=== PATIENT | male | born 1950 | race Caucasian/White ===

== ENCOUNTER 2025-01-05 03:49 | Emergency (ER) | payer MEDICARE, OTHER, SELFPAY ==
[2025-01-05] VITALS (11 sets, daily range): BP systolic 141–180; BP diastolic 53–104; PULSE 60–88; RESP 14–24; TEMP 36.5; O2SAT 94–100
--- NOTE | ~2025-01-05 | CT_ITS ---
CT head without contrast Indication: Altered mental status Technique: Serial scans were obtained through the brain without the administration of contrast. Dose reduction technique was used on this scan by utilizing automated exposure control and iterative recon struction technique. The dose-length product (DLP) was 681.00 mGy-cm. Findings: There is no evidence of intracranial hemorrhage, mass lesion, or acute infarct. The ventri cles and subarachnoid spaces are dilated, consistent with mild atrophy. Low attenuation regions are seen within the periventricular white matter bilaterally, likely representing changes from chronic mi crovascular ischemic disease. There is no evidence of edema, mass effect or midline shift. The visu alized paranasal sinuses and mastoid air cells are clear. Impression: No intracranial hemorrhage, mass, or acute infarct. Atrophy and chronic white matter changes, as above. Reviewed, dictated and finalized at location . Impression: No intracranial hemorrhage, mass, or acute infarct. Atrophy and chronic white matter changes, as above.
--- NOTE | ~2025-01-05 | XR_ITS ---
Portable chest x-ray Comparison: None Clinical History: Cough, tracheostomy Findings: Tracheostomy cannula place. There is patchy left basilar airspace consolidation with small left pleural effusion. Minimal haziness right lung base noted. Cardiomediastinal silhouette is stab le. Bones and soft tissues are unremarkable. Impression: Patchy left basilar consolidation suspicious for pneumonia versus possibly atelectasis. Small left pleural effusion. Minimal nonspecific haziness right lung base. Tracheostomy cannula. Reviewed, dictated and finalized at [facility]. Impression: Patchy left basilar consolidation suspicious for pneumonia versus possibly atel ectasis. Small left pleural effusion. Minimal nonspecific haziness right lung base. Tracheostomy cannula.
--- NOTE | 2025-01-05 03:53 | ECG_ITS ---
Test Date: 2025-01-05 03:53:57 Measurements Intervals Guys Rate: 90 P: 18 NH: 201 QRS: -66 QRSD: 108 T: 128 QT: 375 QTc: 460 Interpretive Statements SINUS RHYTHM WITH OCCASIONAL SUPRAVENTRICULAR PREMATURE COMPLEXES BORDERLINE AV CONDUCTION DELAY LEFT ANTERIOR FASCICULAR BLOCK ST-T WAVE ABNORMALITY IN HIGH LATERAL LEADS- CONSIDER ISCHEMIA ABNORMAL ECG No previous ECG available for comparison Electronically Signed On 01-05-2025 10:57:54 CDT by Adam Austin D.O.
--- OUTSIDE RECORDS SUMMARY | 2025-01-05 03:59 | XMS_ITS | Encounter Summary ---
Author Organization [facility] Address [address] [place] [address] Care Team Providers Care Band Nailer Name Role Phone Unavailable Primary Care Provider Unavailabl e Encounter Details Date Type Department Care Team (Late st Contact Info) Description 11/19/2022 Lab Requisition [facility] Laboratory Services [address] [place] [address] [place] [address] [place] [address] Social History Tobacco Use Types Packs/Day Years Used Date Smoking Tobacco: Never Assessed Sex and Gender Information Value Date Recorded Sex Assigned at Not on file Legal Sex Male 2:27 PM DRAMATIC TEACHER Gender Identity Not on file Sexual Orientation Not on file COVID-19 Exposure Response Date Recorded In the last 10 days, have yo u been in contact with someone who was confirmed or suspected to have Coronavirus/COVID-19? Unable to assess 11/19/2022 6:21 AM DRAMATIC TEACHER documented as of this encounter Plan of Treatment Not on file documented as of this encounter Procedures Procedure Name Priority Date/Time Associated Diagnosis Comments CBC WITH DIFFERENTIAL Routine 11/19/2022 4:00 AM DRAMATIC TEACHER BASIC METABOLIC PANEL Routine 11/19/2022 4:00 AM DRAMATIC TEACHER documented in this encounter Results * (ABNORMAL) CBC WITH DIFFERENTIAL (11/19/2022 4:00 AM DRAMATIC TEACHER) Pathologist [facility] WBC 9.4 4.5 - 10.5 K/uL 11/19/2022 7:12 AM DRAMATIC TEACHER [facility] LABORATORY SERVICES [facility] RBC 3.13(L) 4.50 - 5.40 M/uL 11/19/2022 7:[address] [facility] LABORATORY [facility] HEMOGLOBIN 9.4(L) 13.6 - 16.5 g/dL 11/19/2022 7:[address] [facility] LABORATORY [facility] HEMATOCRIT 28.0(L) 40.0 - 48.0 % 11/19/2022 7:[address] [facility] LABORATORY SERVICES [facility] MCV 89.4 82.0 - 99.0 fL 11/19/2022 7:12 AM DRAMATIC TEACHER [facility] LABORATORY SERVICES [facility] MCH 30.0 27.8 - 34.5 pg 11/19/2022 7:[address] [facility] LABORATORY SERVICES [facility] MCHC 33.5 32.5 - 35.5 g/dL 11/19/2022 7:[address] [facility] LABORATORY [facility] RDW 15.0(H) 11.5 - 14.5 % 11/19/2022 7:12 AM DRAMATIC TEACHER [facility] LABORATORY SERVICES [facility] PLATELETS 217 160 - 420 K/uL 11/19/2022 7:12 AM DRAMATIC TEACHER [facility] LABORATORY SERVICES [facility] MPV 9.4 8.7 - 12.7 fL 11/19/2022 7:12 AM DRAMATIC TEACHER [facility] LABORATORY SERVICES [facility] NEUTROPHILS 64 % 11/19/2022 7:12 AM DRAMATIC TEACHER [facility] LABORATORY SERVICES [facility] LYMPHOCYTES 19 % 11/19/2022 7:12 AM DRAMATIC TEACHER [facility] LABORATORY SERVICES [facility] MONOCYTES 9 % 11/19/2022 7:12 AM DRAMATIC TEACHER [facility] LABORATORY SERVICES [facility] EOSINOPHILS 6 % 11/19/2022 7:12 AM DRAMATIC TEACHER [facility] LABORATORY SERVICES [facility] BASOPHILS 1 % 11/19/2022 7:12 AM DRAMATIC TEACHER [facility] LABORATORY SERVICES [facility] NEUTROPHIL ABSOLUTE 6.10 1.90 - 7.00 K/uL 11/19/2022 7:12 AM DRAMATIC TEACHER [facility] LABORATORY [facility] LYMPHOCYTE ABSOLUTE 1.80 0.70 - 4.50 K/uL 11/19/2022 7:12 AM DRAMATIC TEACHER [facility] LABORATORY SERVICES [facility] MONOCYTE ABSOLUTE 0.90 0.10 - 1.30 K/uL 11/19/2022 7:12 AM DRAMATIC TEACHER [facility] LABORATORY [facility] EOSINOPHIL ABSOLUTE 0.60 0.00 - 0.70 K/uL 11/19/2022 7:[address] [facility] LABORATORY [facility] BASOPHILS ABSOLUTE 0.10 0.00 - 0.20 K/uL 11/19/2022 7:12 AM [facility] Blood Collection / Unknown 11/19/2022 4:00 AM DRAMATIC TEACHER 11/19/2022 7:01 AM DRAMATIC TEACHER us Franco Apple MD HEMATOLOGY ORDERABLES Final Resu lt [facility] CLIA# [id number] [place] [address] * (ABNORMAL) BASIC METABOLIC PANEL (11/19/2022 4:00 AM DRAMATIC TEACHER) SODIUM 136 136 - 145 mmol/L 11/19/2022 7:52 AM [facility] POTASSIUM 3.6 3.4 - 5.1 mmol/L 11/19/2022 7:52 AM [facility] CHLORIDE 88(L) 98 - 107 mmol/L 11/19/2022 7:52 AM [facility] CO2 35(H) 22 - 29 mmol/L 11/19/2022 7:52 AM [facility] CALCIUM 10.6(H) 8.6 - 10.4 mg/dL 11/19/2022 7:52 AM [facility] BUN 59(H) 6 - 20 mg/dL 11/19/2022 7:52 AM [facility] CREATININE 0.91 0.67 - 1.17 mg/dL 11/19/2022 7:52 AM [facility] Comment:The GFR result is no t clinically significant on patients <18 or >70 years of age. GLUCOSE 177(H) 74 - 99 mg/dL 11/19/2022 7:52 AM [facility] GFR >60 mL/min/1.7 3 sq meter 11/19/2022 7:52 AM DRAMATIC TEACHER [facility] LABORATORY [facility] Comment:eGFR calculated with 2020 CKD-EPI equation. Vegetarian diet, extremely high or low muscle mass, and may affect results. Cystatin C with Glomerular Filtration Rate is a suitable alternative for these patients. ANION GAP 13 8 - 16 mmol/L 11/19/2022 7:52 AM DRAMATIC TEACHER [facility] LABORATORY [facility] Blood Collection / Unknown 11/19/2022 4:00 AM DRAMATIC TEACHER 11/19/2022 7:01 AM DRAMATIC TEACHER us Franco Apple MD CHEMISTRY ORDERABLES Final Resul t [facility] [employer] [facility] CLIA# [id number] [address] [place] [address] documented in this encounter Visit Diagnoses Not on filedocumented in this encounter Additional Health Concerns Infection Onset Date Last Indicated Resolved Time MRSA Comment:09/2022 sputum Resolved per Type and Duration of Precautions Recommended for Selected Infections and Conditions document 2023 update 09/16/2022 09/28/202206/04 4:18 PM CDT documented as of this encounter
--- OUTSIDE RECORDS SUMMARY | 2025-01-05 03:59 | XMS_ITS | Encounter Summary ---
Author Organization [facility] Address [address] [place] [address] Care Team Providers Care Industrial Pipefitter Journeyman Name Role Phone Unavailable Primary Care Provider Unavailabl e Encounter Details Date Type Department Care Team (Late st Contact Info) Description 12/01/2022 Lab Requisition [facility] Laboratory Services [address] [place] [address] [place] [address] [place] [address] Social History Tobacco Use Types Packs/Day Years Used Date Smoking Tobacco: Never Assessed Sex and Gender Information Value Date Recorded Sex Assigned at Not on file Legal Sex Male 2:27 PM EVAPORATOR Gender Identity Not on file Sexual Orientation Not on file COVID-19 Exposure Response Date Recorded In the last 10 days, have yo u been in contact with someone who was confirmed or suspected to have Coronavirus/COVID-19? Unable to assess 12/02/2022 11:49 AM EVAPORATOR documented as of this encounter Plan of Treatment Not on file documented as of this encounter Procedures Procedure Name Priority Date/Time Associated Diagnosis Comments CBC WITH DIFFERENTIAL Routine 12/01/2022 4:00 AM EVAPORATOR BASIC METABOLIC PANEL Routine 12/01/2022 4:00 AM EVAPORATOR documented in this encounter Results * (ABNORMAL) CBC WITH DIFFERENTIAL (12/01/2022 4:00 AM EVAPORATOR) WBC 10.7(H) 4.5 - 10.5 K/uL 12/01/2022 7:45 AM EVAPORATOR [facility] LABORATORY SERVICES [facility] RBC 3.18(L) 4.50 - 5.40 M/uL 12/01/2022 7:45 AM EVAPORATOR [facility] LABORATORY [facility] HEMOGLOBIN 9.7(L) 13.6 - 16.5 g/dL 12/01/2022 7:45 AM [facility] LABORATORY [facility] HEMATOCRIT 28.3(L) 40.0 - 48.0 % 12/01/2022 7:45 AM EVAPORATOR [facility] LABORATORY [facility] MCV 88.9 82.0 - 99.0 fL 12/01/2022 7:45 AM EVAPORATOR [facility] LABORATORY SERVICES [facility] MCH 30.4 27.8 - 34.5 pg 12/01/2022 7:45 AM EVAPORATOR [facility] LABORATORY SERVICES [facility] MCHC 34.2 32.5 - 35.5 g/dL 12/01/2022 7:45 AM [facility] LABORATORY [facility] RDW 15.1(H) 11.5 - 14.5 % 12/01/2022 7:45 AM EVAPORATOR [facility] LABORATORY [facility] PLATELETS 260 160 - 420 K/uL 12/01/2022 7:45 AM EVAPORATOR [facility] LABORATORY [facility] MPV 9.3 8.7 - 12.7 fL 12/01/2022 7:45 AM EVAPORATOR [facility] LABORATORY SERVICES [facility] NEUTROPHILS 69 % 12/01/2022 7:45 AM EVAPORATOR [facility] LABORATORY [facility] LYMPHOCYTES 19 % 12/01/2022 7:45 AM EVAPORATOR [facility] LABORATORY SERVICES [facility] MONOCYTES 8 % 12/01/2022 7:45 AM EVAPORATOR [facility] LABORATORY SERVICES [facility] EOSINOPHILS 4 % 12/01/2022 7:45 AM EVAPORATOR [facility] LABORATORY SERVICES [facility] BASOPHILS 0 % 12/01/2022 7:45 AM EVAPORATOR [facility] LABORATORY SERVICES [facility] NEUTROPHIL ABSOLUTE 7.30(H) 1.90 - 7.00 K/uL 12/01/2022 7:45 AM EVAPORATOR [facility] LABORATORY [facility] LYMPHOCYTE ABSOLUTE 2.00 0.70 - 4.50 K/uL 12/01/2022 7:45 AM EVAPORATOR [facility] LABORATORY SERVICES [facility] MONOCYTE ABSOLUTE 0.90 0.10 - 1.30 K/uL 12/01/2022 7:45 AM [facility] [place] EOSINOPHIL ABSOLUTE 0.40 0.00 - 0.70 K/uL 12/01/2022 7:45 AM [facility] [place] BASOPHILS ABSOLUTE 0.00 0.00 - 0.20 K/uL 12/01/2022 7:45 AM [facility] [place] Blood 12/01/2022 4:00 AM EVAPORATOR 12/01/2022 7:39 AM EVAPORATOR Franco Apple MD HEMATOLOGY ORDERABLES Final Resu lt [facility] CLIA# [id number] [address] [place] [address] * (ABNORMAL) BASIC METABOLIC PANEL (12/01/2022 4:00 AM EVAPORATOR) SODIUM 137 136 - 145 mmol/L 12/01/2022 8:18 AM [facility] [place] POTASSIUM 3.4 3.4 - 5.1 mmol/L 12/01/2022 8:18 AM [facility] [place] CHLORIDE 92(L) 98 - 107 mmol/L 12/01/2022 8:18 AM [facility] [place] CO2 31(H) 22 - 29 mmol/L 12/01/2022 8:18 AM [facility] [place] CALCIUM 10.5(H) 8.6 - 10.4 mg/dL 12/01/2022 8:18 AM [facility] [place] BUN 53(H) 6 - 20 mg/dL 12/01/2022 8:18 AM [facility] [place] CREATININE 1.06 0.67 - 1.17 mg/dL 12/01/2022 8:18 AM [facility] [place] Comment:The GFR result is no t clinically significant on patients <18 or >70 years of age. GLUCOSE 144(H) 74 - 99 mg/dL 12/01/2022 8:18 AM [facility] [place] GFR >60 mL/min/1.7 3 sq meter 12/01/2022 8:18 AM EVAPORATOR [facility] LABORATORY [facility] Comment:eGFR calculated with 2020 CKD-EPI equation. Vegetarian diet, extremely high or low muscle mass, and may affect results. Cystatin C with Glomerular Filtration Rate is a suitable alternative for these patients. ANION GAP 14 8 - 16 mmol/L 12/01/2022 8:18 AM EVAPORATOR [facility] LABORATORY [facility] Blood 12/01/2022 4:00 AM EVAPORATOR 12/01/2022 7:39 AM EVAPORATOR us Franco Apple MD CHEMISTRY ORDERABLES Final Resul t [facility] CLIA# [id number] [address] [place] [address] documented in this encounter Visit Diagnoses Not on filedocumented in this encounter Additional Health Concerns Infection Onset Date Last Indicated Resolved Time MRSA Comment:09/2022 sputum Resolved per Type and Duration of Precautions Recommended for Selected Infections and Conditions document 2023 update 09/16/2022 09/28/202206/04 4:18 PM CDT documented as of this encounter
--- OUTSIDE RECORDS SUMMARY | 2025-01-05 03:59 | XMS_ITS | Encounter Summary ---
Author Organization [facility] Address [address] [place] [address] Care Team Providers Care Parachute Taper Name Role Phone Unavailable Primary Care Provider Unavailabl e Encounter Details Date Type Department Care Team (Late st Contact Info) Description 11/16/[address] [facility] [address] [facility] [place] [address] [place] [address] [place] [address] Social History Tobacco Use Types Packs/Day Years Used Date Smoking Tobacco: Never Assessed Sex and Gender Information Value Date Recorded Sex Assigned at Not on file Legal Sex Male 2:27 PM SIGN FABRICATOR Gender Identity Not on file Sexual Orientation Not on file COVID-19 Exposure Response Date Recorded In the last 10 days, have yo u been in contact with someone who was confirmed or suspected to have Coronavirus/COVID-19? Unable to assess 11/19/2022 6:21 AM SIGN FABRICATOR documented as of this encounter Plan of Treatment Not on file documented as of this encounter Procedures Procedure Name Priority Date/Time Associated Diagnosis Comments CBC WITH DIFFERENTIAL Routine 11/16/2022 4:00 AM SIGN FABRICATOR BASIC METABOLIC PANEL Routine 11/16/2022 4:00 AM SIGN FABRICATOR documented in this encounter Results * (ABNORMAL) CBC WITH DIFFERENTIAL (11/16/2022 4:00 AM SIGN FABRICATOR) Pathologist [facility] WBC 8.8 4.5 - 10.5 K/uL 11/16/2022 7:47 AM SIGN FABRICATOR [facility] LABORATORY SERVICES [facility] RBC 3.07(L) 4.50 - 5.40 M/uL 11/16/2022 7:47 AM [facility] LABORATORY [facility] HEMOGLOBIN 9.3(L) 13.6 - 16.5 g/dL 11/16/2022 7:47 AM [facility] LABORATORY [facility] HEMATOCRIT 27.5(L) 40.0 - 48.0 % 11/16/2022 7:47 AM SIGN FABRICATOR [facility] LABORATORY SERVICES [facility] MCV 89.5 82.0 - 99.0 fL 11/16/2022 7:47 AM SIGN FABRICATOR [facility] LABORATORY SERVICES [facility] MCH 30.2 27.8 - 34.5 pg 11/16/2022 7:47 AM SIGN FABRICATOR [facility] LABORATORY SERVICES [facility] MCHC 33.8 32.5 - 35.5 g/dL 11/16/2022 7:47 AM [facility] LABORATORY SERVICES [facility] RDW 15.1(H) 11.5 - 14.5 % 11/16/2022 7:47 AM SIGN FABRICATOR [facility] LABORATORY SERVICES [facility] PLATELETS 234 160 - 420 K/uL 11/16/2022 7:47 AM SIGN FABRICATOR [facility] LABORATORY SERVICES [facility] MPV 9.2 8.7 - 12.7 fL 11/16/2022 7:47 AM SIGN FABRICATOR [facility] LABORATORY SERVICES [facility] NEUTROPHILS 65 % 11/16/2022 7:47 AM SIGN FABRICATOR [facility] LABORATORY SERVICES [facility] LYMPHOCYTES 20 % 11/16/2022 7:47 AM SIGN FABRICATOR [facility] LABORATORY SERVICES [facility] MONOCYTES 10 % 11/16/2022 7:47 AM SIGN FABRICATOR [facility] LABORATORY SERVICES [facility] EOSINOPHILS 5 % 11/16/2022 7:47 AM SIGN FABRICATOR [facility] LABORATORY SERVICES [facility] BASOPHILS 0 % 11/16/2022 7:47 AM SIGN FABRICATOR [facility] LABORATORY SERVICES [facility] NEUTROPHIL ABSOLUTE 5.70 1.90 - 7.00 K/uL 11/16/2022 7:47 AM SIGN FABRICATOR [facility] LABORATORY [facility] LYMPHOCYTE ABSOLUTE 1.80 0.70 - 4.50 K/uL 11/16/2022 7:47 AM SIGN FABRICATOR [facility] LABORATORY SERVICES [facility] MONOCYTE ABSOLUTE 0.90 0.10 - 1.30 K/uL 11/16/2022 7:47 AM SIGN FABRICATOR [facility] LABORAT[facility] EOSINOPHIL ABSOLUTE 0.40 0.00 - 0.70 K/uL 11/16/2022 7:47 AM [facility] LABORATORY [facility] BASOPHILS ABSOLUTE 0.00 0.00 - 0.20 K/uL 11/16/2022 7:47 AM [facility] Blood 11/16/2022 4:00 AM SIGN FABRICATOR 11/16/2022 7:37 AM SIGN FABRICATOR us Franco Apple MD HEMATOLOGY ORDERABLES Final Resu lt [facility] CLIA# [id number] [address] [place] [address] * (ABNORMAL) BASIC METABOLIC PANEL (11/16/2022 4:00 AM SIGN FABRICATOR) SODIUM 135(L) 136 - 145 mmol/L 11/16/2022 8:02 AM [facility] POTASSIUM 3.2(L) 3.4 - 5.1 mmol/L 11/16/2022 8:02 AM [facility] CHLORIDE 89(L) 98 - 107 mmol/L 11/16/2022 8:02 AM [facility] CO2 32(H) 22 - 29 mmol/L 11/16/2022 8:02 AM [facility] CALCIUM 10.7(H) 8.6 - 10.4 mg/dL 11/16/2022 8:02 AM [facility] BUN 49(H) 6 - 20 mg/dL 11/16/2022 8:02 AM [facility] CREATININE 0.87 0.67 - 1.17 mg/dL 11/16/2022 8:02 AM [facility] Comment:The GFR result is no t clinically significant on patients <18 or >70 years of age. GLUCOSE 211(H) 74 - 99 mg/dL 11/16/2022 8:02 AM [facility] GFR >60 mL/min/1.7 3 sq meter 11/16/2022 8:02 AM SIGN FABRICATOR [facility] LABORATORY [facility] Comment:eGFR calculated with 2020 CKD-EPI equation. Vegetarian diet, extremely high or low muscle mass, and may affect results. Cystatin C with Glomerular Filtration Rate is a suitable alternative for these patients. ANION GAP 14 8 - 16 mmol/L 11/16/2022 8:02 AM SIGN FABRICATOR [facility] LABORAT[facility] Blood 11/16/2022 4:00 AM SIGN FABRICATOR 11/16/2022 7:37 AM SIGN FABRICATOR us Franco Apple MD CHEMISTRY ORDERABLES Final Resul t [facility] CLIA# [id number] [address] [place] [address] documented in this encounter Visit Diagnoses Not on filedocumented in this encounter Additional Health Concerns Infection Onset Date Last Indicated Resolved Time MRSA Comment:09/2022 sputum Resolved per Type and Duration of Precautions Recommended for Selected Infections and Conditions document 2023 update 09/16/2022 09/28/202206/04 4:18 PM CDT documented as of this encounter
--- OUTSIDE RECORDS SUMMARY | 2025-01-05 03:59 | XMS_ITS | Encounter Summary ---
Author Organization [facility] Address [address] [place] [address] Care Team Providers Care Regrinder Name Role Phone Unavailable Primary Care Provider Unavailabl e Encounter Details Date Type Department Care Team (Late st Contact Info) Description 11/22/2022 Lab Requisition [facility] Laboratory Services [address] [place] [address] [place] [address] [place] [address] Social History Tobacco Use Types Packs/Day Years Used Date Smoking Tobacco: Never Assessed Sex and Gender Information Value Date Recorded Sex Assigned at Not on file Legal Sex Male 2:27 PM HOME ASSESSMENT NURSE Gender Identity Not on file Sexual Orientation Not on file COVID-19 Exposure Response Date Recorded In the last 10 days, have yo u been in contact with someone who was confirmed or suspected to have Coronavirus/COVID-19? Unable to assess 11/23/2022 7:22 AM HOME ASSESSMENT NURSE documented as of this encounter Plan of Treatment Not on file documented as of this encounter Procedures Procedure Name Priority Date/Time Associated Diagnosis Comments CBC WITH DIFFERENTIAL Routine 11/22/2022 4:35 AM HOME ASSESSMENT NURSE BASIC METABOLIC PANEL Routine 11/22/2022 4:35 AM HOME ASSESSMENT NURSE documented in this encounter Results * (ABNORMAL) CBC WITH DIFFERENTIAL (11/22/2022 4:35 AM HOME ASSESSMENT NURSE) Pathologist [facility] WBC 9.8 4.5 - 10.5 K/uL 11/22/2022 6:11 AM HOME ASSESSMENT NURSE [facility] LABORATORY SERVICES [facility] RBC 3.12(L) 4.50 - 5.40 M/uL 11/22/2022 6:11 AM [facility] HEMOGLOBIN 9.1(L) 13.6 - 16.5 g/dL 11/22/2022 6:11 AM [facility] HEMATOCRIT 28.0(L) 40.0 - 48.0 % 11/22/2022 6:11 AM [facility] MCV 90.0 82.0 - 99.0 fL 11/22/2022 6:11 AM HOME ASSESSMENT NURSE [facility] LABORATORY SERVICES [facility] MCH 29.3 27.8 - 34.5 pg 11/22/2022 6:11 AM HOME ASSESSMENT NURSE [facility] LABORATORY SERVICES [facility] MCHC 32.6 32.5 - 35.5 g/dL 11/22/2022 6:11 AM [facility] SERVICES [facility] RDW 15.0(H) 11.5 - 14.5 % 11/22/2022 6:11 AM HOME ASSESSMENT NURSE [facility] LABORATORY SERVICES [facility] PLATELETS 222 160 - 420 K/uL 11/22/2022 6:11 AM HOME ASSESSMENT NURSE [facility] LABORATORY SERVICES [facility] MPV 9.3 8.7 - 12.7 fL 11/22/2022 6:11 AM HOME ASSESSMENT NURSE [facility] LABORATORY SERVICES [facility] NEUTROPHILS 63 % 11/22/2022 6:11 AM HOME ASSESSMENT NURSE [facility] LABORATORY SERVICES [facility] LYMPHOCYTES 23 % 11/22/2022 6:11 AM HOME ASSESSMENT NURSE [facility] LABORATORY SERVICES [facility] MONOCYTES 10 % 11/22/2022 6:11 AM HOME ASSESSMENT NURSE [facility] LABORATORY SERVICES [facility] EOSINOPHILS 4 % 11/22/2022 6:11 AM HOME ASSESSMENT NURSE [facility] LABORATORY SERVICES [facility] BASOPHILS 1 % 11/22/2022 6:11 AM HOME ASSESSMENT NURSE [facility] LABORATORY SERVICES [facility] NEUTROPHIL ABSOLUTE 6.20 1.90 - 7.00 K/uL 11/22/2022 6:11 AM HOME ASSESSMENT NURSE [facility] LABORATORY SERVICES [facility] LYMPHOCYTE ABSOLUTE 2.20 0.70 - 4.50 K/uL 11/22/2022 6:11 AM HOME ASSESSMENT NURSE [facility] LABORATORY SERVICES [facility] MONOCYTE ABSOLUTE 0.90 0.10 - 1.30 K/uL 11/22/2022 6:11 AM HOME ASSESSMENT NURSE [facility] LABORATORY [facility] EOSINOPHIL ABSOLUTE 0.40 0.00 - 0.70 K/uL 11/22/2022 6:11 AM [facility] BASOPHILS ABSOLUTE 0.10 0.00 - 0.20 K/uL 11/22/2022 6:[address] [facility] Blood 11/22/2022 4:35 AM HOME ASSESSMENT NURSE 11/22/2022 6:03 AM HOME ASSESSMENT NURSE us Franco Apple MD HEMATOLOGY ORDERABLES Final Resu lt [facility] CLIA# [id number] [place] [address] * (ABNORMAL) BASIC METABOLIC PANEL (11/22/2022 4:35 AM HOME ASSESSMENT NURSE) SODIUM 137 136 - 145 mmol/L 11/22/2022 6:[address] [facility] POTASSIUM 3.8 3.4 - 5.1 mmol/L 11/22/2022 6:[address] [facility] CHLORIDE 92(L) 98 - 107 mmol/L 11/22/2022 6:[address] [facility] CO2 32(H) 22 - 29 mmol/L 11/22/2022 6:[address] [facility] CALCIUM 10.3 8.6 - 10.4 mg/dL 11/22/2022 6:[address] [facility] BUN 46(H) 6 - 20 mg/dL 11/22/2022 6:[address] [facility] CREATININE 0.96 0.67 - 1.17 mg/dL 11/22/2022 6:[address] [facility] Comment:The GFR result is no t clinically significant on patients <18 or >70 years of age. GLUCOSE 215(H) 74 - 99 mg/dL 11/22/2022 6:[address] [facility] GFR >60 mL/min/1.7 3 sq meter 11/22/2022 6:45 AM HOME ASSESSMENT NURSE [facility] LABORATORY SERVICES [facility] Comment:eGFR calculated with 2020 CKD-EPI equation. Vegetarian diet, extremely high or low muscle mass, and may affect results. Cystatin C with Glomerular Filtration Rate is a suitable alternative for these patients. ANION GAP 13 8 - 16 mmol/L 11/22/2022 6:45 AM HOME ASSESSMENT NURSE [facility] LABORATORY [facility] Blood 11/22/2022 4:35 AM HOME ASSESSMENT NURSE 11/22/2022 6:03 AM HOME ASSESSMENT NURSE us Franco Apple MD CHEMISTRY ORDERABLES Final Resul t [facility] LABORATORY [facility] CLIA# [id number] [place] [address] documented in this encounter Visit Diagnoses Not on filedocumented in this encounter Additional Health Concerns Infection Onset Date Last Indicated Resolved Time MRSA Comment:09/2022 sputum Resolved per Type and Duration of Precautions Recommended for Selected Infections and Conditions document 2023 update 09/16/2022 09/28/202206/04 4:18 PM CDT documented as of this encounter
--- OUTSIDE RECORDS SUMMARY | 2025-01-05 03:59 | XMS_ITS | Encounter Summary ---
Author Organization [facility] Address [address] [place] [address] Care Team Providers Care Shipping Packer Name Role Phone Unavailable Primary Care Provider Unavailabl e Encounter Details Date Type Department Care Team (Late st Contact Info) Description 11/13/2022 Lab Requisition [facility] Laboratory Services [address] [place] [address] [place] [address] [place] [address] Social History Tobacco Use Types Packs/Day Years Used Date Smoking Tobacco: Never Assessed Sex and Gender Information Value Date Recorded Sex Assigned at Not on file Legal Sex Male 2:27 PM STATISTICAL ASSISTANT Gender Identity Not on file Sexual Orientation Not on file COVID-19 Exposure Response Date Recorded In the last 10 days, have yo u been in contact with someone who was confirmed or suspected to have Coronavirus/COVID-19? Unable to assess 11/04/2022 12:51 PM STATISTICAL ASSISTANT documented as of this encounter Plan of Treatment Not on file documented as of this encounter Procedures Procedure Name Priority Date/Time Associated Diagnosis Comments CBC WITH DIFFERENTIAL Routine 11/13/2022 4:00 AM STATISTICAL ASSISTANT BASIC METABOLIC PANEL Routine 11/13/2022 4:00 AM STATISTICAL ASSISTANT documented in this encounter Results * (ABNORMAL) CBC WITH DIFFERENTIAL (11/13/2022 4:00 AM STATISTICAL ASSISTANT) [facility] WBC 8.5 4.5 - 10.5 K/uL 11/13/2022 7:21 AM STATISTICAL ASSISTANT [facility] LABORATORY SERVICES [facility] RBC 3.09(L) 4.50 - 5.40 M/uL 11/13/2022 7:21 AM [facility] HEMOGLOBIN 9.3(L) 13.6 - 16.5 g/dL 11/13/2022 7:21 AM [facility] HEMATOCRIT 27.7(L) 40.0 - 48.0 % 11/13/2022 7:21 AM [facility] SERVICES [facility] MCV 89.6 82.0 - 99.0 fL 11/13/2022 7:21 AM STATISTICAL ASSISTANT [facility] LABORATORY SERVICES [facility] MCH 30.2 27.8 - 34.5 pg 11/13/2022 7:21 AM STATISTICAL ASSISTANT [facility] LABORATORY SERVICES [facility] MCHC 33.7 32.5 - 35.5 g/dL 11/13/2022 7:21 AM [facility] SERVICES [facility] RDW 15.4(H) 11.5 - 14.5 % 11/13/2022 7:21 AM STATISTICAL ASSISTANT [facility] LABORATORY SERVICES [facility] PLATELETS 246 160 - 420 K/uL 11/13/2022 7:21 AM STATISTICAL ASSISTANT [facility] LABORATORY SERVICES [facility] MPV 9.5 8.7 - 12.7 fL 11/13/2022 7:21 AM STATISTICAL ASSISTANT [facility] LABORATORY SERVICES [facility] NEUTROPHILS 64 % 11/13/2022 7:21 AM STATISTICAL ASSISTANT [facility]ORATORY SERVICES [facility] LYMPHOCYTES 21 % 11/13/2022 7:21 AM STATISTICAL ASSISTANT [facility]ATORY SERVICES [facility] MONOCYTES 9 % 11/13/2022 7:21 AM STATISTICAL ASSISTANT [facility] EOSINOPHILS 6 % 11/13/2022 7:21 AM STATISTICAL ASSISTANT [facility]ORY SERVICES [facility] BASOPHILS 1 % 11/13/2022 7:21 AM STATISTICAL ASSISTANT [facility]ATORY SERVICES [facility] NEUTROPHIL ABSOLUTE 5.50 1.90 - 7.00 K/uL 11/13/2022 7:21 AM STATISTICAL ASSISTANT [facility]ORATORY SERVICES [facility] LYMPHOCYTE ABSOLUTE 1.80 0.70 - 4.50 K/uL 11/13/2022 7:21 AM STATISTICAL ASSISTANT [facility]ATORY SERVICES [facility] MONOCYTE ABSOLUTE 0.70 0.10 - 1.30 K/uL 11/13/2022 7:21 AM STATISTICAL ASSISTANT [facility] LAB[facility] EOSINOPHIL ABSOLUTE 0.50 0.00 - 0.70 K/uL 11/13/2022 7:21 AM [facility] BASOPHILS ABSOLUTE 0.00 0.00 - 0.20 K/uL 11/13/2022 7:21 AM [facility] [place] Blood Collection / Unknown 11/13/2022 4:00 AM STATISTICAL ASSISTANT 11/13/2022 7:04 AM STATISTICAL ASSISTANT Franco Apple MD HEMATOLOGY ORDERABLES Final Resu lt [facility] CLIA# [id number] [place] [address] * (ABNORMAL) BASIC METABOLIC PANEL (11/13/2022 4:00 AM STATISTICAL ASSISTANT) SODIUM 136 136 - 145 mmol/L 11/13/2022 7:39 AM [facility] [place] POTASSIUM 3.3(L) 3.4 - 5.1 mmol/L 11/13/2022 7:39 AM [facility] [place] CHLORIDE 90(L) 98 - 107 mmol/L 11/13/2022 7:39 AM [facility] [place] CO2 34(H) 22 - 29 mmol/L 11/13/2022 7:39 AM [facility] [place] CALCIUM 10.7(H) 8.6 - 10.4 mg/dL 11/13/2022 7:39 AM [facility] [place] BUN 51(H) 6 - 20 mg/dL 11/13/2022 7:39 AM [facility] [place] [place] CREATININE 0.81 0.67 - 1.17 mg/dL 11/13/2022 7:39 AM [facility] [place] Comment:The GFR result is no t clinically significant on patients <18 or >70 years of age. GLUCOSE 144(H) 74 - 99 mg/dL 11/13/2022 7:39 AM [facility] [place] GFR >60 mL/min/1.7 3 sq meter 11/13/2022 7:39 AM STATISTICAL ASSISTANT [facility] LAB[facility] Comment:eGFR calculated with 2020 CKD-EPI equation. Vegetarian diet, extremely high or low muscle mass, and may affect results. Cystatin C with Glomerular Filtration Rate is a suitable alternative for these patients. ANION GAP 12 8 - 16 mmol/L 11/13/2022 7:39 AM STATISTICAL ASSISTANT [facility] LAB[facility] Blood Collection / Unknown 11/13/2022 4:00 AM STATISTICAL ASSISTANT 11/13/2022 7:04 AM STATISTICAL ASSISTANT us Franco Apple MD CHEMISTRY ORDERABLES Final Resul t [facility] CLIA# [id number] [address] [place] [address] documented in this encounter Visit Diagnoses Not on filedocumented in this encounter Additional Health Concerns Infection Onset Date Last Indicated Resolved Time MRSA Comment:09/2022 sputum Resolved per Type and Duration of Precautions Recommended for Selected Infections and Conditions document 2023 update 09/16/2022 09/28/202206/04 4:18 PM CDT documented as of this encounter
--- OUTSIDE RECORDS SUMMARY | 2025-01-05 03:59 | XMS_ITS | Encounter Summary ---
Author Organization [facility] Address [address] [place] [address] Care Team Providers Care Plant Superintendent Name Role Phone Unavailable Primary Care Provider Unavailabl e Encounter Details Date Type Department Care Team (Late st Contact Info) Description 11/18/2022 Lab Requisition [facility] Laboratory Services [address] [place] [address] [place] [address] [facility] [address] Social History Tobacco Use Types Packs/Day Years Used Date Smoking Tobacco: Never Assessed Sex and Gender Information Value Date Recorded Sex Assigned at Not on file Legal Sex Male 2:27 PM FUSION OPERATOR Gender Identity Not on file Sexual Orientation Not on file COVID-19 Exposure Response Date Recorded In the last 10 days, have yo u been in contact with someone who was confirmed or suspected to have Coronavirus/COVID-19? Unable to assess 11/19/2022 6:21 AM FUSION OPERATOR documented as of this encounter Plan of Treatment Not on file documented as of this encounter Procedures Procedure Name Priority Date/Time Associated Diagnosis Comments BLOOD CULTURE Routine 11/18/2022 4:45 PM FUSION OPERATOR CBC WITH DIFFERENTIAL Routine 11/18/2022 4:30 PM FUSION OPERATOR BLOOD CULTURE Routine 11/18/2022 4:30 PM FUSION OPERATOR BASIC METABOLIC PANEL Routine 11/18/2022 4:30 PM FUSION OPERATOR documented in this encounter Results * BLOOD CULTURE (11/18/2022 4:45 PM FUSION OPERATOR) BLOOD CULTURE No growth 11/23/2022 11:48 PM FUSION OPERATOR [facility] LABORATORY [facility] Blood 11/18/2022 4:45 PM FUSION OPERATOR 11/18/2022 7:48 PM FUSION OPERATOR Franco Apple MD MICROBIOLOGY - GENERAL ORDERABLE S Final Result [facility] CLNY# [id number] [address] [place] [id number] * BLOOD CULTURE (11/18/2022 4:30 PM FUSION OPERATOR) Pathologist [facility] BLOOD CULTURE No growth 11/23/2022 11:48 PM FUSION OPERATOR [facility] Blood 11/18/2022 4:30 PM FUSION OPERATOR 11/18/2022 7:48 PM FUSION OPERATOR Franco Apple MD MICROBIOLOGY - GENERAL ORDERABLE S Final Result [facility] CLNY# [id number] [address] [place] [address] * (ABNORMAL) CBC WITH DIFFERENTIAL (11/18/2022 4:30 PM FUSION OPERATOR) Pathologist [facility] WBC 12.1(H) 4.5 - 10.5 K/uL 11/18/2022 7:25 PM FUSION OPERATOR [facility] LABORAT[facility] RBC 3.18(L) 4.50 - 5.40 M/uL 11/18/2022 7:25 PM FUSION OPERATOR [facility] LABORAT[facility] HEMOGLOBIN 9.4(L) 13.6 - 16.5 g/dL 11/18/2022 7:25 PM FUSION OPERATOR [facility] HEMATOCRIT 28.5(L) 40.0 - 48.0 % 11/18/2022 7:25 PM FUSION OPERATOR [facility] LABORATORY [facility] MCV 89.6 82.0 - 99.0 fL 11/18/2022 7:25 PM FUSION OPERATOR [facility] LABORAT[facility] MCH 29.5 27.8 - 34.5 pg 11/18/2022 7:25 PM FUSION OPERATOR [facility] LABORATORY SERVICES [facility] MCHC 32.9 32.5 - 35.5 g/dL 11/18/2022 7:25 PM FUSION OPERATOR [facility] LABOR[facility] RDW 15.0(H) 11.5 - 14.5 % 11/18/2022 7:25 PM FUSION OPERATOR [facility] LABOR[facility] PLATELETS 245 160 - 420 K/uL 11/18/2022 7:25 PM FUSION OPERATOR [facility] LABOR[facility] MPV 9.2 8.7 - 12.7 fL 11/18/2022 7:25 PM FUSION OPERATOR [facility] LABOR[facility] NEUTROPHILS 71 % 11/18/2022 7:25 PM FUSION OPERATOR [facility] LABOR[facility] LYMPHOCYTES 16 % 11/18/2022 7:25 PM FUSION OPERATOR [facility] LABORATORY SERVICES [facility] MONOCYTES 8 % 11/18/2022 7:25 PM FUSION OPERATOR [facility] EOSINOPHILS 5 % 11/18/2022 7:25 PM FUSION OPERATOR [facility] LABORATORY SERVICES [facility] BASOPHILS 0 % 11/18/2022 7:25 PM FUSION OPERATOR [facility] LABORAT[facility] NEUTROPHIL ABSOLUTE 8.60(H) 1.90 - 7.00 K/uL 11/18/2022 7:25 PM FUSION OPERATOR [facility] LABORATORY [facility] LYMPHOCYTE ABSOLUTE 1.90 0.70 - 4.50 K/uL 11/18/2022 7:25 PM FUSION OPERATOR [facility] LABORAT[facility] MONOCYTE ABSOLUTE 1.00 0.10 - 1.30 K/uL 11/18/2022 7:25 PM FUSION OPERATOR [facility] LABORAT[facility] EOSINOPHIL ABSOLUTE 0.60 0.00 - 0.70 K/uL 11/18/2022 7:25 PM FUSION OPERATOR [facility] LABORATORY SERVICES [facility] BASOPHILS ABSOLUTE 0.00 0.00 - 0.20 K/uL 11/18/2022 7:25 PM FUSION OPERATOR [facility] LABORAT[facility] Blood 11/18/2022 4:30 PM FUSION OPERATOR 11/18/2022 7:22 PM FUSION OPERATOR Franco Apple MD HEMATOLOGY ORDERABLES Final Resu lt [facility] CLIA# [id number] [address] [place] [address] * (ABNORMAL) BASIC METABOLIC PANEL (11/18/2022 4:30 PM FUSION OPERATOR) SODIUM 136 136 - 145 mmol/L 11/18/2022 7:47 PM [facility] POTASSIUM 3.4 3.4 - 5.1 mmol/L 11/18/2022 7:47 PM [facility] CHLORIDE 88(L) 98 - 107 mmol/L 11/18/2022 7:47 PM [facility] CO2 33(H) 22 - 29 mmol/L 11/18/2022 7:47 PM [facility] CALCIUM 10.5(H) 8.6 - 10.4 mg/dL 11/18/2022 7:47 PM [facility] BUN 59(H) 6 - 20 mg/dL 11/18/2022 7:47 PM [facility] CREATININE 0.92 0.67 - 1.17 mg/dL 11/18/2022 7:47 PM [facility] Comment:The GFR result is no t clinically significant on patients <18 or >70 years of age. GLUCOSE 154(H) 74 - 99 mg/dL 11/18/2022 7:47 PM [facility] GFR >60 mL/min/1.7 3 sq meter 11/18/2022 7:47 PM [facility] Comment:eGFR calculated with 2020 CKD-EPI equation. Vegetarian diet, extremely high or low muscle mass, and may affect results. Cystatin C with Glomerular Filtration Rate is a suitable alternative for these patients. ANION GAP 15 8 - 16 mmol/L 11/18/2022 7:47 PM [facility] Blood BLOOD SPECIMEN / Unknown Collection / Unknown 11/18/2022 4:30 PM FUSION OPERATOR 11/18/2022 7:32 PM FUSION OPERATOR us Franco Apple MD CHEMISTRY ORDERABLES [facility]# [id number] [place] [address] documented in this encounter Visit Diagnoses Not on filedocumented in this encounter Additional Health Concerns Infection Onset Date Last Indicated Resolved Time MRSA Comment:09/2022 sputum Resolved per Type and Duration of Precautions Recommended for Selected Infections and Conditions document 2023 update 09/16/2022 09/28/202206/04 4:18 PM CDT documented as of this encounter
--- OUTSIDE RECORDS SUMMARY | 2025-01-05 03:59 | XMS_ITS | Encounter Summary ---
Author Organization [facility] Address [address] [place] [address] Care Team Providers Care Client Services Assistant Name Role Phone Unavailable Primary Care Provider Unavailabl e Encounter Details Date Type Department Care Team (Late st Contact Info) Description 12/22/2022 Lab Requisition [facility] Laboratory Services [address] [place] [address] [place] [address] [place] [address] Social History Tobacco Use Types Packs/Day Years Used Date Smoking Tobacco: Never Assessed Sex and Gender Information Value Date Recorded Sex Assigned at Not on file Legal Sex Male 2:27 PM ROUTE DELIVERY CLERK Gender Identity Not on file Sexual Orientation Not on file COVID-19 Exposure Response Date Recorded In the last 10 days, have yo u been in contact with someone who was confirmed or suspected to have Coronavirus/COVID-19? Unable to assess 12/21/2022 6:31 AM CDT documented as of this encounter Plan of Treatment Not on file documented as of this encounter Procedures Procedure Name Priority Date/Time Associated Diagnosis Comments CBC WITH DIFFERENTIAL Routine 12/22/2022 2:30 AM CDT HEPATIC FUNCTION PANEL Routine 12/22/2022 2:30 AM CDT BASIC METABOLIC PANEL Routine 12/22/2022 2:30 AM CDT documented in this encounter Results * (ABNORMAL) HEPATIC FUNCTION PANEL (12/22/2022 2:30 AM CDT) TOTAL PROTEIN 7.8 6.3 - 8.7 g/dL 12/22/2022 7:23 AM CDT [facility] ALBUMIN 3.4(L) 3.5 - 5.2 g/dL 12/22/2022 7:23 AM CDT [facility] BILIRUBIN TOTAL 0.7 0.2 - 1.1 mg/dL 12/22/2022 7:23 AM CDT [facility] BILIRUBIN DIRECT <0.2 0.0 - 0.3 mg/dL 12/22/2022 7:23 AM CDT [facility] ALKALINE PHOSPHATASE 115 40 - 150 U/L 12/22/2022 7:23 AM CDT [facility] AST 22 0 - 41 U/L 12/22/2022 7:23 AM CDT [facility] ALT 13 0 - 41 U/L 12/22/2022 7:23 AM T [facility] Blood Collection / Unknown 12/22/2022 2:30 AM CDT 12/22/2022 6:33 AM CDT us Franco Apple MD CHEMISTRY ORDERABLES Final Resul t [facility] CLIA# [id number] [place] [address] * (ABNORMAL) CBC WITH DIFFERENTIAL (12/22/2022 2:30 AM CDT) WBC 7.6 4.5 - 10.5 K/uL 12/22/2022 7:08 AM CDT [facility] RBC 3.42(L) 4.50 - 5.40 M/uL 12/22/2022 7:08 AM CDT [facility] HEMOGLOBIN 10.7(L) 13.6 - 16.5 g/dL 12/22/2022 7:08 AM T [facility] HEMATOCRIT 31.3(L) 40.0 - 48.0 % 12/22/2022 7:08 AM CDT [facility] MCV 91.4 82.0 - 99.0 fL 12/22/2022 7:08 AM CDT [facility] LABORATORY SERVICES [facility] MCH 31.2 27.8 - 34.5 pg 12/22/2022 7:08 AM CDT [facility] MCHC 34.1 32.5 - 35.5 g/dL 12/22/2022 7:08 AM CDT [facility] RDW 17.1(H) 11.5 - 14.5 % 12/22/2022 7:08 AM CDT [facility] PLATELETS 181 160 - 420 K/uL 12/22/2022 7:08 AM CDT [facility] MPV 9.6 8.7 - 12.7 fL 12/22/2022 7:08 AM CDT [facility] NEUTROPHILS 57 % 12/22/2022 7:08 AM CDT [facility] - [facility] LYMPHOCYTES 21 % 12/22/2022 7:08 AM CDT [facility] MONOCYTES 11 % 12/22/2022 7:08 AM CDT [facility] EOSINOPHILS 11 % 12/22/2022 7:08 AM CDT [facility] BASOPHILS 1 % 12/22/2022 7:08 AM CDT [facility] NEUTROPHIL ABSOLUTE 4.30 1.90 - 7.00 K/uL 12/22/2022 7:08 AM CDT [facility] LYMPHOCYTE ABSOLUTE 1.50 0.70 - 4.50 K/uL 12/22/2022 7:08 AM CDT [facility] MONOCYTE ABSOLUTE 0.90 0.10 - 1.30 K/uL 12/22/2022 7:08 AM CDT [facility] SERVICES [facility] EOSINOPHIL ABSOLUTE 0.80(H) 0.00 - 0.70 K/uL 12/22/2022 7:08 AM CDT [facility] BASOPHILS ABSOLUTE 0.00 0.00 - 0.20 K/uL 12/22/2022 7:08 AM CDT [facility] Blood Collection / Unknown 12/22/2022 2:30 AM CDT 12/22/2022 6:33 AM CDT Franco Apple MD HEMATOLOGY ORDERABLES Final Resu lt [facility] CLIA# [id number] [place] [address] * (ABNORMAL) BASIC METABOLIC PANEL (12/22/2022 2:30 AM CDT) SODIUM 139 136 - 145 mmol/L 12/22/2022 7:23 AM CDT [facility] POTASSIUM 4.4 3.4 - 5.1 mmol/L 12/22/2022 7:23 AM CDT [facility] CHLORIDE 98 98 - 107 mmol/L 12/22/2022 7:23 AM T [facility] CO2 30(H) 22 - 29 mmol/L 12/22/2022 7:23 AM T [facility] CALCIUM 10.7(H) 8.6 - 10.4 mg/dL 12/22/2022 7:23 AM T [facility] BUN 57(H) 6 - 20 mg/dL 12/22/2022 7:23 AM T [facility] CREATININE 1.08 0.67 - 1.17 mg/dL 12/22/2022 7:23 AM T [facility] Comment:The GFR result is no t clinically significant on patients <18 or >70 years of age. GLUCOSE 148(H) 74 - 99 mg/dL 12/22/2022 7:23 AM T [facility] GFR >60 mL/min/1.7 3 sq meter 12/22/2022 7:23 AM T [facility] Comment:eGFR calculated with 2020 CKD-EPI equation. Vegetarian diet, extremely high or low muscle mass, and may affect results. Cystatin C with Glomerular Filtration Rate is a suitable alternative for these patients. ANION GAP 11 8 - 16 mmol/L 12/22/2022 7:23 AM CDT [facility] Blood Collection / Unknown 12/22/2022 2:30 AM CDT 12/22/2022 6:33 AM CDT us Franco Apple MD CHEMISTRY ORDERABLES Final Resul t [facility] CLIA# [id number] [address] [place] [address] documented in this encounter Visit Diagnoses Not on filedocumented in this encounter Additional Health Concerns Infection Onset Date Last Indicated Resolved Time MRSA Comment:09/2022 sputum Resolved per Type and Duration of Precautions Recommended for Selected Infections and Conditions document 2023 update 09/16/2022 09/28/202206/04 4:18 PM CDT documented as of this encounter
--- OUTSIDE RECORDS SUMMARY | 2025-01-05 03:59 | XMS_ITS | Encounter Summary ---
Author Organization [facility] Address [address] [place] [address] Care Team Providers Care Flask Maker Name Role Phone Unavailable Primary Care Provider Unavailabl e Encounter Details Date Type Department Care Team (Late st Contact Info) Description 11/25/2022 Lab Requisition [facility] Laboratory Services [address] [place] [address] [place] [address] [place] [address] Social History Tobacco Use Types Packs/Day Years Used Date Smoking Tobacco: Never Assessed Sex and Gender Information Value Date Recorded Sex Assigned at Not on file Legal Sex Male 2:27 PM SPEECH AND HEARING CLINIC 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 Unable to assess 11/23/2022 7:22 AM SPEECH AND HEARING CLINIC DIRECTOR documented as of this encounter Plan of Treatment Not on file documented as of this encounter Procedures Procedure Name Priority Date/Time Associated Diagnosis Comments CBC WITH DIFFERENTIAL Routine 11/25/2022 12:30 AM SPEECH AND HEARING CLINIC DIRECTOR BASIC METABOLIC PANEL Routine 11/25/2022 12:30 AM SPEECH AND HEARING CLINIC DIRECTOR documented in this encounter Results * (ABNORMAL) CBC WITH DIFFERENTIAL (11/25/2022 12:30 AM SPEECH AND HEARING CLINIC DIRECTOR) [facility] WBC 7.0 4.5 - 10.5 K/uL 11/25/2022 11:01 AM SPEECH AND HEARING CLINIC DIRECTOR [facility] LABORATORY SERVICES [facility] RBC 3.08(L) 4.50 - 5.40 M/uL 11/25/2022 11:01 AM [facility] LABORATORY [facility] HEMOGLOBIN 9.1(L) 13.6 - 16.5 g/dL 11/25/2022 11:01 AM [facility] LABORATORY [facility] HEMATOCRIT 27.7(L) 40.0 - 48.0 % 11/25/2022 11:01 AM [facility] LABORATORY [facility] MCV 90.1 82.0 - 99.0 fL 11/25/2022 11:01 AM [facility] LABORATORY SERVICES [facility] MCH 29.4 27.8 - 34.5 pg 11/25/2022 11:01 AM [facility] LABORATORY SERVICES [facility] MCHC 32.7 32.5 - 35.5 g/dL 11/25/2022 11:01 AM [facility] LABORATORY [facility] RDW 14.8(H) 11.5 - 14.5 % 11/25/2022 11:01 AM [facility] LABORATORY [facility] PLATELETS 250 160 - 420 K/uL 11/25/2022 11:01 AM [facility] LABORATORY SERVICES [facility] MPV 9.4 8.7 - 12.7 fL 11/25/2022 11:01 AM [facility] LABORATORY SERVICES [facility] NEUTROPHILS 57 % 11/25/2022 11:01 AM [facility] LABORATORY [facility] LYMPHOCYTES 27 % 11/25/2022 11:01 AM SPEECH AND HEARING CLINIC DIRECTOR [facility] LABORATORY SERVICES [facility] MONOCYTES 10 % 11/25/2022 11:01 AM SPEECH AND HEARING CLINIC DIRECTOR [facility] LABORATORY SERVICES [facility] EOSINOPHILS 6 % 11/25/2022 11:01 AM SPEECH AND HEARING CLINIC DIRECTOR [facility] LABORATORY SERVICES [facility] BASOPHILS 1 % 11/25/2022 11:01 AM [facility] LABORATORY SERVICES [facility] NEUTROPHIL ABSOLUTE 4.00 1.90 - 7.00 K/uL 11/25/2022 11:01 AM [facility] LABORATORY [facility] LYMPHOCYTE ABSOLUTE 1.90 0.70 - 4.50 K/uL 11/25/2022 11:01 AM [facility] LABORATORY SERVICES [facility] MONOCYTE ABSOLUTE 0.70 0.10 - 1.30 K/uL 11/25/2022 11:01 AM SPEECH AND HEARING CLINIC DIRECTOR [facility] LABORATORY [facility] EOSINOPHIL ABSOLUTE 0.40 0.00 - 0.70 K/uL 11/25/2022 11:01 AM [facility] BASOPHILS ABSOLUTE 0.00 0.00 - 0.20 K/uL 11/25/2022 11:01 AM [facility] Blood Collection / Unknown 11/25/2022 12:30 AM SPEECH AND HEARING CLINIC DIRECTOR 11/25/2022 10:40 AM SPEECH AND HEARING CLINIC DIRECTOR Franco Apple MD HEMATOLOGY ORDERABLES Final Resu lt [facility] CLIA# [id number] [address] [place] [address] * (ABNORMAL) BASIC METABOLIC PANEL (11/25/2022 12:30 AM SPEECH AND HEARING CLINIC DIRECTOR) SODIUM 139 136 - 145 mmol/L 11/25/2022 11:26 AM [facility] POTASSIUM 3.8 3.4 - 5.1 mmol/L 11/25/2022 11:26 AM [facility] CHLORIDE 92(L) 98 - 107 mmol/L 11/25/2022 11:26 AM [facility] CO2 29 22 - 29 mmol/L 11/25/2022 11:26 AM [facility] CALCIUM 10.2 8.6 - 10.4 mg/dL 11/25/2022 11:26 AM [facility] BUN 54(H) 6 - 20 mg/dL 11/25/2022 11:26 AM [facility] CREATININE 1.02 0.67 - 1.17 mg/dL 11/25/2022 11:26 AM [facility] Brass Monkey [facility] Comment:The GFR result is no t clinically significant on patients <18 or >70 years of age. GLUCOSE 156(H) 74 - 99 mg/dL 11/25/2022 11:26 AM [facility] Brass Monkey [facility] GFR >60 mL/min/1.7 3 sq meter 11/25/2022 11:26 AM SPEECH AND HEARING CLINIC DIRECTOR [facility] LABORATORY SERVICES [facility] Comment:eGFR calculated with 2020 CKD-EPI equation. Vegetarian diet, extremely high or low muscle mass, and may affect results. Cystatin C with Glomerular Filtration Rate is a suitable alternative for these patients. ANION GAP 18(H) 8 - 16 mmol/L 11/25/2022 11:26 AM SPEECH AND HEARING CLINIC DIRECTOR [facility] LABORATORY [facility] Blood Collection / Unknown 11/25/2022 12:30 AM SPEECH AND HEARING CLINIC DIRECTOR 11/25/2022 10:40 AM SPEECH AND HEARING CLINIC DIRECTOR us Franco Apple MD CHEMISTRY ORDERABLES Final Resul t [facility] Brass Monkey [facility] CLIA# [id number] [place] [address] documented in this encounter Visit Diagnoses Not on filedocumented in this encounter Additional Health Concerns Infection Onset Date Last Indicated Resolved Time MRSA Comment:09/2022 sputum Resolved per Type and Duration of Precautions Recommended for Selected Infections and Conditions document 2023 update 09/16/2022 09/28/202206/04 4:18 PM CDT documented as of this encounter
--- OUTSIDE RECORDS SUMMARY | 2025-01-05 03:59 | XMS_ITS | Encounter Summary ---
Author Organization [facility] Address [address] [place] [address] Care Team Providers Care Marshmallow Runner Name Role Phone Unavailable Primary Care Provider Unavailabl e Encounter Details Date Type Department Care Team (Late st Contact Info) Description 12/04/2022 Lab Requisition [facility] Laboratory Services [address] [place] [address] [place] [address] [facility] [address] [place] [address] Social History Tobacco Use Types Packs/Day Years Used Date Smoking Tobacco: Never Assessed Sex and Gender Information Value Date Recorded Sex Assigned at Not on file Legal Sex Male 2:27 PM DIRECTOR INDUSTRIAL RELATIONS Gender Identity Not on file Sexual Orientation Not on file COVID-19 Exposure Response Date Recorded In the last 10 days, have yo u been in contact with someone who was confirmed or suspected to have Coronavirus/COVID-19? Unable to assess 12/07/2022 7:54 AM DIRECTOR INDUSTRIAL RELATIONS documented as of this encounter Plan of Treatment Not on file documented as of this encounter Procedures Procedure Name Priority Date/Time Associated Diagnosis Comments BLOOD CULTURE Routine 12/04/2022 11:45 AM DIRECTOR INDUSTRIAL RELATIONS BLOOD CULTURE Routine 12/04/2022 11:30 AM DIRECTOR INDUSTRIAL RELATIONS documented in this encounter Results * BLOOD CULTURE (12/04/2022 11:45 AM DIRECTOR INDUSTRIAL RELATIONS) BLOOD CULTURE No growth 12/09/2022 6:[address] [facility] Blood Collection / Unknown 12/04/2022 11:45 AM DIRECTOR INDUSTRIAL RELATIONS 12/04/2022 1:09 PM DIRECTOR INDUSTRIAL RELATIONS Result [facility] Hi Ortiz MD MICROBIOLOGY - GENER AL ORDERABLES Final Result Performing Organization Address [facility] Co de Phone Number [facility] CLIA# [id number] [address] [place] [address] * BLOOD CULTURE (12/04/2022 11:30 AM DIRECTOR INDUSTRIAL RELATIONS) BLOOD CULTURE No growth 12/09/2022 6:46 [address]USTRI[address] RELATIONS [facility] Blood Collection / Unknown 12/04/2022 11:30 AM DIRECTOR INDUSTRIAL RELATIONS 12/04/2022 1:09 PM DIRECTOR INDUSTRIAL RELATIONS Result [facility] Hi Ortiz MD MICROBIOLOGY - GENER AL ORDERABLES Final Result Performing Organization Address [facility] de Phone Number [facility]# [id number] [address] [place] [address] documented in this encounter Visit Diagnoses Not on filedocumented in this encounter Additional Health Concerns Infection Onset Date Last Indicated Resolved Time MRSA Comment:09/2022 sputum Resolved per Type and Duration of Precautions Recommended for Selected Infections and Conditions document 2023 update 09/16/2022 09/28/202206/04 4:18 PM CDT documented as of this encounter
--- OUTSIDE RECORDS SUMMARY | 2025-01-05 03:59 | XMS_ITS | Encounter Summary ---
Author Organization [facility] Address [address] [place] [address] Care Team Providers Care Satellite Communications Operator Name Role Phone Unavailable Primary Care Provider Unavailabl e Encounter Details Date Type Department Care Team (Late st Contact Info) Description 12/04/2022 Lab Requisition [facility] Laboratory Services [address] [place] [address] [place] [address] [place] [address] Social History Tobacco Use Types Packs/Day Years Used Date Smoking Tobacco: Never Assessed Sex and Gender Information Value Date Recorded Sex Assigned at Not on file Legal Sex Male 2:27 PM DIAL EQUIPMENT ENGINEER Gender Identity Not on file Sexual Orientation Not on file COVID-19 Exposure Response Date Recorded In the last 10 days, have yo u been in contact with someone who was confirmed or suspected to have Coronavirus/COVID-19? Unable to assess 12/07/2022 7:54 AM DIAL EQUIPMENT ENGINEER documented as of this encounter Plan of Treatment Not on file documented as of this encounter Procedures Procedure Name Priority Date/Time Associated Diagnosis Comments CBC WITH DIFFERENTIAL Routine 12/04/2022 3:00 AM DIAL EQUIPMENT ENGINEER BASIC METABOLIC PANEL Routine 12/04/2022 3:00 AM DIAL EQUIPMENT ENGINEER documented in this encounter Results * (ABNORMAL) CBC WITH DIFFERENTIAL (12/04/2022 3:00 AM DIAL EQUIPMENT ENGINEER) Pathologist [facility] WBC 9.5 4.5 - 10.5 K/uL 12/04/2022 6:26 AM DIAL EQUIPMENT ENGINEER [facility] LABORATORY SERVICES [facility] RBC 3.25(L) 4.50 - 5.40 M/uL 12/04/2022 6:26 AM [facility] LABORATORY SERVICES [facility] HEMOGLOBIN 9.8(L) 13.6 - 16.5 g/dL 12/04/2022 6:26 AM [facility] LABORATORY [facility] HEMATOCRIT 28.8(L) 40.0 - 48.0 % 12/04/2022 6:26 AM [facility] LABORATORY SERVICES [facility] MCV 88.5 82.0 - 99.0 fL 12/04/2022 6:26 AM DIAL EQUIPMENT ENGINEER [facility] SERVICES [facility] MCH 30.3 27.8 - 34.5 pg 12/04/2022 6:26 AM DIAL EQUIPMENT ENGINEER [facility] SERVICES [facility] MCHC 34.2 32.5 - 35.5 g/dL 12/04/2022 6:26 AM [facility] LABORATORY SERVICES [facility] RDW 14.6(H) 11.5 - 14.5 % 12/04/2022 6:26 AM DIAL EQUIPMENT ENGINEER [facility] PLATELETS 274 160 - 420 K/uL 12/04/2022 6:26 AM DIAL EQUIPMENT ENGINEER [facility] SERVICES [facility] MPV 9.4 8.7 - 12.7 fL 12/04/2022 6:26 AM DIAL EQUIPMENT ENGINEER [facility] NEUTROPHILS 68 % 12/04/2022 6:26 AM DIAL EQUIPMENT ENGINEER [facility] LYMPHOCYTES 18 % 12/04/2022 6:26 AM DIAL EQUIPMENT ENGINEER [facility] MONOCYTES 9 % 12/04/2022 6:26 AM DIAL EQUIPMENT ENGINEER [facility] EOSINOPHILS 5 % 12/04/2022 6:26 AM DIAL EQUIPMENT ENGINEER [facility] BASOPHILS 1 % 12/04/2022 6:26 AM DIAL EQUIPMENT ENGINEER [facility] NEUTROPHIL ABSOLUTE 6.50 1.90 - 7.00 K/uL 12/04/2022 6:26 AM DIAL EQUIPMENT ENGINEER [facility] LYMPHOCYTE ABSOLUTE 1.70 0.70 - 4.50 K/uL 12/04/2022 6:26 AM DIAL EQUIPMENT ENGINEER [facility] MONOCYTE ABSOLUTE 0.80 0.10 - 1.30 K/uL 12/04/2022 6:26 AM DIAL EQUIPMENT ENGINEER [facility] EOSINOPHIL ABSOLUTE 0.50 0.00 - 0.70 K/uL 12/04/2022 6:26 AM [facility] LABORATORY [facility] BASOPHILS ABSOLUTE 0.00 0.00 - 0.20 K/uL 12/04/2022 6:26 AM [facility] Blood 12/04/2022 3:00 AM DIAL EQUIPMENT ENGINEER 12/04/2022 5:44 AM DIAL EQUIPMENT ENGINEER us Franco Apple MD HEMATOLOGY ORDERABLES Final Resu lt [facility] CLIA# [id number] [address] [place] [address] * (ABNORMAL) BASIC METABOLIC PANEL (12/04/2022 3:00 AM DIAL EQUIPMENT ENGINEER) SODIUM 136 136 - 145 mmol/L 12/04/2022 6:10 AM [facility] POTASSIUM 3.9 3.4 - 5.1 mmol/L 12/04/2022 6:10 AM [facility] CHLORIDE 94(L) 98 - 107 mmol/L 12/04/2022 6:10 AM [facility] CO2 30(H) 22 - 29 mmol/L 12/04/2022 6:10 AM [facility] CALCIUM 10.8(H) 8.6 - 10.4 mg/dL 12/04/2022 6:10 AM [facility] BUN 46(H) 6 - 20 mg/dL 12/04/2022 6:10 AM [facility] CREATININE 0.91 0.67 - 1.17 mg/dL 12/04/2022 6:10 AM [facility] Comment:The GFR result is no t clinically significant on patients <18 or >70 years of age. GLUCOSE 221(H) 74 - 99 mg/dL 12/04/2022 6:10 AM [facility] GFR >60 mL/min/1.7 3 sq meter 12/04/2022 6:10 AM DIAL EQUIPMENT ENGINEER [facility] Comment:eGFR calculated with 2020 CKD-EPI equation. Vegetarian diet, extremely high or low muscle mass, and may affect results. Cystatin C with Glomerular Filtration Rate is a suitable alternative for these patients. ANION GAP 12 8 - 16 mmol/L 12/04/2022 6:10 AM DIAL EQUIPMENT ENGINEER [facility] Blood 12/04/2022 3:00 AM DIAL EQUIPMENT ENGINEER 12/04/2022 5:44 AM DIAL EQUIPMENT ENGINEER us Franco Apple MD CHEMISTRY ORDERABLES Final Resul t [facility] CLIA# [id number] [address] [place] [address] documented in this encounter Visit Diagnoses Not on filedocumented in this encounter Additional Health Concerns Infection Onset Date Last Indicated Resolved Time MRSA Comment:09/2022 sputum Resolved per Type and Duration of Precautions Recommended for Selected Infections and Conditions document 2023 update 09/16/2022 09/28/202206/04 4:18 PM CDT documented as of this encounter
--- OUTSIDE RECORDS SUMMARY | 2025-01-05 03:59 | XMS_ITS | Encounter Summary ---
Author Organization [facility] Address [address] [place] [address] Care Team Providers Care Cloth Shearing Supervisor Name Role Phone Unavailable Primary Care Provider Unavailabl e Encounter Details Date Type Department Care Team (Late st Contact Info) Description 11/28/2022 Lab Requisition [facility] Laboratory Services [address] [place] [address] [place] [address] [place] [address] Social History Tobacco Use Types Packs/Day Years Used Date Smoking Tobacco: Never Assessed Sex and Gender Information Value Date Recorded Sex Assigned at Not on file Legal Sex Male 2:27 PM HEAD BELLHOP CAPTAIN Gender Identity Not on file Sexual Orientation Not on file COVID-19 Exposure Response Date Recorded In the last 10 days, have yo u been in contact with someone who was confirmed or suspected to have Coronavirus/COVID-19? Unable to assess 11/30/2022 6:52 AM HEAD BELLHOP CAPTAIN documented as of this encounter Plan of Treatment Not on file documented as of this encounter Procedures Procedure Name Priority Date/Time Associated Diagnosis Comments CBC WITH DIFFERENTIAL Routine 11/28/2022 3:45 AM HEAD BELLHOP CAPTAIN BASIC METABOLIC PANEL Routine 11/28/2022 3:45 AM HEAD BELLHOP CAPTAIN documented in this encounter Results * (ABNORMAL) CBC WITH DIFFERENTIAL (11/28/2022 3:45 AM HEAD BELLHOP CAPTAIN) Pathologist [facility] WBC 8.8 4.5 - 10.5 K/uL 11/28/2022 7:07 AM HEAD BELLHOP CAPTAIN [facility] LABORATORY SERVICES [facility] RBC 3.19(L) 4.50 - 5.40 M/uL 11/28/2022 7:07 AM [facility] LABORATORY SERVICES [facility] HEMOGLOBIN 9.7(L) 13.6 - 16.5 g/dL 11/28/2022 7:07 AM [facility] LABORAT[facility] HEMATOCRIT 28.1(L) 40.0 - 48.0 % 11/28/2022 7:07 AM [facility] LABORATORY SERVICES [facility] MCV 88.2 82.0 - 99.0 fL 11/28/2022 7:07 AM HEAD BELLHOP CAPTAIN [facility] LABORATORY SERVICES [facility] MCH 30.5 27.8 - 34.5 pg 11/28/2022 7:07 AM HEAD BELLHOP CAPTAIN [facility] LABORATORY SERVICES [facility] MCHC 34.6 32.5 - 35.5 g/dL 11/28/2022 7:07 AM [facility] LABORATORY SERVICES [facility] RDW 14.8(H) 11.5 - 14.5 % 11/28/2022 7:07 AM HEAD BELLHOP CAPTAIN [facility] LABORATORY SERVICES [facility] PLATELETS 251 160 - 420 K/uL 11/28/2022 7:07 AM HEAD BELLHOP CAPTAIN [facility] LABORATORY SERVICES [facility] MPV 9.3 8.7 - 12.7 fL 11/28/2022 7:07 AM HEAD BELLHOP CAPTAIN [facility] LABORATORY SERVICES [facility] NEUTROPHILS 62 % 11/28/2022 7:07 AM HEAD BELLHOP CAPTAIN [facility] LABORATORY SERVICES [facility] LYMPHOCYTES 24 % 11/28/2022 7:07 AM HEAD BELLHOP CAPTAIN [facility]ORATORY SERVICES [facility] MONOCYTES 9 % 11/28/2022 7:07 AM HEAD BELLHOP CAPTAIN [facility]ORATORY SERVICES [facility] EOSINOPHILS 6 % 11/28/2022 7:07 AM HEAD BELLHOP CAPTAIN [facility] LABORATORY SERVICES [facility] BASOPHILS 1 % 11/28/2022 7:07 AM HEAD BELLHOP CAPTAIN [facility] LABORATORY SERVICES [facility] NEUTROPHIL ABSOLUTE 5.40 1.90 - 7.00 K/uL 11/28/2022 7:07 AM HEAD BELLHOP CAPTAIN [facility] LABORATORY SERVICES [facility] LYMPHOCYTE ABSOLUTE 2.10 0.70 - 4.50 K/uL 11/28/2022 7:07 AM HEAD BELLHOP CAPTAIN [facility] LABORATORY SERVICES [facility] MONOCYTE ABSOLUTE 0.80 0.10 - 1.30 K/uL 11/28/2022 7:07 AM HEAD BELLHOP CAPTAIN [facility] LABORAT[facility] EOSINOPHIL ABSOLUTE 0.50 0.00 - 0.70 K/uL 11/28/2022 7:07 AM [facility] LABORAT[facility] BASOPHILS ABSOLUTE 0.00 0.00 - 0.20 K/uL 11/28/2022 7:07 AM [facility] Blood Collection / Unknown 11/28/2022 3:45 AM HEAD BELLHOP CAPTAIN 11/28/2022 6:52 AM HEAD BELLHOP CAPTAIN us Franco Apple MD HEMATOLOGY ORDERABLES Final Resu lt [facility] CLIA# [id number] [place] [address] * (ABNORMAL) BASIC METABOLIC PANEL (11/28/2022 3:45 AM HEAD BELLHOP CAPTAIN) SODIUM 138 136 - 145 mmol/L 11/28/2022 7:21 AM [facility] POTASSIUM 3.7 3.4 - 5.1 mmol/L 11/28/2022 7:21 AM [facility] CHLORIDE 91(L) 98 - 107 mmol/L 11/28/2022 7:21 AM [facility] CO2 31(H) 22 - 29 mmol/L 11/28/2022 7:21 AM [facility] CALCIUM 10.8(H) 8.6 - 10.4 mg/dL 11/28/2022 7:21 AM [facility] BUN 55(H) 6 - 20 mg/dL 11/28/2022 7:21 AM [facility] CREATININE 0.97 0.67 - 1.17 mg/dL 11/28/2022 7:21 AM [facility] Comment:The GFR result is no t clinically significant on patients <18 or >70 years of age. GLUCOSE 196(H) 74 - 99 mg/dL 11/28/2022 7:21 AM [facility] GFR >60 mL/min/1.7 3 sq meter 11/28/2022 7:21 AM HEAD BELLHOP CAPTAIN [facility] Comment:eGFR calculated with 2020 CKD-EPI equation. Vegetarian diet, extremely high or low muscle mass, and may affect results. Cystatin C with Glomerular Filtration Rate is a suitable alternative for these patients. ANION GAP 16 8 - 16 mmol/L 11/28/2022 7:21 AM HEAD BELLHOP CAPTAIN [facility] Blood Collection / Unknown 11/28/2022 3:45 AM HEAD BELLHOP CAPTAIN 11/28/2022 6:52 AM HEAD BELLHOP CAPTAIN us Franco Apple MD CHEMISTRY ORDERABLES Final Resul t [facility] [employer] [facility] CLIA# [id number] [place] [address] documented in this encounter Visit Diagnoses Not on filedocumented in this encounter Additional Health Concerns Infection Onset Date Last Indicated Resolved Time MRSA Comment:09/2022 sputum Resolved per Type and Duration of Precautions Recommended for Selected Infections and Conditions document 2023 update 09/16/2022 09/28/202206/04 4:18 PM CDT documented as of this encounter
--- OUTSIDE RECORDS SUMMARY | 2025-01-05 04:00 | XMS_ITS | Encounter Summary ---
Author Organization [facility] Address 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 Unable to assess 12/14/2022 6:37 AM CDT documented as of this encounter Plan of Treatment Not on file documented as of this encounter Procedures Procedure Name Priority Date/Time Associated Diagnosis Comments LIPID PANEL Routine 12/15/2022 1:20 AM CDT documented in this encounter Results * (ABNORMAL) LIPID PANEL (12/15/2022 1:20 AM CDT) CHOLESTEROL 115 <200 mg/dL 12/15/2022 6:18 AM CDT [facility] LABORATORY [facility] TRIGLYCERIDE 213(H) <150 mg/dL 12/15/2022 6:18 AM CDT [facility] LABORATORY [facility] HDL 34(L) 40 - 59 mg/dL 12/15/2022 6:18 AM CDT [facility] LDL CALCULATED 38 <100 mg/dL 12/15/2022 6:18 AM CDT [facility] NON-HDL CHOLESTEROL 81 <130 mg/dL 12/15/2022 6:18 AM CDT [facility] Blood Collection / Unknown 12/15/2022 1:20 AM CDT 12/15/2022 4:43 AM CDT Narrative [facility] - 12/15/2022 6:18 AM CDT TOTAL CHOLESTEROL mg/dL Desirable <200 Borderline high 200-239 High >=240 TRIGLYCERIDES mg/dL Normal <150 Borderline high 150-199 High 200-499 Very high >=500 HDL CHOLESTEROL mg/dL Low <40 Normal 40-59 Desirable >=60 NON HDL CHOLESTEROL mg/dL Optimal <130 Near Optimal 130-159 Borderline High 160-189 Very High >=190 CALCULATED LDL mg/dL LDL <70, OPTIMAL if have Atherosclerotic cardiovascular disease (ASCVD) or intermediate or higher (>7.5%) 10 year risk of ASCVD including most adults with diabetes. LDL <100, Optimal in adult patients with low (<7.5%) 10 year ASCVD risk LDL 100-160, Suboptimal LDL >160, High LDL >190, Very high ATPIII Guidelines Reference Ranges for Lipid Panels (NCEP/AMA) . us Franco Apple MD CHEMISTRY ORDERABLES Final Resul t [facility] CLIA# [id number] [address] [place] [address] documented in this encounter Visit Diagnoses Not on filedocumented in this encounter Additional Health Concerns Infection Onset Date Last Indicated Resolved Time MRSA Comment:09/2022 sputum Resolved per Type and Duration of Precautions Recommended for Selected Infections and Conditions document 2023 update 09/16/2022 09/28/202206/04 4:18 PM CDT documented as of this encounter
--- OUTSIDE RECORDS SUMMARY | 2025-01-05 04:00 | XMS_ITS | Encounter Summary ---
Author Organization [facility] Address [address] [place] [address] Care Team Providers Care Submarine Cable Equipment Technician Name Role Phone Unavailable Primary Care Provider Unavailabl e Encounter Details Date Type Department Care Team (Late st Contact Info) Description 09/14/2022 Lab Requisition [facility] Laboratory Services [address] [place] [address] [place] [address] [place] [address] Social History Tobacco Use Types Packs/Day Years Used Date Smoking Tobacco: Never Assessed Sex and Gender Information Value Date Recorded Sex Assigned at Not on file Legal Sex Male 2:27 PM INVENTORY ASSOCIATE Gender Identity Not on file Sexual Orientation Not on file COVID-19 Exposure Response Date Recorded In the last 10 days, have yo u been in contact with someone who was confirmed or suspected to have Coronavirus/COVID-19? Unable to assess 09/04/2022 2:29 PM INVENTORY ASSOCIATE documented as of this encounter Plan of Treatment Not on file documented as of this encounter Procedures Procedure Name Priority Date/Time Associated Diagnosis Comments CBC WITH DIFFERENTIAL Routine 09/14/2022 2:46 AM INVENTORY ASSOCIATE BASIC METABOLIC PANEL Routine 09/14/2022 2:46 AM INVENTORY ASSOCIATE documented in this encounter Results * (ABNORMAL) CBC WITH DIFFERENTIAL (09/14/2022 2:46 AM INVENTORY ASSOCIATE) WBC 8.7 4.5 - 10.5 K/uL 09/14/2022 7:46 AM INVENTORY ASSOCIATE [facility] LABORATORY SERVICES [facility] RBC 2.71(L) 4.50 - 5.40 M/uL 09/14/2022 7:46 AM [facility] LABORATORY [facility] HEMOGLOBIN 8.0(L) 13.6 - 16.5 g/dL 09/14/2022 7:46 AM [facility] LABORATORY [facility] HEMATOCRIT 24.3(L) 40.0 - 48.0 % 09/14/2022 7:46 AM [facility] LABORATORY [facility] MCV 89.7 82.0 - 99.0 fL 09/14/2022 7:46 AM INVENTORY ASSOCIATE [facility] LABORATORY [facility] MCH 29.5 27.8 - 34.5 pg 09/14/2022 7:46 AM INVENTORY ASSOCIATE [facility] LABORATORY [facility] MCHC 32.9 32.5 - 35.5 g/dL 09/14/2022 7:46 AM [facility] LABORATORY [facility] RDW 18.0(H) 11.5 - 14.5 % 09/14/2022 7:46 AM INVENTORY ASSOCIATE [facility] LABORATORY [facility] PLATELETS 222 160 - 420 K/uL 09/14/2022 7:46 AM INVENTORY ASSOCIATE [facility] LABORATORY [facility] MPV 9.7 8.7 - 12.7 fL 09/14/2022 7:46 AM INVENTORY ASSOCIATE [facility] LABORATORY SERVICES [facility] NEUTROPHILS 62 % 09/14/2022 7:46 AM INVENTORY ASSOCIATE [facility] LABORATORY [facility] LYMPHOCYTES 22 % 09/14/2022 7:46 AM INVENTORY ASSOCIATE [facility] LABORATORY SERVICES [facility] MONOCYTES 7 % 09/14/2022 7:46 AM INVENTORY ASSOCIATE [facility] LABORATORY SERVICES [facility] EOSINOPHILS 9 % 09/14/2022 7:46 AM INVENTORY ASSOCIATE [facility] LABORATORY SERVICES [facility] BASOPHILS 0 % 09/14/2022 7:46 AM INVENTORY ASSOCIATE [facility] LABORATORY [facility] NEUTROPHIL ABSOLUTE 5.40 1.90 - 7.00 K/uL 09/14/2022 7:46 AM INVENTORY ASSOCIATE [facility] LABORATORY [facility] LYMPHOCYTE ABSOLUTE 1.90 0.70 - 4.50 K/uL 09/14/2022 7:46 AM INVENTORY ASSOCIATE [facility] LABORATORY [facility] MONOCYTE ABSOLUTE 0.60 0.10 - 1.30 K/uL 09/14/2022 7:46 AM INVENTORY ASSOCIATE [facility] EOSINOPHIL ABSOLUTE 0.80(H) 0.00 - 0.70 K/uL 09/14/2022 7:46 AM INVENTORY ASSOCIATE [facility] BASOPHILS ABSOLUTE 0.00 0.00 - 0.20 K/uL 09/14/2022 7:46 AM [facility] Blood 09/14/2022 2:46 AM INVENTORY ASSOCIATE 09/14/2022 7:38 AM INVENTORY ASSOCIATE us Franco Apple MD HEMATOLOGY ORDERABLES Final Resu lt [facility] CLIA# [id number] [place] [address] * (ABNORMAL) BASIC METABOLIC PANEL (09/14/2022 2:46 AM INVENTORY ASSOCIATE) SODIUM 140 136 - 145 mmol/L 09/14/2022 8:43 AM [facility] POTASSIUM 4.0 3.4 - 5.1 mmol/L 09/14/2022 8:43 AM [facility] CHLORIDE 90(L) 98 - 107 mmol/L 09/14/2022 8:43 AM [facility] CO2 44(H) 22 - 29 mmol/L 09/14/2022 8:43 AM [facility] CALCIUM 9.6 8.6 - 10.4 mg/dL 09/14/2022 8:43 AM [facility] BUN 40(H) 6 - 20 mg/dL 09/14/2022 8:43 AM [facility] CREATININE 0.67 0.67 - 1.17 mg/dL 09/14/2022 8:43 AM [facility] Comment:The GFR result is no t clinically significant on patients <18 or >70 years of age. GLUCOSE 342(H) 74 - 99 mg/dL 09/14/2022 8:43 AM [facility] GFR >60 mL/min/1.7 3 sq meter 09/14/2022 8:43 AM INVENTORY ASSOCIATE [facility] LABORATORY [facility] Comment:eGFR calculated with 2020 CKD-EPI equation. Vegetarian diet, extremely high or low muscle mass, and may affect results. Cystatin C with Glomerular Filtration Rate is a suitable alternative for these patients. ANION GAP 6(L) 8 - 16 mmol/L 09/14/2022 8:43 AM INVENTORY ASSOCIATE [facility] LABORATORY [facility] Blood 09/14/2022 2:46 AM INVENTORY ASSOCIATE 09/14/2022 7:37 AM INVENTORY ASSOCIATE us Franco Apple MD CHEMISTRY ORDERABLES Final Resul t [facility] [employer] [facility] CLIA# [id number] [place] [address] documented in this encounter Visit Diagnoses Not on filedocumented in this encounter Additional Health Concerns Infection Onset Date Last Indicated Resolved Time MRSA Comment:09/2022 sputum Resolved per Type and Duration of Precautions Recommended for Selected Infections and Conditions document 2023 update 09/16/2022 09/28/202206/04 4:18 PM CDT documented as of this encounter
--- OUTSIDE RECORDS SUMMARY | 2025-01-05 04:00 | XMS_ITS | Encounter Summary ---
Author Organization [facility] Address [address] [place] [address] Care Team Providers Care Caddie Supervisor Name Role Phone Unavailable Primary Care Provider Unavailabl e Encounter Details Date Type Department Care Team (Late st Contact Info) Description 09/12/[address] [facility] Laboratory Services [address] [place] [address] [place] [address] [place] [address] Social History Tobacco Use Types Packs/Day Years Used Date Smoking Tobacco: Never Assessed Sex and Gender Information Value Date Recorded Sex Assigned at Not on file Legal Sex Male 2:27 PM DIGITAL SALES 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 Unable to assess 09/04/2022 2:29 PM DIGITAL SALES DIRECTOR documented as of this encounter Plan of Treatment Not on file documented as of this encounter Procedures Procedure Name Priority Date/Time Associated Diagnosis Comments CBC WITH DIFFERENTIAL Routine 09/12/2022 3:00 AM DIGITAL SALES DIRECTOR BASIC METABOLIC PANEL Routine 09/12/2022 3:00 AM DIGITAL SALES DIRECTOR documented in this encounter Results * (ABNORMAL) BASIC METABOLIC PANEL (09/12/2022 3:00 AM DIGITAL SALES DIRECTOR) SODIUM 139 136 - 145 mmol/L 09/12/2022 12:24 PM DIGITAL SALES DIRECTOR [facility] LABORATORY SERVICES [facility] POTASSIUM 3.6 3.4 - 5.1 mmol/L 09/12/2022 12:24 PM [facility] CHLORIDE 89(L) 98 - 107 mmol/L 09/12/2022 12:24 PM [facility] CO2 43(H) 22 - 29 mmol/L 09/12/2022 12:24 PM [facility] CALCIUM 9.4 8.6 - 10.4 mg/dL 09/12/2022 12:24 PM [facility] BUN 35(H) 6 - 20 mg/dL 09/12/2022 12:24 PM [facility] CREATININE 0.73 0.67 - 1.17 mg/dL 09/12/2022 12:24 PM [facility] Comment:The GFR result is no t clinically significant on patients <18 or >70 years of age. GLUCOSE 291(H) 74 - 99 mg/dL 09/12/2022 12:24 PM [facility] GFR >60 mL/min/1.7 3 sq meter 09/12/2022 12:24 PM [facility] Comment:eGFR calculated with 2020 CKD-EPI equation. Vegetarian diet, extremely high or low muscle mass, and may affect results. Cystatin C with Glomerular Filtration Rate is a suitable alternative for these patients. ANION GAP 7(L) 8 - 16 mmol/L 09/12/2022 12:24 PM [facility] Blood Collection / Unknown 09/12/2022 3:00 AM DIGITAL SALES DIRECTOR 09/12/2022 11:32 AM DIGITAL SALES DIRECTOR us Franco Apple MD CHEMISTRY ORDERABLES Final Resul t [facility] CLIA# [id number] [place] [address] * (ABNORMAL) CBC WITH DIFFERENTIAL (09/12/2022 3:00 AM DIGITAL SALES DIRECTOR) WBC 9.5 4.5 - 10.5 K/uL 09/12/2022 11:52 AM [facility] RBC 2.69(L) 4.50 - 5.40 M/uL 09/12/2022 11:52 AM [facility] LABORATORY [facility] HEMOGLOBIN 7.9(L) 13.6 - 16.5 g/dL 09/12/2022 11:52 AM [facility] LABORATORY [facility] HEMATOCRIT 24.1(L) 40.0 - 48.0 % 09/12/2022 11:52 AM [facility] LABORATORY [facility] MCV 89.8 82.0 - 99.0 fL 09/12/2022 11:52 AM [facility] LABORATORY [facility] MCH 29.4 27.8 - 34.5 pg 09/12/2022 11:52 AM [facility] LABORATORY [facility] MCHC 32.7 32.5 - 35.5 g/dL 09/12/2022 11:52 AM [facility] LABORATORY [facility] RDW 18.0(H) 11.5 - 14.5 % 09/12/2022 11:52 AM [facility] LABORATORY [facility] PLATELETS 246 160 - 420 K/uL 09/12/2022 11:52 AM [facility] LABORATORY [facility] MPV 9.4 8.7 - 12.7 fL 09/12/2022 11:52 AM DIGITAL SALES DIRECTOR [facility] LABORATORY [facility] NEUTROPHILS 60 % 09/12/2022 11:52 AM DIGITAL SALES DIRECTOR [facility] LABORATORY [facility] LYMPHOCYTES 23 % 09/12/2022 11:52 AM DIGITAL SALES DIRECTOR [facility] LABORATORY SERVICES [facility] MONOCYTES 7 % 09/12/2022 11:52 AM DIGITAL SALES DIRECTOR [facility] LABORATORY SERVICES [facility] EOSINOPHILS 10 % 09/12/2022 11:52 AM DIGITAL SALES DIRECTOR [facility] LABORATORY SERVICES [facility] BASOPHILS 1 % 09/12/2022 11:52 AM DIGITAL SALES DIRECTOR [facility] LABORATORY SERVICES [facility] NEUTROPHIL ABSOLUTE 5.70 1.90 - 7.00 K/uL 09/12/2022 11:52 AM DIGITAL SALES DIRECTOR [facility] LABORATORY [facility] LYMPHOCYTE ABSOLUTE 2.20 0.70 - 4.50 K/uL 09/12/2022 11:52 AM DIGITAL SALES DIRECTOR [facility] LABORATORY [facility] MONOCYTE ABSOLUTE 0.60 0.10 - 1.30 K/uL 09/12/2022 11:52 AM DIGITAL SALES DIRECTOR [facility] LABORATORY [facility] EOSINOPHIL ABSOLUTE 0.90(H) 0.00 - 0.70 K/uL 09/12/2022 11:52 AM DIGITAL SALES DIRECTOR [facility] BASOPHILS ABSOLUTE 0.10 0.00 - 0.20 K/uL 09/12/2022 11:52 AM DIGITAL SALES DIRECTOR [facility] Blood Collection / Unknown 09/12/2022 3:00 AM DIGITAL SALES DIRECTOR 09/12/2022 11:32 AM DIGITAL SALES DIRECTOR us Franco Apple MD HEMATOLOGY ORDERABLES Final Resu lt [facility] CLIA# [id number] [place] [address] documented in this encounter Visit Diagnoses Not on filedocumented in this encounter Additional Health Concerns Infection Onset Date Last Indicated Resolved Time MRSA Comment:09/2022 sputum Resolved per Type and Duration of Precautions Recommended for Selected Infections and Conditions document 2023 update 09/16/2022 09/28/202206/04 4:18 PM CDT documented as of this encounter
--- OUTSIDE RECORDS SUMMARY | 2025-01-05 04:00 | XMS_ITS | Encounter Summary ---
Author Organization [facility] Address [address] [place] [address] Care Team Providers Care Conductor Pullman Name Role Phone Unavailable Primary Care Provider Unavailabl e Encounter Details Date Type Department Care Team (Late st Contact Info) Description 09/16/2022 Lab Requisition [facility] Laboratory Services [address] [place] [address] [place] [address] [place] [address] Social History Tobacco Use Types Packs/Day Years Used Date Smoking Tobacco: Never Assessed Sex and Gender Information Value Date Recorded Sex Assigned at Not on file Legal Sex Male 2:27 PM MANAGER INTEL Gender Identity Not on file Sexual Orientation Not on file COVID-19 Exposure Response Date Recorded In the last 10 days, have yo u been in contact with someone who was confirmed or suspected to have Coronavirus/COVID-19? Unable to assess 09/18/2022 6:07 AM MANAGER INTEL documented as of this encounter Plan of Treatment Not on file documented as of this encounter Procedures Procedure Name Priority Date/Time Associated Diagnosis Comments SPUTUM CULTURE WITH GRAM STAIN Routine 09/16/2022 3:30 AM MANAGER INTEL documented in this encounter Results * (ABNORMAL) SPUTUM CULTURE WITH GRAM STAIN (09/16/2022 3:30 AM MANAGER INTEL) CULTURE METHICILLIN RESISTANT STAPHYLOCOCCUS AUREUS(A) KELLY MCG/ML 09/18/2022 9:53 AM MANAGER INTEL [facility] CULTURE 1+ or few Normal upper respiratory ga KELLY MCG/ML 09/18/2022 9:53 AM MANAGER INTEL [facility] GRAM STAIN 3+ (Moderate) WBC 022 9:53 AM MANAGER INTEL [facility] GRAM STAIN Non diagnostic pattern 09/18/2022 9:53 AM MANAGER INTEL [facility]. ROBBI Sputum Collection / Unknown 09/16/2022 3:30 AM MANAGER INTEL 09/16/2022 8:43 AM MANAGER INTEL Narrative [facility] - 09/18/2022 9:53 AM MANAGER INTEL Results called to Monica Sanchez ([facility]) on 09/18/2022 at 9:52 AM and read back verified. Organism Antibiotic Method Susceptibility Staphylococcus aureus, Methicillin resistant CLINDAMYCIN KELLY MCG/ML 0.25 mcg/mL: Resistant Staphylococcus aureus, Methicillin resistant OXACILLIN (Nafcillin) KELLY MCG/ML >=4 mcg/mL: Resistant Staphylococcus aureus, Methicillin resistant TRIMETHOPRIM/ SULFAMETHOXAZOLE KELLY MCG/ML <=10 mcg/mL: Susceptible Staphylococcus aureus, Methicillin resistant VANCOMYCIN KELLY MCG/ML 1 mcg/mL: Susceptible Staphylococcus aureus, Methicillin resistant RIFAMPIN KELLY MCG/ML <=0.5 mcg/mL: Susceptible Comment:Rifampin agustin uld NOT be used alone for antimicrobial therapy. Staphylococcus aureus, Methicillin resistant CLINDAMYCIN (INDUCIBLE) KELLY MCG/ML POSITIVE Comment:This isolate is presumed to be clindamycin resistant based on detection of inducible clindamycin resistance, but may still lead to clinical cure in less severe patients. Staphylococcus aureus, Methicillin resistant DOXYCYCLINE KELLY MCG/ML <=0.5 mcg/mL: Susceptible Franco Apple MD MICROBIOLOGY - GENERAL ORDERABLE S Final Result [facility] CLIA# [id number] [address] [place] [place] [address] documented in this encounter Visit Diagnoses Not on filedocumented in this encounter Additional Health Concerns Infection Onset Date Last Indicated Resolved Time MRSA Comment:09/2022 sputum Resolved per Type and Duration of Precautions Recommended for Selected Infections and Conditions document 2023 update 09/16/2022 09/28/202206/04 4:18 PM CDT documented as of this encounter
--- OUTSIDE RECORDS SUMMARY | 2025-01-05 04:00 | XMS_ITS | Encounter Summary ---
Author Organization [facility] Address [address] [place] [address] Care Team Providers Care Graphic Art Technician Name Role Phone Unavailable Primary Care Provider Unavailabl e Encounter Details Date Type Department Care Team (Late st Contact Info) Description 09/04/2022 Lab Requisition [facility] Laboratory Services [address] [place] [address] [place] [address] [place] [address] Social History Tobacco Use Types Packs/Day Years Used Date Smoking Tobacco: Never Assessed Sex and Gender Information Value Date Recorded Sex Assigned at Not on file Legal Sex Male 2:27 PM SECURITY POLICE Gender Identity Not on file Sexual Orientation Not on file COVID-19 Exposure Response Date Recorded In the last 10 days, have yo u been in contact with someone who was confirmed or suspected to have Coronavirus/COVID-19? Unable to assess 09/04/2022 2:29 PM [employer]ITY [employer] documented as of this encounter Plan of Treatment Not on file documented as of this encounter Procedures Procedure Name Priority Date/Time Associated Diagnosis Comments SPUTUM CULTURE WITH GRAM STAIN Routine 09/04/2022 3:05 PM SECURITY POLICE documented in this encounter Results * SPUTUM CULTURE WITH GRAM STAIN (09/04/2022 3:05 PM SECURITY POLICE) CULTURE No pathogens isolated. Normal respiratory ga reduced. 2022 2:24 PM SECURITY POLICE [facility] GRAM STAIN 2+ (Few) WBC 2022 2:24 PM SECURITY POLICE [facility] GRAM STAIN Non diagnostic pattern 2022 2:24 PM SECURITY POLICE [facility] Sputum COUGHED SPUTUM SPECIMEN / Unknown Collection / Unknown 09/04/2022 3:05 PM SECURITY POLICE 09/04/2022 9:34 PM SECURITY POLICE Franco Apple MD MICROBIOLOGY - GENERAL ORDERABLE S Final Result [facility]# [id number] [address] [place] [address] documented in this encounter Visit Diagnoses Not on filedocumented in this encounter Additional Health Concerns Infection Onset Date Last Indicated Resolved Time MRSA Comment:09/2022 sputum Resolved per Type and Duration of Precautions Recommended for Selected Infections and Conditions document 2023 update 09/16/2022 09/28/202206/04 4:18 PM CDT documented as of this encounter
--- OUTSIDE RECORDS SUMMARY | 2025-01-05 04:00 | XMS_ITS | Encounter Summary ---
Author Organization [facility] Address [address] [place] [address] Care Team Providers Care Returner Name Role Phone Unavailable Primary Care Provider Unavailabl e Encounter Details Date Type Department Care Team (Late st Contact Info) Description 12/16/2022 Lab Requisition 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 Gender Identity Not on file Sexual [...] Associated Diagnosis Comments CBC WITH DIFFERENTIAL Routine 12/16/2022 3:30 AM CDT BASIC METABOLIC PANEL Routine 12/16/2022 3:30 AM CDT documented in this encounter Results * (ABNORMAL) CBC WITH DIFFERENTIAL (12/16/2022 3:30 AM CDT) WBC 7.7 4.5 - 10.5 K/uL 12/16/2022 5:52 AM CDT [facility] RBC 3.13(L) 4.50 - 5.40 M/uL 12/16/2022 5:52 AM CDT [facility] HEMOGLOBIN 9.4(L) 13.6 - 16.5 g/dL 12/16/2022 5:52 AM CDT [facility] - [facility] HEMATOCRIT 28.8(L) 40.0 - 48.0 % 12/16/2022 5:52 AM CDT [facility] MCV 91.8 82.0 - 99.0 fL 12/16/2022 5:52 AM CDT [facility] MCH 29.9 27.8 - 34.5 pg 12/16/2022 5:52 AM CDT [facility] MCHC 32.6 32.5 - 35.5 g/dL 12/16/2022 5:52 AM CDT [facility] RDW 16.0(H) 11.5 - 14.5 % 12/16/2022 5:52 AM CDT [facility] PLATELETS 182 160 - 420 K/uL 12/16/2022 5:52 AM CDT [facility] MPV 9.5 8.7 - 12.7 fL 12/16/2022 5:52 AM CDT [facility] NEUTROPHILS 59 % 12/16/2022 5:52 AM CDT [facility] LYMPHOCYTES 21 % 12/16/2022 5:52 AM CDT [facility] MONOCYTES 11 % 12/16/2022 5:52 AM CDT [facility] EOSINOPHILS 8 % 12/16/2022 5:52 AM CDT [facility] BASOPHILS 1 % 12/16/2022 5:52 AM CDT [facility] NEUTROPHIL ABSOLUTE 4.50 1.90 - 7.00 K/uL 12/16/2022 5:52 AM CDT [facility] LYMPHOCYTE ABSOLUTE 1.60 0.70 - 4.50 K/uL 12/16/2022 5:52 AM CDT [facility] MONOCYTE ABSOLUTE 0.90 0.10 - 1.30 K/uL 12/16/2022 5:52 AM CDT [facility] EOSINOPHIL ABSOLUTE 0.60 0.00 - 0.70 K/uL 12/16/2022 5:52 AM CDT [facility] BASOPHILS ABSOLUTE 0.00 0.00 - 0.20 K/uL 12/16/2022 5:52 AM CDT [facility] Blood 12/16/2022 3:30 AM CDT 12/16/2022 5:38 AM CDT us Franco Apple MD HEMATOLOGY ORDERABLES Final Resu lt [facility] CLIA# [id number] [address] [place] [address] * (ABNORMAL) BASIC METABOLIC PANEL (12/16/2022 3:30 AM CDT) SODIUM 133(L) 136 - 145 mmol/L 12/16/2022 6:20 AM CDT [facility] POTASSIUM 3.8 3.4 - 5.1 mmol/L 12/16/2022 6:20 AM CDT [facility] CHLORIDE 93(L) 98 - 107 mmol/L 12/16/2022 6:20 AM CDT [facility] CO2 29 22 - 29 mmol/L 12/16/2022 6:20 AM CDT [facility] CALCIUM 10.5(H) 8.6 - 10.4 mg/dL 12/16/2022 6:20 AM CDT [facility] BUN 56(H) 6 - 20 mg/dL 12/16/2022 6:20 AM CDT [facility] CREATININE 1.01 0.67 - 1.17 mg/dL 12/16/2022 6:20 AM CDT [facility] Comment:The GFR result is no t clinically significant on patients <18 or >70 years of age. GLUCOSE 223(H) 74 - 99 mg/dL 12/16/2022 6:20 AM CDT [facility] GFR >60 mL/min/1.7 3 sq meter 12/16/2022 6:20 AM CDT [facility] Comment:eGFR calculated with 2020 CKD-EPI equation. Vegetarian diet, extremely high or low muscle mass, and may affect results. Cystatin C with Glomerular Filtration Rate is a suitable alternative for these patients. ANION GAP 11 8 - 16 mmol/L 12/16/2022 6:20 AM CDT [facility] Blood 12/16/2022 3:30 AM CDT 12/16/2022 5:39 AM CDT Franco Apple MD CHEMISTRY ORDERABLES Final Resul t [facility] CLIA# [id number] [address] [place] [address] documented in this encounter Visit Diagnoses Not on filedocumented in this encounter Additional Health Concerns Infection Onset Date Last Indicated Resolved Time MRSA Comment:09/2022 sputum Resolved per Type and Duration of Precautions Recommended for Selected Infections and Conditions document 2023 update 09/16/2022 09/28/202206/04 4:18 PM CDT documented as of this encounter
--- OUTSIDE RECORDS SUMMARY | 2025-01-05 04:00 | XMS_ITS | Encounter Summary ---
Author Organization [facility] Address [address] [place] [address] Care Team Providers Care Stringer Up Soldering Machine Name Role Phone Unavailable Primary Care Provider Unavailabl e Encounter Details Date Type Department Care Team (Late st Contact Info) Description 09/15/2022 Lab Requisition [facility] Laboratory Services [address] [place] [address] [place] [address] [address] Social History Tobacco Use Types Packs/Day Years Used Date Smoking Tobacco: Never Assessed Sex and Gender Information Value Date Recorded Sex Assigned at Not on file Legal Sex Male 2:27 PM ADULT EDUCATION MANAGER Gender Identity Not on file Sexual Orientation Not on file COVID-19 Exposure Response Date Recorded In the last 10 days, have yo u been in contact with someone who was confirmed or suspected to have Coronavirus/COVID-19? Unable to assess 09/18/2022 6:07 AM ADULT EDUCATION MANAGER documented as of this encounter Plan of Treatment Not on file documented as of this encounter Procedures Procedure Name Priority Date/Time Associated Diagnosis Comments EXTRA TUBE (URINE ACUNA) Routine 09/15/2022 3:04 AM ADULT EDUCATION MANAGER LACTIC ACID Stat 09/15/2022 3:04 AM ADULT EDUCATION MANAGER CBC WITH DIFFERENTIAL Routine 09/15/2022 3:04 AM ADULT EDUCATION MANAGER BLOOD CULTURE Routine 09/15/2022 3:04 AM ADULT EDUCATION MANAGER BLOOD CULTURE Routine 09/15/2022 3:04 AM ADULT EDUCATION MANAGER URINALYSIS W/REFLEX MICROSCOPIC Routine 09/15/2022 3:04 AM ADULT EDUCATION MANAGER BASIC METABOLIC PANEL Routine 09/15/2022 3:04 AM ADULT EDUCATION MANAGER documented in this encounter Results * EXTRA TUBE (URINE ACUNA) (09/15/2022 3:04 AM ADULT EDUCATION MANAGER) Urine URINE SPECIMEN OBTAINED BY CLEAN CATCH PROCEDURE / Unknown Collection / Unknown 09/15/2022 3:04 AM ADULT EDUCATION MANAGER 09/15/2022 6:54 AM ADULT EDUCATION MANAGER us Franco Apple MD URINE ORDERABLES Final Result [facility] CLIA# [id number] [place] [address] * (ABNORMAL) URINALYSIS WITH REFLEX MICROSCOPIC (09/15/2022 3:04 AM ADULT EDUCATION MANAGER) COLOR UA Alma(A) Pale to Dark Yellow 09/15/2022 7:48 AM ADULT EDUCATION MANAGER [facility] CLARITY UA Clear Clear 09/15/2022 7:48 AM ADULT EDUCATION MANAGER [facility] SPECIFIC GRAVITY UA 1.015 1.003 - 1.035 09/15/2022 7:48 AM ADULT EDUCATION MANAGER [facility] PH UA 8.0 5.0 - 8.0 09/15/2022 7:48 AM ADULT EDUCATION MANAGER [facility] LEUKOCYTE ESTERASE UA Negative Negative 09/15/2022 7:48 AM ADULT EDUCATION MANAGER [facility] NITRITE UA Negative Negative 09/15/2022 7:48 AM ADULT EDUCATION MANAGER [facility] PROTEIN UA 2+(A) Negative 09/15/2022 7:48 AM ADULT EDUCATION MANAGER [facility] GLUCOSE UA Negative Negative 09/15/2022 7:48 AM ADULT EDUCATION MANAGER [facility] KETONES UA Negative Negative 09/15/2022 7:48 AM ADULT EDUCATION MANAGER [facility] UROBILINOGEN UA 8.0(A) <2.0 mg/dL 7:48 AM ADULT EDUCATION MANAGER [facility] BILIRUBIN UA Negative Negative 09/15/2022 7:48 AM ADULT EDUCATION MANAGER [facility] BLOOD UA 3+(A) Negative 09/15/2022 7:48 AM ADULT EDUCATION MANAGER [facility] WBC UA 11-25(A) 0 - 2 /hpf 09/15/2022 7:48 AM ADULT EDUCATION MANAGER [facility] RBC UA 51-100(A) 0 - 2 /hpf 09/15/2022 7:48 AM ADULT EDUCATION MANAGER [facility] BACTERIA UA Negative Negative /hpf 09/15/2022 7:48 AM ADULT EDUCATION MANAGER [facility] EPITHELIAL CELLS, URINE 0-5 0 - 5 /hpf 09/15/2022 7:48 AM ADULT EDUCATION MANAGER [facility] HYALINE CAST None Seen None Seen, 0-2 /lpf 09/15/2022 7:48 AM ADULT EDUCATION MANAGER [facility] YEAST, BUDDING Present(A) Absent 09/15/2022 7:48 AM ADULT EDUCATION MANAGER [facility] Urine URINE SPECIMEN OBTAINED BY CLEAN CATCH PROCEDURE / Unknown Collection / Unknown 09/15/2022 3:04 AM ADULT EDUCATION MANAGER 09/15/2022 6:54 AM ADULT EDUCATION MANAGER us Franco Apple MD URINE ORDERABLES [id number] [address] [place] [address] * (ABNORMAL) LACTIC ACID (09/15/2022 3:04 AM ADULT EDUCATION MANAGER) LACTIC ACID 2.3(H) <=2.0 mmol/L 09/15/2022 6:31 AM ADULT EDUCATION MANAGER [facility] Blood 09/15/2022 3:04 AM ADULT EDUCATION MANAGER 09/15/2022 5:38 AM ADULT EDUCATION MANAGER us Franco Apple MD CHEMISTRY ORDERABLES Final Resul t [facility] CLIA# [id number] [place] [address] * (ABNORMAL) CBC WITH DIFFERENTIAL (09/15/2022 3:04 AM ADULT EDUCATION MANAGER) [facility] WBC 8.3 4.5 - 10.5 K/uL 09/15/2022 6:25 AM ADULT EDUCATION MANAGER [facility] RBC 2.64(L) 4.50 - 5.40 M/uL 09/15/2022 6:25 AM ADULT EDUCATION MANAGER [facility] HEMOGLOBIN 7.6(L) 13.6 - 16.5 g/dL 09/15/2022 6:25 AM ADULT EDUCATION MANAGER [facility] HEMATOCRIT 24.1(L) 40.0 - 48.0 % 09/15/2022 6:25 AM [facility] MCV 91.5 82.0 - 99.0 fL 09/15/2022 6:25 AM ADULT EDUCATION MANAGER [facility] MCH 28.9 27.8 - 34.5 pg 09/15/2022 6:25 AM ADULT EDUCATION MANAGER [facility] MCHC 31.5(L) 32.5 - 35.5 g/dL 09/15/2022 6:25 AM ADULT EDUCATION MANAGER [facility] RDW 18.6(H) 11.5 - 14.5 % 09/15/2022 6:25 AM ADULT EDUCATION MANAGER [facility] PLATELETS 221 160 - 420 K/uL 09/15/2022 6:25 AM ADULT EDUCATION MANAGER [facility] MPV 9.9 8.7 - 12.7 fL 09/15/2022 6:25 AM ADULT EDUCATION MANAGER [facility] NEUTROPHILS 56 % 09/15/2022 6:25 AM ADULT EDUCATION MANAGER [facility] LYMPHOCYTES 25 % 09/15/2022 6:25 AM ADULT EDUCATION MANAGER [facility] MONOCYTES 10 % 09/15/2022 6:25 AM ADULT EDUCATION MANAGER [facility] EOSINOPHILS 9 % 09/15/2022 6:25 AM ADULT EDUCATION MANAGER [facility] BASOPHILS 1 % 09/15/2022 6:25 AM ADULT EDUCATION MANAGER [facility] NEUTROPHIL ABSOLUTE 4.70 1.90 - 7.00 K/uL 09/15/2022 6:25 AM [facility] LYMPHOCYTE ABSOLUTE 2.00 0.70 - 4.50 K/uL 09/15/2022 6:25 AM [facility] MONOCYTE ABSOLUTE 0.80 0.10 - 1.30 K/uL 09/15/2022 6:25 AM [facility] EOSINOPHIL ABSOLUTE 0.80(H) 0.00 - 0.70 K/uL 09/15/2022 6:25 AM [facility] BASOPHILS ABSOLUTE 0.10 0.00 - 0.20 K/uL 09/15/2022 6:25 AM [facility] Blood 09/15/2022 3:04 AM ADULT EDUCATION MANAGER 09/15/2022 5:38 AM ADULT EDUCATION MANAGER us Franco Apple MD HEMATOLOGY ORDERABLES Final Resu lt [facility] CLIA# [id number] [address] [place] [address] * (ABNORMAL) BASIC METABOLIC PANEL (09/15/2022 3:04 AM ADULT EDUCATION MANAGER) SODIUM 141 136 - 145 mmol/L 09/15/2022 6:40 AM [facility] POTASSIUM 4.1 3.4 - 5.1 mmol/L 09/15/2022 6:40 AM [facility] [employer] [facility] CHLORIDE 89(L) 98 - 107 mmol/L 09/15/2022 6:40 AM [facility] [employer] [facility] CO2 44(H) 22 - 29 mmol/L 09/15/2022 6:40 AM [facility] [employer] [facility] CALCIUM 9.6 8.6 - 10.4 mg/dL 09/15/2022 6:40 AM [facility] [employer] [facility] BUN 44(H) 6 - 20 mg/dL 09/15/2022 6:40 AM [facility] [employer] [facility] CREATININE 0.75 0.67 - 1.17 mg/dL 09/15/2022 6:40 AM [facility] Comment:The GFR result is no t clinically significant on patients <18 or >70 years of age. GLUCOSE 256(H) 74 - 99 mg/dL 09/15/2022 6:40 AM [facility] GFR >60 mL/min/1.7 3 sq meter 09/15/2022 6:40 AM [facility] Comment:eGFR calculated with 2020 CKD-EPI equation. Vegetarian diet, extremely high or low muscle mass, and may affect results. Cystatin C with Glomerular Filtration Rate is a suitable alternative for these patients. ANION GAP 8 8 - 16 mmol/L 09/15/2022 6:40 AM ADULT EDUCATION MANAGER [facility] Blood 09/15/2022 3:04 AM ADULT EDUCATION MANAGER 09/15/2022 5:38 AM ADULT EDUCATION MANAGER Franco Apple MD CHEMISTRY ORDERABLES Final Resul t [facility] CLIA# [id number] [place] [address] * BLOOD CULTURE (09/15/2022 3:04 AM ADULT EDUCATION MANAGER) BLOOD CULTURE No growth 09/20/2022 12:10 PM ADULT EDUCATION MANAGER [facility] Blood Collection / Unknown 09/15/2022 3:04 AM ADULT EDUCATION MANAGER 09/15/2022 5:38 AM ADULT EDUCATION MANAGER Franco Apple MD MICROBIOLOGY - GENERAL ORDERABLE S Final Result [facility] CLIA# [id number] [address] [place] [address] * BLOOD CULTURE (09/15/2022 3:04 AM ADULT EDUCATION MANAGER) BLOOD CULTURE No growth 09/20/2022 12:10 PM ADULT EDUCATION MANAGER [facility] Blood Collection / Unknown 09/15/2022 3:04 AM ADULT EDUCATION MANAGER 09/15/2022 5:38 AM ADULT EDUCATION MANAGER Franco Apple MD MICROBIOLOGY - GENERAL ORDERABLE S Final Result [facility] SERVICES [facility]# [id number] [address] [place] [address] documented in this encounter Visit Diagnoses Not on filedocumented in this encounter Additional Health Concerns Infection Onset Date Last Indicated Resolved Time MRSA Comment:09/2022 sputum Resolved per Type and Duration of Precautions Recommended for Selected Infections and Conditions document 2023 update 09/16/2022 09/28/202206/04 4:18 PM CDT documented as of this encounter
--- OUTSIDE RECORDS SUMMARY | 2025-01-05 04:00 | XMS_ITS | Encounter Summary ---
Author Organization [facility] Address [address] [place] [address] Care Team Providers Care Unit Control Worker Name Role Phone Unavailable Primary Care Provider Unavailabl e Encounter Details Date Type Department Care Team (Late st Contact Info) Description 11/10/2022 Lab Requisition [facility] Laboratory Services [address] [place] [address] [place] [address] [place] [address] Social History Tobacco Use Types Packs/Day Years Used Date Smoking Tobacco: Never Assessed Sex and Gender Information Value Date Recorded Sex Assigned at Not on file Legal Sex Male 2:27 PM DATABASE SPECIALIST Gender Identity Not on file Sexual Orientation Not on file COVID-19 Exposure Response Date Recorded In the last 10 days, have yo u been in contact with someone who was confirmed or suspected to have Coronavirus/COVID-19? Unable to assess 11/04/2022 12:51 PM DATABASE SPECIALIST documented as of this encounter Plan of Treatment Not on file documented as of this encounter Procedures Procedure Name Priority Date/Time Associated Diagnosis Comments CBC WITH DIFFERENTIAL Routine 11/10/2022 4:30 AM DATABASE SPECIALIST BASIC METABOLIC PANEL Routine 11/10/2022 4:30 AM DATABASE SPECIALIST documented in this encounter Results * (ABNORMAL) CBC WITH DIFFERENTIAL (11/10/2022 4:30 AM DATABASE SPECIALIST) Pathologist [facility] [place] WBC 7.4 4.5 - 10.5 K/uL 11/10/2022 8:[address] [facility] LABORATORY SERVICES [facility] RBC 3.00(L) 4.50 - 5.40 M/uL 11/10/2022 8:27 AM [facility] LABORATORY SERVICES [facility] HEMOGLOBIN 9.1(L) 13.6 - 16.5 g/dL 11/10/2022 8:27 AM [facility] HEMATOCRIT 27.4(L) 40.0 - 48.0 % 11/10/2022 8:27 AM [facility] MCV 91.2 82.0 - 99.0 fL 11/10/2022 8:[address] [facility] LABORATORY SERVICES [facility] MCH 30.2 27.8 - 34.5 pg 11/10/2022 8:[address] [facility] LABORATORY SERVICES [facility] MCHC 33.1 32.5 - 35.5 g/dL 11/10/2022 8:27 AM [facility] SERVICES [facility] RDW 15.5(H) 11.5 - 14.5 % 11/10/2022 8:[address] [facility] LABORATORY SERVICES [facility] PLATELETS 215 160 - 420 K/uL 11/10/2022 8:[address] [facility] LABORATORY SERVICES [facility] MPV 9.7 8.7 - 12.7 fL 11/10/2022 8:[address] [facility]ORY SERVICES [facility] NEUTROPHILS 59 % 11/10/2022 8:[address] [facility]ORATORY SERVICES [facility] LYMPHOCYTES 24 % 11/10/2022 8:[address] [facility]ORY SERVICES [facility] MONOCYTES 10 % 11/10/2022 8:[address] [facility]ORY SERVICES [facility] EOSINOPHILS 7 % 11/10/2022 8:[address] [facility]ORY SERVICES [facility] BASOPHILS 1 % 11/10/2022 8:[address] [facility]ORY SERVICES [facility] NEUTROPHIL ABSOLUTE 4.30 1.90 - 7.00 K/uL 11/10/2022 8:[address] [facility] LABORATORY SERVICES [facility] LYMPHOCYTE ABSOLUTE 1.80 0.70 - 4.50 K/uL 11/10/2022 8:[address] [facility] LABORATORY SERVICES [facility] MONOCYTE ABSOLUTE 0.80 0.10 - 1.30 K/uL 11/10/2022 8:[address] [facility] LAB[facility] EOSINOPHIL ABSOLUTE 0.50 0.00 - 0.70 K/uL 11/10/2022 8:27 AM [facility] BASOPHILS ABSOLUTE 0.10 0.00 - 0.20 K/uL 11/10/2022 8:[address] [facility] Blood Collection / Unknown 11/10/2022 4:30 AM DATABASE SPECIALIST 11/10/2022 7:27 AM DATABASE SPECIALIST Franco Apple MD HEMATOLOGY ORDERABLES Final Resu lt [facility] CLIA# [id number] [address] [place] [address] * (ABNORMAL) BASIC METABOLIC PANEL (11/10/2022 4:30 AM DATABASE SPECIALIST) SODIUM 139 136 - 145 mmol/L 11/10/2022 8:[address] [facility] POTASSIUM 3.3(L) 3.4 - 5.1 mmol/L 11/10/2022 8:[address] [facility] CHLORIDE 90(L) 98 - 107 mmol/L 11/10/2022 8:[address] [facility] CO2 38(H) 22 - 29 mmol/L 11/10/2022 8:[address] [facility] CALCIUM 10.4 8.6 - 10.4 mg/dL 11/10/2022 8:[address] [facility] BUN 59(H) 6 - 20 mg/dL 11/10/2022 8:[address] [facility] CREATININE 0.76 0.67 - 1.17 mg/dL 11/10/2022 8:[address] [facility] Comment:The GFR result is no t clinically significant on patients <18 or >70 years of age. GLUCOSE 151(H) 74 - 99 mg/dL 11/10/2022 8:[address] [facility] GFR >60 mL/min/1.7 3 sq meter 11/10/2022 8:[address] [facility] LABORAT[facility] Comment:eGFR calculated with 2020 CKD-EPI equation. Vegetarian diet, extremely high or low muscle mass, and may affect results. Cystatin C with Glomerular Filtration Rate is a suitable alternative for these patients. ANION GAP 11 8 - 16 mmol/L 11/10/2022 8:[address] [facility] Blood Collection / Unknown 11/10/2022 4:30 AM DATABASE SPECIALIST 11/10/2022 7:27 AM DATABASE SPECIALIST us Franco Apple MD CHEMISTRY ORDERABLES Final Resul t [facility] [place] [facility] CLIA# [id number] [address] [place] [address] documented in this encounter Visit Diagnoses Not on filedocumented in this encounter Additional Health Concerns Infection Onset Date Last Indicated Resolved Time MRSA Comment:09/2022 sputum Resolved per Type and Duration of Precautions Recommended for Selected Infections and Conditions document 2023 update 09/16/2022 09/28/202206/04 4:18 PM CDT documented as of this encounter
--- OUTSIDE RECORDS SUMMARY | 2025-01-05 04:00 | XMS_ITS | Encounter Summary ---
Author Organization [facility] Address [address] [place] [address] Care Team Providers Care Veterinary Surgery Technician Name Role Phone Unavailable Primary Care Provider Unavailabl e Encounter Details Date Type Department Care Team (Late st Contact Info) Description 12/08/2022 Lab Requisition [facility] Laboratory Services [address] [place] [address] [place] [address] [place] [address] Social History Tobacco Use Types Packs/Day Years Used Date Smoking Tobacco: Never Assessed Sex and Gender Information Value Date Recorded Sex Assigned at Not on file Legal Sex Male 2:27 PM WOOD PRODUCTS MANUFACTURER Gender Identity Not on file Sexual Orientation Not on file COVID-19 Exposure Response Date Recorded In the last 10 days, have yo u been in contact with someone who was confirmed or suspected to have Coronavirus/COVID-19? Unable to assess 12/07/2022 7:54 AM WOOD PRODUCTS MANUFACTURER documented as of this encounter Plan of Treatment Not on file documented as of this encounter Procedures Procedure Name Priority Date/Time Associated Diagnosis Comments VANCOMYCIN LEVEL TROUGH Routine 12/08/2022 1:50 AM WOOD PRODUCTS MANUFACTURER documented in this encounter Results * VANCOMYCIN LEVEL TROUGH (12/08/2022 1:50 AM WOOD PRODUCTS MANUFACTURER) VANCOMYCIN, TROUGH 16.7 10.0 - 17.0 ug/mL 12/08/2022 6:53 AM WOOD PRODUCTS MANUFACTURER [facility] LABORATORY SERVICES [facility] Blood Collection / Unknown 12/08/2022 1:50 AM WOOD PRODUCTS MANUFACTURER 12/08/2022 6:04 AM WOOD PRODUCTS MANUFACTURER us Franco Apple MD CHEMISTRY ORDERABLES Final Resul t [facility] LABORATORY SERVICES [facility]# [id number] [address] [place] [address] documented in this encounter Visit Diagnoses Not on filedocumented in this encounter Additional Health Concerns Infection Onset Date Last Indicated Resolved Time MRSA Comment:09/2022 sputum Resolved per Type and Duration of Precautions Recommended for Selected Infections and Conditions document 2023 update 09/16/2022 09/28/202206/04 4:18 PM CDT documented as of this encounter
--- OUTSIDE RECORDS SUMMARY | 2025-01-05 04:00 | XMS_ITS | Encounter Summary ---
Author Organization [facility] Address [address] [place] [address] Care Team Providers Care Circular Shear Operator Name Role Phone Unavailable Primary Care Provider Unavailabl e Encounter Details Date Type Department Care Team (Late st Contact Info) Description 09/05/2022 Lab Requisition [facility] Laboratory Services [address] [place] [address] [place] [address] [facility] [place] [address] Social History Tobacco Use Types Packs/Day Years Used Date Smoking Tobacco: Never Assessed Sex and Gender Information Value Date Recorded Sex Assigned at Not on file Legal Sex Male 2:27 PM VACUUM FRAME OPERATOR Gender Identity Not on file Sexual Orientation Not on file COVID-19 Exposure Response Date Recorded In the last 10 days, have yo u been in contact with someone who was confirmed or suspected to have Coronavirus/COVID-19? Unable to assess 09/04/2022 2:29 PM VACUUM FRAME OPERATOR documented as of this encounter Plan of Treatment Not on file documented as of this encounter Procedures Procedure Name Priority Date/Time Associated Diagnosis Comments CBC WITH DIFFERENTIAL Routine 09/05/2022 3:00 AM VACUUM FRAME OPERATOR PTT Routine 09/05/2022 3:00 AM VACUUM FRAME OPERATOR PROTIME-INR Routine 09/05/2022 3:00 AM VACUUM FRAME OPERATOR PREALBUMIN Routine 09/05/2022 3:00 AM VACUUM FRAME OPERATOR COMPREHENSIVE METABOLIC PANEL Routine 09/05/2022 3:00 AM VACUUM FRAME OPERATOR documented in this encounter Results * (ABNORMAL) PTT (09/05/2022 3:00 AM VACUUM FRAME OPERATOR) PTT 38.5(H) 23.1 - 37.1 seconds 09/05/2022 8:05 AM VACUUM FRAME OPERATOR [facility] LABORATORY [facility] Blood 09/05/2022 3:00 AM VACUUM FRAME OPERATOR 09/05/2022 6:44 AM VACUUM FRAME OPERATOR Franco Apple MD HEMATOLOGY ORDERABLES Final Resu lt Performing Organization Address City/[facility]/ZIP Co de Phone Number [facility] CLIA# [id number] [place] [address] * (ABNORMAL) PROTIME-INR (09/05/2022 3:00 AM VACUUM FRAME OPERATOR) PROTIME 14.9(H) 11.5 - 14.7 Seconds 09/05/2022 8:05 AM VACUUM FRAME OPERATOR [facility] INR 1.2(H) 0.9 - 1.1 09/05/2022 8:05 AM VACUUM FRAME OPERATOR [facility] [employer]ort [facility] Blood 09/05/2022 3:00 AM VACUUM FRAME OPERATOR 09/05/2022 6:44 AM VACUUM FRAME OPERATOR us Franco Apple MD HEMATOLOGY ORDERABLES Final Resu lt Performing Organization Address City/[facility]/ZIP Co de Phone Number [facility] CLIA# [id number] [address] [place] [address] * (ABNORMAL) PREALBUMIN (09/05/2022 3:00 AM VACUUM FRAME OPERATOR) PREALBUMIN 8(L) 20 - 40 mg/dL 09/05/2022 3:40 PM VACUUM FRAME OPERATOR [facility] LABORATORY [facility] Blood 09/05/2022 3:00 AM VACUUM FRAME OPERATOR 09/05/2022 6:44 AM VACUUM FRAME OPERATOR us Franco Apple MD CHEMISTRY ORDERABLES Final Resul t [facility]# [id number] [address] [place] [address] * (ABNORMAL) CBC WITH DIFFERENTIAL (09/05/2022 3:00 AM VACUUM FRAME OPERATOR) WBC 9.8 4.5 - 10.5 K/uL 09/05/2022 7:23 AM [facility] LABORATORY [facility] RBC 2.73(L) 4.50 - 5.40 M/uL 09/05/2022 7:23 AM [facility] LABORAT[facility] HEMOGLOBIN 7.7(L) 13.6 - 16.5 g/dL 09/05/2022 7:23 AM [facility] LABORAT[facility] HEMATOCRIT 24.9(L) 40.0 - 48.0 % 09/05/2022 7:23 AM [facility]OR[facility] MCV 91.0 82.0 - 99.0 fL 09/05/2022 7:23 AM VACUUM FRAME OPERATOR [facility] MCH 28.1 27.8 - 34.5 pg 09/05/2022 7:23 AM VACUUM FRAME OPERATOR [facility] MCHC 30.9(L) 32.5 - 35.5 g/dL 09/05/2022 7:23 AM [facility] LABORAT[facility] RDW 17.6(H) 11.5 - 14.5 % 09/05/2022 7:23 AM VACUUM FRAME OPERATOR [facility] PLATELETS 312 160 - 420 K/uL 09/05/2022 7:23 AM VACUUM FRAME OPERATOR [facility] MPV 9.0 8.7 - 12.7 fL 09/05/2022 7:23 AM VACUUM FRAME OPERATOR [facility] NEUTROPHILS 66 % 09/05/2022 7:23 AM VACUUM FRAME OPERATOR [facility] LYMPHOCYTES 16 % 09/05/2022 7:23 AM VACUUM FRAME OPERATOR [facility] LABORATORY SERVICES [facility] MONOCYTES 6 % 09/05/2022 7:23 AM VACUUM FRAME OPERATOR [facility] SERVICES [facility] EOSINOPHILS 12 % 09/05/2022 7:23 AM VACUUM FRAME OPERATOR [facility] BASOPHILS 1 % 09/05/2022 7:23 AM [facility] LABORAT[facility] NEUTROPHIL ABSOLUTE 6.40 1.90 - 7.00 K/uL 09/05/2022 7:23 AM [facility] LYMPHOCYTE ABSOLUTE 1.60 0.70 - 4.50 K/uL 09/05/2022 7:23 AM VACUUM FRAME OPERATOR [facility] MONOCYTE ABSOLUTE 0.60 0.10 - 1.30 K/uL 09/05/2022 7:23 AM [facility] LABORATORY [facility] EOSINOPHIL ABSOLUTE 1.10(H) 0.00 - 0.70 K/uL 09/05/2022 7:23 AM [facility] LABORAT[facility] BASOPHILS ABSOLUTE 0.10 0.00 - 0.20 K/uL 09/05/2022 7:23 AM [facility] Blood 09/05/2022 3:00 AM VACUUM FRAME OPERATOR 09/05/2022 6:44 AM VACUUM FRAME OPERATOR us Franco Apple MD HEMATOLOGY ORDERABLES Final Resu lt [facility] CLIA# [id number] [address] [place] [address] * (ABNORMAL) COMPREHENSIVE METABOLIC PANEL (09/05/2022 3:00 AM VACUUM FRAME OPERATOR) SODIUM 149(H) 136 - 145 mmol/L 09/05/2022 7:47 AM [facility] POTASSIUM 4.0 3.4 - 5.1 mmol/L 09/05/2022 7:47 AM [facility] CHLORIDE 105 98 - 107 mmol/L 09/05/2022 7:47 AM [facility] CO2 34(H) 22 - 29 mmol/L 09/05/2022 7:47 AM [facility] CALCIUM 9.1 8.6 - 10.4 mg/dL 09/05/2022 7:47 AM [facility] BUN 29(H) 6 - 20 mg/dL 09/05/2022 7:47 AM [facility] CREATININE 0.80 0.67 - 1.17 mg/dL 09/05/2022 7:47 AM [facility] Comment:The GFR result is no t clinically significant on patients <18 or >70 years of age. GLUCOSE 182(H) 74 - 99 mg/dL 09/05/2022 7:47 AM [facility] TOTAL PROTEIN 6.5 6.3 - 8.7 g/dL 09/05/2022 7:47 AM [facility] ALBUMIN 2.1(L) 3.5 - 5.2 g/dL 09/05/2022 7:47 AM [facility] BILIRUBIN TOTAL 0.5 0.2 - 1.1 mg/dL 09/05/2022 7:47 AM [facility] ALKALINE PHOSPHATASE 157(H) 40 - 150 U/L 09/05/2022 7:47 AM [facility] AST 34 0 - 41 U/L 09/05/2022 7:47 AM [facility] ALT 16 0 - 41 U/L 09/05/2022 7:47 AM [facility] GFR >60 mL/min/1.7 3 sq meter 09/05/2022 7:47 AM [facility] Comment:eGFR calculated with 2020 CKD-EPI equation. Vegetarian diet, extremely high or low muscle mass, and may affect results. Cystatin C with Glomerular Filtration Rate is a suitable alternative for these patients. ANION GAP 10 8 - 16 mmol/L 09/05/2022 7:47 AM [facility] Blood 09/05/2022 3:00 AM VACUUM FRAME OPERATOR 09/05/2022 6:44 AM VACUUM FRAME OPERATOR us Franco Apple MD CHEMISTRY ORDERABLES Final Resul t [facility] CLIA# [id number] [address] [place] [address] documented in this encounter Visit Diagnoses Not on filedocumented in this encounter Additional Health Concerns Infection Onset Date Last Indicated Resolved Time MRSA Comment:09/2022 sputum Resolved per Type and Duration of Precautions Recommended for Selected Infections and Conditions document 2023 update 09/16/2022 09/28/202206/04 4:18 PM CDT documented as of this encounter
--- OUTSIDE RECORDS SUMMARY | 2025-01-05 04:00 | XMS_ITS | Encounter Summary ---
Author Organization [facility] Address [address] [place] [address] Care Team Providers Care Rag Boiler Name Role Phone Unavailable Primary Care Provider Unavailabl e Encounter Details Date Type Department Care Team (Late st Contact Info) Description 09/18/2022 Lab Requisition [facility] Laboratory Services [address] [place] [address] [place] [address] [facility] [place] [address] Social History Tobacco Use Types Packs/Day Years Used Date Smoking Tobacco: Never Assessed Sex and Gender Information Value Date Recorded Sex Assigned at Not on file Legal Sex Male 2:27 PM OUTREACH ASSISTANT Gender Identity Not on file Sexual Orientation Not on file COVID-19 Exposure Response Date Recorded In the last 10 days, have yo u been in contact with someone who was confirmed or suspected to have Coronavirus/COVID-19? Unable to assess 09/18/2022 6:07 AM OUTREACH ASSISTANT documented as of this encounter Plan of Treatment Not on file documented as of this encounter Procedures Procedure Name Priority Date/Time Associated Diagnosis Comments CBC WITH DIFFERENTIAL Routine 09/18/2022 2:15 AM OUTREACH ASSISTANT PHOSPHORUS Routine 09/18/2022 2:15 AM OUTREACH ASSISTANT BASIC METABOLIC PANEL Routine 09/18/2022 2:15 AM OUTREACH ASSISTANT documented in this encounter Results * PHOSPHORUS (09/18/2022 2:15 AM OUTREACH ASSISTANT) PHOSPHORUS 2.8 2.5 - 4.5 mg/dL 09/18/2022 10:02 AM OUTREACH ASSISTANT [facility] [address] [facility] Blood Collection / Unknown 09/18/2022 2:15 AM OUTREACH ASSISTANT 09/18/2022 9:49 AM OUTREACH ASSISTANT Franco Apple MD CHEMISTRY ORDERABLES Final Resul t [facility] CLIA# [id number] [address] [place] [address] * (ABNORMAL) CBC WITH DIFFERENTIAL (09/18/2022 2:15 AM OUTREACH ASSISTANT) WBC 7.9 4.5 - 10.5 K/uL 09/18/2022 7:38 AM [facility] RBC 2.67(L) 4.50 - 5.40 M/uL 09/18/2022 7:38 AM [facility] HEMOGLOBIN 7.8(L) 13.6 - 16.5 g/dL 09/18/2022 7:38 AM [facility] HEMATOCRIT 24.5(L) 40.0 - 48.0 % 09/18/2022 7:38 AM [facility] MCV 92.0 82.0 - 99.0 fL 09/18/2022 7:38 AM [facility] MCH 29.2 27.8 - 34.5 pg 09/18/2022 7:38 AM [facility] MCHC 31.8(L) 32.5 - 35.5 g/dL 09/18/2022 7:38 AM [facility] [address] [facility] RDW 18.6(H) 11.5 - 14.5 % 09/18/2022 7:38 AM [facility] PLATELETS 192 160 - 420 K/uL 09/18/2022 7:38 AM [facility] [address] [facility] MPV 10.4 8.7 - 12.7 fL 09/18/2022 7:38 AM [facility] [address] [facility] NEUTROPHILS 66 % 09/18/2022 7:38 AM [facility] [address] [facility] LYMPHOCYTES 14 % 09/18/2022 7:38 AM OUTREACH ASSISTANT [facility] LABORATORY [facility] MONOCYTES 7 % 09/18/2022 7:38 AM OUTREACH ASSISTANT [facility] LABORATORY [facility] EOSINOPHILS 12 % 09/18/2022 7:38 AM [facility] LABORATORY [facility] BASOPHILS 1 % 09/18/2022 7:38 AM [facility] LABORATORY [facility] NEUTROPHIL ABSOLUTE 5.20 1.90 - 7.00 K/uL 09/18/2022 7:38 AM [facility] LABORATORY [facility] LYMPHOCYTE ABSOLUTE 1.10 0.70 - 4.50 K/uL 09/18/2022 7:38 AM [facility] LABORATORY [facility] MONOCYTE ABSOLUTE 0.60 0.10 - 1.30 K/uL 09/18/2022 7:38 AM [facility] LABORATORY [facility] EOSINOPHIL ABSOLUTE 0.90(H) 0.00 - 0.70 K/uL 09/18/2022 7:38 AM [facility] LABORATORY [facility] BASOPHILS ABSOLUTE 0.00 0.00 - 0.20 K/uL 09/18/2022 7:38 AM [facility] [address] [facility] Blood Collection / Unknown 09/18/2022 2:15 AM OUTREACH ASSISTANT 09/18/2022 7:14 AM OUTREACH ASSISTANT us Franco Apple MD HEMATOLOGY ORDERABLES Final Resu lt [facility] CLIA# [id number] [place] [address] * (ABNORMAL) BASIC METABOLIC PANEL (09/18/2022 2:15 AM OUTREACH ASSISTANT) SODIUM 143 136 - 145 mmol/L 09/18/2022 8:04 AM [facility] POTASSIUM 3.6 3.4 - 5.1 mmol/L 09/18/2022 8:04 AM [facility] [address] [facility] CHLORIDE 93(L) 98 - 107 mmol/L 09/18/2022 8:04 AM [facility] LABORATORY [facility] CO2 42(H) 22 - 29 mmol/L 09/18/2022 8:04 AM [facility] CALCIUM 9.6 8.6 - 10.4 mg/dL 09/18/2022 8:04 AM [facility] BUN 57(H) 6 - 20 mg/dL 09/18/2022 8:04 AM [facility] CREATININE 0.68 0.67 - 1.17 mg/dL 09/18/2022 8:04 AM [facility] Comment:The GFR result is no t clinically significant on patients <18 or >70 years of age. GLUCOSE 306(H) 74 - 99 mg/dL 09/18/2022 8:04 AM [facility] GFR >60 mL/min/1.7 3 sq meter 09/18/2022 8:04 AM [facility] Comment:eGFR calculated with 2020 CKD-EPI equation. Vegetarian diet, extremely high or low muscle mass, and may affect results. Cystatin C with Glomerular Filtration Rate is a suitable alternative for these patients. ANION GAP 8 8 - 16 mmol/L 09/18/2022 8:04 AM [facility] Blood Collection / Unknown 09/18/2022 2:15 AM OUTREACH ASSISTANT 09/18/2022 7:14 AM OUTREACH ASSISTANT us Franco Apple MD CHEMISTRY ORDERABLES Final Resul t [facility] CLIA# [id number] [place] [address] documented in this encounter Visit Diagnoses Not on filedocumented in this encounter Additional Health Concerns Infection Onset Date Last Indicated Resolved Time MRSA Comment:09/2022 sputum Resolved per Type and Duration of Precautions Recommended for Selected Infections and Conditions document 2023 update 09/16/2022 09/28/202206/04 4:18 PM CDT documented as of this encounter
--- OUTSIDE RECORDS SUMMARY | 2025-01-05 04:00 | XMS_ITS | Encounter Summary ---
Author Organization [facility] Address [address] [place] [address] Care Team Providers Care Garnisher Name Role Phone Unavailable Primary Care Provider Unavailabl e Encounter Details Date Type Department Care Team (Late st Contact Info) Description 11/05/2022 Lab Requisition [facility] Laboratory Services [address] [place] [address] [place] [address] [place] [address] Social History Tobacco Use Types Packs/Day Years Used Date Smoking Tobacco: Never Assessed Sex and Gender Information Value Date Recorded Sex Assigned at Not on file Legal Sex Male 2:27 PM TIRE TESTER Gender Identity Not on file Sexual Orientation Not on file COVID-19 Exposure Response Date Recorded In the last 10 days, have yo u been in contact with someone who was confirmed or suspected to have Coronavirus/COVID-19? Unable to assess 11/04/2022 12:51 PM TIRE TESTER documented as of this encounter Plan of Treatment Not on file documented as of this encounter Procedures Procedure Name Priority Date/Time Associated Diagnosis Comments HEPATIC FUNCTION PANEL Routine 11/05/2022 4:30 AM TIRE TESTER documented in this encounter Results * (ABNORMAL) HEPATIC FUNCTION PANEL (11/05/2022 4:30 AM TIRE TESTER) TOTAL PROTEIN 8.0 6.3 - 8.7 g/dL 11/05/2022 9:37 AM TIRE TESTER [facility] ALBUMIN 3.3(L) 3.5 - 5.2 g/dL 11/05/2022 9:37 AM TIRE TESTER [facility] BILIRUBIN TOTAL 0.9 0.2 - 1.1 mg/dL 11/05/2022 9:37 AM TIRE TESTER [facility] BILIRUBIN DIRECT <0.2 0.0 - 0.3 mg/dL 11/05/2022 9:37 AM TIRE TESTER [facility] ALKALINE PHOSPHATASE 163(H) 40 - 150 U/L 11/05/2022 9:37 AM [facility] AST 36 0 - 41 U/L 11/05/2022 9:37 AM TIRE TESTER [facility] ALT 16 0 - 41 U/L 11/05/2022 9:37 AM [facility] Blood Collection / Unknown 11/05/2022 4:30 AM TIRE TESTER 11/05/2022 8:32 AM TIRE TESTER Franco Apple MD CHEMISTRY ORDERABLES Final Resul t [facility] CLIA# [id number] [address] [place] [address] documented in this encounter Visit Diagnoses Not on filedocumented in this encounter Additional Health Concerns Infection Onset Date Last Indicated Resolved Time MRSA Comment:09/2022 sputum Resolved per Type and Duration of Precautions Recommended for Selected Infections and Conditions document 2023 update 09/16/2022 09/28/202206/04 4:18 PM CDT documented as of this encounter
--- OUTSIDE RECORDS SUMMARY | 2025-01-05 04:00 | XMS_ITS | Encounter Summary ---
Author Organization [facility] Address [address] [place] [address] Care Team Providers Care Men'S Swim Coach Name Role Phone Unavailable Primary Care Provider Unavailabl e Encounter Details Date Type Department Care Team (Late st Contact Info) Description 12/13/2022 Lab Requisition [facility] Laboratory Services [address] [place] [address] [place] [address] [place] [address] Social History Tobacco Use Types Packs/Day Years Used Date Smoking Tobacco: Never Assessed Sex and Gender Information Value Date Recorded Sex Assigned at Not on file Legal Sex Male 2:27 PM 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 Gender Identity Not on file Sexual Orientation [...] Associated Diagnosis Comments CBC WITH DIFFERENTIAL Routine 12/13/2022 3:10 AM CDT BASIC METABOLIC PANEL Routine 12/13/2022 3:10 AM CDT documented in this encounter Results * (ABNORMAL) CBC WITH DIFFERENTIAL (12/13/2022 3:10 AM CDT) Pathologist [facility] WBC 7.0 4.5 - 10.5 K/uL 12/13/2022 5:09 AM CDT [facility] RBC 3.23(L) 4.50 - 5.40 M/uL 12/13/2022 5:09 AM CDT [facility] HEMOGLOBIN 9.9(L) 13.6 - 16.5 g/dL 12/13/2022 5:09 AM CDT [facility] HEMATOCRIT 28.7(L) 40.0 - 48.0 % 12/13/2022 5:09 AM CDT [facility] MCV 89.0 82.0 - 99.0 fL 12/13/2022 5:09 AM CDT [facility] MCH 30.7 27.8 - 34.5 pg 12/13/2022 5:09 AM CDT [facility] MCHC 34.6 32.5 - 35.5 g/dL 12/13/2022 5:09 AM CDT [facility] RDW 15.5(H) 11.5 - 14.5 % 12/13/2022 5:09 AM CDT [facility] PLATELETS 217 160 - 420 K/uL 12/13/2022 5:09 AM CDT [facility] MPV 9.0 8.7 - 12.7 fL 12/13/2022 5:09 AM CDT [facility] NEUTROPHILS 62 % 12/13/2022 5:09 AM CDT [facility] LYMPHOCYTES 18 % 12/13/2022 5:09 AM CDT [facility] MONOCYTES 11 % 12/13/2022 5:09 AM CDT [facility] EOSINOPHILS 9 % 12/13/2022 5:09 AM CDT [facility] BASOPHILS 0 % 12/13/2022 5:09 AM CDT [facility] NEUTROPHIL ABSOLUTE 4.40 1.90 - 7.00 K/uL 12/13/2022 5:09 AM CDT [facility] LYMPHOCYTE ABSOLUTE 1.30 0.70 - 4.50 K/uL 12/13/2022 5:09 AM CDT [facility] MONOCYTE ABSOLUTE 0.80 0.10 - 1.30 K/uL 12/13/2022 5:09 AM CDT [facility] EOSINOPHIL ABSOLUTE 0.60 0.00 - 0.70 K/uL 12/13/2022 5:09 AM CDT [facility] BASOPHILS ABSOLUTE 0.00 0.00 - 0.20 K/uL 12/13/2022 5:09 AM CDT [facility] Blood 12/13/2022 3:10 AM CDT 12/13/2022 5:02 AM CDT us Franco Apple MD HEMATOLOGY ORDERABLES Final Resu lt [facility] CLIA# [id number] [address] [place] [address] * (ABNORMAL) BASIC METABOLIC PANEL (12/13/2022 3:10 AM CDT) SODIUM 136 136 - 145 mmol/L 12/13/2022 5:47 AM CDT [facility] POTASSIUM 3.9 3.4 - 5.1 mmol/L 12/13/2022 5:47 AM CDT [facility] CHLORIDE 95(L) 98 - 107 mmol/L 12/13/2022 5:47 AM T [facility] CO2 30(H) 22 - 29 mmol/L 12/13/2022 5:47 AM CDT [facility] CALCIUM 10.3 8.6 - 10.4 mg/dL 12/13/2022 5:47 AM CDT [facility] BUN 48(H) 6 - 20 mg/dL 12/13/2022 5:47 AM CDT [facility] CREATININE 0.93 0.67 - 1.17 mg/dL 12/13/2022 5:47 AM CDT [facility] Comment:The GFR result is no t clinically significant on patients <18 or >70 years of age. GLUCOSE 220(H) 74 - 99 mg/dL 12/13/2022 5:47 AM CDT [facility] GFR >60 mL/min/1.7 3 sq meter 12/13/2022 5:47 AM CDT [facility] Comment:eGFR calculated with 2020 CKD-EPI equation. Vegetarian diet, extremely high or low muscle mass, and may affect results. Cystatin C with Glomerular Filtration Rate is a suitable alternative for these patients. ANION GAP 11 8 - 16 mmol/L 12/13/2022 5:47 AM CDT [facility] Blood 12/13/2022 3:10 AM CDT 12/13/2022 5:02 AM CDT Franco Apple MD CHEMISTRY ORDERABLES Final Resul t [facility] CLIA# [id number] [address] [place] [address] documented in this encounter Visit Diagnoses Not on filedocumented in this encounter Additional Health Concerns Infection Onset Date Last Indicated Resolved Time MRSA Comment:09/2022 sputum Resolved per Type and Duration of Precautions Recommended for Selected Infections and Conditions document 2023 update 09/16/2022 09/28/202206/04 4:18 PM CDT documented as of this encounter
--- OUTSIDE RECORDS SUMMARY | 2025-01-05 04:00 | XMS_ITS | Encounter Summary ---
Author Organization [facility] Address [address] [place] [address] Care Team Providers Care Post Tensioning Ironworker Name Role Phone Unavailable Primary Care Provider Unavailabl e Encounter Details Date Type Department Care Team (Late st Contact Info) Description 12/10/2022 Lab Requisition [facility] Laboratory Services [address] [address] [place] [address] [place] [address] Social History Tobacco Use Types Packs/Day Years Used Date Smoking Tobacco: Never Assessed Sex and Gender Information Value Date Recorded Sex Assigned at Not on file Legal Sex Male 2:27 PM PHYSICIAN CREDENTIALING SPECIALIST Gender Identity Not on file Sexual Orientation Not on file COVID-19 Exposure Response Date Recorded In the last 10 days, have yo u been in contact with someone who was confirmed or suspected to have Coronavirus/COVID-19? Unable to assess 12/07/2022 7:54 AM PHYSICIAN CREDENTIALING SPECIALIST documented as of this encounter Plan of Treatment Not on file documented as of this encounter Procedures Procedure Name Priority Date/Time Associated Diagnosis Comments CBC WITH DIFFERENTIAL Routine 12/10/2022 3:30 AM PHYSICIAN CREDENTIALING SPECIALIST BASIC METABOLIC PANEL Routine 12/10/2022 3:30 AM PHYSICIAN CREDENTIALING SPECIALIST documented in this encounter Results * (ABNORMAL) CBC WITH DIFFERENTIAL (12/10/2022 3:30 AM PHYSICIAN CREDENTIALING SPECIALIST) WBC 8.8 4.5 - 10.5 K/uL 12/10/2022 7:19 AM PHYSICIAN CREDENTIALING SPECIALIST [facility] RBC 3.06(L) 4.50 - 5.40 M/uL 12/10/2022 7:19 AM [facility] HEMOGLOBIN 9.1(L) 13.6 - 16.5 g/dL 12/10/2022 7:19 AM [facility] HEMATOCRIT 27.6(L) 40.0 - 48.0 % 12/10/2022 7:19 AM [facility] MCV 90.4 82.0 - 99.0 fL 12/10/2022 7:19 AM PHYSICIAN CREDENTIALING SPECIALIST [facility] MCH 29.8 27.8 - 34.5 pg 12/10/2022 7:19 AM PHYSICIAN CREDENTIALING SPECIALIST [facility] MCHC 33.0 32.5 - 35.5 g/dL 12/10/2022 7:19 AM [facility] RDW 15.3(H) 11.5 - 14.5 % 12/10/2022 7:19 AM PHYSICIAN CREDENTIALING SPECIALIST [facility] PLATELETS 249 160 - 420 K/uL 12/10/2022 7:19 AM PHYSICIAN CREDENTIALING SPECIALIST [facility] MPV 9.2 8.7 - 12.7 fL 12/10/2022 7:19 AM PHYSICIAN CREDENTIALING SPECIALIST [facility] NEUTROPHILS 60 % 12/10/2022 7:19 AM PHYSICIAN CREDENTIALING SPECIALIST [facility] LYMPHOCYTES 22 % 12/10/2022 7:19 AM PHYSICIAN CREDENTIALING SPECIALIST [facility] MONOCYTES 10 % 12/10/2022 7:19 AM PHYSICIAN CREDENTIALING SPECIALIST [facility] EOSINOPHILS 7 % 12/10/2022 7:19 AM PHYSICIAN CREDENTIALING SPECIALIST [facility] BASOPHILS 1 % 12/10/2022 7:19 AM PHYSICIAN CREDENTIALING SPECIALIST [facility] NEUTROPHIL ABSOLUTE 5.30 1.90 - 7.00 K/uL 12/10/2022 7:19 AM PHYSICIAN CREDENTIALING SPECIALIST [facility] LYMPHOCYTE ABSOLUTE 1.90 0.70 - 4.50 K/uL 12/10/2022 7:19 AM PHYSICIAN CREDENTIALING SPECIALIST [facility] MONOCYTE ABSOLUTE 0.90 0.10 - 1.30 K/uL 12/10/2022 7:19 AM PHYSICIAN CREDENTIALING SPECIALIST [facility] EOSINOPHIL ABSOLUTE 0.60 0.00 - 0.70 K/uL 12/10/2022 7:19 AM [facility] BASOPHILS ABSOLUTE 0.10 0.00 - 0.20 K/uL 12/10/2022 7:19 AM [facility] Blood Collection / Unknown 12/10/2022 3:30 AM PHYSICIAN CREDENTIALING SPECIALIST 12/10/2022 7:02 AM PHYSICIAN CREDENTIALING SPECIALIST Franco Apple MD HEMATOLOGY ORDERABLES Final Resu lt [facility] CLIA# [id number] [address] [place] [address] * (ABNORMAL) BASIC METABOLIC PANEL (12/10/2022 3:30 AM PHYSICIAN CREDENTIALING SPECIALIST) SODIUM 137 136 - 145 mmol/L 12/10/2022 7:34 AM [facility] POTASSIUM 3.9 3.4 - 5.1 mmol/L 12/10/2022 7:34 AM [facility] CHLORIDE 97(L) 98 - 107 mmol/L 12/10/2022 7:34 AM [facility] CO2 28 22 - 29 mmol/L 12/10/2022 7:34 AM [facility] CALCIUM 10.4 8.6 - 10.4 mg/dL 12/10/2022 7:34 AM [facility] BUN 43(H) 6 - 20 mg/dL 12/10/2022 7:34 AM [facility] CREATININE 0.99 0.67 - 1.17 mg/dL 12/10/2022 7:34 AM [facility] Comment:The GFR result is no t clinically significant on patients <18 or >70 years of age. GLUCOSE 228(H) 74 - 99 mg/dL 12/10/2022 7:34 AM [facility] GFR >60 mL/min/1.7 3 sq meter 12/10/2022 7:34 AM PHYSICIAN CREDENTIALING SPECIALIST [facility] Comment:eGFR calculated with 2020 CKD-EPI equation. Vegetarian diet, extremely high or low muscle mass, and may affect results. Cystatin C with Glomerular Filtration Rate is a suitable alternative for these patients. ANION GAP 12 8 - 16 mmol/L 12/10/2022 7:34 AM PHYSICIAN CREDENTIALING SPECIALIST [facility] Blood Collection / Unknown 12/10/2022 3:30 AM PHYSICIAN CREDENTIALING SPECIALIST 12/10/2022 7:02 AM PHYSICIAN CREDENTIALING SPECIALIST us Franco Apple MD CHEMISTRY ORDERABLES Final Resul t [facility] CLIA# [id number] [address] [place] [address] documented in this encounter Visit Diagnoses Not on filedocumented in this encounter Additional Health Concerns Infection Onset Date Last Indicated Resolved Time MRSA Comment:09/2022 sputum Resolved per Type and Duration of Precautions Recommended for Selected Infections and Conditions document 2023 update 09/16/2022 09/28/202206/04 4:18 PM CDT documented as of this encounter
--- OUTSIDE RECORDS SUMMARY | 2025-01-05 04:00 | XMS_ITS | Encounter Summary ---
Author Organization [facility] Address [address] [place] [address] Care Team Providers Care Crm Consultant Name Role Phone Unavailable Primary Care Provider Unavailabl e Encounter Details Date Type Department Care Team (Late st Contact Info) Description 12/20/2022 Lab Requisition [facility] Laboratory Services [address] [place] [address] [facility], External Provider [address] [place] [address] Social History Tobacco Use Types Packs/Day Years Used Date Smoking Tobacco: Never Assessed Sex and Gender Information Value Date Recorded Sex Assigned at Not on file Legal Sex Male 2:27 PM SUGAR REFINER Gender Identity Not on file Sexual Orientation [...] Associated Diagnosis Comments VANCOMYCIN LEVEL TROUGH Routine 12/20/2022 1:30 AM CDT documented in this encounter Results * VANCOMYCIN LEVEL TROUGH (12/20/2022 1:30 AM CDT) VANCOMYCIN, TROUGH 16.3 10.0 - 17.0 ug/mL 12/20/2022 5:[address] [facility] Blood Collection / Unknown 12/20/2022 1:30 AM CDT 12/20/2022 4:47 AM CDT External Provider [facility] CHEMISTRY ORDERABLES Tanya saenz Result [facility] CLIA# [id number] [address] [place] [address] documented in this encounter Visit Diagnoses Not on filedocumented in this encounter Additional Health Concerns Infection Onset Date Last Indicated Resolved Time MRSA Comment:09/2022 sputum Resolved per Type and Duration of Precautions Recommended for Selected Infections and Conditions document 2023 update 09/16/2022 09/28/202206/04 4:18 PM CDT documented as of this encounter
--- OUTSIDE RECORDS SUMMARY | 2025-01-05 04:00 | XMS_ITS | Encounter Summary ---
Author Organization [facility] Address [address] [place] [address] Care Team Providers Care Pig Lead Melter Helper Name Role Phone Unavailable Primary Care Provider Unavailabl e Encounter Details Date Type Department Care Team (Late st Contact Info) Description 12/14/2022 Lab Requisition [facility] Laboratory Services [address] [place] [address] [place] [address] [facility] [place] [address] Social History Tobacco Use Types Packs/Day Years Used Date Smoking Tobacco: Never Assessed Sex and Gender Information Value Date Recorded Sex Assigned at Not on file Legal 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 time or dose. 12/14/2022 7:04 AM CDT [facility] LAST DOSE AMT, VANCOMYCIN Other 12/14/2022 7:04 AM CDT [facility] Blood 12/14/2022 1:32 AM CDT 12/14/2022 5:45 AM CDT Franco Apple MD CHEMISTRY ORDERABLES Final Resul t [facility] CLIA# [id number] [address] [place] [address] documented in this encounter Visit Diagnoses Not on filedocumented in this encounter Additional Health Concerns Infection Onset Date Last Indicated Resolved Time MRSA Comment:09/2022 sputum Resolved per Type and Duration of Precautions Recommended for Selected Infections and Conditions document 2023 update 09/16/2022 09/28/202206/04 4:18 PM CDT documented as of this encounter
--- OUTSIDE RECORDS SUMMARY | 2025-01-05 04:00 | XMS_ITS | CONTINUITY OF CARE DOCUMENT ---
Author Name nieves pickett Address Unknown Organization [facility] Address [address] [place] [address] Phone [phone] Care Team Providers Care Wastewater Analyst Name Role Phone Chelsea Duarte MD Unavailable [phone] Chelsea Duarte MD Unavailable [phone] INSURANCE PROVIDERS Payer name Policy type / Coverage type Plato red green party ID [place] [employer] [employer] Commercial insurance company 101 [id number] [employer] [place] MEDICARE Commercial insurance company 1 [id number]
--- OUTSIDE RECORDS SUMMARY | 2025-01-05 04:00 | XMS_ITS | Encounter Summary ---
Author Organization [facility] Address [address] [place] [address] Care Team Providers Care Watershed Tender Name Role Phone Unavailable Primary Care Provider Unavailabl e Encounter Details Date Type Department Care Team (Late st Contact Info) Description 11/04/2022 Lab Requisition [facility] [address] [place] [address] [place] [address] [place] [address] Social History Tobacco Use Types Packs/Day Years Used Date Smoking Tobacco: Never Assessed Sex and Gender Information Value Date Recorded Sex Assigned at Not on file Legal Sex Male 2:27 PM CONSTRUCTION EQUIPMENT TECHNICIAN Gender Identity Not on file Sexual Orientation Not on file COVID-19 Exposure Response Date Recorded In the last 10 days, have yo u been in contact with someone who was confirmed or suspected to have Coronavirus/COVID-19? Unable to assess 11/04/2022 12:51 PM CONSTRUCTION EQUIPMENT TECHNICIAN documented as of this encounter Plan of Treatment Not on file documented as of this encounter Procedures Procedure Name Priority Date/Time Associated Diagnosis Comments CBC WITH DIFFERENTIAL Routine 11/04/2022 4:20 AM CONSTRUCTION EQUIPMENT TECHNICIAN BASIC METABOLIC PANEL Routine 11/04/2022 4:20 AM CONSTRUCTION EQUIPMENT TECHNICIAN documented in this encounter Results * (ABNORMAL) CBC WITH DIFFERENTIAL (11/04/2022 4:20 AM CONSTRUCTION EQUIPMENT TECHNICIAN) Pathologist [facility] WBC 10.4 4.5 - 10.5 K/uL 11/04/2022 7:54 AM CONSTRUCTION EQUIPMENT TECHNICIAN [facility] LABORATORY SERVICES [facility] RBC 3.21(L) 4.50 - 5.40 M/uL 11/04/2022 7:54 AM CONSTRUCTION EQUIPMENT TECHNICIAN [facility] LABORATORY [facility] HEMOGLOBIN 9.8(L) 13.6 - 16.5 g/dL 11/04/2022 7:54 AM [facility] LABORATORY [facility] HEMATOCRIT 29.1(L) 40.0 - 48.0 % 11/04/2022 7:54 AM CONSTRUCTION EQUIPMENT TECHNICIAN [facility] MCV 90.6 82.0 - 99.0 fL 11/04/2022 7:54 AM CONSTRUCTION EQUIPMENT TECHNICIAN [facility] MCH 30.4 27.8 - 34.5 pg 11/04/2022 7:54 AM CONSTRUCTION EQUIPMENT TECHNICIAN [facility] MCHC 33.6 32.5 - 35.5 g/dL 11/04/2022 7:54 AM [facility] LABORAT[facility] RDW 15.8(H) 11.5 - 14.5 % 11/04/2022 7:54 AM CONSTRUCTION EQUIPMENT TECHNICIAN [facility] PLATELETS 251 160 - 420 K/uL 11/04/2022 7:54 AM CONSTRUCTION EQUIPMENT TECHNICIAN [facility] MPV 9.3 8.7 - 12.7 fL 11/04/2022 7:54 AM CONSTRUCTION EQUIPMENT TECHNICIAN [facility] NEUTROPHILS 68 % 11/04/2022 7:54 AM CONSTRUCTION EQUIPMENT TECHNICIAN [facility] LYMPHOCYTES 18 % 11/04/2022 7:54 AM CONSTRUCTION EQUIPMENT TECHNICIAN [facility] MONOCYTES 8 % 11/04/2022 7:54 AM CONSTRUCTION EQUIPMENT TECHNICIAN [facility] EOSINOPHILS 6 % 11/04/2022 7:54 AM CONSTRUCTION EQUIPMENT TECHNICIAN [facility] BASOPHILS 1 % 11/04/2022 7:54 AM CONSTRUCTION EQUIPMENT TECHNICIAN [facility] NEUTROPHIL ABSOLUTE 7.00 1.90 - 7.00 K/uL 11/04/2022 7:54 AM CONSTRUCTION EQUIPMENT TECHNICIAN [facility] LYMPHOCYTE ABSOLUTE 1.90 0.70 - 4.50 K/uL 11/04/2022 7:54 AM CONSTRUCTION EQUIPMENT TECHNICIAN [facility] MONOCYTE ABSOLUTE 0.80 0.10 - 1.30 K/uL 11/04/2022 7:54 AM CONSTRUCTION EQUIPMENT TECHNICIAN [facility] EOSINOPHIL ABSOLUTE 0.60 0.00 - 0.70 K/uL 11/04/2022 7:54 AM [facility]OR[facility] BASOPHILS ABSOLUTE 0.10 0.00 - 0.20 K/uL 11/04/2022 7:54 AM [facility] Blood Collection / Unknown 11/04/2022 4:20 AM CONSTRUCTION EQUIPMENT TECHNICIAN 11/04/2022 7:35 AM CONSTRUCTION EQUIPMENT TECHNICIAN Franco Apple MD HEMATOLOGY ORDERABLES Final Resu lt [facility] CLIA# [id number] [place] [address] * (ABNORMAL) BASIC METABOLIC PANEL (11/04/2022 4:20 AM CONSTRUCTION EQUIPMENT TECHNICIAN) SODIUM 137 136 - 145 mmol/L 11/04/2022 8:37 AM [facility] POTASSIUM 3.5 3.4 - 5.1 mmol/L 11/04/2022 8:37 AM [facility] CHLORIDE 89(L) 98 - 107 mmol/L 11/04/2022 8:37 AM [facility] CO2 37(H) 22 - 29 mmol/L 11/04/2022 8:37 AM [facility] CALCIUM 10.6(H) 8.6 - 10.4 mg/dL 11/04/2022 8:37 AM [facility] BUN 60(H) 6 - 20 mg/dL 11/04/2022 8:37 AM [facility] CREATININE 0.75 0.67 - 1.17 mg/dL 11/04/2022 8:37 AM [facility] Comment:The GFR result is no t clinically significant on patients <18 or >70 years of age. GLUCOSE 139(H) 74 - 99 mg/dL 11/04/2022 8:37 AM [facility] GFR >60 mL/min/1.7 3 sq meter 11/04/2022 8:37 AM CONSTRUCTION EQUIPMENT TECHNICIAN [facility] Comment:eGFR calculated with 2020 CKD-EPI equation. Vegetarian diet, extremely high or low muscle mass, and may affect results. Cystatin C with Glomerular Filtration Rate is a suitable alternative for these patients. ANION GAP 11 8 - 16 mmol/L 11/04/2022 8:37 AM CONSTRUCTION EQUIPMENT TECHNICIAN [facility] Blood Collection / Unknown 11/04/2022 4:20 AM CONSTRUCTION EQUIPMENT TECHNICIAN 11/04/2022 7:35 AM CONSTRUCTION EQUIPMENT TECHNICIAN us Franco Apple MD CHEMISTRY ORDERABLES Final Resul t [facility] [employer] [facility] CLIA# [id number] [address] [place] [address] documented in this encounter Visit Diagnoses Not on filedocumented in this encounter Additional Health Concerns Infection Onset Date Last Indicated Resolved Time MRSA Comment:09/2022 sputum Resolved per Type and Duration of Precautions Recommended for Selected Infections and Conditions document 2023 update 09/16/2022 09/28/202206/04 4:18 PM CDT documented as of this encounter
--- OUTSIDE RECORDS SUMMARY | 2025-01-05 04:00 | XMS_ITS | Encounter Summary ---
Author Organization [facility] Address [address] [place] [address] Care Team Providers Care Carpenter Assistant Installer Name Role Phone Unavailable Primary Care Provider Unavailabl e Encounter Details Date Type Department Care Team (Late st Contact Info) Description 11/07/2022 Lab Requisition [facility] Laboratory Services [address] [place] [address] [facility], External Provider [address] [place] [address] Social History Tobacco Use Types Packs/Day Years Used Date Smoking Tobacco: Never Assessed Sex and Gender Information Value Date Recorded Sex Assigned at Not on file Legal Sex Male 2:27 PM MEDICAL DRIVER Gender Identity Not on file Sexual Orientation Not on file COVID-19 Exposure Response Date Recorded In the last 10 days, have yo u been in contact with someone who was confirmed or suspected to have Coronavirus/COVID-19? Unable to assess 11/04/2022 12:51 PM MEDICAL DRIVER documented as of this encounter Plan of Treatment Not on file documented as of this encounter Procedures Procedure Name Priority Date/Time Associated Diagnosis Comments CBC WITH DIFFERENTIAL Routine 11/07/2022 4:00 AM MEDICAL DRIVER BASIC METABOLIC PANEL Routine 11/07/2022 4:00 AM MEDICAL DRIVER documented in this encounter Results * (ABNORMAL) CBC WITH DIFFERENTIAL (11/07/2022 4:00 AM MEDICAL DRIVER) [facility] Signature WBC 8.7 4.5 - 10.5 K/uL 11/07/2022 7:36 AM MEDICAL DRIVER [facility] LABORATORY [facility] RBC 3.12(L) 4.50 - 5.40 M/uL 11/07/2022 7:36 AM MEDICAL DRIVER [facility] LABORATORY [facility] HEMOGLOBIN 9.5(L) 13.6 - 16.5 g/dL 11/07/2022 7:36 AM MEDICAL DRIVER [facility] LABORATORY SERVICES [facility] HEMATOCRIT 28.6(L) 40.0 - 48.0 % 11/07/2022 7:36 AM [facility] LABORATORY [facility] MCV 91.8 82.0 - 99.0 fL 11/07/2022 7:36 AM MEDICAL DRIVER [facility] LABORATORY [facility] MCH 30.5 27.8 - 34.5 pg 11/07/2022 7:36 AM [facility] LABORATORY SERVICES [facility] MCHC 33.2 32.5 - 35.5 g/dL 11/07/2022 7:36 AM [facility] LABORATORY [facility] RDW 15.5(H) 11.5 - 14.5 % 11/07/2022 7:36 AM [facility] LABORATORY [facility] PLATELETS 238 160 - 420 K/uL 11/07/2022 7:36 AM [facility] LABORATORY [facility] MPV 9.5 8.7 - 12.7 fL 11/07/2022 7:36 AM MEDICAL DRIVER [facility] LABORATORY SERVICES [facility] NEUTROPHILS 60 % 11/07/2022 7:36 AM MEDICAL DRIVER [facility] LABORATORY SERVICES [facility] LYMPHOCYTES 24 % 11/07/2022 7:36 AM MEDICAL DRIVER [facility] LABORATORY SERVICES [facility] MONOCYTES 10 % 11/07/2022 7:36 AM MEDICAL DRIVER [facility] LABORATORY SERVICES [facility] EOSINOPHILS 5 % 11/07/2022 7:36 AM MEDICAL DRIVER [facility] LABORATORY SERVICES [facility] BASOPHILS 1 % 11/07/2022 7:36 AM MEDICAL DRIVER [facility] LABORATORY SERVICES [facility] NEUTROPHIL ABSOLUTE 5.30 1.90 - 7.00 K/uL 11/07/2022 7:36 AM MEDICAL DRIVER [facility] LABORATORY SERVICES [facility] LYMPHOCYTE ABSOLUTE 2.10 0.70 - 4.50 K/uL 11/07/2022 7:36 AM MEDICAL DRIVER [facility] LABORATORY SERVICES [facility] MONOCYTE ABSOLUTE 0.80 0.10 - 1.30 K/uL 11/07/2022 7:36 AM MEDICAL DRIVER [facility] LABORATORY SERVICES [facility] EOSINOPHIL ABSOLUTE 0.40 0.00 - 0.70 K/uL 11/07/2022 7:36 AM [facility] BASOPHILS ABSOLUTE 0.10 0.00 - 0.20 K/uL 11/07/2022 7:36 AM [facility] Blood Collection / Unknown 11/07/2022 4:00 AM MEDICAL DRIVER 11/07/2022 6:58 AM MEDICAL DRIVER us External Provider [facility] HEMATOLOGY ORDERABLES Fin al Result [facility] CLIA# [id number] [address] [place] [address] * (ABNORMAL) BASIC METABOLIC PANEL (11/07/2022 4:00 AM MEDICAL DRIVER) SODIUM 140 136 - 145 mmol/L 11/07/2022 7:37 AM [facility] POTASSIUM 3.3(L) 3.4 - 5.1 mmol/L 11/07/2022 7:37 AM [facility] CHLORIDE 91(L) 98 - 107 mmol/L 11/07/2022 7:37 AM [facility] CO2 36(H) 22 - 29 mmol/L 11/07/2022 7:37 AM [facility] CALCIUM 10.6(H) 8.6 - 10.4 mg/dL 11/07/2022 7:37 AM [facility] BUN 57(H) 6 - 20 mg/dL 11/07/2022 7:37 AM [facility] CREATININE 0.87 0.67 - 1.17 mg/dL 11/07/2022 7:37 AM [facility] Comment:The GFR result is no t clinically significant on patients <18 or >70 years of age. GLUCOSE 95 74 - 99 mg/dL 11/07/2022 7:37 AM [facility] GFR >60 mL/min/1.7 3 sq meter 11/07/2022 7:37 AM [facility] Comment:eGFR calculated with 2020 CKD-EPI equation. Vegetarian diet, extremely high or low muscle mass, and may affect results. Cystatin C with Glomerular Filtration Rate is a suitable alternative for these patients. ANION GAP 13 8 - 16 mmol/L 11/07/2022 7:37 AM MEDICAL DRIVER [facility] LABORATORY SERVICES [facility] Blood Collection / Unknown 11/07/2022 4:00 AM MEDICAL DRIVER 11/07/2022 6:58 AM MEDICAL DRIVER us External Provider [facility] CHEMISTRY ORDERABLES Tanya l Result [facility] LABORATORY [facility] CLIA# [id number] [address] [place] [address] documented in this encounter Visit Diagnoses Not on filedocumented in this encounter Additional Health Concerns Infection Onset Date Last Indicated Resolved Time MRSA Comment:09/2022 sputum Resolved per Type and Duration of Precautions Recommended for Selected Infections and Conditions document 2023 update 09/16/2022 09/28/202206/04 4:18 PM CDT documented as of this encounter
--- OUTSIDE RECORDS SUMMARY | 2025-01-05 04:00 | XMS_ITS | Encounter Summary ---
Author Organization [facility] Address [address] [place] [address] Care Team Providers Care Whale Fisherman Name Role Phone Unavailable Primary Care Provider Unavailabl e Encounter Details Date Type Department Care Team (Late st Contact Info) Description 09/08/2022 Lab Requisition [facility] Laboratory Services [address] [place] [address] [place] [address] [place] [address] Social History Tobacco Use Types Packs/Day Years Used Date Smoking Tobacco: Never Assessed Sex and Gender Information Value Date Recorded Sex Assigned at Not on file Legal Sex Male 2:27 PM SCAFFOLD WORKER Gender Identity Not on file Sexual Orientation Not on file COVID-19 Exposure Response Date Recorded In the last 10 days, have yo u been in contact with someone who was confirmed or suspected to have Coronavirus/COVID-19? Unable to assess 09/04/2022 2:29 PM SCAFFOLD WORKER documented as of this encounter Plan of Treatment Not on file documented as of this encounter Procedures Procedure Name Priority Date/Time Associated Diagnosis Comments BLOOD CULTURE Routine 09/08/2022 3:00 PM SCAFFOLD WORKER BLOOD CULTURE Routine 09/08/2022 2:45 PM SCAFFOLD WORKER documented in this encounter Results * BLOOD CULTURE (09/08/2022 3:00 PM SCAFFOLD WORKER) BLOOD CULTURE No growth 09/13/2022 11:43 PM SCAFFOLD WORKER [facility] Blood 09/08/2022 3:00 PM SCAFFOLD WORKER 09/08/2022 7:25 PM SCAFFOLD WORKER Franco Apple MD MICROBIOLOGY - GENERAL ORDERABLE S Final Result [facility] CLIA# [id number] [address] [place] [address] * BLOOD CULTURE (09/08/2022 2:45 PM SCAFFOLD WORKER) BLOOD CULTURE No growth 09/13/2022 11:43 PM SCAFFOLD WORKER [facility] Blood 09/08/2022 2:45 PM SCAFFOLD WORKER 09/08/2022 7:25 PM SCAFFOLD WORKER Franco Apple MD MICROBIOLOGY - GENERAL ORDERABLE S Final Result Performing Organization Address [facility]/ZIP Co de Phone Number [facility] CLIA# [id number] [address] [place] [address] documented in this encounter Visit Diagnoses Not on filedocumented in this encounter Additional Health Concerns Infection Onset Date Last Indicated Resolved Time MRSA Comment:09/2022 sputum Resolved per Type and Duration of Precautions Recommended for Selected Infections and Conditions document 2023 update 09/16/2022 09/28/202206/04 4:18 PM CDT documented as of this encounter
--- OUTSIDE RECORDS SUMMARY | 2025-01-05 04:00 | XMS_ITS | Encounter Summary ---
Author Organization [facility] Address [address] [place] [address] Care Team Providers Care Traffic Operations Engineer Name Role Phone Unavailable Primary Care Provider Unavailabl e Encounter Details Date Type Department Care Team (Late st Contact Info) Description 09/15/2022 Lab Requisition [facility] Laboratory Services [address] [place] [address] [place] [address] [facility] [place] [address] Social History Tobacco Use Types Packs/Day Years Used Date Smoking Tobacco: Never Assessed Sex and Gender Information Value Date Recorded Sex Assigned at Not on file Legal Sex Male 2:27 PM COMBER TENDER Gender Identity Not on file Sexual Orientation Not on file COVID-19 Exposure Response Date Recorded In the last 10 days, have yo u been in contact with someone who was confirmed or suspected to have Coronavirus/COVID-19? Unable to assess 09/18/2022 6:07 AM COMBER TENDER documented as of this encounter Plan of Treatment Not on file documented as of this encounter Procedures Procedure Name Priority Date/Time Associated Diagnosis Comments EXTRA TUBE (URINE ACUNA) Routine 09/15/2022 12:55 PM COMBER TENDER URINALYSIS W/REFLEX MICROSCOPIC Routine 09/15/2022 12:55 PM COMBER TENDER documented in this encounter Results * EXTRA TUBE (URINE ACUNA) (09/15/2022 12:55 PM COMBER TENDER) Urine URINE SPECIMEN OBTAINED BY CLEAN CATCH PROCEDURE / Unknown Collection / Unknown 09/15/2022 12:55 PM COMBER TENDER 09/15/2022 2:23 PM COMBER TENDER Franco Apple MD URINE ORDERABLES Final Result [facility] CLIA# [id number] [place] [address] * (ABNORMAL) URINALYSIS WITH REFLEX MICROSCOPIC (09/15/2022 12:55 PM COMBER TENDER) COLOR UA Yellow Pale to Dark Yellow 09/15/2022 2:45 PM COMBER TENDER [facility] CLARITY UA Clear Clear 09/15/2022 2:45 PM COMBER TENDER [facility] SPECIFIC GRAVITY UA 1.015 1.003 - 1.035 09/15/2022 2:45 PM COMBER TENDER [facility] PH UA 8.0 5.0 - 8.0 09/15/2022 2:45 PM COMBER TENDER [facility] LEUKOCYTE ESTERASE UA Negative Negative 09/15/2022 2:45 PM COMBER TENDER [facility] NITRITE UA Negative Negative 09/15/2022 2:45 PM COMBER TENDER [facility] PROTEIN UA 1+(A) Negative 09/15/2022 2:45 PM COMBER TENDER [facility] GLUCOSE UA Negative Negative 09/15/2022 2:45 PM COMBER TENDER [facility] KETONES UA Negative Negative 09/15/2022 2:45 PM COMBER TENDER [facility] UROBILINOGEN UA 1.0 <2.0 mg/dL 2:45 PM COMBER TENDER [facility] BILIRUBIN UA Negative Negative 09/15/2022 2:45 PM COMBER TENDER [facility] BLOOD UA Trace(A) Negative 09/15/2022 2:45 PM COMBER TENDER [facility] WBC UA 0-2 0 - 2 /hpf 09/15/2022 2:45 PM COMBER TENDER [facility] RBC UA 6-10(A) 0 - 2 /hpf 09/15/2022 2:45 PM COMBER TENDER [facility] BACTERIA UA Negative Negative /hpf 09/15/2022 2:45 PM COMBER TENDER [facility] EPITHELIAL CELLS, URINE 0-5 0 - 5 /hpf 09/15/2022 2:45 PM COMBER TENDER [facility] LAB[facility]AT[facility] HYALINE CAST None Seen None Seen, 0-2 /lpf 09/15/2022 2:45 PM COMBER TENDER [facility] Urine URINE SPECIMEN OBTAINED BY CLEAN CATCH PROCEDURE / Unknown Collection / Unknown 09/15/2022 12:55 PM COMBER TENDER 09/15/2022 2:23 PM COMBER TENDER Franco Apple MD URINE ORDERABLES Final Result [facility] CLIA# [id number] [address] [place] [address] documented in this encounter Visit Diagnoses Not on filedocumented in this encounter Additional Health Concerns Infection Onset Date Last Indicated Resolved Time MRSA Comment:09/2022 sputum Resolved per Type and Duration of Precautions Recommended for Selected Infections and Conditions document 2023 update 09/16/2022 09/28/202206/04 4:18 PM CDT documented as of this encounter
--- OUTSIDE RECORDS SUMMARY | 2025-01-05 04:00 | XMS_ITS | Referral Summary ---
Author Organization [facility] Address [address] [place] [address] Care Team Providers Care Securities And Real Estate Director Name Role Phone Eyal Vargas MD Primary Care Provider Leonardo Newell MD Unavailable [phone] Encounters Date Type Department Care Team Description 11/16/2024 Care Coordination [facility] Care Coordination [address] [place] [id number] Rupa Almonte 09/28/2024 9:49 AM RESERVATION CLERK - 10/07/2024 5:33 PM RESERVATION CLERK Hospital Encounter [address] [phone] Derek Daniels MD Dicker, MD Brie Crouch Marin H., MD Haspel, Riley Nguyễn MD PhD Jacobson, MD Guera Norwood Praveen Raju, MD Shortness of breath (Primary Dx); Tracheostomy in place (HCC); Ventilator associated pneumonia (HCC) Discharge Disposition: Discharge to home or self care from Last 3 Months Allergies Active Allergy Reactions Criticality Noted Date Comments Amoxicillin Hives Medium 03/28/2018 Clindamycin Other (See comments) Low 02/19/2022 Iodinated Contrast Media Hives Medium 03/28/2018 Penicillins Hives Medium 03/28/2018 Medications albuterol HFA (PROVENTIL HFA,VENTOLIN HFA,PROAIR HFA) 90 mcg/actuation inhaler Inhale 2 puffs every 6 (six) hours as needed for shortness of breath Active aspirin 81 mg chewable tablet Administer per tube 1 tablet (81 mg total) daily Active levothyroxine (SYNTHROID) 50 mcg tablet Administer per tube 1 tablet (50 mcg total) 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 Do not swallow. Active melatonin tablet Administer per tube 2 tablets (6 mg total) nightly Active cholecalciferol 25 mcg (1,000 unit) tablet Administer per tube 2 tablets (2,000 Units total) daily Active ipratropium (ATROVENT HFA) 17 mcg/actuation inhaler Inhale 2 puffs 3 (three) times a day Active acetaminophen (TYLENOL) 325 mg tablet Administer per tube 2 tablets (650 mg total) every 6 (six) hours as needed for pain Active bisacodyL (DULCOLAX) 10 mg suppository Insert 1 suppository (10 mg total) into the rectum daily as needed for constipation Active cetirizine (ZyrTEC) 10 mg chewable tablet Administer per tube 0.5 tablets (5 mg total) as needed for allergies Active clotrimazole 1 % cream Apply 1 Application topically 2 (two) times a day Active docusate (COLACE) liquid 50 mg/5 mL Take 10 mL (100 mg total) by mouth daily as needed (constipation) Active miconazole 2 % powder Apply 1 g (1 Application total) topically every 4 (four) hours as needed (rash) Active zinc/petrolatum,wh ite (WHITE PETROLATUM-ZINC TOP) Apply 1 Application topically every 6 (six) hours as needed Active rosuvastatin (CRESTOR) 20 mg tablet Administer per tube 0.5 tablets (10 mg total) nightly Active vitamin A and D ointment Apply 1 Application topically every 4 (four) hours as needed (skin irritation) Active zinc oxide 40 % ointment Apply 1 Application topically daily Active sodium chloride 0.9% injection 10 mL by other route daily For wound cleaning or irrigation Active traMADoL (ULTRAM) 50 mg tablet Take 1 tablet (50 mg total) by mouth every 6 (six) hours as needed 06/02/20 23 Active budesonide (Pulmicort) 0.25 mg/2 mL nebulizer solution Take 2 mL (0.25 mg total) by nebulization 2 (two) times a day 03/10/20 21 Active darbepoetin regi (ARANESP) 200 mcg/0.4 mL syringe Inject 0.4 mL (200 mcg total) under the skin every 2 (two) weeks 04/03/20 24 Active ipratropium-albute roL (DUO-NEB) 0.5-2.5 mg/3 mL nebulizer solution Take 1 mL by nebulization 4 (four) times a day as needed for shortness of breath 02/26/20 23 Active lansoprazole (PREVACID SOLUTAB) 30 mg disintegrating tablet Take 1 tablet (30 mg total) by mouth 2 (two) times a day Active omeprazole (PriLOSEC) 20 mg capsule Administer per tube 1 capsule (20 mg total) 2 (two) times a day 12/05/19 24 Active amLODIPine (NORVASC) 5 mg tablet Take 1 tablet (5 mg total) by mouth daily Active insulin glargine (LANTUS) 100 unit/mL (3 mL) pen for injection Inject 55 Units under the skin nightly 10/07/19 25 Active pen needle, diabetic (Pen Needle) 32 gauge x 5/32 needle Use as directed once a day. 10/07/19 25 Active insulin lispro (HumaLOG) 100 unit/mL pen for injection Inject 6 Units under the skin every 4 (four) hours (plus blood glucose mg/dL 150-199: 2 units, 200-249: 4 units, 250-299: 6 units, 300-349: 8 units, 350 or greater: 10 units. Notify provider for blood glucose greater than 299 mg/dL. Max daily dose 110 units of all insulin) Refer to After Visit Summary for Sliding Scale Insulin Instructions. 10/07/19 25 Active pen needle, diabetic 32 gauge x 5/32 needle Use as directed 3 times a day. 10/07/19 25 Active furosemide (LASIX) 40 mg tablet Take 1 tablet (40 mg total) by mouth daily 10/08/19 25 Active Active Problems Problem Noted Date Diagnosed Date Hematuria 08/10/2023 Tension pneumothorax 03/27/2023 Assessment & Plan (03/27/2023 11:14 PM CDT): -Tension pneumothorax noted on CT performed at OSH on 03/26. -S/p 23 Fr chest tube placed 03/26 -Secondary spontaneous pneumothorax in the setting of pulmonary emphysema. SSP would ideally need definitive intervention to prevent recurrence however will defer to Pulmonary -Keep chest tube connected to suction at -[id number] -Pulmonary consult for management of chest tube -To aid with healing; will educe steroids and optimze respiratory status for vent liberation -Daily CXR -Pain control Insulin dependent type 2 diabetes mellitus 03/27 Assessment & Plan (03/27/2023 11:28 PM CDT): -Patient on 300U bid of insulin U-100 at home. Was receiving Glargine 20 dly and U100 75mg bid at OSH. Random blood sugar on arrival in the 300s. -Will start basal bolus regimen with Glargine 50 qhs and Lispro 20 qid. -Consider Endocrinology consult. Last Endo note on file mentions patient was on U500. -Accuchecks q6h, Correctional insulin, Hypoglycemic protocol. -Monitor and adjust accordingly Decubital ulcer 03/27/2023 Assessment & Plan (03/27/2023 11:28 PM CDT): Wound care consult Pulmonary emphysema 03/27/2023 Acute on chronic respiratory failure with hypoxi a 03/27/2023 Assessment & Plan (03/27/2023 11:23 PM CDT): -AonCh respiratory failure 2/2 tension pneumothorax Vs pneumonia -CTA at OSH with right sided GGOs. -Received IV Vanc/Cefepime at OSH. Continue to complete 5 days of therapy (03/25-03/29). Add Azithromycin for atypical coverage. -Received IV solumedrol 125mg and then 60mg bid at OSH. Little concern for exacerbation at this time hence will reduce to Prednisone 40mg dly x 2 more days to complete 5 days of systemic steroids. Reducing steroid dose would also be beneficial for healing in setting of PTX. -Continue breathing treatment and restart home inhaler regimen when appropriate. -Vent liberation per protocol. Rate control overnight and consider PSV trials tomorrow in anticipation for HHTC trials. 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 Check labs Assessment & Plan (03/27/2023 11:31 PM CDT): Continue home synthroid. Moderate persistent asthma without complication 05/14/2020 Sleep disorder 05/14/2020 Assessment & Plan (03/27/2023 11:31 PM CDT): -Was on Melatonin at home. -Was receiving clonazepam at OSH. However, not seen in home meds. -Will continue clonazepam for now to prevent withdrawal, pending appropriate medication reconciliation. Nonsmoker 05/14/2020 Leg swelling 05/14/2020 Hyperlipidemia 03/29/2018 Assessment & Plan (03/29/2018 12:16 AM CDT): Cont fenofibrate He doesn't know which statin he takes which needs to be verified Essential hypertension 03/28/2018 Assessment & Plan (03/27/2023 11:29 PM CDT): -Continue home losartan -Home Hydralazine discontinued at OSH Assessment & Plan (03/29/2018 12:15 AM CDT): Cont hctz and diovan Hold amlo given edema Diabetic complication ([facility]/HCC) 03/28/2018 Assessment & Plan (03/29/2018 5:20 PM CDT): 67-year-old male with history of type 2 diabetes with no known microvascular or macrovascular complications, well controlled on U 500 at home. Home regimen is U 500-150 units/120 units/80 units. Patient uses an insulin pen. Follows up with . Plans for discharge today. Agree with dosing with 75 units of U 500. This is about 40% reduction from his home dose. Patient should resume his home regimen on discharge, okay to take 80 units of U 500 with dinner at home. I have patient follow-up with primary piping engineer. Assessment & Plan (03/29/2018 12:19 AM CDT): Home insulin needs to be verified Insulin use and frequent hypoglycemia is concerning Follow FSBS, high dose SSI ordered, carb consistent diet Diabetes education Obesity, Class III, BMI 40-49.9 (morbid obesity) 03/28/2018 Assessment & Plan (03/29/2018 5:21 PM CDT): Contributes to increased insulin resitance. Assessment & Plan (03/29/2018 12:17 AM CDT): F/u with pcp Consider bariatric surgery if other measures fail Shortness of breath 03/28/2018 Assessment & Plan (03/29/2018 12:18 AM CDT): Chronic Doubt chf Doubt obstructive disease OP PSG would be useful but says he's previously refused this Cont ics brandon prn Lymphedema 03/28/2018 Assessment & Plan (03/29/2018 12:20 AM CDT): Chronic Lymphedema consult Cont lasix po bnp wnl Thyroid previously checked and wnl LE duplex to r/o dvt, but low concern Could try additional lasix IV but not critical and won't give it this late Venous stasis dermatitis 03/28/2018 Assessment & Plan (03/29/2018 12:19 AM CDT): Some skin breakdown Wound care Immunizations Immunization Administration Dates Next Due ZOSTER LIVE 02/24/2016 Social History Tobacco Use Types Packs/Day Years Used Date Smoking Tobacco: Never Smokeless Tobacco: Never Alcohol Use Standard Drinks/Week Comments No 0 (1 standard drink = 0.6 oz pur e alcohol) [facility] Utilities Answer Date Recorded In the past 12 months has th e electric, gas, oil, or water company threatened to shut off services in your home? No 09/29/2024 Social Connection and Isolation Panel [NHANES] A nswer Date Recorded In a typical week, how many times do you talk on the phone with family, friends, or neighbors? Once a week 09/29/2024 How often do you get together with friends or re latives? Once a week 09/29/2024 How often do you attend moravian or congregation serv ices? Never 09/29/2024 Do you belong to any clubs o r organizations such as moravian groups, unions, fraternal or athletic groups, or school groups? No 09/29/2024 How often do you attend meet ings of the clubs or organizations you belong to? Never 09/29/2024 Are you , , di vorced, , never , or living with a partner? 09/29/2024 Overall Financial Resource Strain (CARDIA) Answe r Date Recorded How hard is it for you to pa y for the very basics like food, housing, medical care, and heating? Not hard at all 09/29/2024 PHQ-2 Answer Date Recorded PHQ-2 Total Score (If total score is 3 or more points, staff should administer the PHQ-9) 0 02/27/2021 Hunger Vital Sign Answer Date Recorded Within the past 12 months, y ou worried that your food would run out before you got the money to buy more. Never true 09/29/20 24 Within the past 12 months, t he food you bought just didn't last and you didn't have money to get more. Never true 09/29/2024 PRAPARE - Transportation Answer Date Re corded In the past 12 months, has l ack of transportation kept you from medical appointments or from getting medications? No 09/04 In the past 12 months, has l ack of transportation kept you from meetings, work, or from getting things needed for daily living? No 09/29/2024 Housing Stability Vital Sign Answer Pedrito e Recorded In the last 12 months, was t here a time when you were not able to pay the mortgage or rent on time? No 03/29/2023 In the last 12 months, how many places have you lived? 1 03/29/2023 In the last 12 months, was t here a time when you did not have a steady place to sleep or slept in a custodial (including now)? No 03/29/2023 Housing Stability Vital Sign Answer Pedrito e Recorded In the last 12 months, was t here a time when you were not able to pay the mortgage or rent on time? No 09/29/2024 In the past 12 months, how m any times have you moved where you were living? 1 09/29/2024 At any time in the past 12 m [facility], were you homeless or living in a custodial (including now)? No 09/29/2024 Personal Safety Answer Date Recorded Have you ever been in or are you currently in a harmful physical or emotional relationship or is someone making you feel afraid or unsafe? Denies 09/28/2024 Sex and Gender Information Value Date Recorded Sex Assigned at Not on file Legal Sex Male 7:25 PM RESERVATION CLERK Gender Identity Not on file Sexual Orientation Not on file Last Filed Vital Signs Vital Sign Reading Time Taken Comments Blood Pressure 155/93 10/07/2024 5:00 PM RESERVATION CLERK Pulse 84 10/07/2024 5:00 PM RESERVATION CLERK Temperature 37.2 C (99 F) 10/07/2024 12:00 PM RESERVATION CLERK Respiratory Rate 30 10/07/2024 5:00 PM RESERVATION CLERK Oxygen Saturation 100% 10/07/2024 5:00 PM RESERVATION CLERK Inhaled Oxygen Concentration - - Weight 128 kg (282 lb 3 oz) 09/28/2024 10:58 PM RESERVATION CLERK Height 177.8 cm (5' 10 ) 09/28/2024 10:58 PM RESERVATION CLERK Body Mass Index 40.49 09/28/2024 10:58 PM RESERVATION CLERK Plan of Treatment Not on file Procedures Procedure Name Priority Date/Time Associated Diagnosis Comments POCT GLUCOSE DEVICE Routine 10/07/2024 4 :26 PM RESERVATION CLERK POCT GLUCOSE DEVICE Routine 10/07/2024 1 1:41 AM RESERVATION CLERK POCT GLUCOSE DEVICE Routine 10/07/2024 8 :05 AM RESERVATION CLERK EGFR Routine 10/07/2024 4:19 AM RESERVATION CLERK DIFFERENTIAL AUTO Timed 10/07/2024 4:1 9 AM RESERVATION CLERK CBC WITH AUTO DIFFERENTIAL Timed 10/07/2024 4:19 AM RESERVATION CLERK MAGNESIUM Routine 10/07/2024 4:19 AM RESERVATION CLERK COMPREHENSIVE METABOLIC PANEL Routine 10/07/2024 4:19 AM RESERVATION CLERK POCT GLUCOSE DEVICE Routine 10/07/2024 3 :39 AM RESERVATION CLERK HEMOGLOBIN A1C Routine 09/29/2024 12:17 AM RESERVATION CLERK LIPID PANEL STAT 09/28/2024 7:32 PM RESERVATION CLERK THYROID FUNCTION CASCADE STAT 09/28/2024 11:53 AM RESERVATION CLERK from Last 3 Months or Most Recently Relevant to Health Maintenance Results * POCT glucose (10/07/2024 4:26 PM RESERVATION CLERK) Glucose, POC 197 70 - 199 mg/dL Blood 10/07/2024 4:26 PM RESERVATION CLERK 10/07/2024 4:26 PM RESERVATION CLERK us Bao Lynne MD LAB POCT ORDERABLES - DEV ICE Final Result Performing Organization Address [facility] Co de Phone Number [facility] Department [place] [address] * POCT glucose (10/07/2024 11:41 AM RESERVATION CLERK) Glucose, POC 185 70 - 199 mg/dL Blood 10/07/2024 11:4 1 AM RESERVATION CLERK 10/07/2024 11:41 AM RESERVATION CLERK us Bao Lynne MD LAB POCT ORDERABLES - DEV ICE Final Result Performing Organization Address [facility]/ZIP Co de Phone Number [facility] [place] [address] * POCT glucose (10/07/2024 8:05 AM RESERVATION CLERK) Glucose, POC 178 70 - 199 mg/dL Blood 10/07/2024 8:05 AM RESERVATION CLERK 10/07/2024 8:05 AM RESERVATION CLERK us Bao Lynne MD LAB POCT ORDERABLES - DEV ICE Final Result Performing Organization Address [facility] [place] [address] * eGFR (10/07/2024 4:19 AM RESERVATION CLERK) [facility] eGFR >90 >=60 mL/min/1. 73 m2 Comment: Interpretive Data Reference Interval Normal >/= 90 mL/min/1.73m2 Mildly decreased* 60 - 89 mL/min/1.73m2 Mildly to moderately decreased 45 - 59 mL/min/1.73m2 Moderately to severely decreased 30 - 44 mL/min/1.73m2 Severely decreased 15 - 29 mL/min/1.73m2 Kidney Failure < 15 mL/min/1.73m2 *Relative to young adult level Estimated glomerular filtration rate is determined by the 2020 CKD-EPI equation recommended by the National Kidney Foundation (A Unifying Approach to GFR Estimation: Recommendations of the NKF-ASK Task Force on Reassessing the Inclusion of Race in Diagnosing Kidney Disease, JASN 2020). The CKD-EPI equation should not be used for patients with unstable renal function and has not been validated in children and those over 70. Current interpretive data was last reviewed 2021. Blood 10/07/2024 4:19 AM RESERVATION CLERK 10/07/2024 4:42 AM RESERVATION CLERK us Riley Martines MD PhD LAB BLOOD ORDERABLES Final Result Performing Organization Address [facility]/ZIP Co de Phone Number [facility] Department [place] [address] * Differential, auto (10/07/2024 4:19 AM RESERVATION CLERK) Neutrophil abs 4.0 1.5 - 6.5 K/cumm Imm gran abs 0.1 0.0 - 0.1 K/cumm [facility] Lymphocyte abs 1.5 0.8 - 3.3 K/cumm [facility] Monocyte abs 0.6 0.2 - 0.8 K/cumm [facility] Eosinophil abs 0.2 0.0 - 0.5 K/cumm [facility] Basophil abs 0.0 0.0 - 0.1 K[facility] Neutrophil pct 62.8 % [facility] Comment: Interpretive Data Percent cell count reference ranges are not reported, since discordance with absolute values may lead to misinterpretation of CBC data. Current Interpretive Data was last revised on 2018. Imm gran pct 1.4 % [facility] Comment: Interpretive Data Percent cell count reference ranges are not reported, since discordance with absolute values may lead to misinterpretation of CBC data. Current Interpretive Data was last revised on 2018. Lymphocyte pct 23.0 % [facility] Comment: Interpretive Data Percent cell count reference ranges are not reported, since discordance with absolute values may lead to misinterpretation of CBC data. Current Interpretive Data was last revised on 2018. Monocyte pct 9.4 % [facility] Comment: Interpretive Data Percent cell count reference ranges are not reported, since discordance with absolute values may lead to misinterpretation of CBC data. Current Interpretive Data was last revised on 2018. Eosinophil pct 3.1 % [facility] Comment: Interpretive Data Percent cell count reference ranges are not reported, since discordance with absolute values may lead to misinterpretation of CBC data. Current Interpretive Data was last revised on 2018. Basophil pct 0.3 % [facility] Comment: Interpretive Data Percent cell count reference ranges are not reported, since discordance with absolute values may lead to misinterpretation of CBC data. Current Interpretive Data was last revised on 2018. Blood 10/07/2024 4:19 AM RESERVATION CLERK 10/07/2024 4:58 AM RESERVATION CLERK Shawn Jacobson MD LAB BLOOD ORDERABLES Final Result [facility] Department [place] [address] * (ABNORMAL) CBC with auto differential (10/07/2024 4:19 AM RESERVATION CLERK) [facility] WBC 6.4 3.8 - 9.9 K/cumm Hgb 8.7(L) 13.0 - 17.5 g/dL [facility] Hct 27.1(L) 38.9 - 50.3 % [facility] Plt 148(L) 150 - 400 K/cumm [facility] MPV 10.6 9.1 - 12.3 fL [facility] RBC 2.97(L) 4.30 - 5.80 M/cumm [facility] MCV 91.2 81.3 - 96.4 fL [facility] MCH 29.3 27.1 - 33.3 pg [facility] MCHC 32.1(L) 32.3 - 35.7 g/dL [facility] RDW CV 17.1(H) 11.1 - 14.9 % [facility] RDW SD 53.2(H) 35.7 - 48.1 fL [facility] NRBC abs 0.00 0.00 - 0.01 K/cumm [facility] Blood 10/07/2024 4:19 AM RESERVATION CLERK 10/07/2024 4:58 AM RESERVATION CLERK Shawn Jacobson MD LAB BLOOD ORDERABLES Final Result [facility] Department [place] [address] * Magnesium (10/07/2024 4:19 AM RESERVATION CLERK) Pathologist [facility] Magnesium 2.1 1.4 - 2.5 mg/dL Blood 10/07/2024 4:19 AM RESERVATION CLERK 10/07/2024 4:42 AM RESERVATION CLERK Shawn Jacobson MD LAB BLOOD ORDERABLES Final Result [facility] Department [place] [address] * (ABNORMAL) Comprehensive metabolic panel (10/07/2024 4:19 AM RESERVATION CLERK) [facility] Sodium 140 135 - 145 mmol/L Potassium, pl 4.7 3.3 - 4.9 mmol/L [facility] Comment:Hemolyzed; Potassium value may be falsely elevated by as much as 0.6-1.0 mmol/L. Suggest redraw and reanalysis. Chloride 105 97 - 110 mmol/L [facility] CO2 24 22 - 32 mmol/L [facility] Anion gap 11 2 - 15 mmol/L [facility] BUN 51(H) 6 - 25 mg/dL [facility] Creatinine 0.69(L) 0.80 - 1.30 mg/dL [facility] Glucose 133 70 - 199 mg/dL [facility] Comment: Interpretive Data Fasting glucose >/= 126 mg/dl is diagnostic for diabetes. Fasting is defined as no caloric intake for at least 8 hours. Fasting glucose between 100 mg/dl to 125 mg/dl is diagnostic of prediabetes. In a patient with classic symptoms of hyperglycemia or hyperglycemic crisis, a random glucose >/= 200 mg/dl is diagnostic for diabetes. In the absence of unequivocal hyperglycemia, results should be confirmed by repeat testing. The classification and Diagnosis of Diabetes Diabetes Care 202; 46: S19-S40. Current interpretive data was last revised 2022. Calcium 9.0 8.5 - 10.3 mg/dL [facility] Bilirubin, total 0.5 0.1 - 1.2 mg/dL [facility] Protein, pl 6.9 6.5 - 8.5 g/dL [facility] Albumin 2.9(L) 3.5 - 5.0 g/dL [facility] Alk phos 135(H) 40 - 130 Units/L [facility] ALT 20 7 - 55 Units/L [facility] AST 44 10 - 50 Units/L [facility] Comment:Hemolyzed; result ma y be falsely elevated Blood 10/07/2024 4:19 AM RESERVATION CLERK 10/07/2024 4:42 AM RESERVATION CLERK Result [facility] Riley Martines MD PhD LAB BLOOD ORDERABLES Final Result Performing Organization Address [facility] de Phone Number [facility] [place] [address] * POCT glucose (10/07/2024 3:39 AM RESERVATION CLERK) Glucose, POC 131 70 - 199 mg/dL Blood 10/07/2024 3:39 AM RESERVATION CLERK 10/07/2024 3:39 AM RESERVATION CLERK Result [facility] Shawn Jacobson MD LAB POCT ORDERABLES - DEVICE Final Result Performing Organization Address [facility] de Phone Number [facility] [place] [address] * (ABNORMAL) Hemoglobin A1c (09/29/2024 12:17 AM RESERVATION CLERK) Hgb A1C 6.3(H) 4.0 - 5.6 % Estimated Average Glucose 134 mg/dL [facility] Comment: The ADA recommends reporting an estimated Average Glucose (eAG) with all Hemoglobin A1c results using the equation derived from a study of 507 normal and diabetic adults. Minority populations were underrepresented and children were not included. (Diabetes Care 2020; 43(S1): S66-S76). The eAG is not equivalent to a fasting glucose. Blood 09/29/2024 12:1 7 AM RESERVATION CLERK 09/29/2024 12:45 AM RESERVATION CLERK Result [facility] Vincent Baird MD LAB BLOOD ORDERABLES Final Re sult Performing Organization Address [facility] [facility] Co de Phone Number [facility] [place] [address] * Lipid panel (09/28/2024 7:32 PM RESERVATION CLERK) Cholesterol 134 30 - 199 mg/dL Comment: Interpretive Data Ages < or = 19 years Acceptable: <170 mg/dL Borderline high: 170-199 mg/dL High: >or= 200 mg/dL Ages > or = 20 years Desirable: <200 mg/dL Borderline high: 200-239 mg/dL High: >or= 240 mg/dL Literature References: 1. Expert Panel on Integrated Guidelines for Cardiovascular Health and Risk Reduction in Children and Adolescents. Pediatrics 2011;128:S213 2. NCEP Expert Panel. Circulation 2004;110:227 Current Interpretive Data was last revised on 2018. Triglycerides 104 <=149 mg/dL [facility] Comment: Interpretive Data Ages < or = 9 years Acceptable: <75 mg/dL Borderline high: 75-99 mg/dL High: >or= 100 mg/dL Ages 10 to 20 years Acceptable: <90 mg/dL Borderline high: 90-129 mg/dL High: >or= 130 mg/dL Ages > or = 20 years Desirable: <150 mg/dL Borderline high: 150-199 mg/dL High: 200-499 mg/dL Very high: >or= 499 mg/dL Literature References: 1. Expert Panel on Integrated Guidelines for Cardiovascular Health and Risk Reduction in Children and Adolescents. Pediatrics 2011;128:S213 2. NCEP Expert Panel. Circulation 2004;110:227 Current Interpretive Data was last revised on 2018. HDL 41 >=40 mg/dL [facility] Comment: Interpretive Data Ages < or = 19 years Acceptable: >45 mg/dL Borderline low: 40-45 mg/dL Low: <40 mg/dL Ages > or = 20 years Desirable: >or= 60 mg/dL Low: <40 mg/dL Literature References: 1. Expert Panel on Integrated Guidelines for Cardiovascular Health and Risk Reduction in Children and Adolescents. Pediatrics 2011;128:S213 2. NCEP Expert Panel. Circulation 2004;110:227 Current Interpretive Data was last revised on 2018. LDL, calculated 74 <=129 mg/dL [facility] Comment: Interpretive Data Ages < or = 19 years Acceptable: <110 mg/dL Borderline high: 110-129 mg/dL High: >or= 130 mg/dL Ages > or = 20 years Optimal: <100 mg/dL Near optimal: 100-129 mg/dL Borderline high: 130-159 mg/dL High: >160 mg/dL Calculated using the Jovany LDL-C estimating equation. This equation was implemented on 2024. Prior to this date LDL-C was estimated using the Friedewald equation. Literature References: 1. Expert Panel on Integrated Guidelines for Cardiovascular Health and Risk Reduction in Children and Adolescents. Pediatrics 2011;128:S213 2. NCEP Expert Panel. Circulation 2004;110:227 3. Jovany M et al. KRISTEN Cardiol. 2020 February 01;5(5):540-548. doi: 10.1001/jamacardio.2020.0013 Current Interpretive Data was last revised on 2024. Non-HDL Cholesterol 93 mg/dL [facility] Comment: Interpretive Data Ages < or = 19 years Acceptable: <120 mg/dL Borderline high: 120-144 mg/dL High: >145 mg/dL Ages > or = 20 years When triglycerides are >200 mg/dL, Non-HDL cholesterol is a secondary target of therapy with treatment goals that are 30 mg/dL greater than the LDL cholesterol target. Literature References: 1. Expert Panel on Integrated Guidelines for Cardiovascular Health and Risk Reduction in Children and Adolescents. Pediatrics 2011;128:S213 2. NCEP Expert Panel. Circulation 2004;110:227 Current Interpretive Data was last revised on 2018. Chol/HDL ratio 3 [facility] Blood 09/28/2024 7:32 PM RESERVATION CLERK 09/28/2024 7:56 PM RESERVATION CLERK Narrative [facility] - 09/29/2024 12:07 AM RESERVATION CLERK Reflex us Vincent Baird MD LAB BLOOD ORDERABLES Final Re sult [facility] Department [place] [address] * Thyroid Function [place] (09/28/2024 11:53 AM RESERVATION CLERK) TSH 2.74 0.30 - 4.20 mcIUnit/mL Blood 09/28/2024 11:5 3 AM RESERVATION CLERK 09/28/2024 12:12 PM RESERVATION CLERK Gilson Griggs MD LAB BLOOD ORDERABLES Fin al Result Performing Organization Address City/State/ZIP [place] Phone Number [facility] Department [place] [address] from Last 3 Months or Most Recently Relevant to Health Maintenance Additional Health Concerns Infection Onset Date Last Indicated MDR gram neg/ESBL Comment:Last indicated 09/20/24 in care everywhere 03/28/2023 VRE 09/30/2024 09/30/2024 Insurance [facility] [employer] MEDICARE [facility] Address: [facility] [id number] [place] [address] [id number] [place] [address] [facility] MEDICARE Advance Directives For more information, please contact: [phone] Documents on File Type Date Recorded Patient Railroad Construction Director Expl anation ADVANCE DIRECTIVE 10/12/2024 12:40 AM POWER OF RENTAL COORDINATOR-FINANCIAL/MEDICAL ADVANCE DIRECTIVE 10/12/2024 12:40 AM POLST * LIMITED - No CPR (Latest Code Status on File) Date Activated Date Inactivated Comments 09/29/2024 12:29 AM 10/07/2024 9:39 PM * Comfort Care Only - DO NOT Resuscitate Date Activated Date Inactivated Comments 09/28/2024 8:50 PM 09/28/2024 9:01 PM * Full Code Date Activated Date Inactivated Comments 08/10/2023 2:39 AM 08/15/2023 11:58 AM * Full Code Date Activated Date Inactivated Comments 03/27/2023 8:50 PM 04/02/2023 9:36 PM * Full Code Date Activated Date Inactivated Comments 03/28/2018 11:56 PM 03/29/2018 9:30 PM Care Teams Securities And Real Estate Director Relationship Specialty Start Date End Date Eyal Vargas MD PCP - General Family Medicine 04/05/23 Leonardo Newell MD [id number] [place] [address] Consulting Physician Pulmonary Disease 08/14/23
--- OUTSIDE RECORDS SUMMARY | 2025-01-05 04:00 | XMS_ITS | Clinical Summary ---
Author Organization [facility] Address [address] [place] [address] Care Team Providers Care Acid Dumper Name Role Phone Eyal Vargas MD Primary Care Provider Leonardo Newell MD Unavailable [phone] Allergies Active Allergy Reactions Criticality Noted Date [...] per tube 1 tablet (50 mcg total) corner former before breakfast Active mometasone-formote rol (DULERA 200) [...] total) 2 (two) times a day 12/05/19 Active amLODIPine (NORVASC) 5 mg tablet Take 1 tablet (5 mg total) by mouth daily Active insulin glargine (LANTUS) 100 unit/mL (3 mL) pen for injection Inject 55 Units under the skin nightly 10/07/19 Active pen needle, diabetic (Pen Needle) 32 gauge x 5/32 needle Use as directed once a day. 10/07/19 Active insulin lispro (HumaLOG) 100 unit/mL pen [...] Summary for Sliding Scale Insulin Instructions. 10/07/19 Active pen needle, diabetic 32 gauge x 5/32 needle Use as directed 3 times a day. 10/07/19 Active furosemide (LASIX) 40 mg tablet Take [...] -Keep chest tube connected to suction at -[id number] -Pulmonary consult for management of chest tube [...] diovan Hold amlo given edema Diabetic complication ([facility]/HCC) 03/28/2018 Assessment & Plan (03/29/2018 5:20 PM [...] home. I have patient follow-up with primary oiler helper. 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); Ventilator associated pneumonia (HCC) Discharge Disposition: Discharge to home or self care from Last 3 Months Immunizations Immunization Administration Dates Next Due ZOSTER LIVE 02/24/2016 Medical History Medical History Date Comments Hypertension Diabetes mellitus (HCC) HLD (hyperlipidemia) Obesity Lymphedema Dermatitis Asbestos exposure Agent orange exposure Family History Medical History Relation Name Comments Cancer Father Family history of malignant neoplasm - (Added by TW Conv)/Family history of cancer - (Added by TW Conv) Cancer Mother Family history of malignant neoplasm - (Added by TW Conv)/Family history of cancer - (Added by TW Conv) Relation Name Status Comments Father Mother Social History Tobacco Use Types Packs/Day Years Used Date Smoking Tobacco: Never Smokeless Tobacco: Never Alcohol Use Standard Drinks/Week Comments No 0 (1 standard drink = 0.6 oz pur e alcohol) [facility] Utilities Answer Date Recorded In the past 12 months has e [employer], gas, oil, or water [email or web address] threatened to shut off services in your home? No 09/29/2024 Social Connection and Isolation Panel [NHANES] A nswer Date Recorded In a typical week, how many times do you talk on the phone with family, friends, or neighbors? Once a week 09/29/2024 How often do you get together with friends or re latives? Once a week 09/29/2024 How often do you attend mandaeism or presybeterian serv ices? Never 09/29/2024 Do you belong to any clubs o r organizations such as mandaeism groups, unions, fraternal or athletic groups, or [...] place to sleep or slept in a fpc (including now)? No 03/29/2023 Housing Stability Vital Sign Answer Pedrito e Recorded In the last 12 months, was t here a time when you were not able to pay the mortgage or rent on time? No 09/29/2024 In the past 12 months, how m any times have you moved where you were living? 1 09/29/2024 At any time in the past 12 m [facility], were you homeless or living in a fpc (including now)? No 09/29/2024 Personal Safety Answer Date Recorded Have you ever been in or are you currently in a harmful physical or emotional relationship or is someone making you feel afraid or unsafe? Denies 09/28/2024 Sex and Gender Information Value Date Recorded Sex Assigned at Not on file Legal Sex Male 7:25 PM PROTOZOOLOGY TEACHER Gender Identity Not on file Sexual Orientation Not on file Obstetrics History Last Filed Vital Signs Vital Sign Reading Time Taken Comments Blood Pressure 155/93 10/07/2024 5:00 PM PROTOZOOLOGY TEACHER Pulse 84 10/07/2024 5:00 PM PROTOZOOLOGY TEACHER Temperature 37.2 C (99 F) 10/07/2024 12:00 PM PROTOZOOLOGY TEACHER Respiratory Rate 30 10/07/2024 5:00 PM PROTOZOOLOGY TEACHER Oxygen Saturation 100% 10/07/2024 5:00 PM PROTOZOOLOGY TEACHER Inhaled Oxygen Concentration - - Weight 128 kg (282 lb 3 oz) 09/28/2024 10:58 PM PROTOZOOLOGY TEACHER Height 177.8 cm (5' 10 ) 09/28/2024 10:58 PM PROTOZOOLOGY TEACHER Body Mass Index 40.49 09/28/2024 10:58 PM PROTOZOOLOGY TEACHER Plan of Treatment Health Maintenance Due Date Last Done Comments Albumin Creatinine Ratio, Urine 1949 Colon Cancer Screening-Colonoscopy 1950 Foot Exam 1949 Hepatitis C Screening 1949 Dilated Eye Exam 1959 Hepatitis B Screening 1967 Zoster Vaccine (2 of 3) 03/17/2017 01/20/2017, 02/23 Depression Screening 02/27/2022 02/27/2021 Well Visit 65+ 02/27/2022 02/27/2021 DTaP/Tdap/Td Vaccine (2 - Td or Tdap) 01/26/2023 01/26/2013 Covid-19 Vaccine (3 - 2023-2 5 season) 2024 03/07/2021, 12/08/2020 Hemoglobin A1C 03/30/2025 09/29/2024, 09/04, 07/03/2024, Additional history exists Influenza Vaccine (Season Ended) 2025 07/01/2023, 09/15/2019, 01/26/2013 Lipid Panel 09/28/2025 09/28/2024, 09/03, 12/15/2022, Additional history exists TSH Level 09/28/2025 09/28/2024, 09/03, 04/05/2024, Additional history exists Fall Risk Assessment 10/07/2025 10/07/2024, 02/28/20 21 eGFR 10/07/2025 10/07/2024, 12/2024, 10/05/2024, Additional history exists Pneumococcal vaccine 65+ Completed 09/15/2019, 02/02 Abdominal Aortic Aneurysm (A AA) Screen Completed 04/06/2024, 12/01/2023, 09/24/2023 Procedures Procedure Name Priority Date/Time Associated Diagnosis Comments POCT GLUCOSE DEVICE Routine 10/07/2024 4 :26 PM PROTOZOOLOGY TEACHER POCT GLUCOSE DEVICE Routine 10/07/2024 1 1:41 AM PROTOZOOLOGY TEACHER POCT GLUCOSE DEVICE Routine 10/07/2024 8 :05 AM PROTOZOOLOGY TEACHER EGFR Routine 10/07/2024 4:19 AM PROTOZOOLOGY TEACHER DIFFERENTIAL AUTO Timed 10/07/2024 4:1 9 AM PROTOZOOLOGY TEACHER CBC WITH AUTO DIFFERENTIAL Timed 10/07/2024 4:19 AM PROTOZOOLOGY TEACHER MAGNESIUM Routine 10/07/2024 4:19 AM PROTOZOOLOGY TEACHER COMPREHENSIVE METABOLIC PANEL Routine 10/07/2024 4:19 AM PROTOZOOLOGY TEACHER POCT GLUCOSE DEVICE Routine 10/07/2024 3 :39 AM PROTOZOOLOGY TEACHER HEMOGLOBIN A1C Routine 09/29/2024 12:17 AM PROTOZOOLOGY TEACHER LIPID PANEL STAT 09/28/2024 7:32 PM PROTOZOOLOGY TEACHER THYROID FUNCTION CASCADE STAT 09/28/2024 11:53 AM PROTOZOOLOGY TEACHER from Last 3 Months or Most Recently Relevant to Health Maintenance Results * POCT glucose (10/07/2024 4:26 PM PROTOZOOLOGY TEACHER) Glucose, POC 197 70 - 199 mg/dL Blood 10/07/2024 4:26 PM PROTOZOOLOGY TEACHER 10/07/2024 4:26 PM PROTOZOOLOGY TEACHER us Bao Lynne MD LAB POCT ORDERABLES - DEV ICE Final Result Performing Organization Address [facility]/ZIP Co de Phone Number [facility] Department [place] [address] * POCT glucose (10/07/2024 11:41 AM PROTOZOOLOGY TEACHER) Glucose, POC 185 70 - 199 mg/dL Blood 10/07/2024 11:4 1 AM PROTOZOOLOGY TEACHER 10/07/2024 11:41 AM PROTOZOOLOGY TEACHER us Bao Lynne MD LAB POCT ORDERABLES - DEV ICE Final Result Performing Organization Address [facility]/ZIP Co de Phone Number [facility] [place] [address] * POCT glucose (10/07/2024 8:05 AM PROTOZOOLOGY TEACHER) Glucose, POC 178 70 - 199 mg/dL Blood 10/07/2024 8:05 AM PROTOZOOLOGY TEACHER 10/07/2024 8:05 AM PROTOZOOLOGY TEACHER us Bao Lynne MD LAB POCT ORDERABLES - DEV ICE Final Result Performing Organization Address [facility] [place] [address] * eGFR (10/07/2024 4:19 AM PROTOZOOLOGY TEACHER) Pathologist [facility] eGFR >90 >=60 mL/min/1. 73 m2 Comment: [...] last reviewed 2021. Blood 10/07/2024 4:19 AM PROTOZOOLOGY TEACHER 10/07/2024 4:42 AM PROTOZOOLOGY TEACHER us Riley Martines MD PhD LAB BLOOD ORDERABLES Final Result Performing Organization Address City/[facility]/ZIP Co de Phone Number [facility] Department [place] [address] * Differential, auto (10/07/2024 4:19 AM PROTOZOOLOGY TEACHER) Neutrophil abs 4.0 1.5 - 6.5 K/cumm Imm gran abs 0.1 0.0 - 0.1 K/cumm [facility] Lymphocyte abs 1.5 0.8 - 3.3 K/cumm [facility] Monocyte abs 0.6 0.2 - 0.8 K/cumm [facility] Eosinophil abs 0.2 0.0 - 0.5 K/cumm [facility] Basophil abs 0.0 0.0 - 0.1 K/cumm [facility] Neutrophil pct 62.8 % [facility] Comment: Interpretive Data Percent cell count reference ranges are not reported, since discordance with absolute values may lead to misinterpretation of CBC data. Current Interpretive Data was last revised on 2018. Imm gran pct 1.4 % [facility] Comment: Interpretive Data Percent cell count reference ranges are not reported, since discordance with absolute values may lead to misinterpretation of CBC data. Current Interpretive Data was last revised on 2018. Lymphocyte pct 23.0 % [facility] Comment: Interpretive Data Percent cell count reference ranges are not reported, since discordance with absolute values may lead to misinterpretation of CBC data. Current Interpretive Data was last revised on 2018. Monocyte pct 9.4 % [facility] Comment: Interpretive Data Percent cell count reference ranges are not reported, since discordance with absolute values may lead to misinterpretation of CBC data. Current Interpretive Data was last revised on 2018. Eosinophil pct 3.1 % [facility] Comment: Interpretive Data Percent cell count reference ranges are not reported, since discordance with absolute values may lead to misinterpretation of CBC data. Current Interpretive Data was last revised on 2018. Basophil pct 0.3 % [facility] Comment: Interpretive Data Percent cell count reference ranges are not reported, since discordance with absolute values may lead to misinterpretation of CBC data. Current Interpretive Data was last revised on 2018. Blood 10/07/2024 4:19 AM PROTOZOOLOGY TEACHER 10/07/2024 4:58 AM PROTOZOOLOGY TEACHER Shawn Jacobson MD LAB BLOOD ORDERABLES Final Result [facility] Department [place] [address] * (ABNORMAL) CBC with auto differential (10/07/2024 4:19 AM PROTOZOOLOGY TEACHER) WBC 6.4 3.8 - 9.9 K/cumm Hgb 8.7(L) 13.0 - 17.5 g/dL [facility] Hct 27.1(L) 38.9 - 50.3 % [facility] Plt 148(L) 150 - 400 K/cumm [facility] MPV 10.6 9.1 - 12.3 fL [facility] RBC 2.97(L) 4.30 - 5.80 M/cumm [facility] MCV 91.2 81.3 - 96.4 fL [facility] MCH 29.3 27.1 - 33.3 pg [facility] MCHC 32.1(L) 32.3 - 35.7 g/dL [facility] RDW CV 17.1(H) 11.1 - 14.9 % [facility] RDW SD 53.2(H) 35.7 - 48.1 fL [facility] NRBC abs 0.00 0.00 - 0.01 K/cumm [facility] Blood 10/07/2024 4:19 AM PROTOZOOLOGY TEACHER 10/07/2024 4:58 AM PROTOZOOLOGY TEACHER Shawn Jacobson MD LAB BLOOD ORDERABLES Final Result [facility] Department [place] [address] * Magnesium (10/07/2024 4:19 AM PROTOZOOLOGY TEACHER) Magnesium 2.1 1.4 - 2.5 mg/dL Blood 10/07/2024 4:19 AM PROTOZOOLOGY TEACHER 10/07/2024 4:42 AM PROTOZOOLOGY TEACHER Shawn Jacobson MD LAB BLOOD ORDERABLES Final Result [facility] Department [place] [address] * (ABNORMAL) Comprehensive metabolic panel (10/07/2024 4:19 AM PROTOZOOLOGY TEACHER) Pathologist [facility] [place] Sodium 140 135 - 145 mmol/L Potassium, pl 4.7 3.3 - 4.9 mmol/L [facility] Comment:Hemolyzed; Potassium value may be falsely elevated by as much as 0.6-1.0 mmol/L. Suggest redraw and reanalysis. Chloride 105 97 - 110 mmol/L [facility] CO2 24 22 - 32 mmol/L [facility] Anion gap 11 2 - 15 mmol/L [facility] BUN 51(H) 6 - 25 mg/dL [facility] Creatinine 0.69(L) 0.80 - 1.30 mg/dL [facility] Glucose 133 70 - 199 mg/dL [facility] Comment: Interpretive Data Fasting glucose >/= 126 [...] 2022. Calcium 9.0 8.5 - 10.3 mg/dL [facility] Bilirubin, total 0.5 0.1 - 1.2 mg/dL [facility] Protein, pl 6.9 6.5 - 8.5 g/dL [facility] Albumin 2.9(L) 3.5 - 5.0 g/dL [facility] Alk phos 135(H) 40 - 130 Units/L [facility] ALT 20 7 - 55 Units/L [facility] AST 44 10 - 50 Units/L [facility] Comment:Hemolyzed; result ma y be falsely elevated Blood 10/07/2024 4:19 AM PROTOZOOLOGY TEACHER 10/07/2024 4:42 AM PROTOZOOLOGY TEACHER Result [facility] Riley Martines MD PhD LAB BLOOD ORDERABLES Final Result Performing Organization Address [facility] de Phone Number [facility] [place] [address] * POCT glucose (10/07/2024 3:39 AM PROTOZOOLOGY TEACHER) Glucose, POC 131 70 - 199 mg/dL Blood 10/07/2024 3:39 AM PROTOZOOLOGY TEACHER 10/07/2024 3:39 AM PROTOZOOLOGY TEACHER Result [facility] Shawn Jacobson MD LAB POCT ORDERABLES - DEVICE Final Result Performing Organization Address [facility] Phone Number [facility] [place] [address] * (ABNORMAL) Hemoglobin A1c (09/29/2024 12:17 AM PROTOZOOLOGY TEACHER) Pathologist [facility] [place] Hgb A1C 6.3(H) 4.0 - 5.6 % Estimated Average Glucose 134 mg/dL [facility] Comment: The ADA recommends reporting an estimated Average Glucose (eAG) with all Hemoglobin A1c results using the equation derived from a study of 507 normal and diabetic adults. Minority populations were underrepresented and children were not included. (Diabetes Care 2020; 43(S1): S66-S76). The eAG is not equivalent to a fasting glucose. Blood 09/29/2024 12:1 7 AM PROTOZOOLOGY TEACHER 09/29/2024 12:45 AM PROTOZOOLOGY TEACHER Result [facility] Vincent Baird MD LAB BLOOD ORDERABLES Final Re sult Performing Organization Address [facility] de Phone Number [facility] Department [place] [address] * Lipid panel (09/28/2024 7:32 PM PROTOZOOLOGY TEACHER) Cholesterol 134 30 - 199 mg/dL Comment: [...] on 2018. Triglycerides 104 <=149 mg/dL [facility] Comment: Interpretive Data Ages < or = [...] on 2018. HDL 41 >=40 mg/dL [facility] Comment: Interpretive Data Ages < or = [...] 2018. LDL, calculated 74 <=129 mg/dL [facility] Comment: Interpretive Data Ages < or = [...] revised on 2024. Non-HDL Cholesterol 93 mg/dL [facility] Comment: Interpretive Data Ages < or [...] last revised on 2018. Chol/HDL ratio 3 [facility] Blood 09/28/2024 7:32 PM PROTOZOOLOGY TEACHER 09/28/2024 7:56 PM PROTOZOOLOGY TEACHER Narrative [facility] - 09/29/2024 12:07 AM PROTOZOOLOGY TEACHER Reflex us Vincent Baird MD LAB BLOOD ORDERABLES Final Re sult [facility] Department [place] [address] * Thyroid Function [place] (09/28/2024 11:53 AM PROTOZOOLOGY TEACHER) TSH 2.74 0.30 - 4.20 mcIUnit/mL Blood 09/28/2024 11:5 3 AM PROTOZOOLOGY TEACHER 09/28/2024 12:12 PM PROTOZOOLOGY TEACHER us Gilson Griggs MD LAB BLOOD ORDERABLES Fin al Result Performing Organization Address City/State/ZIP [place] Phone Number [facility] Department [place] [address] from Last 3 Months or Most Recently Relevant to Health Maintenance Additional Health Concerns Infection Onset Date Last Indicated MDR gram neg/ESBL Comment:Last indicated 09/20/24 in care everywhere 03/28/2023 VRE 09/30/2024 09/30/2024 Insurance [facility] [id number] [place] [address] [facility] Advance Directives For more information, please contact: [phone] Documents on File Type Date Recorded Patient Lobby Concierge Expl anation ADVANCE DIRECTIVE 10/12/2024 12:40 AM POWER OF EXHIBIT PREPARATOR-FINANCIAL/MEDICAL ADVANCE DIRECTIVE 10/12/2024 12:40 AM POLST * [...] 11:56 PM 03/29/2018 9:30 PM Care Teams Acid Dumper Relationship Specialty Start Date End Date Eyal Vargas MD PCP - General Family Medicine 04/05/23 Leonardo Newell MD [address] [facility] [address] [place] [address] Consulting Physician Pulmonary Disease 08/14/23
--- OUTSIDE RECORDS SUMMARY | 2025-01-05 04:00 | XMS_ITS | Encounter Summary ---
Author Organization [facility] Address [address] [place] [address] Care Team Providers Care Perinatal Director Name Role Phone Unavailable Primary Care Provider Unavailabl e Encounter Details Date Type Department Care Team (Late st Contact Info) Description 09/13/2022 Lab Requisition [facility] [id number] [place] [address] [place] [address] [place] [address] Social History Tobacco Use Types Packs/Day Years Used Date Smoking Tobacco: Never Assessed Sex and Gender Information Value Date Recorded Sex Assigned at Not on file Legal Sex Male 2:27 PM SUSTAINABILITY 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 Unable to assess 09/04/2022 2:29 PM SUSTAINABILITY DIRECTOR documented as of this encounter Plan of Treatment Not on file documented as of this encounter Procedures Procedure Name Priority Date/Time Associated Diagnosis Comments CBC WITH DIFFERENTIAL Routine 09/13/2022 1:00 AM SUSTAINABILITY DIRECTOR BASIC METABOLIC PANEL Routine 09/13/2022 1:00 AM SUSTAINABILITY DIRECTOR documented in this encounter Results * (ABNORMAL) BASIC METABOLIC PANEL (09/13/2022 1:00 AM SUSTAINABILITY DIRECTOR) SODIUM 140 136 - 145 mmol/L 09/13/2022 9:[address] [facility] POTASSIUM 3.5 3.4 - 5.1 mmol/L 09/13/2022 9:22 AM [facility] CHLORIDE 89(L) 98 - 107 mmol/L 09/13/2022 9:22 AM [facility] CO2 43(H) 22 - 29 mmol/L 09/13/2022 9:22 AM [facility] CALCIUM 9.6 8.6 - 10.4 mg/dL 09/13/2022 9:22 AM [facility] BUN 37(H) 6 - 20 mg/dL 09/13/2022 9:22 AM [facility] CREATININE 0.68 0.67 - 1.17 mg/dL 09/13/2022 9:22 AM [facility] Comment:The GFR result is no t clinically significant on patients <18 or >70 years of age. GLUCOSE 292(H) 74 - 99 mg/dL 09/13/2022 9:22 AM [facility] GFR >60 mL/min/1.7 3 sq meter 09/13/2022 9:22 AM [facility] Comment:eGFR calculated with 2020 CKD-EPI equation. Vegetarian diet, extremely high or low muscle mass, and may affect results. Cystatin C with Glomerular Filtration Rate is a suitable alternative for these patients. ANION GAP 8 8 - 16 mmol/L 09/13/2022 9:22 AM [facility] Blood Collection / Unknown 09/13/2022 1:00 AM SUSTAINABILITY DIRECTOR 09/13/2022 8:45 AM SUSTAINABILITY DIRECTOR us Franco Apple MD CHEMISTRY ORDERABLES Final Resul t [facility] CLIA# [id number] [facility] [place] [address] * (ABNORMAL) CBC WITH DIFFERENTIAL (09/13/2022 1:00 AM SUSTAINABILITY DIRECTOR) WBC 8.6 4.5 - 10.5 K/uL 09/13/2022 9:08 AM [facility] RBC 2.71(L) 4.50 - 5.40 M/uL 09/13/2022 9:08 AM [facility] HEMOGLOBIN 8.0(L) 13.6 - 16.5 g/dL 09/13/2022 9:08 AM [facility] HEMATOCRIT 24.4(L) 40.0 - 48.0 % 09/13/2022 9:[address] [facility] MCV 90.1 82.0 - 99.0 fL 09/13/2022 9:[address] [facility] MCH 29.5 27.8 - 34.5 pg 09/13/2022 9:08 AM [facility] MCHC 32.8 32.5 - 35.5 g/dL 09/13/2022 9:08 AM [facility] RDW 18.2(H) 11.5 - 14.5 % 09/13/2022 9:[address] [facility] PLATELETS 227 160 - 420 K/uL 09/13/2022 9:[address] [facility] MPV 9.6 8.7 - 12.7 fL 09/13/2022 9:[address] [facility] NEUTROPHILS 62 % 09/13/2022 9:[address] [facility] LYMPHOCYTES 20 % 09/13/2022 9:[address] [facility] MONOCYTES 7 % 09/13/2022 9:[address] [facility] EOSINOPHILS 10 % 09/13/2022 9:[address] [facility] BASOPHILS 1 % 09/13/2022 9:[address] [facility] NEUTROPHIL ABSOLUTE 5.40 1.90 - 7.00 K/uL 09/13/2022 9:[address] [facility] LYMPHOCYTE ABSOLUTE 1.70 0.70 - 4.50 K/uL 09/13/2022 9:[address] [facility] MONOCYTE ABSOLUTE 0.60 0.10 - 1.30 K/uL 09/13/2022 9:[address] [facility] EOSINOPHIL ABSOLUTE 0.90(H) 0.00 - 0.70 K/uL 09/13/2022 9:[address] [facility] BASOPHILS ABSOLUTE 0.10 0.00 - 0.20 K/uL 09/13/2022 9:08 AM SUSTAINABILITY DIRECTOR [facility] Blood Collection / Unknown 09/13/2022 1:00 AM SUSTAINABILITY DIRECTOR 09/13/2022 8:45 AM SUSTAINABILITY DIRECTOR us Franco Apple MD HEMATOLOGY ORDERABLES Final Resu lt [facility] CLIA# [id number] [place] [address] documented in this encounter Visit Diagnoses Not on filedocumented in this encounter Additional Health Concerns Infection Onset Date Last Indicated Resolved Time MRSA Comment:09/2022 sputum Resolved per Type and Duration of Precautions Recommended for Selected Infections and Conditions document 2023 update 09/16/2022 09/28/202206/04 4:18 PM CDT documented as of this encounter
--- OUTSIDE RECORDS SUMMARY | 2025-01-05 04:00 | XMS_ITS | Clinical Summary ---
Author Organization [facility] Address [address] [place] [address] Care Team Providers Care Collections Specialist Name Role Phone Eyal Vargas MD Primary Care Provider Source Comments [facility],non-owned Affiliates and Associated Physician Practices is amultiple site organization consisting of ambulatory clinics and hospital sitesin [place], [place], [place] and [place]. This disclosure is being madepursuant to the Care Everywhere program and may not contain all information available regarding this patient. Last updated 18.[facility] Allergies Active Allergy Reactions Criticality Noted Date Comments Contrast-Iodinated Agents Fo r Ct/Other Itching,Rash,Urticaria Medium 03/28/2018 Liraglutide (Weight Management) Rash,Itching Medium 09/19/2023 Penicillins Rash,Itching High 09/19/2023 Medications * Be aware that medications may not be up to date on this document. Alwaysverify current medications with the patient. Medication Sig Dispensed Refills Start Date End Date Status acetaminophen (Tylenol) 500 MG tablet 1 (one) tablet by Enteral Tube route every 6 hours as needed Maximum allowable Acetaminophen amount = 4 Grams (4000 mg) / 24 hours. 09/26/2023 Active aspirin (Aspirin) 81 MG chew tablet 1 (one) tablet by Enteral Tube route once daily 30 tablet 3 09/27/2023 Active rosuvastatin (Crestor) 10 MG tablet Take 1 (one) tablet by mouth once daily for 30 days 30 tablet 09/27/2023 Active omeprazole (PriLOSEC) 20 MG capsule 1 (one) capsule by Per G Tube route 2 times daily, before breakfast and supper for 30 days 60 capsule 12/05/2023 Active albuterol HFA (Proventil; Ventolin; Proair) 108 (90 Base) MCG/ACT inhaler Inhale 2 (two) puffs by mouth 4 times daily as needed for Shortness of Breath or Wheezing Active bisacodyl (Dulcolax) 10 MG suppository Insert 1 (one) suppository into the rectum once daily as needed for Constipation 07/07/2023 Active clotrimazole (Lotrimin AF) 1 % cream Apply 1 Application to affected area 2 times daily Active glucose, Diabetic Use, 40 % oral gel Take by mouth as needed 10/06/2023 Active ipratropium HFA (Atrovent HFA) 17 MCG/ACT inhaler Inhale 2 (two) puffs by mouth 3 times daily 03/06/2024 Active polyethylene glycol 3350 (Miralax) 17 g packet Take 17 (seventeen) g by mouth 2 times daily 07/07/2023 Active budesonide (Pulmicort) 0.25 MG/2ML nebulizer suspension Inhale 2 mL by mouth 2 times daily for 30 days 120 mL 04/08/2024 Active Alcohol Swabs (B-D SINGLE USE SWABS REGULAR) USE ONE SWAB TO CLEAN SKIN FOUR TIMES A DAY 100 Each 02/03/2024 5 Active Insulin Pen Needle 32G X 4 MM MISC USE ONE PEN NEEDLE FOR INJECTION FOUR TIMES A DAY 100 Each 02/03/2024 5 Active amLODIPine (Norvasc) 5 MG tablet TAKE ONE TABLET BY ENTERAL TUBE ONCE DAILY 30 tablet 2 04/10/2024 5 Active Additional Information Patient not taking.Reason: Other, Reported on 11/10/2024 Oxygen Oxygen via trach collar - Estimate length of need (number of months): Lifetime 1 Each 07/05/2024 Active insulin glargine (Lantus/Semglee) 100 units/mL pen Inject 55 (fifty five) Units subcutaneously at bedtime 20 mL 09/27/2024 Active losartan (Cozaar) 50 MG tablet 2 (two) tablets by Per G Tube route once daily for 30 days 60 tablet 09/27/2024 Active cetirizine (ZyrTEC) 10 MG tablet 0.5 (one-half) tablet by Enteral Tube route once daily Active lactulose (Chronulac) 10 GM/15ML solution 30 mL by Enteral Tube route once daily as needed for Constipation Active melatonin 3 MG tablet 2 (two) tablets by Enteral Tube route nightly as needed for Insomnia Active naloxone HCl (Narcan) 4 MG/0.1ML nasal spray Murdock 1 (one) spray into the nose as needed Active traMADol (Ultram) 50 MG tablet Take 1 (one) tablet by mouth every 6 hours as needed for Pain Active clonazePAM (KlonoPIN) 0.5 MG tabletIndications :Anxiety 1 (one) tablet by Enteral Tube route at bedtime Reasons: Feeling Anxious Active levothyroxine (Synthroid) 50 MCG tablet Take 1.5 (one and one-half) tablets by Enteral Tube route daily before breakfast for 30 days 45 tablet 10/20/2024 Active metoprolol tartrate IR (Lopressor) 25 MG tablet Take 1 (one) tablet by Enteral Tube route 2 times daily for 30 days 60 tablet 10/20/2024 Active Additional Information Patient taking differently: 12.5 mgEnteral Tube 2 TIMES DAILY, Reason: Other, Reported on 11/10/2024 furosemide (Lasix) 20 MG tablet Take 2 (two) tablets by Enteral Tube route every morning for 30 days 60 tablet 10/20/2024 Active ciprofloxacin (Cipro) 500 MG tablet take 1 (one) tablet by Enteral Tube route 2 times daily 7 tablet 10/28/2024 Active Active Problems Problem Noted Date Diagnosed Date HFrEF (heart failure with reduced ejection fract ion) 11/11/2024 History of hemoptysis 11/11/2024 Pneumomediastinum 11/11/2024 Anxiety 11/11/2024 History of CVA (cerebrovascular accident) 2024 Normocytic anemia 11/11/2024 Pneumonia of both lower lobe s due to methicillin resistant Staphylococcus aureus (MRSA) 10/17/2024 Acute on chronic respiratory failure with hypoxi a 10/14/2024 Acute pulmonary edema 10/14/2024 Mucus plugging of bronchi 10/14/2024 Subacute cough 10/13/2024 Leukocytosis, unspecified type 09/19/2024 VAP (ventilator-associated pneumonia) 09/19/2024 Hemoptysis 09/19/2024 Sepsis 09/19/2024 Ventilator dependent 07/02/2024 PEG (percutaneous endoscopic gastrostomy) status 07/02/2024 Parotitis 04/04/2024 Tracheostomy complication, unspecified complicat ion type 04/04/2024 Hyperglycemia 02/03/2024 HLD (hyperlipidemia) 02/03/2024 Leukocytosis 02/03/2024 Neurogenic bladder 02/03/2024 Quadriplegia 01/30/[address] 01/30/2024 HTN (hypertension) 01/30/2024 Shortness of breath 01/29/2024 Elevated troponin 01/29/2024 Elevated brain natriuretic peptide (BNP) level 0 01/29/2024 Pneumonia of left lung due t o infectious organism, unspecified part of lung 01/29/2024 Erosive gastropathy 12/03/2023 Anemia of chronic disease 12/01/2023 Chronic heart failure with preserved ejection fr action 09/20/2023 Chronic respiratory failure requiring continuous mechanical ventilation through tracheostomy 09/20/2023 Normocytic anemia 09/20/2023 Rash and other nonspecific skin eruption 023 Hypothyroidism 09/20/2023 T2DM (type 2 diabetes mellitus) 09/20/2023 CVA (cerebral vascular accident) 09/20/2023 Atelectasis 09/20/2023 Pleural effusion 09/19/2023 Pneumonia of left lower lobe due to infectious o rganism 09/19/2023 COPD (chronic obstructive pulmonary disease) Thrombocytopenia, secondary Chronic indwelling Davies catheter Resolved Problems Problem Noted Date Diagnosed Date Resolved Date Hemoptysis 02/03/2024 04/05/2024 UTI (urinary tract infection) 02/03/2024 02/17/2024 ALYSSA (acute kidney injury) 02/03/2024 Tracheostomy obstruction 01/29/202412/2023 COPD exacerbation 01/29/2024 04/05/2024 Upper GI bleed 12/03/2023 04/05/2024 Black tarry stools 12/01/2023 Acute blood loss anemia 12/01/2023 07/0 12/2023 Pressure injury of sacral region, stage 3 09/20/2023 04/05/2024 Anxiety 09/20/2023 04/05/2024 Insomnia 09/20/2023 04/05/2024 PEG (percutaneous endoscopic gastrostomy) adjustment/replacement/removal 09/20/2023 4 Tachycardia 09/19/2023 04/05/2024 Acute cough 09/19/2023 04/05/2024 Encounters Date Type Department Care Team Description 01/02/2025 10:16 PM CDT - 01/03/2025 12:39 AM CDT Emergency [facility] EMERGENCY DEPARTMENT [address] [place] [phone] Harley Decker MD Clogged feeding tube (Primary Dx) Discharge Disposition: Home or Self Care 01/02/2025 Travel 11/16/2024 Transitional Care [facility] CARE COORDINATION [address] [place] [phone] Elicia Campbell, ALYSE Transitions Of Care 11/10/2024 10:25 PM [employer] FORMING MACHINE ADJUSTER - 11/15/2024 3:19 AM CARTON FORMING MACHINE ADJUSTER Hospital Encounter [facility] 4S ICU [address] [place] [phone] Luis A Pace MD Go, Abigail J, DO Pulmonary Disease Discharge Disposition: Home or Self Care 10/30/2024 Transitional Care [facility] CARE [facility]ORD[facility] [address] [place] [phone] Elicia Campbell, ALYSE Transitions Of Care 10/13/2024 2:02 PM CARTON FORMING MACHINE ADJUSTER - 10/28/2024 5:52 PM [facility] Hospital Encounter [facility] [address] ICU [address] [place] [phone] Jaswinder Lynn MD Kim, Shawn M, DO Charbek, Edward, MD Barrios, Christopher R, MD Ferguson, Keith T, MD Emergency Medicine Discharge Disposition: Home or Self Care 10/13/2024 Travel from Last 3 Months Immunizations Name Administration Dates Next Due INFLUENZA VACCINE, ADJUVANTE D, QUADR. (FLUAD QUADRIVALENT; 65Y+) (AIIV4) 11/14/2024(Deferred: Patient Refused) INFLUENZA VACCINE, HIGH-DOSE , QUADR. (FLUZONE HIGH-DOSE QUADRIVALENT; 65Y+), 0.7 ML (HD-IIV4) 07/01/2023,07/29/2022 ZOSTER VACCINE, LIVE 02/24/2016 Social History Tobacco Use Types Packs/Day Years Used Date Smoking Tobacco: Never Passive Smoke Exposure: Never Smokeless Tobacco: Never Tobacco Cessation:Counseling Given: Not Answered Alcohol Use Standard Drinks/Week Comments Never 0 (1 standard drink = 0.6 oz pur e alcohol) AUDIT-C Answer Date Recorded Q1: How often do you have a drink containing alcohol? Never 11/10/2024 Q2: How many drinks containi ng alcohol do you have on a typical day when you are drinking? Patient does not drink Q3: How often do you have si x or more drinks on one occasion? Never 11/10/2024 Overall Financial Resource Strain (CARDIA) Answe r Date Recorded How hard is it for you to pa y for the very basics like food, housing, medical care, and heating? Patient unable to answer 11/13/2024 [facility] - Occupational Stress Questionnaire Answer Date Recorded Do you feel stress - tense, restless, nervous, or anxious, or unable to sleep at night because your mind is troubled all the time - these days? Patient unable to answer 11/13/2024 Hunger Vital Sign Answer Date Recorded Within the past 12 months, y ou worried that your food would run out before you got the money to buy more. Patient unable to answer 11/13/2024 Within the past 12 months, t he food you bought just didn't last and you didn't have money to get more. Patient unable to answer 11/13/2024 PRAPARE - Transportation Answer Date Re corded In the past 12 months, has l ack of transportation kept you from medical appointments or from getting medications? No 11/04 In the past 12 months, has l ack of transportation kept you from meetings, work, or from getting things needed for daily living? No 11/13/2024 Housing Stability Vital Sign Answer Pedrito e Recorded In the last 12 months, was t here a time when you were not able to pay the mortgage or rent on time? No 07/02/2024 In the last 12 months, how many places have you lived? 1 07/02/2024 In the last 12 months, was t here a time when you did not have a steady place to sleep or slept in a care home (including now)? No 07/02/2024 Housing Stability Vital Sign Answer Pedrito e Recorded In the last 12 months, was t here a time when you were not able to pay the mortgage or rent on time? No 11/13/2024 In the past 12 months, how m any times have you moved where you were living? 0 11/13/2024 At any time in the past 12 m [facility], were you homeless or living in a care home (including now)? No 11/13/2024 Sex and Gender Information Value Date Recorded Sex Assigned at Not on file Gender Identity Not on file Sexual Orientation Not on file Last Filed Vital Signs Vital Sign Reading Time Taken Comments Blood Pressure 175/106 01/02/2025 10:22 PM CDT Pulse 85 01/02/2025 10:22 PM CDT Temperature 36.4 C (97.5 F) 01/02/2025 10:19 PM CDT Respiratory Rate 22 01/02/2025 10:22 PM CDT Oxygen Saturation 96% 01/02/2025 10:22 PM CDT Inhaled Oxygen Concentration 40% 11/14/2024 1 1:58 PM C[employer] FORMING MACHINE ADJUSTER Weight 122.5 kg (270 lb) 01/02/2025 10:19 PM CDT Height 182.9 cm (6') 01/02/2025 10:19 PM CDT Body Mass Index 36.62 01/02/2025 10:19 PM CDT Plan of Treatment Health Maintenance Due Date Last Done Comments COLOGUARD (AGES 45-75) - COLON CA SCREENING 1949 COLON MONITORING 1949 COLONOSCOPY - COLON CA SCREENING 1949 CT COLONOGRAPHY - COLON CA SCREENING 1949 Colorectal Cancer Screening 1949 FIT - COLON CA SCREENING 1949 FLEX SIG - COLON CA SCREENING 1949 HEPATITIS C SCREENING 09/03/1967 DTAP/TDAP/TD VACCINES (1 - Tdap) 1968 PNEUMOCOCCAL VACCINE 50+ (1 of 2 - PCV) 1968 DIABETES-STATIN 1989 ZOSTER VACCINE (2 of 3) 04/20/2016 02/24/2016 DIABETES RETINOPATHY SCREENING 09/20/2023 DIABETES-FOOT EXAM WITH MONOFILAMENT 09/20/2023 Respiratory Syncytial Virus (RSV) Vaccine Pt: or over 60 yrs (1 - 1-dose 75+ series) 2024 DEPRESSION SCREENING 10/04/2024 DIABETES - URINE PROTEIN SCREENING 10/04/2024 MEDICARE AWV CALENDAR YEAR 2024 DIABETES-HGB A1C 04/13/2025 10/14/2024, , 09/28/2024, Additional history exists DIABETES-SERUM CREATININE 11/14/20252024, 11/13/2024, 11/12/2024, Additional history exists COVID-19 VACCINE Completed 07/11/2024, 01/2021, 12/08/2020 INFLUENZA VACCINE Completed 07/11/2024, , 07/29/2022, Additional history exists HEPATITIS B VACCINE Aged Out No longe r eligible based on patient's age to complete this topic HIB VACCINE Aged Out No longer eligi ble based on patient's age to complete this topic HPV VACCINE Aged Out No longer eligi ble based on patient's age to complete this topic MENINGOCOCCAL (Group B) VACCINE SHARED DECISION-MAKING Aged Out No longer eligible based on patient's age to complete this topic MENINGOCOCCAL GROUPS A/C/Y/W VACCINE Aged Out No longer eligible based on patient's age to complete this topic Medical Devices Implanted Type Area Compatibility Test Engineer Device Identifier Shelf Expiration Date Model / Serial / Lot Sphr Embl Joaquín Embsph 300-500um Trisacryl Implanted:Qty: 1 on 09/21/2024 at [facility] [employer] [id number] 05/02/2027 [id number] / / [id number] Coil Amara Lp 2cm 2mm Embl Strl Lf Implanted:Qty: 1 on 09/21/2024 at [facility] Right: [employer] [id number] 05/15/2029 [id number] / / [id number] Coil Amara Lp 4cm 3mm Embl Strl Lf Implanted:Qty: 1 on 09/21/2024 at [facility] Right: [employer] [id number] 05/10/2029 [id number] 304 / / [id number] Coil Amara Lp 4cm 2mm Embl Strl Lf Implanted:Qty: 1 on 09/21/2024 at [facility] Right: Ramone Nicholson [id number] 05/21/2029 [id number] 204 / / [id number] Procedures Procedure Name Priority Date/Time Associated Diagnosis Comments GLUCOSE - POINT OF CARE Routine 11/14/2024 11:21 PM C[employer] FORMING MACHINE ADJUSTER GLUCOSE - POINT OF CARE Routine 11/14/2024 8:21 PM C[employer]ON FORMING MACHINE ADJUSTER GLUCOSE - POINT OF CARE Routine 11/14/2024 4:30 PM C[employer]ON FORMING MACHINE ADJUSTER XR CHEST 1VW PORTABLE Routine 11/14/2024 11:48 AM C[employer]ON FORMING MACHINE ADJUSTER HFrEF (heart failure with reduced ejection fraction) GLUCOSE - POINT OF CARE Routine 11/14/2024 11:36 AM C[employer]ON FORMING MACHINE ADJUSTER GLUCOSE - POINT OF CARE Routine 11/14/2024 8:12 AM CARTON FORMING MACHINE ADJUSTER GLUCOSE - POINT OF CARE Routine 11/14/2024 3:07 AM C[employer]ON FORMING MACHINE ADJUSTER PHOSPHORUS BLOOD Routine 11/14/2024 2:59 AM C[employer]ON FORMING MACHINE ADJUSTER MAGNESIUM BLOOD Routine 11/14/2024 2:59 AM C[employer]ON FORMING MACHINE ADJUSTER COMPREHENSIVE METABOLIC PANEL Routine 11/14/2024 2:59 AM C[employer]ON FORMING MACHINE ADJUSTER CBC W AUTO DIFFERENTIAL Routine 11/14/2024 2:59 AM C[employer]ON FORMING MACHINE ADJUSTER GLUCOSE - POINT OF CARE Routine 11/13/2024 11:17 PM CARTON FORMING MACHINE ADJUSTER GLUCOSE - POINT OF CARE Routine 11/13/2024 8:32 PM CARTON FORMING MACHINE ADJUSTER GLUCOSE - POINT OF CARE Routine 11/13/2024 8:30 PM C[employer]ON FORMING MACHINE ADJUSTER PROCALCITONIN LEVEL Routine 11/13/2024 4 :03 PM C[employer]ON FORMING MACHINE ADJUSTER GLUCOSE - POINT OF CARE Routine 11/13/2024 3:50 PM CARTON FORMING MACHINE ADJUSTER XR CHEST 1VW PORTABLE Routine 11/13/2024 1:40 PM CARTON FORMING MACHINE ADJUSTER Atelectasis GLUCOSE - POINT OF CARE Routine 11/13/2024 11:51 AM CARTON FORMING MACHINE ADJUSTER GLUCOSE - POINT OF CARE Routine 11/13/2024 8:21 AM CARTON FORMING MACHINE ADJUSTER GLUCOSE - POINT OF CARE Routine 11/13/2024 3:29 AM C[employer]ON FORMING MACHINE ADJUSTER PHOSPHORUS BLOOD Routine 11/13/2024 3:20 AM CARTON FORMING MACHINE ADJUSTER MAGNESIUM BLOOD Routine 11/13/2024 3:20 AM CARTON FORMING MACHINE ADJUSTER COMPREHENSIVE METABOLIC PANEL Routine 11/13/2024 3:20 AM CARTON FORMING MACHINE ADJUSTER CBC W AUTO DIFFERENTIAL Routine 11/13/2024 3:20 AM CARTON FORMING MACHINE ADJUSTER GLUCOSE - POINT OF CARE Routine 11/13/2024 12:21 AM CARTON FORMING MACHINE ADJUSTER GLUCOSE - POINT OF CARE Routine 11/12/2024 8:15 PM CARTON FORMING MACHINE ADJUSTER GLUCOSE - POINT OF CARE Routine 11/12/2024 4:36 PM CARTON FORMING MACHINE ADJUSTER XR CHEST 1VW PORTABLE STAT 11/12/2024 1:09 PM CARTON FORMING MACHINE ADJUSTER Acute on chronic respiratory failure with hypoxia GLUCOSE - POINT OF CARE Routine 11/12/2024 12:40 PM CARTON FORMING MACHINE ADJUSTER CULTURE AFB+SMEAR Routine 11/12/2024 12: 30 PM CARTON FORMING MACHINE ADJUSTER CULTURE FUNGUS OTHER+FUNGUS SMEAR Routine 11/12/2024 12:30 PM CARTON FORMING MACHINE ADJUSTER CULTURE BRONCHIAL WASHING+GRAM STAIN Routine 11/12/2024 12:30 PM CARTON FORMING MACHINE ADJUSTER GLUCOSE - POINT OF CARE Routine 11/12/2024 8:02 AM CARTON FORMING MACHINE ADJUSTER GLUCOSE - POINT OF CARE Routine 11/12/2024 4:15 AM CARTON FORMING MACHINE ADJUSTER PHOSPHORUS BLOOD Routine 11/12/2024 2:42 AM CARTON FORMING MACHINE ADJUSTER MAGNESIUM BLOOD Routine 11/12/2024 2:42 AM CARTON FORMING MACHINE ADJUSTER COMPREHENSIVE METABOLIC PANEL Routine 11/12/2024 2:42 AM CARTON FORMING MACHINE ADJUSTER CBC W AUTO DIFFERENTIAL Routine 11/12/2024 2:42 AM CARTON FORMING MACHINE ADJUSTER GLUCOSE - POINT OF CARE Routine 11/11/2024 11:48 PM CARTON FORMING MACHINE ADJUSTER GLUCOSE - POINT OF CARE Routine 11/11/2024 8:42 PM CARTON FORMING MACHINE ADJUSTER GLUCOSE - POINT OF CARE Routine 11/11/2024 4:14 PM CARTON FORMING MACHINE ADJUSTER GLUCOSE - POINT OF CARE Routine 11/11/2024 11:56 AM CARTON FORMING MACHINE ADJUSTER GLUCOSE - POINT OF CARE Routine 11/11/2024 8:19 AM CARTON FORMING MACHINE ADJUSTER PTT SLH Routine 11/11/2024 6:09 AM CARTON FORMING MACHINE ADJUSTER PT-INR SLH Routine 11/11/2024 6:09 AM CARTON FORMING MACHINE ADJUSTER PHOSPHORUS BLOOD Routine 11/11/2024 6:09 AM CARTON FORMING MACHINE ADJUSTER MAGNESIUM BLOOD Routine 11/11/2024 6:09 AM CARTON FORMING MACHINE ADJUSTER COMPREHENSIVE METABOLIC PANEL Routine 11/11/2024 6:09 AM CARTON FORMING MACHINE ADJUSTER CBC W AUTO DIFFERENTIAL Routine 11/11/2024 6:09 AM CARTON FORMING MACHINE ADJUSTER GLUCOSE - POINT OF CARE Routine 11/11/2024 5:05 AM CARTON FORMING MACHINE ADJUSTER GLUCOSE - POINT OF CARE Routine 11/11/2024 4:29 AM CARTON FORMING MACHINE ADJUSTER CT ANGIO CHEST STAT 11/11/2024 3:03 AM CARTON FORMING MACHINE ADJUSTER Hemoptysis URINE MICROSCOPIC ONLY REFLEX TO CULTURE Routine 11/11/2024 2:19 AM CARTON FORMING MACHINE ADJUSTER URINALYSIS REFLEX MICROSCOPIC REFLEX CULTURE Routine 11/11/2024 2:19 AM CARTON FORMING MACHINE ADJUSTER CULTURE URINE Routine 11/11/2024 2:19 AM CARTON FORMING MACHINE ADJUSTER CULTURE URINE STAT 11/11/2024 2:19 AM CARTON FORMING MACHINE ADJUSTER CULTURE SPUTUM+GRAM STAIN Routine 11/11/2024 1:17 AM CARTON FORMING MACHINE ADJUSTER RESPIRATORY PANEL WITH SARS-COV-2 BY PCR (STL) Routine 11/11/2024 1:17 AM CARTON FORMING MACHINE ADJUSTER MRSA DNA PCR STAT 11/11/2024 1:17 AM CARTON FORMING MACHINE ADJUSTER BLOOD GASES SALMA + COOX PANEL Routine 11/11/2024 1:04 AM CARTON FORMING MACHINE ADJUSTER PHOSPHORUS BLOOD STAT 11/11/2024 1:04 AM CARTON FORMING MACHINE ADJUSTER MAGNESIUM BLOOD STAT 11/11/2024 1:04 AM CARTON FORMING MACHINE ADJUSTER COMPREHENSIVE METABOLIC PANEL STAT 11/11/2024 1:04 AM CARTON FORMING MACHINE ADJUSTER CBC W AUTO DIFFERENTIAL STAT 11/11/2024 1:04 AM CARTON FORMING MACHINE ADJUSTER XR CHEST 1VW PORTABLE STAT 11/10/2024 11:59 PM CARTON FORMING MACHINE ADJUSTER Pneumonia of both lower lobes due to methicillin resistant Staphylococcus aureus (MRSA) GLUCOSE - POINT OF CARE Routine 10/28/2024 12:39 PM CARTON FORMING MACHINE ADJUSTER GLUCOSE - POINT OF CARE Routine 10/28/2024 5:13 AM CARTON FORMING MACHINE ADJUSTER MAGNESIUM BLOOD Routine 10/28/2024 2:21 AM CARTON FORMING MACHINE ADJUSTER PHOSPHORUS BLOOD Routine 10/28/2024 2:21 AM CARTON FORMING MACHINE ADJUSTER COMPREHENSIVE METABOLIC PANEL AM Draw 10/28/2024 2:21 AM CARTON FORMING MACHINE ADJUSTER CBC W AUTO DIFFERENTIAL AM Draw 10/28/2024 2:21 AM CARTON FORMING MACHINE ADJUSTER GLUCOSE - POINT OF CARE Routine 10/27/2024 11:41 PM CARTON FORMING MACHINE ADJUSTER GLUCOSE - POINT OF CARE Routine 10/27/2024 8:47 PM CARTON FORMING MACHINE ADJUSTER GLUCOSE - POINT OF CARE Routine 10/27/2024 5:39 PM CARTON FORMING MACHINE ADJUSTER EKG 12-LEAD Routine 10/27/2024 2:16 PM CARTON FORMING MACHINE ADJUSTER Adverse effect of drug, initial encounter GLUCOSE - POINT OF CARE Routine 10/27/2024 11:34 AM CARTON FORMING MACHINE ADJUSTER GLUCOSE - POINT OF CARE Routine 10/27/2024 5:12 AM CARTON FORMING MACHINE ADJUSTER GLUCOSE - POINT OF CARE Routine 10/27/2024 12:34 AM CARTON FORMING MACHINE ADJUSTER MAGNESIUM BLOOD Routine 10/27/2024 12:34 AM CARTON FORMING MACHINE ADJUSTER PHOSPHORUS BLOOD Routine 10/27/2024 12:3 4 AM CARTON FORMING MACHINE ADJUSTER COMPREHENSIVE METABOLIC PANEL AM Draw 10/27/2024 12:34 AM CARTON FORMING MACHINE ADJUSTER CBC W AUTO DIFFERENTIAL AM Draw 10/27/2024 12:34 AM CARTON FORMING MACHINE ADJUSTER CULTURE BLOOD Timed 10/26/2024 10:08 PM CARTON FORMING MACHINE ADJUSTER CULTURE BLOOD Timed 10/26/2024 9:50 PM CARTON FORMING MACHINE ADJUSTER RESPIRATORY PANEL WITH SARS-COV-2 BY PCR (STL) Routine 10/26/2024 8:51 PM CARTON FORMING MACHINE ADJUSTER GLUCOSE - POINT OF CARE Routine 10/26/2024 5:56 PM CARTON FORMING MACHINE ADJUSTER URINALYSIS W/MICROSCOPIC NO CULTURE Routine 10/26/2024 1:36 PM CARTON FORMING MACHINE ADJUSTER GLUCOSE - POINT OF CARE Routine 10/26/2024 12:15 PM CARTON FORMING MACHINE ADJUSTER GLUCOSE - POINT OF CARE Routine 10/26/2024 6:50 AM CARTON FORMING MACHINE ADJUSTER MAGNESIUM BLOOD Routine 10/26/2024 3:58 AM CARTON FORMING MACHINE ADJUSTER PHOSPHORUS BLOOD Routine 10/26/2024 3:58 AM CARTON FORMING MACHINE ADJUSTER COMPREHENSIVE METABOLIC PANEL AM Draw 10/26/2024 3:58 AM CARTON FORMING MACHINE ADJUSTER CBC W AUTO DIFFERENTIAL AM Draw 10/26/2024 3:58 AM CARTON FORMING MACHINE ADJUSTER GLUCOSE - POINT OF CARE Routine 10/26/2024 12:37 AM CARTON FORMING MACHINE ADJUSTER GLUCOSE - POINT OF CARE Routine 10/25/2024 6:00 PM CARTON FORMING MACHINE ADJUSTER BLOOD GASES SALMA + COOX PANEL Routine 10/25/2024 11:29 AM CARTON FORMING MACHINE ADJUSTER GLUCOSE - POINT OF CARE Routine 10/25/2024 11:28 AM CARTON FORMING MACHINE ADJUSTER GLUCOSE - POINT OF CARE Routine 10/25/2024 6:20 AM CARTON FORMING MACHINE ADJUSTER MAGNESIUM BLOOD Routine 10/25/2024 3:57 AM CARTON FORMING MACHINE ADJUSTER PHOSPHORUS BLOOD Routine 10/25/2024 3:57 AM CARTON FORMING MACHINE ADJUSTER COMPREHENSIVE METABOLIC PANEL AM Draw 10/25/2024 3:57 AM CARTON FORMING MACHINE ADJUSTER CBC W AUTO DIFFERENTIAL AM Draw 10/25/2024 3:57 AM CARTON FORMING MACHINE ADJUSTER GLUCOSE - POINT OF CARE Routine 10/24/2024 11:51 PM CARTON FORMING MACHINE ADJUSTER GLUCOSE - POINT OF CARE Routine 10/24/2024 8:27 PM CARTON FORMING MACHINE ADJUSTER GLUCOSE - POINT OF CARE Routine 10/24/2024 5:19 PM CARTON FORMING MACHINE ADJUSTER XR CHEST 1VW PORTABLE STAT 10/24/2024 2:59 PM CARTON FORMING MACHINE ADJUSTER Acute on chronic respiratory failure with hypoxia GLUCOSE - POINT OF CARE Routine 10/24/2024 1:11 PM CARTON FORMING MACHINE ADJUSTER GLUCOSE - POINT OF CARE Routine 10/24/2024 5:59 AM CARTON FORMING MACHINE ADJUSTER MAGNESIUM BLOOD Routine 10/24/2024 12:42 AM CARTON FORMING MACHINE ADJUSTER PHOSPHORUS BLOOD Routine 10/24/2024 12:4 2 AM CARTON FORMING MACHINE ADJUSTER COMPREHENSIVE METABOLIC PANEL AM Draw 10/24/2024 12:42 AM CARTON FORMING MACHINE ADJUSTER CBC W AUTO DIFFERENTIAL AM Draw 10/24/2024 12:42 AM [employer] MACHINE ADJUSTER GLUCOSE - POINT OF CARE Routine 10/24/2024 12:41 AM [employer] MACHINE ADJUSTER GLUCOSE - POINT OF CARE Routine 10/23/2024 8:22 PM [employer] MACHINE ADJUSTER GLUCOSE - POINT OF CARE Routine 10/23/2024 6:51 PM [employer] MACHINE ADJUSTER HEMOGLOBIN Routine 10/23/2024 5:23 PM [employer] MACHINE ADJUSTER VAS BILATERAL VENOUS DUPLEX LE Routine 10/23/2024 12:30 PM [employer] MACHINE ADJUSTER Fever, unspecified fever cause PREPARE RBC LEUKOREDUCED UNIT Routine 10/23/2024 12:26 PM [employer] MACHINE ADJUSTER GLUCOSE - POINT OF CARE Routine 10/23/2024 12:24 PM [employer] MACHINE ADJUSTER TYPE + SCREEN PANEL STAT 10/23/2024 1 1:06 AM [employer] MACHINE ADJUSTER GLUCOSE - POINT OF CARE Routine 10/23/2024 5:53 AM [employer] MACHINE ADJUSTER MAGNESIUM BLOOD Routine 10/23/2024 3:30 AM [employer] MACHINE ADJUSTER PHOSPHORUS BLOOD Routine 10/23/2024 3:30 AM [employer] MACHINE ADJUSTER COMPREHENSIVE METABOLIC PANEL AM Draw 10/23/2024 3:30 AM [employer] MACHINE ADJUSTER CBC W AUTO DIFFERENTIAL AM Draw 10/23/2024 3:30 AM [employer] MACHINE ADJUSTER GLUCOSE - POINT OF CARE Routine 10/23/2024 12:12 AM [employer] MACHINE ADJUSTER GLUCOSE - POINT OF CARE Routine 10/22/2024 5:13 PM [employer] MACHINE ADJUSTER GLUCOSE - POINT OF CARE Routine 10/22/2024 11:05 AM [employer] MACHINE ADJUSTER GLUCOSE - POINT OF CARE Routine 10/22/2024 5:53 AM [employer] MACHINE ADJUSTER MAGNESIUM BLOOD Routine 10/22/2024 5:53 AM [employer] MACHINE ADJUSTER PHOSPHORUS BLOOD Routine 10/22/2024 5:53 AM [employer] MACHINE ADJUSTER COMPREHENSIVE METABOLIC PANEL AM Draw 10/22/2024 5:53 AM [employer] MACHINE ADJUSTER CBC W AUTO DIFFERENTIAL AM Draw 10/22/2024 5:53 AM [employer] MACHINE ADJUSTER GLUCOSE - POINT OF CARE Routine 10/22/2024 12:20 AM [employer] MACHINE ADJUSTER GLUCOSE - POINT OF CARE Routine 10/21/2024 5:08 PM [employer] MACHINE ADJUSTER GLUCOSE - POINT OF CARE Routine 10/21/2024 11:06 AM [employer] MACHINE ADJUSTER MAGNESIUM BLOOD Routine 10/21/2024 5:38 AM [employer] MACHINE ADJUSTER PHOSPHORUS BLOOD Routine 10/21/2024 5:38 AM [employer] MACHINE ADJUSTER COMPREHENSIVE METABOLIC PANEL AM Draw 10/21/2024 5:38 AM [employer] MACHINE ADJUSTER CBC W AUTO DIFFERENTIAL AM Draw 10/21/2024 5:38 AM [employer] MACHINE ADJUSTER GLUCOSE - POINT OF CARE Routine 10/21/2024 5:37 AM [employer] MACHINE ADJUSTER GLUCOSE - POINT OF CARE Routine 10/21/2024 12:45 AM [employer] MACHINE ADJUSTER CULTURE BLOOD Timed 10/20/2024 5:48 PM [employer] MACHINE ADJUSTER CULTURE BLOOD Timed 10/20/2024 5:40 PM [employer] MACHINE ADJUSTER CULTURE SPUTUM+GRAM STAIN Routine 10/20/2024 5:34 PM [employer] MACHINE ADJUSTER URINALYSIS REFLEX TO MICROSCOPIC NO CULTURE Routine 10/20/2024 5:00 PM [employer] MACHINE ADJUSTER GLUCOSE - POINT OF CARE Routine 10/20/2024 4:50 PM [employer] MACHINE ADJUSTER GLUCOSE - POINT OF CARE Routine 10/20/2024 11:20 AM [employer] MACHINE ADJUSTER MAGNESIUM BLOOD Routine 10/20/2024 6:22 AM [employer] MACHINE ADJUSTER PHOSPHORUS BLOOD Routine 10/20/2024 6:22 AM [employer] MACHINE ADJUSTER COMPREHENSIVE METABOLIC PANEL AM Draw 10/20/2024 6:22 AM [employer] MACHINE ADJUSTER CBC W AUTO DIFFERENTIAL AM Draw 10/20/2024 6:22 AM [employer] MACHINE ADJUSTER GLUCOSE - POINT OF CARE Routine 10/20/2024 6:21 AM [employer] MACHINE ADJUSTER GLUCOSE - POINT OF CARE Routine 10/20/2024 12:41 AM [employer] MACHINE ADJUSTER GLUCOSE - POINT OF CARE Routine 10/19/2024 5:23 PM [employer] MACHINE ADJUSTER GLUCOSE - POINT OF CARE Routine 10/19/2024 11:55 AM [employer] MACHINE ADJUSTER GLUCOSE - POINT OF CARE Routine 10/19/2024 5:55 AM [employer] MACHINE ADJUSTER MAGNESIUM BLOOD Routine 10/19/2024 5:13 AM [employer] MACHINE ADJUSTER PHOSPHORUS BLOOD Routine 10/19/2024 5:13 AM [employer] MACHINE ADJUSTER COMPREHENSIVE METABOLIC PANEL AM Draw 10/19/2024 5:13 AM [employer] MACHINE ADJUSTER CBC W AUTO DIFFERENTIAL AM Draw 10/19/2024 5:13 AM [employer] MACHINE ADJUSTER GLUCOSE - POINT OF CARE Routine 10/19/2024 12:36 AM [employer] MACHINE ADJUSTER GLUCOSE - POINT OF CARE Routine 10/18/2024 10:24 PM [employer] MACHINE ADJUSTER GLUCOSE - POINT OF CARE Routine 10/18/2024 6:01 PM [employer] MACHINE ADJUSTER GLUCOSE - POINT OF CARE Routine 10/18/2024 12:02 PM [employer] MACHINE ADJUSTER GLUCOSE - POINT OF CARE Routine 10/18/2024 5:43 AM [employer] MACHINE ADJUSTER MAGNESIUM BLOOD Routine 10/18/2024 3:00 AM [employer] MACHINE ADJUSTER PHOSPHORUS BLOOD Routine 10/18/2024 3:00 AM [employer] MACHINE ADJUSTER COMPREHENSIVE METABOLIC PANEL AM Draw 10/18/2024 3:00 AM [employer] MACHINE ADJUSTER CBC W AUTO DIFFERENTIAL AM Draw 10/18/2024 3:00 AM [employer] MACHINE ADJUSTER GLUCOSE - POINT OF CARE Routine 10/18/2024 12:36 AM [employer] MACHINE ADJUSTER GLUCOSE - POINT OF CARE Routine 10/17/2024 8:25 PM [employer] MACHINE ADJUSTER GLUCOSE - POINT OF CARE Routine 10/17/2024 6:02 PM [employer] MACHINE ADJUSTER GLUCOSE - POINT OF CARE Routine 10/17/2024 12:31 PM [employer] MACHINE ADJUSTER GLUCOSE - POINT OF CARE Routine 10/17/2024 6:00 AM [employer] MACHINE ADJUSTER MAGNESIUM BLOOD Routine 10/17/2024 3:24 AM [employer] MACHINE ADJUSTER PHOSPHORUS BLOOD Routine 10/17/2024 3:24 AM [employer] MACHINE ADJUSTER COMPREHENSIVE METABOLIC PANEL AM Draw 10/17/2024 3:24 AM [employer] MACHINE ADJUSTER CBC W AUTO DIFFERENTIAL AM Draw 10/17/2024 3:24 AM [employer] MACHINE ADJUSTER GLUCOSE - POINT OF CARE Routine 10/17/2024 12:37 AM [employer] MACHINE ADJUSTER GLUCOSE - POINT OF CARE Routine 10/16/2024 9:14 PM [employer] MACHINE ADJUSTER GLUCOSE - POINT OF CARE Routine 10/16/2024 5:55 PM [employer] MACHINE ADJUSTER GLUCOSE - POINT OF CARE Routine 10/16/2024 12:31 PM [employer] MACHINE ADJUSTER GLUCOSE - POINT OF CARE Routine 10/16/2024 6:22 AM [employer] MACHINE ADJUSTER MAGNESIUM BLOOD Routine 10/16/2024 3:41 AM [employer] MACHINE ADJUSTER PHOSPHORUS BLOOD Routine 10/16/2024 3:41 AM [employer] MACHINE ADJUSTER COMPREHENSIVE METABOLIC PANEL AM Draw 10/16/2024 3:41 AM [employer] MACHINE ADJUSTER CBC W AUTO DIFFERENTIAL AM Draw 10/16/2024 3:41 AM [employer] MACHINE ADJUSTER GLUCOSE - POINT OF CARE Routine 10/16/2024 12:03 AM [employer] MACHINE ADJUSTER GLUCOSE - POINT OF CARE Routine 10/15/2024 9:46 PM [employer] MACHINE ADJUSTER GLUCOSE - POINT OF CARE Routine 10/15/2024 4:53 PM [employer] MACHINE ADJUSTER GLUCOSE - POINT OF CARE Routine 10/15/2024 11:48 AM [employer] MACHINE ADJUSTER CULTURE SPUTUM+GRAM STAIN Routine 10/15/2024 11:17 AM [employer] MACHINE ADJUSTER GLUCOSE - POINT OF CARE Routine 10/15/2024 6:14 AM [employer] MACHINE ADJUSTER MAGNESIUM BLOOD Routine 10/15/2024 4:03 AM [employer] MACHINE ADJUSTER PHOSPHORUS BLOOD Routine 10/15/2024 4:03 AM [employer] MACHINE ADJUSTER COMPREHENSIVE METABOLIC PANEL AM Draw 10/15/2024 4:03 AM [employer] MACHINE ADJUSTER CBC W AUTO DIFFERENTIAL AM Draw 10/15/2024 4:03 AM [employer] MACHINE ADJUSTER GLUCOSE - POINT OF CARE Routine 10/14/2024 11:35 PM [employer] MACHINE ADJUSTER GLUCOSE - POINT OF CARE Routine 10/14/2024 9:44 PM [employer] MACHINE ADJUSTER GLUCOSE - POINT OF CARE Routine 10/14/2024 5:27 PM [employer] MACHINE ADJUSTER GLUCOSE - POINT OF CARE Routine 10/14/2024 11:39 AM [employer] MACHINE ADJUSTER GLUCOSE - POINT OF CARE Routine 10/14/2024 8:30 AM [employer] MACHINE ADJUSTER TROPONIN-I HIGH SENSITIVE STAT 10/14/2024 6:15 AM [employer] MACHINE ADJUSTER BLOOD GASES SALMA + COOX PANEL Routine 10/14/2024 6:15 AM [employer] MACHINE ADJUSTER GLUCOSE - POINT OF CARE Routine 10/14/2024 5:44 AM [employer] MACHINE ADJUSTER MRSA DNA PCR STAT 10/14/2024 3:43 AM [employer] MACHINE ADJUSTER TROPONIN-I HIGH SENSITIVE STAT 10/14/2024 3:42 AM [employer] MACHINE ADJUSTER HEMOGLOBIN A1C Routine 10/14/2024 3:42 AM [employer] MACHINE ADJUSTER MAGNESIUM BLOOD Routine 10/14/2024 3:42 AM [employer] MACHINE ADJUSTER PHOSPHORUS BLOOD Routine 10/14/2024 3:42 AM [employer] MACHINE ADJUSTER COMPREHENSIVE METABOLIC PANEL AM Draw 10/14/2024 3:42 AM [employer] MACHINE ADJUSTER CBC W AUTO DIFFERENTIAL AM Draw 10/14/2024 3:42 AM C[employer] MACHINE ADJUSTER CT CHEST PE W ABD PELVIS W CONT STAT 10/13/2024 11:57 PM [employer] MACHINE ADJUSTER Subacute cough Hemoptysis XR CHEST 1VW PORTABLE STAT 10/13/2024 10:27 PM [employer] MACHINE ADJUSTER Hemoptysis BLOOD GASES SALMA + COOX PANEL STAT 10/13/2024 6:44 PM [employer] MACHINE ADJUSTER TROPONIN-I HIGH SENSITIVE REFLEX 1HOUR Timed 10/13/2024 4:42 PM [employer] MACHINE ADJUSTER URINE MICROSCOPIC ONLY REFLEX TO CULTURE STAT 10/13/2024 3:26 PM [employer] MACHINE ADJUSTER URINALYSIS REFLEX MICROSCOPIC REFLEX CULTURE STAT 10/13/2024 3:26 PM [employer] MACHINE ADJUSTER CULTURE URINE STAT 10/13/2024 3:26 PM [employer] MACHINE ADJUSTER SARS-COV-2 (COVID-19)+INFLU A+B PCR RAPID STAT 10/13/2024 3:23 PM [employer] MACHINE ADJUSTER EKG 12-LEAD Routine 10/13/2024 3:03 PM [employer] MACHINE ADJUSTER Subacute cough XR CHEST 1VW PORTABLE STAT 10/13/2024 2:39 PM [employer] MACHINE ADJUSTER Subacute cough B-TYPE NATRIURETIC PEPTIDE STAT 10/13/2024 2:34 PM [employer] MACHINE ADJUSTER TROPONIN-I HIGH SENSITIVE BASELINE + 1HR STAT 10/13/2024 2:34 PM [employer] MACHINE ADJUSTER COMPREHENSIVE METABOLIC PANEL STAT 10/13/2024 2:34 PM [employer] MACHINE ADJUSTER CBC W AUTO DIFFERENTIAL STAT 10/13/2024 2:34 PM [employer] MACHINE ADJUSTER from Last 3 Months Results * (ABNORMAL) GLUCOSE - POINT OF CARE (11/14/2024 11:21 PM C[employer] MACHINE ADJUSTER) Only the most recent of93 resultswithin the time period is included. [facility] Glucose WB/POC 189(H) 70 - 99 mg/dL 11/14/2024 11:26 PM [employer] MACHINE ADJUSTER [facility] Specimen Type Cap Fingerstick 2024 11:26 PM [employer] MACHINE ADJUSTER [facility] Blood BLOOD SPECIMEN / Unknown 11/14/2024 11:21 PM [employer] MACHINE ADJUSTER 11/14/2024 11:26 PM [employer] MACHINE ADJUSTER Jackeline J Go DO LAB - POINT OF CARE ORDERABLES [facility] [address] [address], [facility] [phone] * XR Chest 1Vw Portable (11/14/2024 11:48 AM C[employer] FORM[employer] MACHINE ADJUSTER) Only the most recent of7 resultswithin the time period is included. Anatomical Region Laterality Modality Chest Digital Radiogra phy 11/14/2024 3:51 PM [employer] MACHINE ADJUSTER Narrative 11/15/2024 9:46 AM [employer]ING MACHINE ADJUSTER PROCEDURE: XR CHEST 1VW PORTABLE DATE/TIME OF EXAM: 11/14/2024 11:48 AM CLINICAL INFORMATION: None relevant/not provided if blank. Indication: I50.20: HFrEF (heart failure with reduced ejection fraction) ([facility]) Additional History: ADDITIONAL CLINICAL INFORMATION: Ordering Provider Reason For Exam: assess pulm edema COMPARISON: Chest x-ray 11/13/2014. TECHNIQUE: Frontal radiograph of the chest. FINDINGS/IMPRESSION: Tracheostomy tube terminating in the upper thoracic trachea. Cardiac silhouette is partially obscured. Similar-appearing left moderate pleural effusion with adjacent atelectasis/airspace disease. No right pleural effusion. No pneumothorax. Bilateral interstitial opacities representing unchanged moderate to severe pulmonary edema. Report dictated by Sandrita Gunn MD, (Deputy County Counsel). Laz Finch have personally reviewed and interpreted this examination/study. > Interpreting Provider: Laz Campuzano on 11/15/2024 9:46 AM Procedure Note Laz Campuzano MD - 11/15/2024 PROCEDURE: XR CHEST 1VW PORTABLE DATE/TIME OF EXAM: 11/14/2024 11:48 AM CLINICAL INFORMATION: None relevant/not provided if blank. Indication: I50.20: HFrEF (heart failure with reduced ejection fraction) ([facility]) Additional History: ADDITIONAL CLINICAL INFORMATION: Ordering Provider Reason For Exam: assess pulm edema COMPARISON: Chest x-ray 11/13/2014. TECHNIQUE: Frontal radiograph of the chest. FINDINGS/IMPRESSION: Tracheostomy tube terminating in the upper thoracic trachea. Cardiac silhouette is partially obscured. Similar-appearing leftmoderate pleural effusion with adjacent atelectasis/airspace disease. No right pleural effusion. No pneumothorax. Bilateral interstitial opacities representing unchanged moderate to severe pulmonary edema. Report dictated by Sandrita Gunn MD, (Deputy County Counsel). Laz Finch have personally reviewed and interpreted this examination/study. > Interpreting Provider: Laz Campuzano on 11/15/2024 9:46 AM Jackeline J Go DO DIAGNOSTIC IMAGING O RDERABLES * (ABNORMAL) CBC W AUTO DIFFERENTIAL (11/14/2024 2:59 AM C[employer]MING MACHINE ADJUSTER) Only the most recent of21 resultswithin the time period is included. WBC 7.3 4.0 - 10.7 x10E9/L 11/14/2024 3:18 AM [employer]ING MACHINE ADJUSTER [facility] RBC Count 2.53(L) 4.30 - 5.80 x10E12/L 11/14/2024 3:18 AM [employer]MING MACHINE ADJUSTER [facility] Hemoglobin 7.7(L) 13.3 - 17.5 g/dL 11/14/2024 3:18 AM [facility] Hematocrit 23.8(L) 38.7 - 51.1 % 11/14/2024 3:18 AM [facility] MCV 94.1 80.0 - 98.0 fL 11/14/2024 3:18 AM [facility] MCH 30.4 26.7 - 33.6 pg 11/14/2024 3:18 AM [facility] MCHC 32.4 31.7 - 36.3 g/dL 11/14/2024 3:18 AM [facility] RDW-CV 17.3(H) 11.3 - 14.8 % 11/14/2024 3:18 AM [facility] Platelet Count 193 150 - 420 x10E9/L 11/14/2024 3:18 AM [facility] MPV 10.4 7.8 - 11.4 fL 11/14/2024 3:18 AM [facility] Neutrophil % 75.8(H) 41.0 - 74.0 % 11/14/2024 3:18 AM [facility] Lymphocyte % 14.1(L) 17.0 - 47.0 % 11/14/2024 3:18 AM [facility] Monocyte % 8.3 3.0 - 11.0 % 11/14/2024 3:18 AM [facility] Eosinophil % 1.4 0.0 - 7.0 % 11/14/2024 3:18 AM [facility] Basophil % 0.1 0.0 - 1.6 % 11/14/2024 3:18 AM [facility] Immature Granulocytes % 0.3 0.0 - 1.0 % 11/14/2024 3:18 AM [facility] Neutrophil Absolute 5.50 1.60 - 7.50 x10E9/L 11/14/2024 3:18 AM [facility] Lymphocyte Absolute 1.02 1.00 - 4.40 x10E9/L 11/14/2024 3:18 AM [facility] Monocyte Absolute 0.60 0.15 - 1.00 x10E9/L 11/14/2024 3:18 AM [employer] MACHINE ADJUSTER [facility] Eosinophil Absolute 0.10 0.00 - 0.60 x10E9/L 11/14/2024 3:18 AM [facility] Basophil Absolute 0.01 0.00 - 0.13 x10E9/L 11/14/2024 3:18 AM [facility] Blood BLOOD SPECIMEN / Unknown Venipuncture / Unknown 11/14/2024 2:59 AM [employer] MACHINE ADJUSTER 11/14/2024 3:04 AM [employer] MACHINE ADJUSTER Luis A Pace MD LAB - HEMATOLOGY ORD ERABLES [facility] [address] [place] [address], [facility] [phone] * (ABNORMAL) COMPREHENSIVE METABOLIC PANEL (11/14/2024 2:59 AM [facility]) Only the most recent of21 resultswithin the time period is included. BUN 44(H) 7 - 26 mg/dL 11/14/2024 3:33 AM [facility] Creatinine 0.97 0.71 - 1.16 mg/dL 11/14/2024 3:33 AM [facility] Sodium 143 136 - 145 mmol/L 11/14/2024 3:33 AM [facility] Potassium 3.4(L) 3.5 - 4.5 mmol/L 11/14/2024 3:33 AM [facility] Chloride 105 98 - 107 mmol/L 11/14/2024 3:33 AM [facility] CO2 27 22 - 29 mmol/L 11/14/2024 3:33 AM [facility] Glucose 189(H) 70 - 99 mg/dL 11/14/2024 3:33 AM [facility] Calcium 8.6 8.4 - 10.2 mg/dL 11/14/2024 3:33 AM [facility] Protein Total 6.5 6.0 - 8.3 g/dL 11/14/2024 3:33 AM [facility] Albumin 2.0(L) 3.4 - 5.0 g/dL 11/14/2024 3:33 AM [facility] Bilirubin Total 0.6 0.2 - 1.2 mg/dL 11/14/2024 3:33 AM [facility] Alkaline Phosphatase 154(H) 40 - 150 U/L 11/14/2024 3:33 AM [facility] ALT 18 5 - 55 U/L 11/14/2024 3:33 AM [facility] AST 17 5 - 34 U/L 11/14/2024 3:33 AM [facility] Anion Gap 11 6 - 16 11/14/2024 3:33 AM [facility] BUN/Creatinine Ratio 45(H) 7 - 23 11/14/2024 3:33 AM [facility] Osmolality Calculated 312(H) 275 - 295 mOsm/kg 11/14/2024 3:33 AM [facility] Albumin/Globulin Ratio 0.4(L) 1.1 - 2.3 11/14/2024 3:33 AM [facility] eGFR by CKD-EPI 81(L) >=90 mL/min/1.7 3 m2 11/14/2024 3:33 AM [facility] Blood BLOOD SPECIMEN / Unknown Venipuncture / Unknown 11/14/2024 2:59 AM [employer] MACHINE ADJUSTER 11/14/2024 3:04 AM [employer] MACHINE ADJUSTER Luis A Pace MD LAB - CHEMISTRY ORDMicaela MAKI Performing Organization Address City/[facility]/ZIP Co de Phone Number [address] [address], [facility] [phone] * (ABNORMAL) PHOSPHORUS BLOOD (11/14/2024 2:59 AM C[employer] FORMING MACHINE ADJUSTER) Only the most recent of20 resultswithin the time period is included. Phosphorus 2.5(L) 2.8 - 5.1 mg/dL 11/14/2024 3:33 AM [facility] Blood BLOOD SPECIMEN / Unknown Venipuncture / Unknown 11/14/2024 2:59 AM C[employer]MING MACHINE ADJUSTER 11/14/2024 3:04 AM [employer]MING MACHINE ADJUSTER Luis A Pace MD LAB - CHEMISTRY ADRIANA MAKI [address] [address], [facility] [phone] * MAGNESIUM BLOOD (11/14/2024 2:59 AM C[employer] FORMING MACHINE ADJUSTER) Only the most recent of20 resultswithin the time period is included. Magnesium 2.1 1.6 - 2.6 mg/dL 11/14/2024 3:33 AM C[employer]MING MACHINE ADJUSTER [facility] Blood BLOOD SPECIMEN / Unknown Venipuncture / Unknown 11/14/2024 2:59 AM C[employer]MING MACHINE ADJUSTER 11/14/2024 3:04 AM C[employer] FORMING MACHINE ADJUSTER Luis A Pace MD LAB - CHEMISTRY ADRIANA MAKI [facility] [address] [place] [address], [facility] [phone] * (ABNORMAL) PROCALCITONIN LEVEL (11/13/2024 4:03 PM C[employer] FORMING MACHINE ADJUSTER) PROCALCITONIN 0.41(H) <=0.10 ng/mL 11/13/2024 5:07 PM C[employer] FORMING MACHINE ADJUSTER [facility] Blood BLOOD SPECIMEN / Unknown Venipuncture / Unknown 11/13/2024 4:03 PM C[employer] FORMING MACHINE ADJUSTER 11/13/2024 4:06 PM C[employer] FORMING MACHINE ADJUSTER Narrative [facility] - 11/13/2024 5:07 PM C[employer]MING MACHINE ADJUSTER The change in procalcitonin (PCT) concentration over time provides support in decision making on antibiotic discontinuation for suspected or confirmed septic patients. Follow-up samples should be tested once every 1-2 days based upon physician discretion taking into account the patient s evolution and progress. Consider discontinuation of antibiotic therapy if the PCT current is <= 0.5 ng/mL or if the delta PCT is > 80%. Duration of antibiotics should not be determined solely on PCT; established guidelines for the indication should be followed. PCT peak: Highest observed PCT concentration PCT current: Most recent PCT concentration Calculate delta PCT using the following equation: Delta PCT = PCT Peak PCT current X 100% PCT Peak The Change in Procalcitonin Calculator is available at [email or web address] If clinical picture has not improved and PCT remains high, reevaluate and consider treatment failure or other causes. Jackeline Morin DO LAB - CHEMISTRY ADRIANA MAKI [address] [address], [place] [phone] * CULTURE FUNGUS OTHER+FUNGUS SMEAR (11/12/2024 12:30 PM C[employer] MACHINE ADJUSTER) Culture No fungus isolated KELLY 12/11/2024 9:02 AM CDT [facility] MICROBIOLOGY Fungus Stain No Pneumocystis jirovecii 12/11/2024 9:02 AM CDT [facility] MICROBIOLOGY Fungus Stain No yeast or hyphae seen 12/11/2024 9:02 AM CDT [facility] MICROBIOLOGY Microbiology SPUTUM / Unknown Collection / Unknown 11/12/2024 12:30 PM C[employer]MING MACHINE ADJUSTER 11/12/2024 1:13 PM C[employer] FORMING MACHINE ADJUSTER Narrative [facility] MICROBIOLOGY - 12/11/2024 9:02 AM CDT Note: Expectorated sputum samples provide suboptimal sensitivity for detection of Pneumocystis jirovecii. Luis A Pace MD LAB - MICROBIOLOGY O OLIMPIA Performing Organization Address [facility]/ZIP Co de Phone Number [facility] MICROBIOLOGY [address] [place] [address], [facility] [phone] * CULTURE AFB+SMEAR (11/12/2024 12:30 PM C[employer] FORMING MACHINE ADJUSTER) Culture No acid-fast bacillus isolated 12/25/2024 10:55 AM CDT [facility] MICROBIOLOGY AFB Smear No acid-fast bacilli seen 12/25/2024 10:55 AM CDT [facility] MICROBIOLOGY Microbiology SPUTUM / Unknown Collection / Unknown 11/12/2024 12:30 PM [employer] MACHINE ADJUSTER 11/12/2024 1:13 PM [employer] MACHINE ADJUSTER Luis A Pace MD LAB - MICROBIOLOGY [place] Performing Organization Address City/[facility]/ZIP Co de Phone Number [facility] MICROBIOLOGY [address] [place] [address], [facility] [phone] * (ABNORMAL) CULTURE BRONCHIAL WASHING+GRAM STAIN (11/12/2024 12:30 PM [employer] MACHINE ADJUSTER) Culture Heavy Staphylococcus aureus methicillin-resista nt (MRSA)(A) KELLY 11/15/2024 7:48 AM [facility] MICROBIOLOGY Comment:Staphylococcus aureu s methicillin-resistant (MRSA) detected by penicillin binding protein immunoassay. Contact precautions required. Conventional antibiotic susceptibility testing to follow. Culture Moderate Pseudomonas aeruginosa(A) KELLY 11/15/2024 7:48 AM [employer] MACHINE ADJUSTER [facility] MICROBIOLOGY Culture Light normal oropharyngeal ga KELLY 11/15/2024 7:48 AM [facility] MICROBIOLOGY Gram Stain Light Polymorphonuclear cells 11/15/2024 7:48 AM [facility] MICROBIOLOGY Gram Stain Moderate Gram-positive cocci 11/15/2024 7:48 AM [facility] MICROBIOLOGY Gram Stain Light Gram-negative bacilli 11/15/2024 7:48 AM [facility] MICROBIOLOGY Microbiology (Lung, Left Lower Lobe) Collection / Unknown 11/12/2024 12:30 PM [employer] MACHINE ADJUSTER 11/12/2024 1:13 PM [employer] MACHINE ADJUSTER [facility] MICROBIOLOGY - 11/15/2024 7:48 AM [employer] MACHINE ADJUSTER Methicillin-resistant Staphylococci (MRSA) are resistant to all currently available beta-lactam antibiotics with the exception of the newer cephalosporins with anti-MRSA activity. Contact precautions required. Organism Antibiotic Method Susceptibility Staphylococcus aureus methicillin-resistant (MRSA) Clindamycin KELLY >=4 ug/mL: Resistant Staphylococcus aureus methicillin-resistant (MRSA) Doxycycline KELLY 1 ug/mL: Susceptible Staphylococcus aureus methicillin-resistant (MRSA) Inducible Clindamycin Resistance KELLY NEG ug/mL: Neg Staphylococcus aureus methicillin-resistant (MRSA) Oxacillin KELLY >=4 ug/mL: Resistant Staphylococcus aureus methicillin-resistant (MRSA) Trimethoprim-sulfamethoxa zole KELLY <=10 ug/mL: Susceptible Staphylococcus aureus methicillin-resistant (MRSA) Vancomycin KELLY <=0.5 ug/mL: Susceptible Pseudomonas aeruginosa Cefepime KELLY 4 ug/mL: Susceptible Pseudomonas aeruginosa Ceftazidime KELLY <=1 ug/mL: Susceptible Pseudomonas aeruginosa Ciprofloxacin KELLY 2 ug/mL: Resistant Pseudomonas aeruginosa Gentamicin KELLY Resistant Pseudomonas aeruginosa Meropenem KELLY <=0.25 ug/mL: Susceptible Pseudomonas aeruginosa Piperacillin-tazobactam KELLY <=4 ug/mL: Susceptible Pseudomonas aeruginosa Tobramycin KELLY <=1 ug/mL: Susceptible Luis A Pace MD LAB - MICROBIOLOGY O RDERABLES Performing Organization Address City/[facility]/ZIP Co de Phone Number [facility] [address] [place], [place] [address] [phone] * PTT [facility] (11/11/2024 6:09 AM CARTON FORMING MACHINE ADJUSTER) APTT 37.3 23.0 - 38.4 Seconds 11/11/2024 6:49 AM [facility] Comment:Suggested therapeuti c range for full dose I.V. unfractionated heparin therapy for venous thromboembolism is 71 to 109 seconds. Blood BLOOD SPECIMEN / Unknown Venipuncture / Unknown 11/11/2024 6:09 AM C[employer] FORMING MACHINE ADJUSTER 11/11/2024 6:26 AM C[employer] FORMING MACHINE ADJUSTER Luis A Pace MD LAB - COAGULATION OR DERABLES Performing Organization Address [facility] de Phone Number [address] [address], [place] [phone] * (ABNORMAL) PT-INR [facility] (11/11/2024 6:09 AM C[employer] FORMING MACHINE ADJUSTER) PT 16.9(H) 12.1 - 14.8 Seconds 11/11/2024 6:49 AM [facility] INR 1.4 See Comment 11/11/2024 6:49 AM [facility] Comment:The suggested therap eutic range for standard coumadin (warfarin) therapy is an INR of 2.0-3.0. For high-risk patients (Mechanical Mitral Valve Prosthesis, etc.), the suggested prophylactic therapeutic range is an INR of 2.5-3.5. Blood BLOOD SPECIMEN / Unknown Venipuncture / Unknown 11/11/2024 6:09 AM C[employer]ON FORMING MACHINE ADJUSTER 11/11/2024 6:26 AM C[employer] FORMING MACHINE ADJUSTER Luis A Pace MD LAB - COAGULATION OR DERABLES Performing Organization Address [facility] Co de Phone Number [address] [address] [phone] * CT Angio Chest (11/11/2024 3:03 AM CARTON FORMING MACHINE ADJUSTER) Anatomical Region Laterality Modality Chest Computed Tomogra phy 11/11/2024 3:34 AM C[employer] FORMING MACHINE ADJUSTER Addenda Addendum by Jena Phillips MD on 11/11/2024 11:40 AM C[employer] FORMING MACHINE ADJUSTER Further review of prior CT chest from 10/13/2024, CT angiography chest from 09/19/[address] abdomen without contrast from 04/06/2024 disclosed the hyperdensities along the left pleura to be calcified pleural plaques, not active extravasation layering along the pleura. > Interpreting Provider: Jena Phillips MD on 11/11/2024 11:38 AM Impressions 11/11/2024 10:57 AM C[employer] FORMING MACHINE ADJUSTER IMPRESSION: 1.Along the medial pleura of the left lung and within the left lung base there are several foci of continuous contrast enhancement which may represent pleural enhancement versus small amount of active extravasation layering along the pleura. Characterization of this is somewhat limited secondary to the lack of multiphase imaging. 2.Moderate volume pneumomediastinum is seen. 3.Partially visualized pneumoperitoneum. 4.There is completely atelectatic collapse of the left lung with shift of the cardiac and mediastinal structures to the left either secondary to mucous plug given the ICU status of the patient or endobronchial mass. 5.There are diffuse groundglass opacities with scattered atelectasis within the aerated portion of the right lung. 6.Multiple enlarged mediastinal lymph nodes are seen within the superior mediastinum as well as within the subcarinal region. These nodes may be metastatic in nature or may be reactive given the ground glass opacities within the aerated right lung. 7.There is a small volume right-sided pleural effusion with associated compressive atelectasis. 8.Sequelae of ankylosing spondylitis. These findings were discussed in detail with the patient's care provider, Dr. Chowdary by Dr. Hernanedz via telephone at 3:45 AM on with readback comprehension and verification. > Dictated by Greg Hernandez DO (vice president of advertising). I, Jena Phillips MD have personally reviewed and interpreted this examination/study. > Interpreting Provider: Jena Phillips MD on 11/11/2024 10:57 AM Narrative 11/11/2024 10:57 AM C[employer] FORMING MACHINE ADJUSTER PROCEDURE: CT ANGIO CHEST, DATE/TIME OF EXAM: 11/11/2024 3:03 AM, LOCATION [facility] INDICATION: R04.2: Hemoptysis ADDITIONAL CLINICAL INFORMATION: Ordering Provider Reason For Exam: hemoptysis, rule out active bleeding COMPARISON: CT chest PE with abdomen pelvis from 10/13/2024 TECHNIQUE: CT of the chest was performed prior to and following the uneventful administration of 100 mL of Isovue 370 intravenous contrast according to an angiographic protocol. Three dimensional postprocessing was performed by the technologist and sent to the workstation for review. FINDINGS: Thoracic aorta: No aortic dissection, intramural hematoma, penetrating atherosclerotic ulcer, or aneurysm. The aorta is atherosclerotic but normal in caliber. Thoracic aortic branches: Subclavian arteries: Atherosclerotic but patent without significant focal stenosis. Brachiocephalic artery: Patent without significant focal stenosis. Pulmonary artery: Normal. Coronary arteries: Atherosclerotic. Lower Neck and Axillae: Normal. Tracheostomy tube terminates within the upper to mid thoracic trachea. Multiple prominent, but nonenlarged lower cervical soft tissue lymph nodes are seen. There is a small amount of subcutaneous emphysema along the right aspect of the larynx. Lungs: There are diffuse ground glass opacities with scattered atelectasis within the aerated portions of the right lung. There is a small volume pleural effusion on the right. There is completely atelectatic collapse of the left lung with no aeration of the left lung. There is shift of the cardiomediastinal structures to the left secondary to this complete atelectatic collapse of the left lung. Along the medial pleura of the left lung and within the left lung base there were several foci of enhancement which may represent pleural enhancement versus small amount of active extravasation layering along the pleura. Characterization of this is somewhat limited secondary to the lack of multiphase imaging. This is best seen on series 6 images 22-58 and series 6 images 66-73. Additionally there is stenosis/occlusion of the left bronchial mainstem which is suggestive of an obstructing endobronchial mass versus more likely mucous plugging given the ICU status of the patient. Heart and Pericardium: The cardiac chambers are normal in size. No pericardial fluid or thickening is present. The coronary arteries are atherosclerotic Mediastinum and Tiffani: Multiple enlarged mediastinal lymph nodes are seen within the left superior and right superior mediastinum as well as within the subcarinal region. Moderate volume pneumomediastinum is seen. Bones and Chest Wall: Bone windows demonstrate no suspicious lytic or blastic lesions. The visible osseous structures are intact. Sequelae of ankylosing spondylitis with flowing syndesmophytes. Degenerative changes at bilateral shoulders. Musculature is atrophic. Upper Abdomen: Partially visualized small volume pneumoperitoneum is seen. Procedure Note Jena Phillips MD - 11/11/2024 PROCEDURE: CT ANGIO CHEST, DATE/TIME OF EXAM: 11/11/2024 3:03 AM, LOCATION [facility] INDICATION: R04.2: Hemoptysis ADDITIONAL CLINICAL INFORMATION: Ordering Provider Reason For Exam: hemoptysis, rule out active bleeding COMPARISON: CT chest PE with abdomen pelvis from 10/13/2024 TECHNIQUE: CT of the chest was performed prior to and following the uneventful administration of 100 mL of Isovue 370 intravenous contrast according to an angiographic protocol. Three dimensional postprocessingwas performed by the technologist and sent to the workstation for review. FINDINGS: Thoracic aorta: No aortic dissection, intramural hematoma, penetrating atherosclerotic ulcer, or aneurysm. The aorta is atherosclerotic butnormal in caliber. Thoracic aortic branches: Subclavian arteries: Atherosclerotic but patent without significantfocal stenosis. Brachiocephalic artery: Patent without significant focal stenosis. Pulmonary artery: Normal. Coronary arteries: Atherosclerotic. Lower Neck and Axillae: Normal. Tracheostomy tube terminates within the upper to mid thoracic trachea. Multiple prominent, but nonenlarged lower cervical soft tissue lymphnodes are seen. There is a small amount of subcutaneous emphysema along theright aspect of the larynx. Lungs: There are diffuse ground glass opacities with scattered atelectasiswithin the aerated portions of the right lung. There is a small volume pleural effusion on the right. There is completely atelectatic collapse of theleft lung with no aeration of the left lung. There is shift of the cardiomediastinal structures to the left secondary to this complete atelectatic collapse of the left lung. Along the medial pleura of the left lung and within the left lung base there were several foci of enhancement which may represent pleural enhancement versus small amount of active extravasation layering alongthe pleura. Characterization of this is somewhat limited secondary to thelack of multiphase imaging. This is best seen on series 6 images 22-58 and series 6 images 66-73. Additionally there is stenosis/occlusion of the left bronchial mainstem which is suggestive of an obstructing endobronchial mass versus morelikely mucous plugging given the ICU status of the patient. Heart and Pericardium: The cardiac chambers are normal in size. No pericardial fluid orthickening is present. The coronary arteries are atherosclerotic Mediastinum and Tiffani: Multiple enlarged mediastinal lymph nodes are seen within the leftsuperior and right superior mediastinum as well as within the subcarinal region. Moderate volume pneumomediastinum is seen. Bones and Chest Wall: Bone windows demonstrate no suspicious lytic or blastic lesions. The visible osseous structures are intact. Sequelae of ankylosing spondylitis with flowing syndesmophytes. Degenerative changes at bilateral shoulders. Musculature is atrophic. Upper Abdomen: Partially visualized small volume pneumoperitoneum is seen. IMPRESSION: 1.Along the medial pleura of the left lung and within the left lung base there are several foci of continuous contrast enhancement which may represent pleural enhancement versus small amount of activeextravasation layering along the pleura. Characterization of this is somewhat limited secondary to the lack of multiphase imaging. 2.Moderate volume pneumomediastinum is seen. 3.Partially visualized pneumoperitoneum. 4.There is completely atelectatic collapse of the left lung with shiftof the cardiac and mediastinal structures to the left either secondary to mucous plug given the ICU status of the patient or endobronchial mass. 5.There are diffuse groundglass opacities with scattered atelectasiswithin the aerated portion of the right lung. 6.Multiple enlarged mediastinal lymph nodes are seen within the superior mediastinum as well as within the subcarinal region. These nodes may be metastatic in nature or may be reactive given the ground glass opacities within the aerated right lung. 7.There is a small volume right-sided pleural effusion with associated compressive atelectasis. 8.Sequelae of ankylosing spondylitis. These findings were discussed in detail with the patient's careprovider, Dr. Chowdary by Dr. [place] via telephone at 3:45 AM on 225 with readback comprehension and verification. > Dictated by Greg Hernandez DO (vice president of advertising). I, Jena Phillips MD have personally reviewed and interpreted this examination/study. > Interpreting Provider: Jena Phillips MD on 11/11/2024 10:57 AM [facility] AGUAYO ORDERABLES * (ABNORMAL) URINE MICROSCOPIC ONLY REFLEX TO CULTURE (11/11/2024 2:19 AM CARTON FORMING MACHINE ADJUSTER) Only the most recent of2 resultswithin the time period is included. Reflex Status Culture to follow 11/11/2024 3:13 AM [facility] WBC UA 21-50(A) None Seen, 0-5 /HPF 11/11/2024 3:13 AM [facility] Bacteria UA Trace(A) None /HPF 11/11/2024 3:13 AM [facility] Squamous Epithelial Cells UA 0-2 None Seen, 0-2, 3-5 /HPF 11/11/2024 3:13 AM [facility] Urine URINE SPECIMEN OBTAINED VIA [employer]WELLING URINARY CATHETER / Unknown Collection / Unknown 11/11/2024 2:19 AM C[employer] FORMING MACHINE ADJUSTER 11/11/2024 2:27 AM [facility] - 11/11/2024 3:13 AM C[employer] FORMING MACHINE ADJUSTER Luis A Pace MD LAB - URINALYSIS ORD ERABLES [facility] [address] [place] [id number], [facility] [phone] * (ABNORMAL) URINALYSIS REFLEX MICROSCOPIC REFLEX CULTURE (11/11/2024 2:19 AM CARTON FORMING MACHINE ADJUSTER) Only the most recent of2 resultswithin the time period is included. Color UA Yellow Straw, Yellow 11/11/2024 2:51 AM [facility] Clarity UA Clear Clear 11/11/2024 2:51 AM [facility] Specific [place] UA 1.012 1.005 - 1.030 11/11/2024 2:51 AM [facility] pH UA 8.0 5.0 - 8.0 pH 11/11/2024 2:51 AM [facility] Protein UA 2+(A) Negative 11/11/2024 2:51 AM [facility] Glucose UA Negative Negative 11/11/2024 2:51 AM [facility] Ketone UA Negative Negative 11/11/2024 2:51 AM [facility] Bilirubin UA Negative Negative 11/11/2024 2:51 AM [facility] Blood UA Negative Negative 11/11/2024 2:51 AM [facility] Nitrite UA Negative Negative 11/11/2024 2:51 AM [facility] Leukocyte Esterase 1+(A) Negative 11/11/2024 2:51 AM [facility] Urobilinogen UA Negative Negative mg/dL 11/11/2024 2:51 AM [facility] Urine URINE SPECIMEN OBTAINED VIA [employer]WELL[employer] URINARY CATHETER / Unknown Collection / Unknown 11/11/2024 2:19 AM C[employer] FORMING MACHINE ADJUSTER 11/11/2024 2:27 AM CARTON FORMING MACHINE ADJUSTER Narrative [facility] - 11/11/2024 2:51 AM CART[employer] FORMING MACHINE ADJUSTER Luis A Pace MD LAB - URINALYSIS ORD ERABLES Performing Organization Address City/[facility]/ZIP Co de Phone Number [facility] [address] [place] [address], [facility] [phone] * CULTURE URINE (11/11/2024 2:19 AM CARTON FORMING MACHINE ADJUSTER) Only the most recent of3 resultswithin the time period is included. [facility] Culture Urine No growth (<100 CFU/mL) KELLY 11/12/2024 3:35 PM CARTON FORMING MACHINE ADJUSTER [facility] Urine URINE SPECIMEN OBTAINED VIA INDWELLING URINARY CATHETER / Unknown Collection / Unknown 11/11/2024 2:19 AM CARTON FORMING MACHINE ADJUSTER 11/11/2024 3:13 AM CARTON FORMING MACHINE ADJUSTER Luis A Pace MD LAB - MICROBIOLOGY O RDERABLES Performing Organization Address City/[facility]/ZIP Co de Phone Number [facility] [address] [place] [address], [facility] [phone] * RESPIRATORY PANEL WITH SARS-COV-2 BY PCR ([facility]) (11/11/2024 1:17 AM CARTON FORMING MACHINE ADJUSTER) Only the most recent of2 resultswithin the time period is included. Adenovirus PCR Not detected Not detected 11/11/2024 6:27 AM CARTON FORMING MACHINE ADJUSTER [facility] Coronavirus 229E PCR Not detected Not detected 11/11/2024 6:27 AM CARTON FORMING MACHINE ADJUSTER [facility] Coronavirus HKU1 PCR Not detected Not detected 11/11/2024 6:27 AM CARTON FORMING MACHINE ADJUSTER [facility] Coronavirus NL63 PCR Not detected Not detected 11/11/2024 6:27 AM CARTON FORMING MACHINE ADJUSTER [facility] Coronavirus OC43 PCR Not detected Not detected 11/11/2024 6:27 AM CARTON FORMING MACHINE ADJUSTER [facility] COVID-19 PCR Not detected Not detected 11/11/2024 6:27 AM CARTON FORMING MACHINE ADJUSTER [facility] Human Metapneumovirus PCR Not detected Not detected 11/11/2024 6:27 AM CARTON FORMING MACHINE ADJUSTER [facility] Human Rhinovirus/Enterov irus PCR Not detected Not detected 11/11/2024 6:27 AM CARTON FORMING MACHINE ADJUSTER [facility] Influenza A PCR Not detected Not detected 11/11/2024 6:27 AM CARTON FORMING MACHINE ADJUSTER [facility] Influenza B PCR Not detected Not detected 11/11/2024 6:27 AM CARTON FORMING MACHINE ADJUSTER [facility] Parainfluenza Virus 1 PCR Not detected Not detected 11/11/2024 6:27 AM CARTON FORMING MACHINE ADJUSTER [facility] Parainfluenza Virus 2 PCR Not detected Not detected 11/11/2024 6:27 AM CARTON FORMING MACHINE ADJUSTER [facility] Parainfluenza Virus 3 PCR Not detected Not detected 11/11/2024 6:27 AM CARTON FORMING MACHINE ADJUSTER [facility] Parainfluenza Virus 4 PCR Not detected Not detected 11/11/2024 6:27 AM CARTON FORMING MACHINE ADJUSTER [facility] Respiratory Syncytial Virus PCR Not detected Not detected 11/11/2024 6:27 AM CARTON FORMING MACHINE ADJUSTER [facility] Bordetella parapertussis PCR Not detected Not detected 11/11/2024 6:27 AM CARTON FORMING MACHINE ADJUSTER [facility] Bordetella pertussis PCR Not detected Not detected 11/11/2024 6:27 AM CARTON FORMING MACHINE ADJUSTER [facility] Chlamydia pneumoniae PCR Not detected Not detected 11/11/2024 6:27 AM CARTON FORMING MACHINE ADJUSTER [facility] Mycoplasma pneumoniae PCR Not detected Not detected 11/11/2024 6:27 AM CARTON FORMING MACHINE ADJUSTER [facility] Microbiology SPECIMEN FROM NASOPHARYNGEAL STRUCTURE / Unknown Collection / Unknown 11/11/2024 1:17 AM CARTON FORMING MACHINE ADJUSTER 11/11/2024 1:33 AM CARTON FORMING MACHINE ADJUSTER Narrative [facility] - 11/11/2024 6:27 AM CARTON FORMING MACHINE ADJUSTER This nucleic amplification assay has received FDA authorization via the [employer]. Luis A Pace MD LAB - MICROBIOLOGY O OLIMPIA Performing Organization Address [facility]/ZIP Co de Phone Number [facility] [address] [place] [address], [facility] [phone] * (ABNORMAL) MRSA DNA PCR (11/11/2024 1:17 AM CARTON FORMING MACHINE ADJUSTER) Only the most recent of2 resultswithin the time period is included. MRSA DNA by PCR Detected( A) Not detected 11/11/2024 6:56 AM [facility] Microbiology SPECIMEN FROM NASAL FOSSAE / Unknown Collection / Unknown 11/11/2024 1:17 AM CARTON FORMING MACHINE ADJUSTER 11/11/2024 1:33 AM CARTON FORMING MACHINE ADJUSTER Narrative [facility]BIOLOGY - 11/11/2024 6:56 AM CARTON FORMING MACHINE ADJUSTER Methicillin-resistant Staphylococcus aureus (MRSA) DNA is detected (presumed colonized with MRSA). Luis A Pace MD LAB - MICROBIOLOGY Judith DOAN Performing Organization Address [facility] de Phone Number [facility]BIOLOG[facility] [address] [facility] [place] [address], [facility] [phone] * (ABNORMAL) CULTURE SPUTUM+GRAM STAIN (11/11/2024 1:17 AM CARTON FORMING MACHINE ADJUSTER) Only the most recent of3 resultswithin the time period is included. Culture Moderate Staphylococcus aureus methicillin-resista nt (MRSA)(A) KELLY 11/13/2024 3:13 AM CARTON FORMING MACHINE ADJUSTER [facility] [employer] [facility] Comment:Staphylococcus aureu s methicillin-resistant (MRSA) detected by penicillin binding protein immunoassay. Contact precautions required. Conventional antibiotic susceptibility testing to follow. Culture Light normal oropharyngeal ga KELLY 11/13/2024 3:13 AM CARTON FORMING MACHINE ADJUSTER [facility] Gram Stain Rare Squamous epithelial cells 11/13/2024 3:13 AM CARTON FORMING MACHINE ADJUSTER [facility] Gram Stain Heavy Polymorphonuclear cells 11/13/2024 3:13 AM CARTON FORMING MACHINE ADJUSTER [facility] Gram Stain Heavy Gram-positive cocci 11/13/2024 3:13 AM CARTON FORMING MACHINE ADJUSTER [facility] Microbiology SPECIMEN FROM ENDOTRACHEAL TUBE / Unknown Collection / Unknown 11/11/2024 1:17 AM CARTON FORMING MACHINE ADJUSTER 11/11/2024 1:33 AM [facility] Narrative [facility]CROBIOLOGY - 11/13/2024 3:13 AM [facility] Methicillin-resistant Staphylococci (MRSA) are resistant to all currently available beta-lactam antibiotics with the exception of the newer cephalosporins with anti-MRSA activity. Contact precautions required. Organism Antibiotic Method Susceptibility Staphylococcus aureus methicillin-resistant (MRSA) Clindamycin KELLY >=4 ug/mL: Resistant Staphylococcus aureus methicillin-resistant (MRSA) Doxycycline KELLY 1 ug/mL: Susceptible Staphylococcus aureus methicillin-resistant (MRSA) Inducible Clindamycin Resistance KELLY NEG ug/mL: Neg Staphylococcus aureus methicillin-resistant (MRSA) Oxacillin KELLY >=4 ug/mL: Resistant Staphylococcus aureus methicillin-resistant (MRSA) Trimethoprim-sulfamethox azole KELLY <=10 ug/mL: Susceptible Staphylococcus aureus methicillin-resistant (MRSA) Vancomycin KELLY <=0.5 ug/mL: Susceptible Kishore Anderson DO LAB - MICROBIOLOGY O RDERABLES [facility]BIOLOG[facility] [address] [place] [address], [facility] [phone] * (ABNORMAL) BLOOD GASES SALMA + COOX PANEL (11/11/2024 1:04 AM [facility]) Only the most recent of4 resultswithin the time period is included. pH Venous 7.51(H) 7.32 - 7.42 pH 11/11/2024 1:11 AM [facility] pO2 Venous 57(H) 35 - 40 mmHg 11/11/2024 1:11 AM [facility] pCO2 Venous 39(L) 40 - 50 mmHg 11/11/2024 1:11 AM [facility] HCO3 Venous 31.1(H) 20 - 30 mmol/L 11/11/2024 1:11 AM [facility] Base Excess Venous 7.5(H) -2.0 - 2.0 mmol/L 11/11/2024 1:11 AM [facility] Oxyhemoglobin Venous 89.1 % 05/2025 1:11 AM [facility] Deoxyhemoglobin (HHB) Venous % 7.3 % 11/11/2024 1:11 AM [facility] Methemoglobin <0.8 0.0 - 2.0 % 11/11/2024 1:11 AM [facility] Carboxyhemoglobin 2.9(H) 0.0 - 2.0 % 2024 1:11 AM [facility] O2 Content Venous 11.0 Interpret within clinical context ml/dL 11/11/2024 1:11 AM [facility] Hemoglobin by COOX 8.7(L) 12.0 - 17.6 g/dL 11/11/2024 1:11 AM [facility] O2 Saturation Venous 92 >=70 % 05/2025 1:11 AM [facility] FI O2 Mixed Venous 40.0 % 2024 1:11 AM [facility] Blood BLOOD SPECIMEN / Unknown Venipuncture / Unknown 11/11/2024 1:04 AM [facility] 11/11/2024 1:07 AM [facility] Narrative [facility] - 11/11/2024 1:11 AM [facility] Carboxyhemoglobin Normal Concentration: Non-smokers: 0-2%; Smokers: 0-9%; Toxic: >20% Luis A Pace MD LAB - BLOOD GASES OR DERABLES [facility] [address] [place] [address], [facility] [phone] * EKG 12-LEAD (10/27/2024 2:16 PM [facility]) Only the most recent of2 resultswithin the time period is included. Ventricular Rate 80 BPM [facility] MUSE Atrial Rate 80 BPM [facility] MUSE P-R Interval 182 ms [facility] MUSE QRS Duration ms 94 ms [facility] MUSE Q-T Interval ms 408 ms [facility] MUSE QTC Calculation (Bezet) 470 ms [facility] MUSE Calculated P [place] 80 degrees [facility] MUSE Calculated R [place] -40 degrees [facility] MUSE Calculated T [place] 123 degrees [facility] MUSE Interpretation EKG SINUS RHYTHM WITH PREMATURE SUPRAVENTRICULAR COMPLEXES LEFT AXIS DEVIATION PULMONARY DISEASE PATTERN ST & T WAVE ABNORMALITY, CONSIDER LATERAL ISCHEMIA PROLONGED QT ABNORMAL ECG WHEN COMPARED WITH ECG OF 13-OCT-2024 15:03, T WAVE INVERSION NOW EVIDENT IN ANTERIOR LEADS Confirmed by CECE LOU MD ([id number]) on 10/30/2024 8:01:19 AM [facility] MUSE 10/27/2024 2:16 PM [employer]MING MACHINE ADJUSTER 10/30/2024 8:01 AM C[employer]MING MACHINE ADJUSTER Acosta Chandler MD ECG ORDERABLES Performing Organization Address City/[facility]/ZIP Co de Phone Number [facility] MUSE * CULTURE BLOOD (10/26/2024 10:08 PM C[employer] FORMING MACHINE ADJUSTER) Only the most recent of4 resultswithin the time period is included. Culture No growth day 5 KELLY 11/01/2024 2:01 AM [employer]MING MACHINE ADJUSTER [facility] MICROBIOLOGY Blood PERIPHERAL BLOOD / Unknown Venipuncture / Unknown 10/26/2024 10:08 PM C[employer] FORMING MACHINE ADJUSTER 10/26/2024 10:14 PM C[employer] FORMING MACHINE ADJUSTER Acosta Chandler MD LAB - MICROBIOL OGY ORDERABLES Performing Organization Address [facility]/ZIP Co de Phone Number [facility] MICROBIOLOGY [address] [place] [address], [facility] [phone] * (ABNORMAL) URINALYSIS W/MICROSCOPIC NO CULTURE (10/26/2024 1:36 PM C[employer] FORMING MACHINE ADJUSTER) Color UA Red(A) Straw, Yellow 10/26/2024 2:25 PM [facility] Comment: Chemstrip tests performed on spun urine supernatant. The test results must be integrated into the clinical context for interpretation Clarity UA Slt Cloudy(A) Clear 10/26/2024 2:25 PM [facility] Specific [place] UA 1.018 1.005 - 1.030 10/26/2024 2:25 PM [facility] pH UA 5.0 5.0 - 8.0 pH 10/26/2024 2:25 PM [facility] Protein UA 3+(A) Negative 10/26/2024 2:25 PM [facility] Glucose UA 1+(A) Negative 10/26/2024 2:25 PM [facility] Ketone UA Trace(A) Negative 10/26/2024 2:25 PM [facility] Bilirubin UA Negative Negative 10/26/2024 2:25 PM [facility] Blood UA 1+(A) Negative 10/26/2024 2:25 PM [facility] Nitrite UA Negative Negative 10/26/2024 2:25 PM [facility] Leukocyte Esterase 2+(A) Negative 10/26/2024 2:25 PM [facility] Urobilinogen UA Negative Negative mg/dL 10/26/2024 2:25 PM [facility] RBC UA >100(A) None Seen, 0-2, 3-5 /HPF 10/26/2024 2:25 PM [facility] WBC UA >100(A) None Seen, 0-5 /HPF 10/26/2024 2:25 PM [facility] WBC Clumps Many(A) None /HPF 10/26/2024 2:25 PM [facility] Squamous Epithelial Cells UA None Seen None Seen, 0-2, 3-5 /HPF 10/26/2024 2:25 PM [facility] Yeast Budding UA Many(A) None /HPF 10/26/19 2:25 PM [facility] Unclassified Crystals Many(A) None /HPF 10/26/2024 2:25 PM [facility] Urine URINE SPECIMEN OBTAINED VIA [employer]WELL[employer] URINARY CATHETER / Unknown Collection / Unknown 10/26/2024 1:36 PM C[employer]MING MACHINE ADJUSTER 10/26/2024 1:39 PM C[employer] FORMING MACHINE ADJUSTER [facility] - 10/26/2024 2:25 PM C[employer] FORMING MACHINE ADJUSTER Acosta Chandler MD LAB - URINALYSI S ORDERABLES [facility] [address] [place] [phone], [facility] [phone] * (ABNORMAL) HEMOGLOBIN (10/23/2024 5:23 PM C[employer] FORMING MACHINE ADJUSTER) Hemoglobin 8.4(L) 13.3 - 17.5 g/dL 10/23/2024 5:38 PM C[employer] FORMING MACHINE ADJUSTER [facility] Blood BLOOD SPECIMEN / Unknown Venipuncture / Unknown 10/23/2024 5:23 PM C[employer] FORMING MACHINE ADJUSTER 10/23/2024 5:32 PM C[employer] FORMING MACHINE ADJUSTER Acosta Chandler MD LAB - HEMATOLOG Y ORDERABLES Performing Organization Address City/[facility]/ZIP Co de Phone Number [facility] [address] [place] [address], [facility] [phone] * VAS Bilateral Venous Duplex Le (10/23/2024 12:30 PM C[employer]ON FORMING MACHINE ADJUSTER) Anatomical Region Laterality Modality Lower Extremity Intravascular Ul trasound 10/23/2024 11:4 7 AM C[employer] FORMING MACHINE ADJUSTER Narrative Procedure Note Raj Medina MD - 10/24/2024 Randolph Odonnell MD VASCULAR LAB ORDERAB LES * PREPARE (CROSSMATCH) RBC UNIT(S), 1 Units (10/23/2024 12:26 PM C[employer]ON FORMING MACHINE ADJUSTER) Unit Description AS1 LR PRBC [facility]OD [facility] LAB Unit ABO B [facility] Unit Rh POS [facility] Product Number R02 [facility] B LOOD BANK LAB Unit Donor # [id number] [facility] Unit Status transfused [facility] BLO OD BANK LAB Product Code K3230X07 [facility] BLO OD [facility]ANK LAB Blood Type Barcode 7300 [facility] LAB Expiration Date [id number] S BLOOD BANK LAB Blood Bank BLOOD SPECIMEN / Unknown 10/23/2024 11:14 AM C[employer] FORMING MACHINE ADJUSTER Acosta Chandler MD LAB - BLOOD BAN K ORDERABLES [facility] [address] [place] [address], [facility] [phone] * TYPE + SCREEN PANEL (10/23/2024 11:06 AM CARTON FORMING MACHINE ADJUSTER) Antibody Screen NEG 12:07 PM C[employer] FORMING MACHINE ADJUSTER [facility] BLOOD [facility] LAB ABO Rh B POS 10/23/2024 12:07 PM [facility] BLOOD BANK LAB Blood Bank BLOOD SPECIMEN / Unknown Venipuncture / Unknown 10/23/2024 11:06 AM C[employer] FORMING MACHINE ADJUSTER 10/23/2024 11:14 AM [facility] Acosta Chandler MD LAB - BLOOD BAN K ORDERABLES [facility] [address] [place] [address], [facility] [phone] * (ABNORMAL) URINALYSIS REFLEX TO MICROSCOPIC NO CULTURE (10/20/2024 5:00 PM CARTON FORMING MACHINE ADJUSTER) Color UA Yellow Straw, Yellow 10/20/2024 5:21 PM [facility] Clarity UA Turbid(A) Clear 10/20/2024 5:21 PM [facility] Specific [place] UA 1.015 1.005 - 1.030 10/20/2024 5:21 PM [facility] pH UA 5.0 5.0 - 8.0 pH 10/20/2024 5:21 PM [facility] Protein UA 2+(A) Negative 10/20/2024 5:21 PM [facility] Glucose UA Negative Negative 10/20/2024 5:21 PM [facility] Ketone UA Negative Negative 10/20/2024 5:21 PM [facility] Bilirubin UA Negative Negative 10/20/2024 5:21 PM [facility] Blood UA Negative Negative 10/20/2024 5:21 PM [facility] Nitrite UA Negative Negative 10/20/2024 5:21 PM [facility] Leukocyte Esterase 3+(A) Negative 10/20/2024 5:21 PM [facility] Urobilinogen UA Negative Negative mg/dL 10/20/2024 5:21 PM [facility] RBC UA 3-5 None Seen, 0-2, 3-5 /HPF 10/20/2024 5:21 PM [facility] WBC UA >100(A) None Seen, 0-5 /HPF 10/20/2024 5:21 PM CARTON FORMING MACHINE ADJUSTER [facility] WBC Clumps Moderate(A) None /HPF 10/20/2024 5:21 PM [facility] Yeast Budding UA Many(A) None /HPF 10/20/19 5:21 PM [facility] Squamous Epithelial Cells UA None Seen None Seen, 0-2, 3-5 /HPF 10/20/2024 5:21 PM [facility] Mucus UA 1+ /LPF 10/20/2024 5:21 PM [facility] Hyaline Casts UA >20(A) None Seen, 0-2 /LPF 10/20/2024 5:21 PM [facility] Granular Casts UA >20(A) None Seen /LPF 10/20/2024 5:21 PM [facility] Urine URINE SPECIMEN OBTAINED BY CLEAN CATCH PROCEDURE / Unknown Collection / Unknown 10/20/2024 5:00 PM C[employer] FORMING MACHINE ADJUSTER 10/20/2024 5:04 PM CARTON FORMING MACHINE ADJUSTER Narrative [facility] - 10/20/2024 5:21 PM C[employer] FORMING MACHINE ADJUSTER Randolph Odonnell MD LAB - URINALYSIS ORD ERABLES Performing Organization Address City/[facility]/ZIP Co de Phone Number [address] [address], [place] [phone] * (ABNORMAL) TROPONIN-I HIGH SENSITIVE (10/14/2024 6:15 AM C[employer]ON FORMING MACHINE ADJUSTER) Only the most recent of2 resultswithin the time period is included. [facility] Troponin I High Sensitive 100(H) <=35 ng/L 10/14/2024 7:01 AM [facility] Blood BLOOD SPECIMEN / Unknown Line Draw / Unknown 10/14/2024 6:15 AM C[employer] FORMING MACHINE ADJUSTER 10/14/2024 6:27 AM C[employer] FORMING MACHINE ADJUSTER Kishore Anderson DO LAB - CHEMISTRY ORDE GLYNN Performing Organization Address City/[facility]/ZIP Co de Phone Number [address] [address], [place] [phone] * (ABNORMAL) HEMOGLOBIN A1C (10/14/2024 3:42 AM CARTON FORMING MACHINE ADJUSTER) Pathologist [facility] Hemoglobin A1c 5.9(H) <=5.6 % 10/14/2024 8:34 AM [facility] Estimated Average Glucose 123 mg/dL 10/14/2024 8:34 AM [facility] Comment: HbA1c Interpretation: Normal : < 5.7% Pre-diabetes: 5.7-6.4% Diabetes: Equal to or greater than 6.5% Test results diagnostic of diabetes should be repeated for confirmation. Treatment target values recommended by ADA and other clinical organizations should be used to evaluate metabolic control in patients. Reference: [place] [employer], Standards of Care in Diabetes -2020 In patients 70 years and older consider HbA1c target range of 7.0-7.5% (Reference: Markos Jamison et al. JAMDA. 2012) The Sebia assay for the measurement of HbA1c is a National Glycohemoglobin Standardization Program (NGSP) certified method. Blood BLOOD SPECIMEN / Unknown Venipuncture / Unknown 10/14/2024 3:42 AM C[employer]ON FORMING MACHINE ADJUSTER 10/14/2024 3:58 AM CARTON FORMING MACHINE ADJUSTER Kishore Anderson DO LAB - CHEMISTRY ORDE [place]YNN [facility] [address] [place] [phone], [facility] [phone] * CT Chest Pe W Abd Pelvis W Cont (10/13/2024 11:57 PM CARTON FORMING MACHINE ADJUSTER) Anatomical Region Laterality Modality Chest, Abdomen, Pelvis Computed Tomography 10/13/2024 11:5 2 PM C[employer] FORMING MACHINE ADJUSTER Impressions 10/14/2024 9:50 AM C[employer] FORMING MACHINE ADJUSTER Impression: 1.No evidence of pulmonary embolism. 2.Multifocal groundglass consolidations throughout the bilateral lung leiva likely representing combination of underlying infectious process and pulmonary edema. 3.Increasingly prominent mediastinal lymphadenopathy, which may be reactive. 4.Small bilateral pleural effusions. 5.Soft tissue hematoma in the right inguinal tissues measuring up to 5.7 cm in diameter. 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 6.Redemonstration of soft tissue stranding adjacent to the right coccyx appears largely unchanged from prior > Dictated by Antonino Fischer MD (vice president of advertising). I, E. Isin Akduman, MD have personally reviewed and interpreted this examination/study. > Interpreting Provider: Cristal Elkins MD on 10/14/2024 9:50 AM Narrative 10/14/2024 9:50 AM CARTON FORMING MACHINE ADJUSTER PROCEDURE: CT CHEST PE W ABD PELVIS W CONT, DATE/TIME OF EXAM: 10/13/2024 11:58 PM, LOCATION [facility] INDICATION: R05.2: Subacute cough R04.2: Hemoptysis ADDITIONAL CLINICAL INFORMATION: Ordering Provider Reason For Exam: Hemoptysis COMPARISON: CT angiogram chest pulmonary embolism 09/19/2024, CT abdomen 04/06/2024 TECHNIQUE: CT of the chest was performed following the uneventful administration of 75 mL of Isovue 370 intravenous contrast according to a pulmonary embolism protocol. CT of the abdomen and pelvis was also performed during the portal venous phase according to standard protocol. Multiplanar reconstructions were created. Findings: Chest: Study Quality This examination for the diagnosis of pulmonary embolism is adequate. Pulmonary Arteries: No evidence of acute pulmonary embolism. Thoracic Vasculature: The thoracic aorta and branch vessels are atherosclerotic. Lower Neck and Axillae: Tracheostomy tube terminates within the proximal thoracic trachea. There are a few calcified left axillary lymph nodes. No axillary or supraclavicular lymphadenopathy. Lungs: Small right pleural effusion is present, new compared to prior exam from 09/09/2024. There is associated subsegmental compressive atelectasis and consolidation/atelectasis in left lower lobe, increased compared prior exam. Multifocal groundglass opacities throughout the bilateral lung leiva are more conspicuous compared to prior. There is also peripheral interlobular septal thickening. No pneumothorax. Heart and Pericardium: Cardiomegaly. The coronary arteries are extensively atherosclerotic with suggestion of coronary artery stents. Additionally, the aortic and mitral valves are calcified. No pericardial effusion. Mediastinum and Tiffani: Prominent mediastinal lymphadenopathy, with the largest lymph node in the AP window measuring up to 1.8 cm in short axis diameter (series 5, image 108), increased when compared to prior. Other findings: None. Abdomen/pelvis: Liver: Normal. Gallbladder and Bile Ducts: Suggestion of a small gallstone near the gallbladder neck. No evidence of gallbladder wall thickening or pericholecystic fluid. Spleen: Normal. Pancreas: There is diffuse fatty atrophy of the pancreas. 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 Kidneys: Redemonstration of horseshoe kidney configuration. No evidence of hydronephrosis or nephrolithiasis. Gastrointestinal: A percutaneous gastrostomy tube terminates near the gastric antrum. Moderate volume of stool within the rectum. Otherwise the small bowel and colon appear normal. The appendix is normal. Mesentery/Peritoneum/Retroperitoneum: No free intraperitoneal air. No free fluid in the abdomen or pelvis. The left psoas and iliacus muscle is atrophic. Bladder: Davies catheter terminates within the urinary bladder. Air layering within the anterior aspect of the urinary bladder is compatible with recent catheterization. Reproductive Organs: The prostate is normal. Abdominal Vasculature: Atherosclerotic calcification of the aorta and its branch vessels. Bones: Bone windows demonstrate no suspicious lytic or blastic lesions. Flowing syndesmophytes are seen throughout the vertebral bodies of the thoracic spine, suggesting ankylosing spondylitis. There is also bridging osteophyte formation between spinous processes in the thoracolumbar spine. Degenerative changes in the bilateral hips. There is diffuse sarcopenia. Soft tissues: Soft tissue hematoma in the right inguinal tissues measuring up to 5.7 x 3.5 cm in transaxial dimensions with adjacent metallic clips in place, compatible with femoral artery branch pseudoaneurysm embolization during prior bronchial artery embolization. There is redemonstration of soft tissue stranding along the right posterior soft tissues adjacent to the coccyx. Soft tissue stranding with associated calcifications are again seen in the anterior soft tissues, likely sequelae of prior injections with granulomatous changes. Procedure Note Jillian Elkins MD - 10/14/2024 PROCEDURE: CT CHEST PE W ABD PELVIS W CONT, DATE/TIME OF EXAM:10/13/2024 11:58 PM, LOCATION [facility] INDICATION: R05.2: Subacute cough R04.2: Hemoptysis ADDITIONAL CLINICAL INFORMATION: Ordering Provider Reason For Exam: Hemoptysis COMPARISON: CT angiogram chest pulmonary embolism 09/19/2024, CT abdomen 04/06/2024 TECHNIQUE: CT of the chest was performed following the uneventful administration of 75 mL of Isovue 370 intravenous contrast according toa pulmonary embolism protocol. CT of the abdomen and pelvis was also performed during the portal venous phase according to standard protocol. Multiplanar reconstructions were created. Findings: Chest: Study Quality This examination for the diagnosis of pulmonary embolism is adequate. Pulmonary Arteries: No evidence of acute pulmonary embolism. Thoracic Vasculature: The thoracic aorta and branch vessels are atherosclerotic. Lower Neck and Axillae: Tracheostomy tube terminates within the proximal thoracic trachea. There are a few calcified left axillary lymph nodes. No axillary or supraclavicular lymphadenopathy. Lungs: Small right pleural effusion is present, new compared to prior exam from 09/09/2024. There is associated subsegmental compressive atelectasis and consolidation/atelectasis in left lower lobe, increased compared prior exam. Multifocal groundglass opacities throughout the bilateral lungfields are more conspicuous compared to prior. There is also peripheral interlobular septal thickening. No pneumothorax. Heart and Pericardium: Cardiomegaly. The coronary arteries are extensively atherosclerotic with suggestion of coronary artery stents. Additionally, the aortic andmitral valves are calcified. No pericardial effusion. Mediastinum and Tiffani: Prominent mediastinal lymphadenopathy, with the largest lymph node inthe AP window measuring up to 1.8 cm in short axis diameter (series 5, image 108), increased when compared to prior. Other findings: None. Abdomen/pelvis: Liver: Normal. Gallbladder and Bile Ducts: Suggestion of a small gallstone near the gallbladder neck. No evidenceof gallbladder wall thickening or pericholecystic fluid. Spleen: Normal. Pancreas: There is diffuse fatty atrophy of the pancreas. Adrenals: There is flattened configuration of left adrenal gland shows typicalgiven the horseshoe configuration and absence of left kidney in the expectedleft renal fossa. Kidneys: Redemonstration of horseshoe kidney configuration. No evidence of hydronephrosis or nephrolithiasis. Gastrointestinal: A percutaneous gastrostomy tube terminates near the gastric antrum. Moderate volume of stool within the rectum. Otherwise the small boweland colon appear normal. The appendix is normal. Mesentery/Peritoneum/Retroperitoneum: No free intraperitoneal air. No free fluid in the abdomen or pelvis. The left psoas and iliacus muscle is atrophic. Bladder: Davies catheter terminates within the urinary bladder. Air layeringwithin the anterior aspect of the urinary bladder is compatible with recent catheterization. Reproductive Organs: The prostate is normal. Abdominal Vasculature: Atherosclerotic calcification of the aorta and its branch vessels. Bones: Bone windows demonstrate no suspicious lytic or blastic lesions. Flowing syndesmophytes are seen throughout the vertebral bodies of the thoracic spine, suggesting ankylosing spondylitis. There is also bridgingosteophyte formation between spinous processes in the thoracolumbar spine. Degenerative changes in the bilateral hips. There is diffuse sarcopenia. Soft tissues: Soft tissue hematoma in the right inguinal tissues measuring up to 5.7 x 3.5 cm in transaxial dimensions with adjacent metallic clips in place, compatible with femoral artery branch pseudoaneurysm embolization during prior bronchial artery embolization. There is redemonstration of soft tissue stranding along the right posterior soft tissues adjacent to the coccyx. Soft tissue stranding with associated calcifications are againseen in the anterior soft tissues, likely sequelae of prior injections with granulomatous changes. Impression: 1.No evidence of pulmonary embolism. 2.Multifocal groundglass consolidations throughout the bilateral lung leiva likely representing combination of underlying infectious processand pulmonary edema. 3.Increasingly prominent mediastinal lymphadenopathy, which may be reactive. 4.Small bilateral pleural effusions. 5.Soft tissue hematoma in the right inguinal tissues measuring up to 5.7cm in diameter. 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 6.Redemonstration of soft tissue stranding adjacent to the right coccyx appears largely unchanged from prior > Dictated by Antonino Fischer MD (vice president of advertising). ICristal MD have personally reviewed and interpreted this examination/study. > Interpreting Provider: Cristal Elkins MD on 10/14/2024 9:50 AM Jaswinder Lynn MD CT ORDERABLES * (ABNORMAL) TROPONIN-I HIGH SENSITIVE REFLEX 1HOUR (10/13/2024 4:42 PM CARTON FORMING MACHINE ADJUSTER) Troponin I High Sensitive 70(H) <=35 ng/L 10/13/2024 5:31 PM [facility] Delta Troponin I HS 10/13/2024 5:31 PM [facility] Comment:Delta value intentio kamryn not calculated. Baseline to 1 hour specimen collection interval exceeded. Blood BLOOD SPECIMEN / Unknown Venipuncture / Unknown 10/13/2024 4:42 PM CARTON FORMING MACHINE ADJUSTER 10/13/2024 4:52 PM CARTON FORMING MACHINE ADJUSTER Chaz Garcia MD LAB - CHEMISTRY ADRIANA MAKI [facility] [address] [place] [phone], [facility] [phone] * SARS-COV-2 (COVID-19)+INFLU A+B PCR RAPID (10/13/2024 3:23 PM CARTON FORMING MACHINE ADJUSTER) COVID-19 PCR Not detected Not detected 10/13/19 25 4:13 PM CARTON FORMING MACHINE ADJUSTER [facility] Influenza A Rapid ELLI Not Detected Not Detected 10/13/2024 4:13 PM CARTON FORMING MACHINE ADJUSTER [facility] Influenza B ELLI Rapid Not Detected Not Detected 10/13/2024 4:13 PM CARTON FORMING MACHINE ADJUSTER [facility] Microbiology SPECIMEN FROM NASOPHARYNGEAL STRUCTURE / Unknown Collection / Unknown 10/13/2024 3:23 PM CARTON FORMING MACHINE ADJUSTER 10/13/2024 3:31 PM CARTON FORMING MACHINE ADJUSTER Narrative [facility] - 10/13/2024 4:13 PM CARTON FORMING MACHINE ADJUSTER Influenza assay performed by [employer]. Results do not exclude the possibility of a mixed viral infection. NOTE: Detecting and identifying specific viral nucleic acids from individuals exhibiting signs and symptoms of respiratory infection aids in the diagnosis of respiratory infection, if used in conjunction with other clinical and laboratory findings. The results of this test should not be used as the sole basis for diagnosis, treatment, or patient management decisions. This nucleic acid amplification assay performance was validated by [facility]. This test has been authorized by the Food and Drug administration (FDA)under an Emergency Use Authorization (EUA). This test has been validated in accordance with the FDA's guidance document Policy for Diagnostic Testing in Laboratories Certified to perform High Complexity Testing under CLIA prior to Emergency Use Authorization for Coronavirus Disease-2019 during the Public Health Emergency issued on December 02, 2019. FDA independent review of this validation is pending. This test is only authorized for the duration of time the declaration that circumstances exist justifying the authorization of emergency use of in vitro diagnostic tests for detection of SARS-CoV-2 virus and/or diagnosis of COVID-19 infection under section 564(b)(1) of the Act, 21 U.S.C 360bbb-3 (b)(1), unless the authorization is terminated or revoked sooner. Fact Sheets for this EUA assay are available upon request. Chaz Gracia MD LAB - MICROBIOLOGY O RDERABLES Performing Organization Address [facility]/ZIP Co de Phone Number [address] [address], [facility] [phone] * (ABNORMAL) TROPONIN-I HIGH SENSITIVE BASELINE + 1HR (10/13/2024 2:34 PM CARTON FORMING MACHINE ADJUSTER) Troponin I High Sensitive 70(H) <=35 ng/L 10/13/2024 3:11 PM CARTON FORMING MACHINE ADJUSTER [facility] Blood BLOOD SPECIMEN / Unknown Venipuncture / Unknown 10/13/2024 2:34 PM CARTON FORMING MACHINE ADJUSTER 10/13/2024 2:39 PM CARTON FORMING MACHINE ADJUSTER Chaz Garcia MD LAB - CHEMISTRY ORDE RABBRAULIO Performing Organization Address [facility] Co de Phone Number [address] [address], [facility] [phone] * (ABNORMAL) B-TYPE NATRIURETIC PEPTIDE (10/13/2024 2:34 PM CARTON FORMING MACHINE ADJUSTER) BNP 1,582(H) <100 pg/mL 10/13/2024 3:15 PM CARTON FORMING MACHINE ADJUSTER [facility] Comment: A decision threshold of 100 pg/mL has been demonstrated to provide the maximal combination of sensitivity, specificity and predictive value for the diagnosis of congestive heart failure (CHF). Virtually all patients with no evidence of CHF have BNP values less than 100 pg/mL. A BNP value greater than 100 pg/mL is consistent with the diagnosis of CHF in the appropriate clinical setting. In a study of 693 patients (male and female) with diagnosed CHF, the following values were determined based on the NYHA functional classification system: NYHA Functional Class Mean Valule (pg/mL) % >100 pg/mL I 320 58.1 II 432 73.0 III 656 79.0 IV 1635 98.3 Blood BLOOD SPECIMEN / Unknown Venipuncture / Unknown 10/13/2024 2:34 PM CARTON FORMING MACHINE ADJUSTER 10/13/2024 2:39 PM CARTON FORMING MACHINE ADJUSTER Jaswinder Lynn MD LAB - CHEMISTRY ADRIANA MAKI [facility] Organization Address City/State/ZIP Co de Phone Number [id number] [place] [address], [facility] [phone] from Last 3 Months Additional Health Concerns Infection Onset Date Last Indicated MRSA Hx 01/31/2024 01/31/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 Source: [facility]. 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 * Full Code Date Activated Date Inactivated Comments 11/10/2024 10:54 PM 11/10/2024 10:56 PM * DNR - IF PULSELESS NO CPR, NO SHOCK Date Activated Date Inactivated Comments 10/15/2024 8:45 AM 10/28/2024 6:57 PM Question Answer Comments : DO NOT discontinue a ny active orders without asking attending physician. * DNR - IF PULSELESS NO CPR, NO SHOCK Date Activated Date Inactivated Comments 10/14/2024 3:29 AM 10/15/2024 8:45 AM Question Answer Comments : DO NOT discontinue a ny active orders without asking attending physician. * DNR WITH COMFORT MEASURES Date Activated Date Inactivated Comments 10/14/2024 12:45 AM 10/14/2024 3:29 AM Question Answer Comments : DO NOT discontinue a ny active orders without asking attending physician. Comfort Measures: yes Care Teams Collections Specialist Relationship Specialty Start Date End Date Eyal Vargas MD [address] [place] [address] PCP - General Family Medicine 07/29/24
--- OUTSIDE RECORDS SUMMARY | 2025-01-05 04:00 | XMS_ITS | Encounter Summary ---
Author Organization [facility] Address [address] [place] [address] Care Team Providers Care Facility Designer Name Role Phone Unavailable Primary Care Provider Unavailabl e Encounter Details Date Type Department Care Team (Late st Contact Info) Description 09/18/2022 Lab Requisition [facility] Laboratory Services [address] [place] [address] [place] [address] [facility] [place] [address] Social History Tobacco Use Types Packs/Day Years Used Date Smoking Tobacco: Never Assessed Sex and Gender Information Value Date Recorded Sex Assigned at Not on file Legal Sex Male 2:27 PM MONUMENT ERECTOR Gender Identity Not on file Sexual Orientation Not on file COVID-19 Exposure Response Date Recorded In the last 10 days, have yo u been in contact with someone who was confirmed or suspected to have Coronavirus/COVID-19? Unable to assess 09/18/2022 6:07 AM MONUMENT ERECTOR documented as of this encounter Plan of Treatment Not on file documented as of this encounter Procedures Procedure Name Priority Date/Time Associated Diagnosis Comments VANCOMYCIN LEVEL TROUGH Routine 09/18/2022 8:30 AM MONUMENT ERECTOR documented in this encounter Results * (ABNORMAL) VANCOMYCIN LEVEL TROUGH (09/18/2022 8:30 AM MONUMENT ERECTOR) VANCOMYCIN, TROUGH 20.4(H) 10.0 - 17.0 ug/mL 09/18/2022 1:33 PM MONUMENT ERECTOR [facility] TD LAST DATE, TIME, AMT (VANC) Patient estimating date, time or dose. 09/18/2022 1:33 PM MONUMENT ERECTOR [facility] LAST DOSE AMT, VANCOMYCIN Unknown/Patien t unsure 09/18/2022 1:33 PM MONUMENT ERECTOR [facility] Blood Collection / Unknown 09/18/2022 8:30 AM MONUMENT ERECTOR 09/18/2022 12:50 PM MONUMENT ERECTOR Franco Apple MD CHEMISTRY ORDERABLES Final Resul t [facility] CLIA# [id number] [place] [address] documented in this encounter Visit Diagnoses Not on filedocumented in this encounter Additional Health Concerns Infection Onset Date Last Indicated Resolved Time MRSA Comment:09/2022 sputum Resolved per Type and Duration of Precautions Recommended for Selected Infections and Conditions document 2023 update 09/16/2022 09/28/202206/04 4:18 PM CDT documented as of this encounter
--- OUTSIDE RECORDS SUMMARY | 2025-01-05 04:00 | XMS_ITS | Encounter Summary ---
Author Organization [facility] Address [address] [place] [address] Care Team Providers Care Assistant Manager Retail Name Role Phone Unavailable Primary Care Provider Unavailabl e Encounter Details Date Type Department Care Team (Late st Contact Info) Description 09/16/2022 Lab Requisition [facility] Laboratory Services [address] [place] [address] [place] [address] [place] [address] Social History Tobacco Use Types Packs/Day Years Used Date Smoking Tobacco: Never Assessed Sex and Gender Information Value Date Recorded Sex Assigned at Not on file Legal Sex Male 2:27 PM RADIO TESTER Gender Identity Not on file Sexual Orientation Not on file COVID-19 Exposure Response Date Recorded In the last 10 days, have yo u been in contact with someone who was confirmed or suspected to have Coronavirus/COVID-19? Unable to assess 09/18/2022 6:07 AM RADIO TESTER documented as of this encounter Plan of Treatment Not on file documented as of this encounter Procedures Procedure Name Priority Date/Time Associated Diagnosis Comments RESPIRATORY PATHOGEN PCR PANEL Routine 09/16/2022 8:00 AM RADIO TESTER documented in this encounter Results * RESPIRATORY PATHOGEN PCR PANEL (09/16/2022 8:00 AM RADIO TESTER) Respiratory Pathogen PCR Panel NOT DETECTED No respiratory pathogen nucleic acids detected. 09/16/2022 1:15 PM RADIO TESTER [facility]OR[facility] COVID-19 PCR NOT DETECTED Not Detected 09/16/2022 1:15 PM RADIO TESTER [facility] Upper Respiratory ENTIRE NASOPHARYNX / Unknown Collection / Unknown 09/16/2022 8:00 AM RADIO TESTER 09/16/2022 12:23 PM RADIO TESTER Narrative [facility] - 09/16/2022 1:15 PM RADIO TESTER The Film Array Respiratory Panel (RP2.1) is a multiplex nucleic acid detection test for 22 targets. Viruses: Adenovirus Coronavirus HKU1, NL63, 229E, and OC43 COVID-19/Severe Acute Respiratory Syndrome Coronavirus 2 Influenza A with the following subtypes: H1, H1-2009, and H3 Influenza B Human Metapneumovirus Parainfluenza virus 1, 2, 3, and 4 Respiratory Syncytial virus (RSV) Rhinovirus/Enterovirus (cannot differentiate due to genetic similarities) Bacteria: Bordetella pertussis Bordetella parapertussis Chlamydophila pneumoniae Mycoplasma pneumoniae us Franco Apple MD MICROBIOLOGY - GENERAL ORDERABLE S Final Result [facility] CLIA# [id number] [address] [place] [address] documented in this encounter Visit Diagnoses Not on filedocumented in this encounter Additional Health Concerns Infection Onset Date Last Indicated Resolved Time MRSA Comment:09/2022 sputum Resolved per Type and Duration of Precautions Recommended for Selected Infections and Conditions document 2023 update 09/16/2022 09/28/202206/04 4:18 PM CDT documented as of this encounter
--- OUTSIDE RECORDS SUMMARY | 2025-01-05 04:00 | XMS_ITS | Encounter Summary ---
Author Organization [facility] Address [address] [place] [address] Care Team Providers Care Certified Teacher Assistant Name Role Phone Unavailable Primary Care Provider Unavailabl e Encounter Details Date Type Department Care Team (Late st Contact Info) Description 12/07/2022 Lab Requisition [facility] Laboratory Services [address] [place] [address] [place] [address] [place] [address] Social History Tobacco Use Types Packs/Day Years Used Date Smoking Tobacco: Never Assessed Sex and Gender Information Value Date Recorded Sex Assigned at Not on file Legal Sex Male 2:27 PM SITE ADMINISTRATOR Gender Identity Not on file Sexual Orientation Not on file COVID-19 Exposure Response Date Recorded In the last 10 days, have yo u been in contact with someone who was confirmed or suspected to have Coronavirus/COVID-19? Unable to assess 12/07/2022 7:54 AM SITE ADMINISTRATOR documented as of this encounter Plan of Treatment Not on file documented as of this encounter Procedures Procedure Name Priority Date/Time Associated Diagnosis Comments CBC WITH DIFFERENTIAL Routine 12/07/2022 4:00 AM SITE ADMINISTRATOR BASIC METABOLIC PANEL Routine 12/07/2022 4:00 AM SITE ADMINISTRATOR documented in this encounter Results * (ABNORMAL) CBC WITH DIFFERENTIAL (12/07/2022 4:00 AM SITE ADMINISTRATOR) Pathologist [facility] WBC 9.2 4.5 - 10.5 K/uL 12/07/2022 6:13 AM SITE ADMINISTRATOR [facility] RBC 3.24(L) 4.50 - 5.40 M/uL 12/07/2022 6:13 AM [facility] HEMOGLOBIN 9.9(L) 13.6 - 16.5 g/dL 12/07/2022 6:13 AM [facility] HEMATOCRIT 28.8(L) 40.0 - 48.0 % 12/07/2022 6:13 AM [facility] MCV 88.8 82.0 - 99.0 fL 12/07/2022 6:13 AM SITE ADMINISTRATOR [facility] MCH 30.5 27.8 - 34.5 pg 12/07/2022 6:13 AM SITE ADMINISTRATOR [facility] MCHC 34.3 32.5 - 35.5 g/dL 12/07/2022 6:13 AM [facility] RDW 15.4(H) 11.5 - 14.5 % 12/07/2022 6:13 AM SITE ADMINISTRATOR [facility] PLATELETS 287 160 - 420 K/uL 12/07/2022 6:13 AM SITE ADMINISTRATOR [facility] MPV 9.3 8.7 - 12.7 fL 12/07/2022 6:13 AM SITE ADMINISTRATOR [facility] NEUTROPHILS 69 % 12/07/2022 6:13 AM SITE ADMINISTRATOR [facility] LYMPHOCYTES 15 % 12/07/2022 6:13 AM SITE ADMINISTRATOR [facility] MONOCYTES 9 % 12/07/2022 6:13 AM SITE ADMINISTRATOR [facility] EOSINOPHILS 6 % 12/07/2022 6:13 AM SITE ADMINISTRATOR [facility] BASOPHILS 1 % 12/07/2022 6:13 AM SITE ADMINISTRATOR [facility] NEUTROPHIL ABSOLUTE 6.40 1.90 - 7.00 K/uL 12/07/2022 6:13 AM SITE ADMINISTRATOR [facility] LYMPHOCYTE ABSOLUTE 1.40 0.70 - 4.50 K/uL 12/07/2022 6:13 AM SITE ADMINISTRATOR [facility] MONOCYTE ABSOLUTE 0.90 0.10 - 1.30 K/uL 12/07/2022 6:13 AM SITE ADMINISTRATOR [facility] EOSINOPHIL ABSOLUTE 0.60 0.00 - 0.70 K/uL 12/07/2022 6:13 AM [facility] BASOPHILS ABSOLUTE 0.10 0.00 - 0.20 K/uL 12/07/2022 6:13 AM [facility] Blood 12/07/2022 4:00 AM SITE ADMINISTRATOR 12/07/2022 5:18 AM SITE ADMINISTRATOR us Franco Apple MD HEMATOLOGY ORDERABLES Final Resu lt [facility] CLIA# [id number] [place] [address] * (ABNORMAL) BASIC METABOLIC PANEL (12/07/2022 4:00 AM SITE ADMINISTRATOR) SODIUM 137 136 - 145 mmol/L 12/07/2022 6:29 AM [facility] POTASSIUM 3.9 3.4 - 5.1 mmol/L 12/07/2022 6:29 AM [facility] CHLORIDE 96(L) 98 - 107 mmol/L 12/07/2022 6:29 AM [facility] CO2 28 22 - 29 mmol/L 12/07/2022 6:29 AM [facility] CALCIUM 10.5(H) 8.6 - 10.4 mg/dL 12/07/2022 6:29 AM [facility] BUN 42(H) 6 - 20 mg/dL 12/07/2022 6:29 AM [facility] CREATININE 0.94 0.67 - 1.17 mg/dL 12/07/2022 6:29 AM [facility] Comment:The GFR result is no t clinically significant on patients <18 or >70 years of age. GLUCOSE 254(H) 74 - 99 mg/dL 12/07/2022 6:29 AM [facility] GFR >60 mL/min/1.7 3 sq meter 12/07/2022 6:29 AM [facility] Comment:eGFR calculated with 2020 CKD-EPI equation. Vegetarian diet, extremely high or low muscle mass, and may affect results. Cystatin C with Glomerular Filtration Rate is a suitable alternative for these patients. ANION GAP 13 8 - 16 mmol/L 12/07/2022 6:29 AM SITE ADMINISTRATOR [facility] Blood 12/07/2022 4:00 AM SITE ADMINISTRATOR 12/07/2022 5:18 AM SITE ADMINISTRATOR us Franco Apple MD CHEMISTRY ORDERABLES Final Resul t [facility] CLIA# [id number] [place] [address] documented in this encounter Visit Diagnoses Not on filedocumented in this encounter Additional Health Concerns Infection Onset Date Last Indicated Resolved Time MRSA Comment:09/2022 sputum Resolved per Type and Duration of Precautions Recommended for Selected Infections and Conditions document 2023 update 09/16/2022 09/28/202206/04 4:18 PM CDT documented as of this encounter
--- OUTSIDE RECORDS SUMMARY | 2025-01-05 04:00 | XMS_ITS | Encounter Summary ---
Author Organization [facility] Address [address] [place] [address] Care Team Providers Care Fish Hatchery Worker Name Role Phone Unavailable Primary Care Provider Unavailabl e Encounter Details Date Type Department Care Team (Late st Contact Info) Description 09/17/2022 Lab Requisition [facility] Laboratory Services [address] [place] [address] [place] [address] [place] [address] Social History Tobacco Use Types Packs/Day Years Used Date Smoking Tobacco: Never Assessed Sex and Gender Information Value Date Recorded Sex Assigned at Not on file Legal Sex Male 2:27 PM BAND SAWING MACHINE OPERATOR Gender Identity Not on file Sexual Orientation Not on file COVID-19 Exposure Response Date Recorded In the last 10 days, have yo u been in contact with someone who was confirmed or suspected to have Coronavirus/COVID-19? Unable to assess 09/18/2022 6:07 AM BAND SAWING MACHINE OPERATOR documented as of this encounter Plan of Treatment Not on file documented as of this encounter Procedures Procedure Name Priority Date/Time Associated Diagnosis Comments CBC WITH DIFFERENTIAL Routine 09/17/2022 3:00 AM BAND SAWING MACHINE OPERATOR BASIC METABOLIC PANEL Routine 09/17/2022 3:00 AM BAND SAWING MACHINE OPERATOR documented in this encounter Results * (ABNORMAL) CBC WITH DIFFERENTIAL (09/17/2022 3:00 AM BAND SAWING MACHINE OPERATOR) Pathologist [facility] WBC 10.4 4.5 - 10.5 K/uL 09/17/2022 7:29 AM BAND SAWING MACHINE OPERATOR [facility] RBC 2.63(L) 4.50 - 5.40 M/uL 09/17/2022 7:29 AM [facility] HEMOGLOBIN 7.7(L) 13.6 - 16.5 g/dL 09/17/2022 7:29 AM [facility] HEMATOCRIT 24.2(L) 40.0 - 48.0 % 09/17/2022 7:29 AM [facility] MCV 92.1 82.0 - 99.0 fL 09/17/2022 7:29 AM BAND SAWING MACHINE OPERATOR [facility] MCH 29.3 27.8 - 34.5 pg 09/17/2022 7:29 AM [facility] MCHC 31.8(L) 32.5 - 35.5 g/dL 09/17/2022 7:29 AM [facility] RDW 18.5(H) 11.5 - 14.5 % 09/17/2022 7:29 AM [facility] PLATELETS 198 160 - 420 K/uL 09/17/2022 7:29 AM [facility] MPV 10.2 8.7 - 12.7 fL 09/17/2022 7:29 AM BAND SAWING MACHINE OPERATOR [facility] NEUTROPHILS 64 % 09/17/2022 7:29 AM BAND SAWING MACHINE OPERATOR [facility] LYMPHOCYTES 16 % 09/17/2022 7:29 AM BAND SAWING MACHINE OPERATOR [facility] MONOCYTES 9 % 09/17/2022 7:29 AM BAND SAWING MACHINE OPERATOR [facility] EOSINOPHILS 10 % 09/17/2022 7:29 AM BAND SAWING MACHINE OPERATOR [facility] BASOPHILS 1 % 09/17/2022 7:29 AM BAND SAWING MACHINE OPERATOR [facility] NEUTROPHIL ABSOLUTE 6.70 1.90 - 7.00 K/uL 09/17/2022 7:29 AM [facility] LYMPHOCYTE ABSOLUTE 1.70 0.70 - 4.50 K/uL 09/17/2022 7:29 AM BAND SAWING MACHINE OPERATOR [facility] MONOCYTE ABSOLUTE 1.00 0.10 - 1.30 K/uL 09/17/2022 7:29 AM [facility] EOSINOPHIL ABSOLUTE 1.00(H) 0.00 - 0.70 K/uL 09/17/2022 7:29 AM [facility] BASOPHILS ABSOLUTE 0.10 0.00 - 0.20 K/uL 09/17/2022 7:29 AM [facility] Blood Collection / Unknown 09/17/2022 3:00 AM BAND SAWING MACHINE OPERATOR 09/17/2022 7:14 AM BAND SAWING MACHINE OPERATOR us Franco Apple MD HEMATOLOGY ORDERABLES Final Resu lt [facility] CLIA# [id number] [facility] [place] [place] [address] * (ABNORMAL) BASIC METABOLIC PANEL (09/17/2022 3:00 AM BAND SAWING MACHINE OPERATOR) SODIUM 144 136 - 145 mmol/L 09/17/2022 8:06 AM [facility] POTASSIUM 3.6 3.4 - 5.1 mmol/L 09/17/2022 8:06 AM [facility] CHLORIDE 94(L) 98 - 107 mmol/L 09/17/2022 8:06 AM [facility] CO2 42(H) 22 - 29 mmol/L 09/17/2022 8:06 AM [facility] CALCIUM 9.8 8.6 - 10.4 mg/dL 09/17/2022 8:06 AM [facility] BUN 55(H) 6 - 20 mg/dL 09/17/2022 8:06 AM [facility] CREATININE 0.84 0.67 - 1.17 mg/dL 09/17/2022 8:06 AM [facility] Comment:The GFR result is no t clinically significant on patients <18 or >70 years of age. GLUCOSE 259(H) 74 - 99 mg/dL 09/17/2022 8:06 AM [facility] GFR >60 mL/min/1.7 3 sq meter 09/17/2022 8:06 AM BAND SAWING MACHINE OPERATOR [facility] Comment:eGFR calculated with 2020 CKD-EPI equation. Vegetarian diet, extremely high or low muscle mass, and may affect results. Cystatin C with Glomerular Filtration Rate is a suitable alternative for these patients. ANION GAP 8 8 - 16 mmol/L 09/17/2022 8:06 AM BAND SAWING MACHINE OPERATOR [facility] Blood Collection / Unknown 09/17/2022 3:00 AM BAND SAWING MACHINE OPERATOR 09/17/2022 7:14 AM BAND SAWING MACHINE OPERATOR us Franco Apple MD CHEMISTRY ORDERABLES Final Resul t [facility] CLIA# [id number] [place] [address] documented in this encounter Visit Diagnoses Not on filedocumented in this encounter Additional Health Concerns Infection Onset Date Last Indicated Resolved Time MRSA Comment:09/2022 sputum Resolved per Type and Duration of Precautions Recommended for Selected Infections and Conditions document 2023 update 09/16/2022 09/28/202206/04 4:18 PM CDT documented as of this encounter
--- OUTSIDE RECORDS SUMMARY | 2025-01-05 04:00 | XMS_ITS | Encounter Summary ---
Author Organization [facility] Address [address] [place] [address] Care Team Providers Care Compliance Spec Name Role Phone Unavailable Primary Care Provider Unavailabl e Encounter Details Date Type Department Care Team (Late st Contact Info) Description 11/03/2022 Lab Requisition [facility] Laboratory Services [address] [place] [address] [place] [address] [place] [address] Social History Tobacco Use Types Packs/Day Years Used Date Smoking Tobacco: Never Assessed Sex and Gender Information Value Date Recorded Sex Assigned at Not on file Legal Sex Male 2:27 PM FREIGHT RECEIVER Gender Identity Not on file Sexual Orientation Not on file COVID-19 Exposure Response Date Recorded In the last 10 days, have yo u been in contact with someone who was confirmed or suspected to have Coronavirus/COVID-19? Unable to assess 11/04/2022 12:51 PM FREIGHT RECEIVER documented as of this encounter Plan of Treatment Not on file documented as of this encounter Procedures Procedure Name Priority Date/Time Associated Diagnosis Comments HEPATIC FUNCTION PANEL Routine 11/03/2022 5:30 AM FREIGHT RECEIVER documented in this encounter Results * (ABNORMAL) HEPATIC FUNCTION PANEL (11/03/2022 5:30 AM FREIGHT RECEIVER) TOTAL PROTEIN 8.1 6.3 - 8.7 g/dL 11/03/2022 8:02 AM FREIGHT RECEIVER [facility] LABORATORY SERVICES - [facility] ALBUMIN 3.4(L) 3.5 - 5.2 g/dL 11/03/2022 8:02 AM FREIGHT RECEIVER [facility] BILIRUBIN TOTAL 0.8 0.2 - 1.1 mg/dL 11/03/2022 8:02 AM FREIGHT RECEIVER [facility] BILIRUBIN DIRECT <0.2 0.0 - 0.3 mg/dL 11/03/2022 8:02 AM FREIGHT RECEIVER [facility] ALKALINE PHOSPHATASE 159(H) 40 - 150 U/L 11/03/2022 8:02 AM [facility] AST 32 0 - 41 U/L 11/03/2022 8:02 AM FREIGHT RECEIVER [facility] ALT 18 0 - 41 U/L 11/03/2022 8:02 AM [facility] Blood Collection / Unknown 11/03/2022 5:30 AM FREIGHT RECEIVER 11/03/2022 7:30 AM FREIGHT RECEIVER Franco Apple MD CHEMISTRY ORDERABLES Final Resul t [facility] CLIA# [id number] [address] [place] [address] documented in this encounter Visit Diagnoses Not on filedocumented in this encounter Additional Health Concerns Infection Onset Date Last Indicated Resolved Time MRSA Comment:09/2022 sputum Resolved per Type and Duration of Precautions Recommended for Selected Infections and Conditions document 2023 update 09/16/2022 09/28/202206/04 4:18 PM CDT documented as of this encounter
--- OUTSIDE RECORDS SUMMARY | 2025-01-05 04:00 | XMS_ITS | Encounter Summary ---
Author Organization [facility] Address [address] [place] [address] Care Team Providers Care Multifold Operator Name Role Phone Unavailable Primary Care Provider Unavailabl e Encounter Details Date Type Department Care Team (Late st Contact Info) Description 09/16/2022 Lab Requisition [facility] Laboratory Services [address] [place] [address] [place] [address] [place] [address] Social History Tobacco Use Types Packs/Day Years Used Date Smoking Tobacco: Never Assessed Sex and Gender Information Value Date Recorded Sex Assigned at Not on file Legal Sex Male 2:27 PM MANUFACTURER Gender Identity Not on file Sexual Orientation Not on file COVID-19 Exposure Response Date Recorded In the last 10 days, have yo u been in contact with someone who was confirmed or suspected to have Coronavirus/COVID-19? Unable to assess 09/18/2022 6:07 AM MANUFACTURER documented as of this encounter Plan of Treatment Not on file documented as of this encounter Procedures Procedure Name Priority Date/Time Associated Diagnosis Comments CBC WITH DIFFERENTIAL Routine 09/16/2022 3:45 AM MANUFACTURER BASIC METABOLIC PANEL Routine 09/16/2022 3:45 AM MANUFACTURER documented in this encounter Results * (ABNORMAL) CBC WITH DIFFERENTIAL (09/16/2022 3:45 AM MANUFACTURER) WBC 10.6(H) 4.5 - 10.5 K/uL 09/16/2022 8:39 AM MANUFACTURER [facility] LABORATORY SERVICES [facility] RBC 2.74(L) 4.50 - 5.40 M/uL 09/16/2022 8:39 AM MANUFACTURER [facility] LABORATORY [facility] HEMOGLOBIN 7.9(L) 13.6 - 16.5 g/dL 09/16/2022 8:39 AM [facility] LABORATORY [facility] HEMATOCRIT 24.9(L) 40.0 - 48.0 % 09/16/2022 8:39 AM [facility] LABORATORY [facility] MCV 90.9 82.0 - 99.0 fL 09/16/2022 8:39 AM MANUFACTURER [facility] LABORATORY [facility] MCH 28.8 27.8 - 34.5 pg 09/16/2022 8:39 AM [facility] LABORATORY [facility] MCHC 31.7(L) 32.5 - 35.5 g/dL 09/16/2022 8:39 AM [facility] LABORATORY [facility] RDW 18.5(H) 11.5 - 14.5 % 09/16/2022 8:39 AM [facility] LABORATORY [facility] PLATELETS 206 160 - 420 K/uL 09/16/2022 8:39 AM [facility] LABORATORY [facility] MPV 10.1 8.7 - 12.7 fL 09/16/2022 8:39 AM MANUFACTURER [facility] LABORATORY [facility] NEUTROPHILS 67 % 09/16/2022 8:39 AM MANUFACTURER [facility] LABORATORY [facility] LYMPHOCYTES 15 % 09/16/2022 8:39 AM MANUFACTURER [facility] LABORATORY SERVICES [facility] MONOCYTES 9 % 09/16/2022 8:39 AM MANUFACTURER [facility] LABORATORY [facility] EOSINOPHILS 8 % 09/16/2022 8:39 AM MANUFACTURER [facility] LABORATORY SERVICES [facility] BASOPHILS 1 % 09/16/2022 8:39 AM MANUFACTURER [facility] LABORATORY [facility] NEUTROPHIL ABSOLUTE 7.10(H) 1.90 - 7.00 K/uL 09/16/2022 8:39 AM MANUFACTURER [facility] LABORATORY [facility] LYMPHOCYTE ABSOLUTE 1.60 0.70 - 4.50 K/uL 09/16/2022 8:39 AM MANUFACTURER [facility] LABORATORY [facility] MONOCYTE ABSOLUTE 1.00 0.10 - 1.30 K/uL 09/16/2022 8:39 AM [facility] EOSINOPHIL ABSOLUTE 0.80(H) 0.00 - 0.70 K/uL 09/16/2022 8:39 AM [facility] BASOPHILS ABSOLUTE 0.10 0.00 - 0.20 K/uL 09/16/2022 8:39 AM MANUFACTURER [facility] Blood Collection / Unknown 09/16/2022 3:45 AM MANUFACTURER 09/16/2022 8:34 AM MANUFACTURER us Franco Apple MD HEMATOLOGY ORDERABLES Final Resu lt [facility] CLIA# [id number] [place] [address] * (ABNORMAL) BASIC METABOLIC PANEL (09/16/2022 3:45 AM MANUFACTURER) SODIUM 141 136 - 145 mmol/L 09/16/2022 8:59 AM [facility] POTASSIUM 3.8 3.4 - 5.1 mmol/L 09/16/2022 8:59 AM [facility] CHLORIDE 92(L) 98 - 107 mmol/L 09/16/2022 8:59 AM [facility] CO2 41(H) 22 - 29 mmol/L 09/16/2022 8:59 AM [facility] CALCIUM 9.8 8.6 - 10.4 mg/dL 09/16/2022 8:59 AM [facility] BUN 48(H) 6 - 20 mg/dL 09/16/2022 8:59 AM [facility] CREATININE 0.78 0.67 - 1.17 mg/dL 09/16/2022 8:59 AM [facility] Comment:The GFR result is no t clinically significant on patients <18 or >70 years of age. GLUCOSE 258(H) 74 - 99 mg/dL 09/16/2022 8:59 AM [facility] GFR >60 mL/min/1.7 3 sq meter 09/16/2022 8:59 AM MANUFACTURER [facility] LABORATORY [facility] Comment:eGFR calculated with 2020 CKD-EPI equation. Vegetarian diet, extremely high or low muscle mass, and may affect results. Cystatin C with Glomerular Filtration Rate is a suitable alternative for these patients. ANION GAP 8 8 - 16 mmol/L 09/16/2022 8:59 AM MANUFACTURER [facility] LABORATORY [facility] Blood Collection / Unknown 09/16/2022 3:45 AM MANUFACTURER 09/16/2022 8:31 AM MANUFACTURER us Franco Apple MD CHEMISTRY ORDERABLES Final Resul t [facility] [employer] [facility] CLIA# [id number] [address] [place] [address] documented in this encounter Visit Diagnoses Not on filedocumented in this encounter Additional Health Concerns Infection Onset Date Last Indicated Resolved Time MRSA Comment:09/2022 sputum Resolved per Type and Duration of Precautions Recommended for Selected Infections and Conditions document 2023 update 09/16/2022 09/28/202206/04 4:18 PM CDT documented as of this encounter
--- OUTSIDE RECORDS SUMMARY | 2025-01-05 04:01 | XMS_ITS | Encounter Summary ---
Author Organization [facility] Address [address] [place] [address] Care Team Providers Care Centrifugal Operator Name Role Phone Unavailable Primary Care Provider Unavailabl e Encounter Details Date Type Department Care Team (Late st Contact Info) Description 09/19/2022 Lab Requisition [facility] Laboratory Services [address] [place] [address] [place] [address] [facility] [place] [address] Social History Tobacco Use Types Packs/Day Years Used Date Smoking Tobacco: Never Assessed Sex and Gender Information Value Date Recorded Sex Assigned at Not on file Legal Sex Male 2:27 PM MIGRANT LEADER Gender Identity Not on file Sexual Orientation Not on file COVID-19 Exposure Response Date Recorded In the last 10 days, have yo u been in contact with someone who was confirmed or suspected to have Coronavirus/COVID-19? Unable to assess 09/18/2022 6:07 AM MIGRANT LEADER documented as of this encounter Plan of Treatment Not on file documented as of this encounter Procedures Procedure Name Priority Date/Time Associated Diagnosis Comments CBC WITH DIFFERENTIAL Routine 09/19/2022 2:40 AM MIGRANT LEADER PHOSPHORUS Routine 09/19/2022 2:40 AM MIGRANT LEADER BASIC METABOLIC PANEL Routine 09/19/2022 2:40 AM MIGRANT LEADER documented in this encounter Results * (ABNORMAL) CBC WITH DIFFERENTIAL (09/19/2022 2:40 AM MIGRANT LEADER) WBC 8.3 4.5 - 10.5 K/uL 09/19/2022 5:36 AM MIGRANT LEADER [facility] LABORATORY [facility] RBC 2.65(L) 4.50 - 5.40 M/uL 09/19/2022 5:36 AM MIGRANT LEADER [facility] LABORATORY [facility] HEMOGLOBIN 7.9(L) 13.6 - 16.5 g/dL 09/19/2022 5:36 AM MIGRANT LEADER [facility] LABORATORY [facility] HEMATOCRIT 23.9(L) 40.0 - 48.0 % 09/19/2022 5:36 AM MIGRANT LEADER [facility] LABORATORY [facility] MCV 90.2 82.0 - 99.0 fL 09/19/2022 5:36 AM MIGRANT LEADER [facility] LABORATORY [facility] MCH 29.9 27.8 - 34.5 pg 09/19/2022 5:36 AM [facility] LABORATORY [facility] MCHC 33.2 32.5 - 35.5 g/dL 09/19/2022 5:36 AM [facility] LABORATORY [facility] RDW 18.3(H) 11.5 - 14.5 % 09/19/2022 5:36 AM MIGRANT LEADER [facility] LABORATORY [facility] PLATELETS 198 160 - 420 K/uL 09/19/2022 5:36 AM MIGRANT LEADER [facility] LABORATORY [facility] MPV 9.7 8.7 - 12.7 fL 09/19/2022 5:36 AM MIGRANT LEADER [facility] LABORATORY [facility] NEUTROPHILS 59 % 09/19/2022 5:36 AM MIGRANT LEADER [facility] LABORATORY [facility] LYMPHOCYTES 24 % 09/19/2022 5:36 AM MIGRANT LEADER [facility] LABORATORY SERVICES [facility] MONOCYTES 7 % 09/19/2022 5:36 AM MIGRANT LEADER [facility] LABORATORY SERVICES [facility] EOSINOPHILS 10 % 09/19/2022 5:36 AM MIGRANT LEADER [facility] LABORATORY SERVICES [facility] BASOPHILS 1 % 09/19/2022 5:36 AM MIGRANT LEADER [facility] LABORATORY SERVICES [facility] NEUTROPHIL ABSOLUTE 4.90 1.90 - 7.00 K/uL 09/19/2022 5:36 AM MIGRANT LEADER [facility] LABORATORY [facility] LYMPHOCYTE ABSOLUTE 2.00 0.70 - 4.50 K/uL 09/19/2022 5:36 AM MIGRANT LEADER [facility] LABORATORY SERVICES [facility] MONOCYTE ABSOLUTE 0.60 0.10 - 1.30 K/uL 09/19/2022 5:36 AM MIGRANT LEADER [facility] LABORATORY [facility] EOSINOPHIL ABSOLUTE 0.80(H) 0.00 - 0.70 K/uL 09/19/2022 5:36 AM MIGRANT LEADER [facility] LABORATORY [facility] BASOPHILS ABSOLUTE 0.00 0.00 - 0.20 K/uL 09/19/2022 5:36 AM MIGRANT LEADER [facility] Blood Collection / Unknown 09/19/2022 2:40 AM MIGRANT LEADER 09/19/2022 5:31 AM MIGRANT LEADER Franco Apple MD HEMATOLOGY ORDERABLES Final Resu lt [facility]# [id number] [address] [place] [address] * (ABNORMAL) PHOSPHORUS (09/19/2022 2:40 AM MIGRANT LEADER) PHOSPHORUS 2.2(L) 2.5 - 4.5 mg/dL 09/19/2022 6:27 AM MIGRANT LEADER [facility] Blood Collection / Unknown 09/19/2022 2:40 AM MIGRANT LEADER 09/19/2022 5:37 AM MIGRANT LEADER Franco Apple MD CHEMISTRY ORDERABLES Final Resul t [facility]# [id number] [place] [address] * (ABNORMAL) BASIC METABOLIC PANEL (09/19/2022 2:40 AM MIGRANT LEADER) SODIUM 144 136 - 145 mmol/L 09/19/2022 6:33 AM MIGRANT LEADER [facility] LABORATORY [facility] POTASSIUM 3.5 3.4 - 5.1 mmol/L 09/19/2022 6:33 AM MIGRANT LEADER [facility] LABORATORY [facility] CHLORIDE 95(L) 98 - 107 mmol/L 09/19/2022 6:33 AM [facility] CO2 42(H) 22 - 29 mmol/L 09/19/2022 6:33 AM [facility] CALCIUM 9.2 8.6 - 10.4 mg/dL 09/19/2022 6:33 AM [facility] BUN 53(H) 6 - 20 mg/dL 09/19/2022 6:33 AM [facility] CREATININE 0.80 0.67 - 1.17 mg/dL 09/19/2022 6:33 AM [facility] Comment:The GFR result is no t clinically significant on patients <18 or >70 years of age. GLUCOSE 200(H) 74 - 99 mg/dL 09/19/2022 6:33 AM [facility] GFR >60 mL/min/1.7 3 sq meter 09/19/2022 6:33 AM [facility] Comment:eGFR calculated with 2020 CKD-EPI equation. Vegetarian diet, extremely high or low muscle mass, and may affect results. Cystatin C with Glomerular Filtration Rate is a suitable alternative for these patients. ANION GAP 7(L) 8 - 16 mmol/L 09/19/2022 6:33 AM [facility] Blood Collection / Unknown 09/19/2022 2:40 AM MIGRANT LEADER 09/19/2022 5:37 AM MIGRANT LEADER us Franco Apple MD CHEMISTRY ORDERABLES Final Resul t [facility] CLIA# [id number] [address] [place] [address] documented in this encounter Visit Diagnoses Not on filedocumented in this encounter Additional Health Concerns Infection Onset Date Last Indicated Resolved Time MRSA Comment:09/2022 sputum Resolved per Type and Duration of Precautions Recommended for Selected Infections and Conditions document 2023 update 09/16/2022 09/28/202206/04 4:18 PM CDT documented as of this encounter
--- OUTSIDE RECORDS SUMMARY | 2025-01-05 04:01 | XMS_ITS | Encounter Summary ---
Author Organization [facility] Address [address] [place] [address] Care Team Providers Care Sewer And Drain Technician Name Role Phone Unavailable Primary Care Provider Unavailabl e Encounter Details Date Type Department Care Team (Late st Contact Info) Description 09/28/2022 Lab Requisition [facility] Laboratory Services [address] [place] [address] [place] [address] [address] [place] [address] Social History Tobacco Use Types Packs/Day Years Used Date Smoking Tobacco: Never Assessed Sex and Gender Information Value Date Recorded Sex Assigned at Not on file Legal Sex Male 2:27 PM STRING WINDING MACHINE OPERATOR Gender Identity Not on file Sexual Orientation Not on file COVID-19 Exposure Response Date Recorded In the last 10 days, have yo u been in contact with someone who was confirmed or suspected to have Coronavirus/COVID-19? Unable to assess 09/18/2022 6:07 AM STRING WINDING MACHINE OPERATOR documented as of this encounter Plan of Treatment Not on file documented as of this encounter Procedures Procedure Name Priority Date/Time Associated Diagnosis Comments SPUTUM CULTURE WITH GRAM STAIN Routine 09/28/2022 11:30 AM STRING WINDING MACHINE OPERATOR documented in this encounter Results * (ABNORMAL) SPUTUM CULTURE WITH GRAM STAIN (09/28/2022 11:30 AM STRING WINDING MACHINE OPERATOR) CULTURE METHICILLIN RESISTANT STAPHYLOCOCCUS AUREUS(A) KELLY MCG/ML 10/01/2022 12:35 PM STRING WINDING MACHINE OPERATOR [facility] LABORAT[facility] CULTURE Absent Normal Ira KELLY MCG/ML 10/01/2022 12:35 PM STRING WINDING MACHINE OPERATOR [facility] GRAM STAIN Non diagnostic pattern 10/01/2022 12:35 PM [facility]. [facility] GRAM STAIN 4+ (Heavy) WBC 10/01/2022 12:35 PM [facility]. [facility]BI Sputum Collection / Unknown 09/28/2022 11:30 AM STRING WINDING MACHINE OPERATOR 09/28/2022 12:44 PM STRING WINDING MACHINE OPERATOR Narrative Organism Antibiotic Method Susceptibility Staphylococcus aureus, Methicillin resistant CLINDAMYCIN KELLY MCG/ML 0.25 mcg/mL: Resistant Staphylococcus aureus, Methicillin resistant OXACILLIN (Nafcillin) KELLY MCG/ML >=4 mcg/mL: Resistant Staphylococcus aureus, Methicillin resistant TRIMETHOPRIM/ SULFAMETHOXAZOLE KELLY MCG/ML <=10 mcg/mL: Susceptible Staphylococcus aureus, Methicillin resistant VANCOMYCIN KELLY MCG/ML <=0.5 mcg/mL: Susceptible Staphylococcus aureus, Methicillin resistant RIFAMPIN [...] resistant DOXYCYCLINE KELLY MCG/ML <=0.5 mcg/mL: Susceptible Hi Ortiz MD MICROBIOLOGY - [facility] ORDERABLES Final Result [facility]# [id number] [address] [place] [address] documented in this encounter Visit Diagnoses Not on filedocumented in this encounter Additional Health Concerns Infection Onset Date Last Indicated Resolved Time MRSA Comment:09/2022 sputum Resolved per Type and Duration of Precautions Recommended for Selected Infections and Conditions document 2023 update 09/16/2022 09/28/202206/04 4:18 PM CDT documented as of this encounter
--- OUTSIDE RECORDS SUMMARY | 2025-01-05 04:01 | XMS_ITS | Encounter Summary ---
Author Organization [facility] Address [address] [place] [address] Care Team Providers Care Magnetic Prospecting Supervisor Name Role Phone Unavailable Primary Care Provider Unavailabl e Encounter Details Date Type Department Care Team (Late st Contact Info) Description 09/20/2022 Lab Requisition [facility] Laboratory Services [address] [place] [address] [place] [address] [place] [address] Social History Tobacco Use Types Packs/Day Years Used Date Smoking Tobacco: Never Assessed Sex and Gender Information Value Date Recorded Sex Assigned at Not on file Legal Sex Male 2:27 PM RADIO FREQUENCY ENGINEER Gender Identity Not on file Sexual Orientation Not on file COVID-19 Exposure Response Date Recorded In the last 10 days, have yo u been in contact with someone who was confirmed or suspected to have Coronavirus/COVID-19? Unable to assess 09/18/2022 6:07 AM RADIO FREQUENCY ENGINEER documented as of this encounter Plan of Treatment Not on file documented as of this encounter Procedures Procedure Name Priority Date/Time Associated Diagnosis Comments CBC WITH DIFFERENTIAL Routine 09/20/2022 2:30 AM RADIO FREQUENCY ENGINEER BASIC METABOLIC PANEL Routine 09/20/2022 2:30 AM RADIO FREQUENCY ENGINEER documented in this encounter Results * (ABNORMAL) CBC WITH DIFFERENTIAL (09/20/2022 2:30 AM RADIO FREQUENCY ENGINEER) Pathologist [facility] WBC 7.4 4.5 - 10.5 K/uL 09/20/2022 5:38 AM RADIO FREQUENCY ENGINEER [facility] RBC 2.70(L) 4.50 - 5.40 M/uL 09/20/2022 5:38 AM RADIO FREQUENCY ENGINEER [facility] HEMOGLOBIN 8.1(L) 13.6 - 16.5 g/dL 09/20/2022 5:38 AM [facility] HEMATOCRIT 24.5(L) 40.0 - 48.0 % 09/20/2022 5:38 AM RADIO FREQUENCY ENGINEER [facility] MCV 90.8 82.0 - 99.0 fL 09/20/2022 5:38 AM RADIO FREQUENCY ENGINEER [facility] MCH 30.1 27.8 - 34.5 pg 09/20/2022 5:38 AM RADIO FREQUENCY ENGINEER [facility] MCHC 33.2 32.5 - 35.5 g/dL 09/20/2022 5:38 AM [facility] RDW 18.3(H) 11.5 - 14.5 % 09/20/2022 5:38 AM RADIO FREQUENCY ENGINEER [facility] PLATELETS 204 160 - 420 K/uL 09/20/2022 5:38 AM RADIO FREQUENCY ENGINEER [facility] MPV 9.9 8.7 - 12.7 fL 09/20/2022 5:38 AM RADIO FREQUENCY ENGINEER [facility] NEUTROPHILS 60 % 09/20/2022 5:38 AM RADIO FREQUENCY ENGINEER [facility] LYMPHOCYTES 24 % 09/20/2022 5:38 AM RADIO FREQUENCY ENGINEER [facility] MONOCYTES 7 % 09/20/2022 5:38 AM RADIO FREQUENCY ENGINEER [facility] EOSINOPHILS 8 % 09/20/2022 5:38 AM RADIO FREQUENCY ENGINEER [facility] BASOPHILS 1 % 09/20/2022 5:38 AM RADIO FREQUENCY ENGINEER [facility] NEUTROPHIL ABSOLUTE 4.40 1.90 - 7.00 K/uL 09/20/2022 5:38 AM RADIO FREQUENCY ENGINEER [facility] LYMPHOCYTE ABSOLUTE 1.80 0.70 - 4.50 K/uL 09/20/2022 5:38 AM RADIO FREQUENCY ENGINEER [facility] MONOCYTE ABSOLUTE 0.50 0.10 - 1.30 K/uL 09/20/2022 5:38 AM RADIO FREQUENCY ENGINEER [facility] EOSINOPHIL ABSOLUTE 0.60 0.00 - 0.70 K/uL 09/20/2022 5:38 AM RADIO FREQUENCY ENGINEER [facility] BASOPHILS ABSOLUTE 0.10 0.00 - 0.20 K/uL 09/20/2022 5:38 AM [facility] Blood 09/20/2022 2:30 AM RADIO FREQUENCY ENGINEER 09/20/2022 4:50 AM RADIO FREQUENCY ENGINEER us Franco Apple MD HEMATOLOGY ORDERABLES Final Resu lt [facility] CLIA# [id number] [place] [address] * (ABNORMAL) BASIC METABOLIC PANEL (09/20/2022 2:30 AM RADIO FREQUENCY ENGINEER) SODIUM 143 136 - 145 mmol/L 09/20/2022 5:40 AM [facility] POTASSIUM 3.7 3.4 - 5.1 mmol/L 09/20/2022 5:40 AM [facility] CHLORIDE 97(L) 98 - 107 mmol/L 09/20/2022 5:40 AM [facility] CO2 40(H) 22 - 29 mmol/L 09/20/2022 5:40 AM [facility] CALCIUM 9.8 8.6 - 10.4 mg/dL 09/20/2022 5:40 AM [facility] BUN 51(H) 6 - 20 mg/dL 09/20/2022 5:40 AM [facility] CREATININE 0.73 0.67 - 1.17 mg/dL 09/20/2022 5:40 AM [facility] Comment:The GFR result is no t clinically significant on patients <18 or >70 years of age. GLUCOSE 233(H) 74 - 99 mg/dL 09/20/2022 5:40 AM [facility] GFR >60 mL/min/1.7 3 sq meter 09/20/2022 5:40 AM [facility] Comment:eGFR calculated with 2020 CKD-EPI equation. Vegetarian diet, extremely high or low muscle mass, and may affect results. Cystatin C with Glomerular Filtration Rate is a suitable alternative for these patients. ANION GAP 6(L) 8 - 16 mmol/L 09/20/2022 5:40 AM RADIO FREQUENCY ENGINEER [facility] Blood 09/20/2022 2:30 AM RADIO FREQUENCY ENGINEER 09/20/2022 4:50 AM RADIO FREQUENCY ENGINEER us Franco Apple MD CHEMISTRY ORDERABLES Final Resul t [facility] [employer] [facility] CLIA# [id number] [address] [place] [address] documented in this encounter Visit Diagnoses Not on filedocumented in this encounter Additional Health Concerns Infection Onset Date Last Indicated Resolved Time MRSA Comment:09/2022 sputum Resolved per Type and Duration of Precautions Recommended for Selected Infections and Conditions document 2023 update 09/16/2022 09/28/202206/04 4:18 PM CDT documented as of this encounter
--- OUTSIDE RECORDS SUMMARY | 2025-01-05 04:01 | XMS_ITS | Encounter Summary ---
Author Organization [facility] Address [address] [place] [address] Care Team Providers Care Director Business Integration Name Role Phone Unavailable Primary Care Provider Unavailabl e Encounter Details Date Type Department Care Team (Late st Contact Info) Description 09/11/2022 Lab Requisition [facility] Laboratory Services [address] [place] [address] [place] [address] [place] [address] Social History Tobacco Use Types Packs/Day Years Used Date Smoking Tobacco: Never Assessed Sex and Gender Information Value Date Recorded Sex Assigned at Not on file Legal Sex Male 2:27 PM UNIVERSITY LIBRARIAN Gender Identity Not on file Sexual Orientation Not on file COVID-19 Exposure Response Date Recorded In the last 10 days, have yo u been in contact with someone who was confirmed or suspected to have Coronavirus/COVID-19? Unable to assess 09/04/2022 2:29 PM UNIVERSITY LIBRARIAN documented as of this encounter Plan of Treatment Not on file documented as of this encounter Procedures Procedure Name Priority Date/Time Associated Diagnosis Comments CBC WITH DIFFERENTIAL Routine 09/11/2022 4:50 AM UNIVERSITY LIBRARIAN BASIC METABOLIC PANEL Routine 09/11/2022 4:50 AM UNIVERSITY LIBRARIAN documented in this encounter Results * (ABNORMAL) CBC WITH DIFFERENTIAL (09/11/2022 4:50 AM UNIVERSITY LIBRARIAN) WBC 8.4 4.5 - 10.5 K/uL 09/11/2022 6:59 AM UNIVERSITY LIBRARIAN [facility]OR[facility] SERVICES [facility] RBC 2.73(L) 4.50 - 5.40 M/uL 09/11/2022 6:59 AM UNIVERSITY LIBRARIAN [facility] HEMOGLOBIN 7.8(L) 13.6 - 16.5 g/dL 09/11/2022 6:59 AM [facility] HEMATOCRIT 24.5(L) 40.0 - 48.0 % 09/11/2022 6:59 AM UNIVERSITY LIBRARIAN [facility] MCV 89.7 82.0 - 99.0 fL 09/11/2022 6:59 AM UNIVERSITY LIBRARIAN [facility] MCH 28.6 27.8 - 34.5 pg 09/11/2022 6:59 AM UNIVERSITY LIBRARIAN [facility] MCHC 31.9(L) 32.5 - 35.5 g/dL 09/11/2022 6:59 AM [facility] RDW 17.4(H) 11.5 - 14.5 % 09/11/2022 6:59 AM UNIVERSITY LIBRARIAN [facility] PLATELETS 233 160 - 420 K/uL 09/11/2022 6:59 AM UNIVERSITY LIBRARIAN [facility] LAB[facility] MPV 9.0 8.7 - 12.7 fL 09/11/2022 6:59 AM UNIVERSITY LIBRARIAN [facility] NEUTROPHILS 63 % 09/11/2022 6:59 AM UNIVERSITY LIBRARIAN [facility] LYMPHOCYTES 19 % 09/11/2022 6:59 AM UNIVERSITY LIBRARIAN [facility] MONOCYTES 8 % 09/11/2022 6:59 AM UNIVERSITY LIBRARIAN [facility] SERVICES [facility] EOSINOPHILS 10 % 09/11/2022 6:59 AM UNIVERSITY LIBRARIAN [facility] BASOPHILS 1 % 09/11/2022 6:59 AM UNIVERSITY LIBRARIAN [facility] NEUTROPHIL ABSOLUTE 5.30 1.90 - 7.00 K/uL 09/11/2022 6:59 AM UNIVERSITY LIBRARIAN [facility] LYMPHOCYTE ABSOLUTE 1.60 0.70 - 4.50 K/uL 09/11/2022 6:59 AM UNIVERSITY LIBRARIAN [facility] MONOCYTE ABSOLUTE 0.70 0.10 - 1.30 K/uL 09/11/2022 6:[address] [facility] EOSINOPHIL ABSOLUTE 0.80(H) 0.00 - 0.70 K/uL 09/11/2022 6:59 AM UNIVERSITY LIBRARIAN [facility] BASOPHILS ABSOLUTE 0.00 0.00 - 0.20 K/uL 09/11/2022 6:[address] [facility] Blood Collection / Unknown 09/11/2022 4:50 AM UNIVERSITY LIBRARIAN 09/11/2022 6:47 AM UNIVERSITY LIBRARIAN us Franco Apple MD HEMATOLOGY ORDERABLES Final Resu lt [facility] CLIA# [id number] [place] [address] * (ABNORMAL) BASIC METABOLIC PANEL (09/11/2022 4:50 AM UNIVERSITY LIBRARIAN) SODIUM 139 136 - 145 mmol/L 09/11/2022 7:[address] [facility] POTASSIUM 3.8 3.4 - 5.1 mmol/L 09/11/2022 7:[address] [facility] CHLORIDE 90(L) 98 - 107 mmol/L 09/11/2022 7:[address] [facility] CO2 42(H) 22 - 29 mmol/L 09/11/2022 7:[address] [facility] CALCIUM 9.3 8.6 - 10.4 mg/dL 09/11/2022 7:[address] [facility] BUN 28(H) 6 - 20 mg/dL 09/11/2022 7:[address] [facility] CREATININE 0.65(L) 0.67 - 1.17 mg/dL 09/11/2022 7:[address] [facility] Comment:The GFR result is no t clinically significant on patients <18 or >70 years of age. GLUCOSE 321(H) 74 - 99 mg/dL 09/11/2022 7:[address] [facility] GFR >60 mL/min/1.7 3 sq meter 09/11/2022 7:25 AM UNIVERSITY LIBRARIAN [facility] Comment:eGFR calculated with 2020 CKD-EPI equation. Vegetarian diet, extremely high or low muscle mass, and may affect results. Cystatin C with Glomerular Filtration Rate is a suitable alternative for these patients. ANION GAP 7(L) 8 - 16 mmol/L 09/11/2022 7:25 AM UNIVERSITY LIBRARIAN [facility] Blood Collection / Unknown 09/11/2022 4:50 AM UNIVERSITY LIBRARIAN 09/11/2022 6:47 AM UNIVERSITY LIBRARIAN us Franco Apple MD CHEMISTRY ORDERABLES Final Resul t [facility] [email or web address] [facility] CLIA# [id number] [place] [address] documented in this encounter Visit Diagnoses Not on filedocumented in this encounter Additional Health Concerns Infection Onset Date Last Indicated Resolved Time MRSA Comment:09/2022 sputum Resolved per Type and Duration of Precautions Recommended for Selected Infections and Conditions document 2023 update 09/16/2022 09/28/202206/04 4:18 PM CDT documented as of this encounter
--- OUTSIDE RECORDS SUMMARY | 2025-01-05 04:01 | XMS_ITS | Encounter Summary ---
Author Organization [facility] Address [address] [place] [address] Care Team Providers Care Hardware Developer Name Role Phone Unavailable Primary Care Provider Unavailabl e Encounter Details Date Type Department Care Team (Late st Contact Info) Description 01/04/2023 Lab Requisition [facility] Laboratory Services [address] [place] [address] [place] [address] [place] [address] Social History Tobacco Use Types Packs/Day Years Used Date Smoking Tobacco: Never Assessed Sex and Gender Information Value Date Recorded Sex Assigned at Not on file Legal Sex Male 2:27 PM DATAPOWER DEVELOPER Gender Identity Not on file Sexual Orientation Not on file COVID-19 Exposure Response Date Recorded In the last 10 days, have yo u been in contact with someone who was confirmed or suspected to have Coronavirus/COVID-19? Unable to assess 01/04/2023 7:06 AM CDT documented as of this encounter Plan of Treatment Not on file documented as of this encounter Procedures Procedure Name Priority Date/Time Associated Diagnosis Comments BASIC METABOLIC PANEL Routine 01/04/2023 4:00 AM CDT documented in this encounter Results * (ABNORMAL) BASIC METABOLIC PANEL (01/04/2023 4:00 AM CDT) SODIUM 141 136 - 145 mmol/L 01/04/2023 9:32 AM CDT [facility] POTASSIUM 3.8 3.4 - 5.1 mmol/L 01/04/2023 9:32 AM CDT [facility] CHLORIDE 98 98 - 107 mmol/L 01/04/2023 9:32 AM CDT [facility] CO2 26 22 - 29 mmol/L 01/04/2023 9:32 AM CDT [facility] CALCIUM 10.5(H) 8.6 - 10.4 mg/dL 01/04/2023 9:32 AM CDT [facility] BUN 73(H) 6 - 20 mg/dL 01/04/2023 9:32 AM CDT [facility] CREATININE 1.14 0.67 - 1.17 mg/dL 01/04/2023 9:32 AM CDT [facility] Comment:The GFR result is no t clinically significant on patients <18 or >70 years of age. GLUCOSE 188(H) 74 - 99 mg/dL 01/04/2023 9:32 AM CDT [facility] GFR >60 mL/min/1.7 3 sq meter 01/04/2023 9:32 AM CDT [facility] Comment:eGFR calculated with 2020 CKD-EPI equation. Vegetarian diet, extremely high or low muscle mass, and may affect results. Cystatin C with Glomerular Filtration Rate is a suitable alternative for these patients. ANION GAP 17(H) 8 - 16 mmol/L 01/04/2023 9:32 AM CDT [facility] Blood Collection / Unknown 01/04/2023 4:00 AM CDT 01/04/2023 8:52 AM CDT us Franco Apple MD CHEMISTRY ORDERABLES Final Resul t [facility] CLIA# [id number] [address] [place] [address] documented in this encounter Visit Diagnoses Not on filedocumented in this encounter Additional Health Concerns Infection Onset Date Last Indicated Resolved Time MRSA Comment:09/2022 sputum Resolved per Type and Duration of Precautions Recommended for Selected Infections and Conditions document 2023 update 09/16/2022 09/28/2022 09/1 03/2024 4:18 PM CDT documented as of this encounter
--- OUTSIDE RECORDS SUMMARY | 2025-01-05 04:01 | XMS_ITS | Encounter Summary ---
Author Organization [facility] Address [address] [place] [address] Care Team Providers Care Data Designer Name Role Phone Unavailable Primary Care Provider Unavailabl e Encounter Details Date Type Department Care Team (Late st Contact Info) Description 10/06/2022 Lab Requisition [facility] Laboratory Services [address] [place] [address] [place] [address] [place] [address] Social History Tobacco Use Types Packs/Day Years Used Date Smoking Tobacco: Never Assessed Sex and Gender Information Value Date Recorded Sex Assigned at Not on file Legal Sex Male 2:27 PM HAMMER HEATER Gender Identity Not on file Sexual Orientation Not on file COVID-19 Exposure Response Date Recorded In the last 10 days, have yo u been in contact with someone who was confirmed or suspected to have Coronavirus/COVID-19? Unable to assess 10/04/2022 4:56 PM HAMMER HEATER documented as of this encounter Plan of Treatment Not on file documented as of this encounter Procedures Procedure Name Priority Date/Time Associated Diagnosis Comments HEPATIC FUNCTION PANEL Routine 10/06/2022 3:30 AM HAMMER HEATER documented in this encounter Results * (ABNORMAL) HEPATIC FUNCTION PANEL (10/06/2022 3:30 AM HAMMER HEATER) TOTAL PROTEIN 7.3 6.3 - 8.7 g/dL 10/06/2022 7:46 AM HAMMER HEATER [facility] SERVICES - [facility] ALBUMIN 2.7(L) 3.5 - 5.2 g/dL 10/06/2022 7:46 AM HAMMER HEATER [facility] BILIRUBIN TOTAL 0.5 0.2 - 1.1 mg/dL 10/06/2022 7:46 AM HAMMER HEATER [facility] BILIRUBIN DIRECT <0.2 0.0 - 0.3 mg/dL 10/06/2022 7:46 AM HAMMER HEATER [facility] ALKALINE PHOSPHATASE 212(H) 40 - 150 U/L 10/06/2022 7:46 AM HAMMER HEATER [facility] AST 34 0 - 41 U/L 10/06/2022 7:46 AM HAMMER HEATER [facility] ALT 17 0 - 41 U/L 10/06/2022 7:46 AM HAMMER HEATER [facility] Blood Collection / Unknown 10/06/2022 3:30 AM HAMMER HEATER 10/06/2022 7:46 AM HAMMER HEATER Franco Apple MD CHEMISTRY ORDERABLES Final Resul t [facility] CLIA# [id number] [address] [place] [address] documented in this encounter Visit Diagnoses Not on filedocumented in this encounter Additional Health Concerns Infection Onset Date Last Indicated Resolved Time MRSA Comment:09/2022 sputum Resolved per Type and Duration of Precautions Recommended for Selected Infections and Conditions document 2023 update 09/16/2022 09/28/202206/04 4:18 PM CDT documented as of this encounter
--- OUTSIDE RECORDS SUMMARY | 2025-01-05 04:01 | XMS_ITS | Encounter Summary ---
Author Organization [facility] Address [address] [place] [address] Care Team Providers Care Residential Therapist Name Role Phone Unavailable Primary Care Provider Unavailabl e Encounter Details Date Type Department Care Team (Late st Contact Info) Description 10/17/2022 Lab Requisition [facility] Laboratory Services [address] [place] [address] [place] [address] [place] [address] Social History Tobacco Use Types Packs/Day Years Used Date Smoking Tobacco: Never Assessed Sex and Gender Information Value Date Recorded Sex Assigned at Not on file Legal Sex Male 2:27 PM TABLE AND DESK FINISHER Gender Identity Not on file Sexual Orientation Not on file COVID-19 Exposure Response Date Recorded In the last 10 days, have yo u been in contact with someone who was confirmed or suspected to have Coronavirus/COVID-19? Unable to assess 10/04/2022 4:56 PM TABLE AND DESK FINISHER documented as of this encounter Plan of Treatment Not on file documented as of this encounter Procedures Procedure Name Priority Date/Time Associated Diagnosis Comments CBC WITH DIFFERENTIAL Routine 10/17/2022 3:30 AM TABLE AND DESK FINISHER BRAIN NATRIURETIC PEPTIDE, BNP OR PROBNP Routine 10/17/2022 3:30 AM TABLE AND DESK FINISHER BASIC METABOLIC PANEL Routine 10/17/2022 3:30 AM TABLE AND DESK FINISHER documented in this encounter Results * (ABNORMAL) CBC WITH DIFFERENTIAL (10/17/2022 3:30 AM TABLE AND DESK FINISHER) WBC 7.1 4.5 - 10.5 K/uL 10/17/2022 7:18 AM TABLE AND DESK FINISHER [facility] RBC 2.81(L) 4.50 - 5.40 M/uL 10/17/2022 7:18 AM [facility] HEMOGLOBIN 8.5(L) 13.6 - 16.5 g/dL 10/17/2022 7:18 AM TABLE AND DESK FINISHER [facility] HEMATOCRIT 26.2(L) 40.0 - 48.0 % 10/17/2022 7:18 AM TABLE AND DESK FINISHER [facility] MCV 93.3 82.0 - 99.0 fL 10/17/2022 7:18 AM TABLE AND DESK FINISHER [facility] MCH 30.2 27.8 - 34.5 pg 10/17/2022 7:18 AM TABLE AND DESK FINISHER [facility] MCHC 32.3(L) 32.5 - 35.5 g/dL 10/17/2022 7:18 AM TABLE AND DESK FINISHER [facility] RDW 16.9(H) 11.5 - 14.5 % 10/17/2022 7:18 AM TABLE AND DESK FINISHER [facility] PLATELETS 198 160 - 420 K/uL 10/17/2022 7:18 AM TABLE AND DESK FINISHER [facility] MPV 9.6 8.7 - 12.7 fL 10/17/2022 7:18 AM TABLE AND DESK FINISHER [facility] SERVICES [facility] NEUTROPHILS 65 % 10/17/2022 7:18 AM TABLE AND DESK FINISHER [facility] LYMPHOCYTES 20 % 10/17/2022 7:18 AM TABLE AND DESK FINISHER [facility] SERVICES [facility] MONOCYTES 8 % 10/17/2022 7:18 AM TABLE AND DESK FINISHER [facility] SERVICES [facility] EOSINOPHILS 6 % 10/17/2022 7:18 AM TABLE AND DESK FINISHER [facility] SERVICES [facility] BASOPHILS 1 % 10/17/2022 7:18 AM TABLE AND DESK FINISHER [facility] SERVICES [facility] NEUTROPHIL ABSOLUTE 4.50 1.90 - 7.00 K/uL 10/17/2022 7:18 AM TABLE AND DESK FINISHER [facility] LYMPHOCYTE ABSOLUTE 1.40 0.70 - 4.50 K/uL 10/17/2022 7:18 AM TABLE AND DESK FINISHER [facility] SERVICES [facility] MONOCYTE ABSOLUTE 0.60 0.10 - 1.30 K/uL 10/17/2022 7:18 AM TABLE AND DESK FINISHER [facility] SERVICES - [facility] EOSINOPHIL ABSOLUTE 0.50 0.00 - 0.70 K/uL 10/17/2022 7:18 AM TABLE AND DESK FINISHER [facility] SERVICES - [facility] BASOPHILS ABSOLUTE 0.00 0.00 - 0.20 K/uL 10/17/2022 7:18 AM TABLE AND DESK FINISHER [facility] Blood 10/17/2022 3:30 AM TABLE AND DESK FINISHER 10/17/2022 7:07 AM TABLE AND DESK FINISHER Franco Apple MD HEMATOLOGY ORDERABLES Final Resu lt Performing Organization Address City/[facility]/ZIP Co de Phone Number [facility] CLIA# [id number] [place] [address] * BRAIN NATRIURETIC PEPTIDE, BNP OR PROBNP (10/17/2022 3:30 AM TABLE AND DESK FINISHER) PROBNP, N TERMINAL 690 0 - 900 pg/mL 10/17/2022 7:41 AM TABLE AND DESK FINISHER [facility] Comment: Reference values for screening purposes based on rehabilitation engineer's recommendation: Patients less than 75 years: <125 pg/mL Patients 75 years and older: <450 pg/mL Reference values for determination of acute congestive heart failure in dyspneic patients based on PRIDE study (Am J Cardiol 2005;95:948): Patients less than 50 years: <450 pg/mL (Negative predictive value= 99%) Patients 50 years and older: <900 pg/mL (Negative predictive value= 92%) Rule out cutpoint, all ages: <300 pg/mL (Negative predictive value= 99%) Blood 10/17/2022 3:30 AM TABLE AND DESK FINISHER 10/17/2022 7:07 AM TABLE AND DESK FINISHER Franco Apple MD CHEMISTRY ORDERABLES Final Resul t Performing Organization Address City/[facility]/ZIP Co de Phone Number [facility] CLIA# [id number] [place] [address] * (ABNORMAL) BASIC METABOLIC PANEL (10/17/2022 3:30 AM TABLE AND DESK FINISHER) SODIUM 138 136 - 145 mmol/L 10/17/2022 7:[address] [facility] POTASSIUM 3.3(L) 3.4 - 5.1 mmol/L 10/17/2022 7:[address] [facility] CHLORIDE 90(L) 98 - 107 mmol/L 10/17/2022 7:[address] [facility] CO2 36(H) 22 - 29 mmol/L 10/17/2022 7:[address] [facility] CALCIUM 9.9 8.6 - 10.4 mg/dL 10/17/2022 7:[address] [facility] BUN 52(H) 6 - 20 mg/dL 10/17/2022 7:[address] [facility] CREATININE 0.73 0.67 - 1.17 mg/dL 10/17/2022 7:[address] [facility] Comment:The GFR result is no t clinically significant on patients <18 or >70 years of age. GLUCOSE 202(H) 74 - 99 mg/dL 10/17/2022 7:[address] [facility] GFR >60 mL/min/1.7 3 sq meter 10/17/2022 7:[address] [facility] Comment:eGFR calculated with 2020 CKD-EPI equation. Vegetarian diet, extremely high or low muscle mass, and may affect results. Cystatin C with Glomerular Filtration Rate is a suitable alternative for these patients. ANION GAP 12 8 - 16 mmol/L 10/17/2022 7:[address] [facility] Blood 10/17/2022 3:30 AM TABLE AND DESK FINISHER 10/17/2022 7:07 AM TABLE AND DESK FINISHER us Franco Apple MD CHEMISTRY ORDERABLES Final Resul t [facility] CLIA# [id number] [place] [address] documented in this encounter Visit Diagnoses Not on filedocumented in this encounter Additional Health Concerns Infection Onset Date Last Indicated Resolved Time MRSA Comment:09/2022 sputum Resolved per Type and Duration of Precautions Recommended for Selected Infections and Conditions document 2023 update 09/16/2022 09/28/202206/04 4:18 PM CDT documented as of this encounter
--- OUTSIDE RECORDS SUMMARY | 2025-01-05 04:01 | XMS_ITS | Encounter Summary ---
Author Organization [facility] Address [address] [place] [address] Care Team Providers Care Impregnator Electrolytic Capacitors Name Role Phone Unavailable Primary Care Provider Unavailabl e Encounter Details Date Type Department Care Team (Late st Contact Info) Description 12/28/2022 Lab Requisition [facility] Laboratory Services [address] [place] [address] [place] [address] [place] [address] Social History Tobacco Use Types Packs/Day Years Used Date Smoking Tobacco: Never Assessed Sex and Gender Information Value Date Recorded Sex Assigned at Not on file Legal Sex Male 2:27 PM DIRECTOR MARKET RESEARCH Gender Identity Not on file Sexual Orientation Not on file COVID-19 Exposure Response Date Recorded In the last 10 days, have yo u been in contact with someone who was confirmed or suspected to have Coronavirus/COVID-19? Unable to assess 12/28/2022 6:27 AM CDT documented as of this encounter Plan of Treatment Not on file documented as of this encounter Procedures Procedure Name Priority Date/Time Associated Diagnosis Comments CBC WITH DIFFERENTIAL Routine 12/28/2022 4:00 AM CDT BASIC METABOLIC PANEL Routine 12/28/2022 4:00 AM CDT documented in this encounter Results * (ABNORMAL) CBC WITH DIFFERENTIAL (12/28/2022 4:00 AM CDT) WBC 8.6 4.5 - 10.5 K/uL 12/28/2022 5:49 AM CDT [facility] RBC 3.44(L) 4.50 - 5.40 M/uL 12/28/2022 5:49 AM CDT [facility] SERVICES [facility] HEMOGLOBIN 10.6(L) 13.6 - 16.5 g/dL 12/28/2022 5:49 AM CDT [facility] SERVICES - [facility] HEMATOCRIT 32.5(L) 40.0 - 48.0 % 12/28/2022 5:49 AM CDT [facility] SERVICES [facility] MCV 94.3 82.0 - 99.0 fL 12/28/2022 5:49 AM CDT [facility] SERVICES [facility] MCH 30.7 27.8 - 34.5 pg 12/28/2022 5:49 AM CDT [facility] SERVICES [facility] MCHC 32.5 32.5 - 35.5 g/dL 12/28/2022 5:49 AM CDT [facility] SERVICES [facility] RDW 17.3(H) 11.5 - 14.5 % 12/28/2022 5:49 AM CDT [facility] SERVICES [facility] PLATELETS 204 160 - 420 K/uL 12/28/2022 5:49 AM CDT [facility] SERVICES [facility] MPV 10.2 8.7 - 12.7 fL 12/28/2022 5:49 AM CDT [facility] SERVICES [facility] NEUTROPHILS 58 % 12/28/2022 5:49 AM CDT [facility] SERVICES [facility] LYMPHOCYTES 22 % 12/28/2022 5:49 AM CDT [facility] SERVICES [facility] MONOCYTES 10 % 12/28/2022 5:49 AM CDT [facility] EOSINOPHILS 9 % 12/28/2022 5:49 AM CDT [facility] SERVICES [facility] BASOPHILS 1 % 12/28/2022 5:49 AM CDT [facility] SERVICES [facility] NEUTROPHIL ABSOLUTE 5.00 1.90 - 7.00 K/uL 12/28/2022 5:49 AM CDT [facility] SERVICES [facility] LYMPHOCYTE ABSOLUTE 1.90 0.70 - 4.50 K/uL 12/28/2022 5:49 AM CDT [facility] SERVICES [facility] MONOCYTE ABSOLUTE 0.90 0.10 - 1.30 K/uL 12/28/2022 5:49 AM CDT [facility] EOSINOPHIL ABSOLUTE 0.80(H) 0.00 - 0.70 K/uL 12/28/2022 5:49 AM CDT [facility] BASOPHILS ABSOLUTE 0.00 0.00 - 0.20 K/uL 12/28/2022 5:49 AM CDT [facility] Blood Collection / Unknown 12/28/2022 4:00 AM CDT 12/28/2022 5:28 AM CDT us Franco Apple MD HEMATOLOGY ORDERABLES Final Resu lt [facility] CLIA# [id number] [place] [address] * (ABNORMAL) BASIC METABOLIC PANEL (12/28/2022 4:00 AM CDT) SODIUM 145 136 - 145 mmol/L 12/28/2022 6:05 AM T [facility] POTASSIUM 4.6 3.4 - 5.1 mmol/L 12/28/2022 6:05 AM T [facility] CHLORIDE 99 98 - 107 mmol/L 12/28/2022 6:05 AM T [facility] CO2 30(H) 22 - 29 mmol/L 12/28/2022 6:05 AM [facility] CALCIUM 10.9(H) 8.6 - 10.4 mg/dL 12/28/2022 6:05 AM T [facility] BUN 104(H) 6 - 20 mg/dL 12/28/2022 6:05 AM T [facility] CREATININE 1.37(H) 0.67 - 1.17 mg/dL 12/28/2022 6:05 AM T [facility] Comment:The GFR result is no t clinically significant on patients <18 or >70 years of age. GLUCOSE 353(H) 74 - 99 mg/dL 12/28/2022 6:05 AM CDT [facility] GFR 54 mL/min/1.7 3 sq meter 12/28/2022 6:05 AM CDT [facility] Comment:eGFR calculated with 2020 CKD-EPI equation. Vegetarian diet, extremely high or low muscle mass, and may affect results. Cystatin C with Glomerular Filtration Rate is a suitable alternative for these patients. ANION GAP 16 8 - 16 mmol/L 12/28/2022 6:05 AM CDT [facility] Blood Collection / Unknown 12/28/2022 4:00 AM CDT 12/28/2022 5:28 AM CDT Franco Apple MD CHEMISTRY ORDERABLES Final Resul t [facility] CLIA# [id number] [address] [place] [address] documented in this encounter Visit Diagnoses Not on filedocumented in this encounter Additional Health Concerns Infection Onset Date Last Indicated Resolved Time MRSA Comment:09/2022 sputum Resolved per Type and Duration of Precautions Recommended for Selected Infections and Conditions document 2023 update 09/16/2022 09/28/202206/04 4:18 PM CDT documented as of this encounter
--- OUTSIDE RECORDS SUMMARY | 2025-01-05 04:01 | XMS_ITS | Encounter Summary ---
Author Organization [facility] Address [address] [place] [address] Care Team Providers Care In Room Dining Server Name Role Phone Unavailable Primary Care Provider Unavailabl e Encounter Details Date Type Department Care Team (Late st Contact Info) Description 10/30/2022 Lab Requisition [facility] Laboratory Services [address] [place] [address] [place] [address] [place] [address] Social History Tobacco Use Types Packs/Day Years Used Date Smoking Tobacco: Never Assessed Sex and Gender Information Value Date Recorded Sex Assigned at Not on file Legal Sex Male 2:27 PM POLICE INSPECTOR Gender Identity Not on file Sexual Orientation Not on file COVID-19 Exposure Response Date Recorded In the last 10 days, have yo u been in contact with someone who was confirmed or suspected to have Coronavirus/COVID-19? Unable to assess 11/02/2022 6:59 AM POLICE INSPECTOR documented as of this encounter Plan of Treatment Not on file documented as of this encounter Procedures Procedure Name Priority Date/Time Associated Diagnosis Comments HEPATIC FUNCTION PANEL Routine 10/30/2022 3:30 AM POLICE INSPECTOR documented in this encounter Results * (ABNORMAL) HEPATIC FUNCTION PANEL (10/30/2022 3:30 AM POLICE INSPECTOR) TOTAL PROTEIN 7.5 6.3 - 8.7 g/dL 10/30/2022 6:52 AM POLICE INSPECTOR [facility] SERVICES - [facility] ALBUMIN 3.3(L) 3.5 - 5.2 g/dL 10/30/2022 6:52 AM POLICE INSPECTOR [facility] BILIRUBIN TOTAL 0.7 0.2 - 1.1 mg/dL 10/30/2022 6:52 AM POLICE INSPECTOR [facility] BILIRUBIN DIRECT <0.2 0.0 - 0.3 mg/dL 10/30/2022 6:52 AM POLICE INSPECTOR [facility] ALKALINE PHOSPHATASE 177(H) 40 - 150 U/L 10/30/2022 6:52 AM POLICE INSPECTOR [facility] AST 35 0 - 41 U/L 10/30/2022 6:52 AM POLICE INSPECTOR [facility] ALT 18 0 - 41 U/L 10/30/2022 6:52 AM POLICE INSPECTOR [facility] Blood 10/30/2022 3:30 AM POLICE INSPECTOR 10/30/2022 5:47 AM POLICE INSPECTOR Franco Apple MD CHEMISTRY ORDERABLES Final Resul t [facility] CLIA# [id number] [place] [address] documented in this encounter Visit Diagnoses Not on filedocumented in this encounter Additional Health Concerns Infection Onset Date Last Indicated Resolved Time MRSA Comment:09/2022 sputum Resolved per Type and Duration of Precautions Recommended for Selected Infections and Conditions document 2023 update 09/16/2022 09/28/202206/04 4:18 PM CDT documented as of this encounter
--- OUTSIDE RECORDS SUMMARY | 2025-01-05 04:01 | XMS_ITS | Encounter Summary ---
Author Organization [facility] Address [address] [place] [address] Care Team Providers Care Silver Steward Name Role Phone Unavailable Primary Care Provider Unavailabl e Encounter Details Date Type Department Care Team (Late st Contact Info) Description 10/04/2022 Lab Requisition [facility] Laboratory Services [address] [place] [address] [place] [address] [place] [address] Social History Tobacco Use Types Packs/Day Years Used Date Smoking Tobacco: Never Assessed Sex and Gender Information Value Date Recorded Sex Assigned at Not on file Legal Sex Male 2:27 PM QUOTATION CHECKER Gender Identity Not on file Sexual Orientation Not on file COVID-19 Exposure Response Date Recorded In the last 10 days, have yo u been in contact with someone who was confirmed or suspected to have Coronavirus/COVID-19? Unable to assess 10/04/2022 4:56 PM QUOTATION CHECKER documented as of this encounter Plan of Treatment Not on file documented as of this encounter Procedures Procedure Name Priority Date/Time Associated Diagnosis Comments C. DIFFICILE DETECTION Routine 10/04/2022 11:30 AM QUOTATION CHECKER documented in this encounter Results * C. DIFFICILE DETECTION (10/04/2022 11:30 AM QUOTATION CHECKER) TOXIGENIC C DIFFICILE NOT DETECTED Not Detected 10/04/2022 7:13 PM QUOTATION CHECKER [facility] Stool STOOL SPECIMEN / Unknown Collection / Unknown 10/04/2022 11:30 AM QUOTATION CHECKER 10/04/2022 6:24 PM QUOTATION CHECKER Narrative [facility] - 10/04/2022 7:13 PM QUOTATION CHECKER This assay is used to detect Toxigenic C. difficile target(B gene) DNA sequences in unformed stool specimens. If toxigenic C. difficile is not detected, but clinical suspicion is high please consult ID for consultation and potential repeat testing. This test should not be used as a test of cure. Franco Apple MD MICROBIOLOGY - GENERAL ORDERABLE S Final Result [facility] CLIA# [id number] [address] [place] [address] documented in this encounter Visit Diagnoses Not on filedocumented in this encounter Additional Health Concerns Infection Onset Date Last Indicated Resolved Time MRSA Comment:09/2022 sputum Resolved per Type and Duration of Precautions Recommended for Selected Infections and Conditions document 2023 update 09/16/2022 09/28/202206/04 4:18 PM CDT documented as of this encounter
--- OUTSIDE RECORDS SUMMARY | 2025-01-05 04:01 | XMS_ITS | Encounter Summary ---
Author Organization [facility] Address [address] [place] [address] Care Team Providers Care Dolphin Researcher Name Role Phone Unavailable Primary Care Provider Unavailabl e Encounter Details Date Type Department Care Team (Late st Contact Info) Description 10/28/2022 Lab Requisition [facility] Laboratory Services [address] [place] [address] [place] [address] [place] [address] Social History Tobacco Use Types Packs/Day Years Used Date Smoking Tobacco: Never Assessed Sex and Gender Information Value Date Recorded Sex Assigned at Not on file Legal Sex Male 2:27 PM ELECTRICAL ASSEMBLIES SUPERVISOR Gender Identity Not on file Sexual Orientation Not on file COVID-19 Exposure Response Date Recorded In the last 10 days, have yo u been in contact with someone who was confirmed or suspected to have Coronavirus/COVID-19? Unable to assess 10/04/2022 4:56 PM ELECTRICAL ASSEMBLIES SUPERVISOR documented as of this encounter Plan of Treatment Not on file documented as of this encounter Procedures Procedure Name Priority Date/Time Associated Diagnosis Comments HEPATIC FUNCTION PANEL Routine 10/28/2022 2:00 AM ELECTRICAL ASSEMBLIES SUPERVISOR BASIC METABOLIC PANEL Routine 10/28/2022 2:00 AM ELECTRICAL ASSEMBLIES SUPERVISOR documented in this encounter Results * (ABNORMAL) HEPATIC FUNCTION PANEL (10/28/2022 2:00 AM ELECTRICAL ASSEMBLIES SUPERVISOR) TOTAL PROTEIN 8.2 6.3 - 8.7 g/dL 10/28/2022 7:59 AM ELECTRICAL ASSEMBLIES SUPERVISOR [facility] - [facility] ALBUMIN 3.2(L) 3.5 - 5.2 g/dL 10/28/2022 7:59 AM [facility] BILIRUBIN TOTAL 0.8 0.2 - 1.1 mg/dL 10/28/2022 7:59 AM [facility] BILIRUBIN DIRECT <0.2 0.0 - 0.3 mg/dL 10/28/2022 7:59 AM [facility] ALKALINE PHOSPHATASE 194(H) 40 - 150 U/L 10/28/2022 7:59 AM [facility] AST 46(H) 0 - 41 U/L 10/28/2022 7:59 AM [facility] Comment:Hemolysis present. R esult may be falsely elevated. ALT 21 0 - 41 U/L 10/28/2022 7:59 AM [facility] Blood Collection / Unknown 10/28/2022 2:00 AM ELECTRICAL ASSEMBLIES SUPERVISOR 10/28/2022 6:46 AM ELECTRICAL ASSEMBLIES SUPERVISOR us Franco Apple MD CHEMISTRY ORDERABLES Final Resul t [facility] CLIA# [id number] [place] [address] * (ABNORMAL) BASIC METABOLIC PANEL (10/28/2022 2:00 AM ELECTRICAL ASSEMBLIES SUPERVISOR) SODIUM 138 136 - 145 mmol/L 10/28/2022 7:59 AM [facility] POTASSIUM 3.8 3.4 - 5.1 mmol/L 10/28/2022 7:59 AM [facility] Comment:Slightly hemolyzed. Result may be falsely elevated. CHLORIDE 86(L) 98 - 107 mmol/L 10/28/2022 7:59 AM [facility] CO2 40(H) 22 - 29 mmol/L 10/28/2022 7:59 AM [facility] CALCIUM 10.2 8.6 - 10.4 mg/dL 10/28/2022 7:59 AM [facility] BUN 63(H) 6 - 20 mg/dL 10/28/2022 7:59 AM [facility] CREATININE 0.76 0.67 - 1.17 mg/dL 10/28/2022 7:59 AM [facility] Comment:The GFR result is no t clinically significant on patients <18 or >70 years of age. GLUCOSE 180(H) 74 - 99 mg/dL 10/28/2022 7:59 AM [facility] GFR >60 mL/min/1.7 3 sq meter 10/28/2022 7:59 AM [facility] Comment:eGFR calculated with 2020 CKD-EPI equation. Vegetarian diet, extremely high or low muscle mass, and may affect results. Cystatin C with Glomerular Filtration Rate is a suitable alternative for these patients. ANION GAP 12 8 - 16 mmol/L 10/28/2022 7:59 AM [facility] Blood Collection / Unknown 10/28/2022 2:00 AM ELECTRICAL ASSEMBLIES SUPERVISOR 10/28/2022 6:46 AM ELECTRICAL ASSEMBLIES SUPERVISOR us Franco Apple MD CHEMISTRY ORDERABLES Final Resul t [facility] CLIA# [id number] [place] [address] documented in this encounter Visit Diagnoses Not on filedocumented in this encounter Additional Health Concerns Infection Onset Date Last Indicated Resolved Time MRSA Comment:09/2022 sputum Resolved per Type and Duration of Precautions Recommended for Selected Infections and Conditions document 2023 update 09/16/2022 09/28/202206/04 4:18 PM CDT documented as of this encounter
--- OUTSIDE RECORDS SUMMARY | 2025-01-05 04:01 | XMS_ITS | Encounter Summary ---
Author Organization [facility] Address [address] [place] [address] Care Team Providers Care Hearing Aid Dispenser Name Role Phone Unavailable Primary Care Provider Unavailabl e Encounter Details Date Type Department Care Team (Late st Contact Info) Description 09/23/2022 Lab Requisition [facility] Laboratory Services [address] [place] [address] [place] [address] [place] [address] Social History Tobacco Use Types Packs/Day Years Used Date Smoking Tobacco: Never Assessed Sex and Gender Information Value Date Recorded Sex Assigned at Not on file Legal Sex Male 2:27 PM SAUSAGE STRINGER Gender Identity Not on file Sexual Orientation Not on file COVID-19 Exposure Response Date Recorded In the last 10 days, have yo u been in contact with someone who was confirmed or suspected to have Coronavirus/COVID-19? Unable to assess 09/18/2022 6:07 AM SAUSAGE STRINGER documented as of this encounter Plan of Treatment Not on file documented as of this encounter Procedures Procedure Name Priority Date/Time Associated Diagnosis Comments CBC WITH DIFFERENTIAL Routine 09/23/2022 2:30 AM SAUSAGE STRINGER BASIC METABOLIC PANEL Routine 09/23/2022 2:30 AM SAUSAGE STRINGER documented in this encounter Results * (ABNORMAL) CBC WITH DIFFERENTIAL (09/23/2022 2:30 AM SAUSAGE STRINGER) Pathologist [facility] WBC 10.2 4.5 - 10.5 K/uL 09/23/2022 7:40 AM SAUSAGE STRINGER [facility] LABORATORY SERVICES [facility] RBC 2.60(L) 4.50 - 5.40 M/uL 09/23/2022 7:40 AM SAUSAGE STRINGER [facility] LABORATORY [facility] HEMOGLOBIN 7.9(L) 13.6 - 16.5 g/dL 09/23/2022 7:40 AM [facility] LABORATORY [facility] HEMATOCRIT 23.9(L) 40.0 - 48.0 % 09/23/2022 7:40 AM SAUSAGE STRINGER [facility] LABORATORY [facility] MCV 92.1 82.0 - 99.0 fL 09/23/2022 7:40 AM SAUSAGE STRINGER [facility] LABORATORY [facility] MCH 30.2 27.8 - 34.5 pg 09/23/2022 7:40 AM SAUSAGE STRINGER [facility] LABORATORY [facility] MCHC 32.8 32.5 - 35.5 g/dL 09/23/2022 7:40 AM [facility] LABORATORY [facility] RDW 18.6(H) 11.5 - 14.5 % 09/23/2022 7:40 AM SAUSAGE STRINGER [facility] LABORATORY [facility] PLATELETS 230 160 - 420 K/uL 09/23/2022 7:40 AM SAUSAGE STRINGER [facility] LABORATORY [facility] MPV 9.6 8.7 - 12.7 fL 09/23/2022 7:40 AM SAUSAGE STRINGER [facility] LABORATORY SERVICES [facility] NEUTROPHILS 64 % 09/23/2022 7:40 AM SAUSAGE STRINGER [facility] LABORATORY [facility] LYMPHOCYTES 23 % 09/23/2022 7:40 AM SAUSAGE STRINGER [facility] LABORATORY SERVICES [facility] MONOCYTES 7 % 09/23/2022 7:40 AM SAUSAGE STRINGER [facility] LABORATORY SERVICES [facility] EOSINOPHILS 6 % 09/23/2022 7:40 AM SAUSAGE STRINGER [facility] LABORATORY SERVICES [facility] BASOPHILS 1 % 09/23/2022 7:40 AM SAUSAGE STRINGER [facility] LABORATORY SERVICES [facility] NEUTROPHIL ABSOLUTE 6.50 1.90 - 7.00 K/uL 09/23/2022 7:40 AM SAUSAGE STRINGER [facility] LABORATORY [facility] LYMPHOCYTE ABSOLUTE 2.30 0.70 - 4.50 K/uL 09/23/2022 7:40 AM SAUSAGE STRINGER [facility] LABORATORY [facility] MONOCYTE ABSOLUTE 0.70 0.10 - 1.30 K/uL 09/23/2022 7:40 AM SAUSAGE STRINGER [facility] EOSINOPHIL ABSOLUTE 0.60 0.00 - 0.70 K/uL 09/23/2022 7:40 AM [facility] BASOPHILS ABSOLUTE 0.10 0.00 - 0.20 K/uL 09/23/2022 7:40 AM [facility] Blood Collection / Unknown 09/23/2022 2:30 AM SAUSAGE STRINGER 09/23/2022 7:08 AM SAUSAGE STRINGER us Franco Apple MD HEMATOLOGY ORDERABLES Final Resu lt [facility] CLIA# [id number] [place] [address] * (ABNORMAL) BASIC METABOLIC PANEL (09/23/2022 2:30 AM SAUSAGE STRINGER) SODIUM 145 136 - 145 mmol/L 09/23/2022 7:52 AM [facility] POTASSIUM 3.7 3.4 - 5.1 mmol/L 09/23/2022 7:52 AM [facility] CHLORIDE 97(L) 98 - 107 mmol/L 09/23/2022 7:52 AM [facility] CO2 40(H) 22 - 29 mmol/L 09/23/2022 7:52 AM [facility] CALCIUM 9.6 8.6 - 10.4 mg/dL 09/23/2022 7:52 AM [facility] BUN 49(H) 6 - 20 mg/dL 09/23/2022 7:52 AM [facility] CREATININE 0.78 0.67 - 1.17 mg/dL 09/23/2022 7:52 AM [facility] Comment:The GFR result is no t clinically significant on patients <18 or >70 years of age. GLUCOSE 120(H) 74 - 99 mg/dL 09/23/2022 7:52 AM [facility] GFR >60 mL/min/1.7 3 sq meter 09/23/2022 7:52 AM SAUSAGE STRINGER [facility] LABORATORY SERVICES [facility] Comment:eGFR calculated with 2020 CKD-EPI equation. Vegetarian diet, extremely high or low muscle mass, and may affect results. Cystatin C with Glomerular Filtration Rate is a suitable alternative for these patients. ANION GAP 8 8 - 16 mmol/L 09/23/2022 7:52 AM SAUSAGE STRINGER [facility] LABORATORY [facility] Blood Collection / Unknown 09/23/2022 2:30 AM SAUSAGE STRINGER 09/23/2022 7:08 AM SAUSAGE STRINGER us Franco Apple MD CHEMISTRY ORDERABLES Final Resul t [facility] [employer] [facility] CLIA# [id number] [place] [address] documented in this encounter Visit Diagnoses Not on filedocumented in this encounter Additional Health Concerns Infection Onset Date Last Indicated Resolved Time MRSA Comment:09/2022 sputum Resolved per Type and Duration of Precautions Recommended for Selected Infections and Conditions document 2023 update 09/16/2022 09/28/202206/04 4:18 PM CDT documented as of this encounter
--- OUTSIDE RECORDS SUMMARY | 2025-01-05 04:01 | XMS_ITS | Encounter Summary ---
Author Organization [facility] Address 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 Gender Identity Not on file Sexual [...] Associated Diagnosis Comments CBC WITH DIFFERENTIAL Routine 12/25/2022 3:00 AM CDT BASIC METABOLIC PANEL Routine 12/25/2022 3:00 AM CDT documented in this encounter Results * (ABNORMAL) CBC WITH DIFFERENTIAL (12/25/2022 3:00 AM CDT) Pathologist [facility] WBC 7.2 4.5 - 10.5 K/uL 12/25/2022 5:49 AM CDT [facility] LABORATORY SERVICES [facility] RBC 3.47(L) 4.50 - 5.40 M/uL 12/25/2022 5:49 AM CDT [facility] LABORATORY SERVICES [facility] HEMOGLOBIN 10.6(L) 13.6 - 16.5 g/dL 12/25/2022 5:49 AM CDT [facility] LABORATORY SERVICES [facility] HEMATOCRIT 32.3(L) 40.0 - 48.0 % 12/25/2022 5:49 AM CDT [facility] LABORATORY SERVICES [facility] MCV 92.9 82.0 - 99.0 fL 12/25/2022 5:49 AM CDT [facility] LABORATORY SERVICES [facility] MCH 30.4 27.8 - 34.5 pg 12/25/2022 5:49 AM CDT [facility] LABORATORY SERVICES [facility] MCHC 32.8 32.5 - 35.5 g/dL 12/25/2022 5:49 AM CDT [facility] LABORATORY SERVICES [facility] RDW 16.7(H) 11.5 - 14.5 % 12/25/2022 5:49 AM CDT [facility] LABORATORY SERVICES [facility] PLATELETS 189 160 - 420 K/uL 12/25/2022 5:49 AM CDT [facility] LABORATORY SERVICES [facility] MPV 9.6 8.7 - 12.7 fL 12/25/2022 5:49 AM CDT [facility] LABORATORY SERVICES [facility] NEUTROPHILS 51 % 12/25/2022 5:49 AM CDT [facility] LABORATORY SERVICES [facility] LYMPHOCYTES 28 % 12/25/2022 5:49 AM CDT [facility] LABORATORY SERVICES [facility] MONOCYTES 11 % 12/25/2022 5:49 AM CDT [facility] LABORATORY SERVICES [facility] EOSINOPHILS 9 % 12/25/2022 5:49 AM CDT [facility] LABORATORY SERVICES [facility] BASOPHILS 1 % 12/25/2022 5:49 AM CDT [facility] LABORATORY SERVICES [facility] NEUTROPHIL ABSOLUTE 3.70 1.90 - 7.00 K/uL 12/25/2022 5:49 AM CDT [facility] LABORATORY SERVICES [facility] LYMPHOCYTE ABSOLUTE 2.00 0.70 - 4.50 K/uL 12/25/2022 5:49 AM CDT [facility] LABORATORY SERVICES [facility] MONOCYTE ABSOLUTE 0.80 0.10 - 1.30 K/uL 12/25/2022 5:49 AM CDT [facility] EOSINOPHIL ABSOLUTE 0.60 0.00 - 0.70 K/uL 12/25/2022 5:49 AM CDT [facility] LABORATORY [facility] BASOPHILS ABSOLUTE 0.10 0.00 - 0.20 K/uL 12/25/2022 5:49 AM CDT [facility] Blood 12/25/2022 3:00 AM CDT 12/25/2022 5:18 AM CDT us Franco Apple MD HEMATOLOGY ORDERABLES Final Resu lt [facility] CLIA# [id number] [place] [address] * (ABNORMAL) BASIC METABOLIC PANEL (12/25/2022 3:00 AM CDT) SODIUM 141 136 - 145 mmol/L 12/25/2022 5:58 AM CDT [facility] POTASSIUM 4.2 3.4 - 5.1 mmol/L 12/25/2022 5:58 AM CDT [facility] CHLORIDE 99 98 - 107 mmol/L 12/25/2022 5:58 AM CDT [facility] CO2 30(H) 22 - 29 mmol/L 12/25/2022 5:58 AM CDT [facility] CALCIUM 10.7(H) 8.6 - 10.4 mg/dL 12/25/2022 5:58 AM CDT [facility] BUN 78(H) 6 - 20 mg/dL 12/25/2022 5:58 AM CDT [facility] CREATININE 1.05 0.67 - 1.17 mg/dL 12/25/2022 5:58 AM CDT [facility] Comment:The GFR result is no t clinically significant on patients <18 or >70 years of age. GLUCOSE 278(H) 74 - 99 mg/dL 12/25/2022 5:58 AM CDT [facility] GFR >60 mL/min/1.7 3 sq meter 12/25/2022 5:58 AM CDT [facility] Comment:eGFR calculated with 2020 CKD-EPI equation. Vegetarian diet, extremely high or low muscle mass, and may affect results. Cystatin C with Glomerular Filtration Rate is a suitable alternative for these patients. ANION GAP 12 8 - 16 mmol/L 12/25/2022 5:58 AM CDT [facility] Blood 12/25/2022 3:00 AM CDT 12/25/2022 5:18 AM CDT Franco Apple MD CHEMISTRY ORDERABLES Final Resul t [facility] CLIA# [id number] [place] [address] documented in this encounter Visit Diagnoses Not on filedocumented in this encounter Additional Health Concerns Infection Onset Date Last Indicated Resolved Time MRSA Comment:09/2022 sputum Resolved per Type and Duration of Precautions Recommended for Selected Infections and Conditions document 2023 update 09/16/2022 09/28/202206/04 4:18 PM CDT documented as of this encounter
--- OUTSIDE RECORDS SUMMARY | 2025-01-05 04:01 | XMS_ITS | Encounter Summary ---
Author Organization [facility] Address [address] [place] [address] Care Team Providers Care Aerial Photographer Name Role Phone Unavailable Primary Care Provider Unavailabl e Encounter Details Date Type Department Care Team (Late st Contact Info) Description 09/22/2022 Lab Requisition [facility] Laboratory Services [address] [place] [address] [place] [address] [place] [address] Social History Tobacco Use Types Packs/Day Years Used Date Smoking Tobacco: Never Assessed Sex and Gender Information Value Date Recorded Sex Assigned at Not on file Legal Sex Male 2:27 PM NANNY BABYSITTER Gender Identity Not on file Sexual Orientation Not on file COVID-19 Exposure Response Date Recorded In the last 10 days, have yo u been in contact with someone who was confirmed or suspected to have Coronavirus/COVID-19? Unable to assess 09/18/2022 6:07 AM NANNY BABYSITTER documented as of this encounter Plan of Treatment Not on file documented as of this encounter Procedures Procedure Name Priority Date/Time Associated Diagnosis Comments CBC WITHOUT DIFFERENTIAL Routine 09/22/2022 4:30 AM NANNY BABYSITTER BASIC METABOLIC PANEL Routine 09/22/2022 4:30 AM NANNY BABYSITTER documented in this encounter Results * (ABNORMAL) CBC WITHOUT DIFFERENTIAL (09/22/2022 4:30 AM NANNY BABYSITTER) WBC 10.7(H) 4.5 - 10.5 K/uL 09/22/2022 7:49 AM NANNY BABYSITTER [facility] LABORATORY SERVICES [facility] RBC 2.64(L) 4.50 - 5.40 M/uL 09/22/2022 7:49 AM [facility] HEMOGLOBIN 7.8(L) 13.6 - 16.5 g/dL 09/22/2022 7:49 AM [facility] HEMATOCRIT 24.4(L) 40.0 - 48.0 % 09/22/2022 7:49 AM [facility] MCV 92.4 82.0 - 99.0 fL 09/22/2022 7:49 AM [facility] MCH 29.6 27.8 - 34.5 pg 09/22/2022 7:49 AM [facility] MCHC 32.0(L) 32.5 - 35.5 g/dL 09/22/2022 7:49 AM [facility] PLATELETS 231 160 - 420 K/uL 09/22/2022 7:49 AM [facility] MPV 9.3 8.7 - 12.7 fL 09/22/2022 7:49 AM [facility] RDW 18.4(H) 11.5 - 14.5 % 09/22/2022 7:49 AM [facility] Blood Collection / Unknown 09/22/2022 4:30 AM NANNY BABYSITTER 09/22/2022 7:13 AM NANNY BABYSITTER Franco Apple MD HEMATOLOGY ORDERABLES Final Resu lt [facility] CLIA# [id number] [place] [address] * (ABNORMAL) BASIC METABOLIC PANEL (09/22/2022 4:30 AM NANNY BABYSITTER) SODIUM 142 136 - 145 mmol/L 09/22/2022 8:07 AM [facility] POTASSIUM 3.5 3.4 - 5.1 mmol/L 09/22/2022 8:07 AM [facility] CHLORIDE 95(L) 98 - 107 mmol/L 09/22/2022 8:07 AM [facility] CO2 40(H) 22 - 29 mmol/L 09/22/2022 8:07 AM [facility] CALCIUM 9.7 8.6 - 10.4 mg/dL 09/22/2022 8:07 AM [facility] BUN 48(H) 6 - 20 mg/dL 09/22/2022 8:07 AM [facility] CREATININE 0.71 0.67 - 1.17 mg/dL 09/22/2022 8:07 AM [facility] Comment:The GFR result is no t clinically significant on patients <18 or >70 years of age. GLUCOSE 180(H) 74 - 99 mg/dL 09/22/2022 8:07 AM [facility] GFR >60 mL/min/1.7 3 sq meter 09/22/2022 8:07 AM [facility] Comment:eGFR calculated with 2020 CKD-EPI equation. Vegetarian diet, extremely high or low muscle mass, and may affect results. Cystatin C with Glomerular Filtration Rate is a suitable alternative for these patients. ANION GAP 7(L) 8 - 16 mmol/L 09/22/2022 8:07 AM [facility] Blood Collection / Unknown 09/22/2022 4:30 AM NANNY BABYSITTER 09/22/2022 7:13 AM NANNY BABYSITTER us Franco Apple MD CHEMISTRY ORDERABLES Final Resul t [facility] CLIA# [id number] [place] [address] documented in this encounter Visit Diagnoses Not on filedocumented in this encounter Additional Health Concerns Infection Onset Date Last Indicated Resolved Time MRSA Comment:09/2022 sputum Resolved per Type and Duration of Precautions Recommended for Selected Infections and Conditions document 2023 update 09/16/2022 09/28/202206/04 4:18 PM CDT documented as of this encounter
--- OUTSIDE RECORDS SUMMARY | 2025-01-05 04:01 | XMS_ITS | Encounter Summary ---
Author Organization [facility] Address [address] [place] [address] Care Team Providers Care Supervisor Phosphoric Acid Name Role Phone Unavailable Primary Care Provider Unavailabl e Encounter Details Date Type Department Care Team (Late st Contact Info) Description 01/02/[address] 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 Gender Identity Not on file Sexual Orientation [...] Procedure Name Priority Date/Time Associated Diagnosis Comments TSH Routine 01/02/2023 4:00 AM CDT T4 FREE Routine 01/02/2023 4:00 AM CDT BASIC METABOLIC PANEL Routine 01/02/2023 4:00 AM CDT documented in this encounter Results * (ABNORMAL) TSH (01/02/2023 4:00 AM CDT) TSH 7.89(H) 0.27 - 4.20 uIU/mL 01/02/2023 8:08 AM CDT [facility] LABORATORY [facility] Blood Collection / Unknown 01/02/2023 4:00 AM CDT 01/02/2023 7:11 AM CDT Franco Apple MD CHEMISTRY ORDERABLES Final Resul t [facility]# [id number] [place] [address] * T4 FREE (01/02/2023 4:00 AM CDT) T4 FREE 1.41 0.93 - 1.70 ng/dL 01/02/2023 8:08 AM CDT [facility] Blood Collection / Unknown 01/02/2023 4:00 AM CDT 01/02/2023 7:11 AM CDT Franco Apple MD CHEMISTRY ORDERABLES Final Resul t [facility]# [id number] [address] [place] [address] * (ABNORMAL) BASIC METABOLIC PANEL (01/02/2023 4:00 AM CDT) SODIUM 146(H) 136 - 145 mmol/L 01/02/2023 7:57 AM CDT [facility] LABORATORY SERVICES [facility] POTASSIUM 3.7 3.4 - 5.1 mmol/L 01/02/2023 7:57 AM CDT [facility] LABORATORY SERVICES [facility] CHLORIDE 103 98 - 107 mmol/L 01/02/2023 7:57 AM CDT [facility] LABORATORY SERVICES [facility] CO2 28 22 - 29 mmol/L 01/02/2023 7:57 AM CDT [facility] LABORATORY [facility] CALCIUM 10.5(H) 8.6 - 10.4 mg/dL 01/02/2023 7:57 AM CDT [facility] BUN 84(H) 6 - 20 mg/dL 01/02/2023 7:57 AM CDT [facility] CREATININE 1.11 0.67 - 1.17 mg/dL 01/02/2023 7:57 AM T [facility] Comment:The GFR result is no t clinically significant on patients <18 or >70 years of age. GLUCOSE 257(H) 74 - 99 mg/dL 01/02/2023 7:57 AM CDT [facility] GFR >60 mL/min/1.7 3 sq meter 01/02/2023 7:57 AM CDT [facility] Comment:eGFR calculated with 2020 CKD-EPI equation. Vegetarian diet, extremely high or low muscle mass, and may affect results. Cystatin C with Glomerular Filtration Rate is a suitable alternative for these patients. ANION GAP 15 8 - 16 mmol/L 01/02/2023 7:57 AM CDT [facility] Blood Collection / Unknown 01/02/2023 4:00 AM CDT 01/02/2023 7:11 AM CDT us Franco Apple MD CHEMISTRY ORDERABLES Final Resul t [facility] CLIA# [id number] [place] [address] documented in this encounter Visit Diagnoses Not on filedocumented in this encounter Additional Health Concerns Infection Onset Date Last Indicated Resolved Time MRSA Comment:09/2022 sputum Resolved per Type and Duration of Precautions Recommended for Selected Infections and Conditions document 2023 update 09/16/2022 09/28/202206/04 4:18 PM CDT documented as of this encounter
--- OUTSIDE RECORDS SUMMARY | 2025-01-05 04:01 | XMS_ITS | Encounter Summary ---
Author Organization [facility] Address 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 Unable to assess 10/04/2022 4:56 PM TRANSIT PROOF MACHINE OPERATOR documented as of this encounter Plan of Treatment Not on file documented as of this encounter Procedures Procedure Name Priority Date/Time Associated Diagnosis Comments BRAIN NATRIURETIC PEPTIDE, BNP OR PROBNP Routine 10/16/2022 3:00 AM TRANSIT PROOF MACHINE OPERATOR HEPATIC FUNCTION PANEL Routine 10/16/2022 3:00 AM TRANSIT PROOF MACHINE OPERATOR documented in this encounter Results * BRAIN NATRIURETIC PEPTIDE, BNP OR PROBNP (10/16/2022 3:00 AM TRANSIT PROOF MACHINE OPERATOR) PROBNP, N TERMINAL 637 0 - 900 pg/mL 10/16/2022 2:30 PM TRANSIT PROOF MACHINE OPERATOR [facility] LABORATORY SERVICES [facility] Comment: Reference values for screening purposes based on portfolio administrator's recommendation: Patients less than 75 years: <125 [...] <300 pg/mL (Negative predictive value= 99%) Blood Collection / Unknown 10/16/2022 3:00 AM TRANSIT PROOF MACHINE OPERATOR 10/16/2022 6:50 AM TRANSIT PROOF MACHINE OPERATOR us External Provider [facility] CHEMISTRY ORDERABLES Tanya l Result [facility] CLIA# [id number] [address] [place] [address] * (ABNORMAL) HEPATIC FUNCTION PANEL (10/16/2022 3:00 AM TRANSIT PROOF MACHINE OPERATOR) TOTAL PROTEIN 7.2 6.3 - 8.7 g/dL 10/16/2022 7:46 AM [facility] ALBUMIN 2.9(L) 3.5 - 5.2 g/dL 10/16/2022 7:46 AM [facility] BILIRUBIN TOTAL 0.8 0.2 - 1.1 mg/dL 10/16/2022 7:46 AM [facility] BILIRUBIN DIRECT 0.2 0.0 - 0.3 mg/dL 10/16/2022 7:46 AM [facility] ALKALINE PHOSPHATASE 166(H) 40 - 150 U/L 10/16/2022 7:46 AM [facility] AST 26 0 - 41 U/L 10/16/2022 7:46 AM [facility] ALT 13 0 - 41 U/L 10/16/2022 7:46 AM [facility] Blood Collection / Unknown 10/16/2022 3:00 AM TRANSIT PROOF MACHINE OPERATOR 10/16/2022 6:50 AM TRANSIT PROOF MACHINE OPERATOR us External Provider [facility] CHEMISTRY ORDERABLES Tanya l Result [id number] [place] [address] documented in this encounter Visit Diagnoses Not on filedocumented in this encounter Additional Health Concerns Infection Onset Date Last Indicated Resolved Time MRSA Comment:09/2022 sputum Resolved per Type and Duration of Precautions Recommended for Selected Infections and Conditions document 2023 update 09/16/2022 09/28/202206/04 4:18 PM CDT documented as of this encounter
--- OUTSIDE RECORDS SUMMARY | 2025-01-05 04:01 | XMS_ITS | Encounter Summary ---
Author Organization [facility] Address [address] [place] [address] Care Team Providers Care Needle Loom Tender Name Role Phone Unavailable Primary Care Provider Unavailabl e Encounter Details Date Type Department Care Team (Late st Contact Info) Description 09/06/2022 Lab Requisition [facility] Laboratory Services [address] [place] [address] [place] [address] [place] [address] Social History Tobacco Use Types Packs/Day Years Used Date Smoking Tobacco: Never Assessed Sex and Gender Information Value Date Recorded Sex Assigned at Not on file Legal Sex Male 2:27 PM MANUFACTURING OPERATIONS MANAGER Gender Identity Not on file Sexual Orientation Not on file COVID-19 Exposure Response Date Recorded In the last 10 days, have yo u been in contact with someone who was confirmed or suspected to have Coronavirus/COVID-19? Unable to assess 09/04/2022 2:29 PM MANUFACTURING OPERATIONS MANAGER documented as of this encounter Plan of Treatment Not on file documented as of this encounter Procedures Procedure Name Priority Date/Time Associated Diagnosis Comments CBC WITH DIFFERENTIAL Routine 09/06/2022 3:40 AM MANUFACTURING OPERATIONS MANAGER BASIC METABOLIC PANEL Routine 09/06/2022 3:40 AM MANUFACTURING OPERATIONS MANAGER documented in this encounter Results * (ABNORMAL) CBC WITH DIFFERENTIAL (09/06/2022 3:40 AM MANUFACTURING OPERATIONS MANAGER) WBC 8.9 4.5 - 10.5 K/uL 09/06/2022 7:29 AM MANUFACTURING OPERATIONS MANAGER [facility] LABORATORY SERVICES [facility] RBC 2.83(L) 4.50 - 5.40 M/uL 09/06/2022 7:29 AM [facility] HEMOGLOBIN 8.2(L) 13.6 - 16.5 g/dL 09/06/2022 7:29 AM [facility] HEMATOCRIT 25.2(L) 40.0 - 48.0 % 09/06/2022 7:29 AM [facility] MCV 89.0 82.0 - 99.0 fL 09/06/2022 7:29 AM MANUFACTURING OPERATIONS MANAGER [facility] LABORATORY [facility] MCH 28.9 27.8 - 34.5 pg 09/06/2022 7:29 AM [facility] MCHC 32.5 32.5 - 35.5 g/dL 09/06/2022 7:29 AM [facility] RDW 17.1(H) 11.5 - 14.5 % 09/06/2022 7:29 AM [facility] PLATELETS 319 160 - 420 K/uL 09/06/2022 7:29 AM [facility] MPV 8.7 8.7 - 12.7 fL 09/06/2022 7:29 AM MANUFACTURING OPERATIONS MANAGER [facility] LABORATORY SERVICES [facility] NEUTROPHILS 66 % 09/06/2022 7:29 AM MANUFACTURING OPERATIONS MANAGER [facility] LABOR[facility] LYMPHOCYTES 18 % 09/06/2022 7:29 AM MANUFACTURING OPERATIONS MANAGER [facility] LABORATORY SERVICES [facility] MONOCYTES 4 % 09/06/2022 7:29 AM MANUFACTURING OPERATIONS MANAGER [facility] LABORATORY SERVICES [facility] EOSINOPHILS 12 % 09/06/2022 7:29 AM MANUFACTURING OPERATIONS MANAGER [facility] LABORATORY SERVICES [facility] BASOPHILS 1 % 09/06/2022 7:29 AM MANUFACTURING OPERATIONS MANAGER [facility] LABOR[facility] NEUTROPHIL ABSOLUTE 5.80 1.90 - 7.00 K/uL 09/06/2022 7:29 AM MANUFACTURING OPERATIONS MANAGER [facility] LABOR[facility] LYMPHOCYTE ABSOLUTE 1.60 0.70 - 4.50 K/uL 09/06/2022 7:29 AM MANUFACTURING OPERATIONS MANAGER [facility] LABORAT[facility] MONOCYTE ABSOLUTE 0.30 0.10 - 1.30 K/uL 09/06/2022 7:29 AM MANUFACTURING OPERATIONS MANAGER [facility] LABORAT[facility] EOSINOPHIL ABSOLUTE 1.10(H) 0.00 - 0.70 K/uL 09/06/2022 7:29 AM [facility] BASOPHILS ABSOLUTE 0.10 0.00 - 0.20 K/uL 09/06/2022 7:29 AM [facility] Blood Collection / Unknown 09/06/2022 3:40 AM MANUFACTURING OPERATIONS MANAGER 09/06/2022 7:20 AM MANUFACTURING OPERATIONS MANAGER Franco Apple MD HEMATOLOGY ORDERABLES Final Resu lt [facility] CLIA# [id number] [place] [address] * (ABNORMAL) BASIC METABOLIC PANEL (09/06/2022 3:40 AM MANUFACTURING OPERATIONS MANAGER) SODIUM 145 136 - 145 mmol/L 09/06/2022 7:54 AM [facility] POTASSIUM 3.8 3.4 - 5.1 mmol/L 09/06/2022 7:54 AM [facility] CHLORIDE 102 98 - 107 mmol/L 09/06/2022 7:54 AM [facility] CO2 35(H) 22 - 29 mmol/L 09/06/2022 7:54 AM [facility] CALCIUM 9.1 8.6 - 10.4 mg/dL 09/06/2022 7:54 AM [facility] BUN 29(H) 6 - 20 mg/dL 09/06/2022 7:54 AM [facility] CREATININE 0.72 0.67 - 1.17 mg/dL 09/06/2022 7:54 AM [facility] [employer] [facility] Comment:The GFR result is no t clinically significant on patients <18 or >70 years of age. GLUCOSE 252(H) 74 - 99 mg/dL 09/06/2022 7:54 AM [facility] [employer] [facility] GFR >60 mL/min/1.7 3 sq meter 09/06/2022 7:54 AM MANUFACTURING OPERATIONS MANAGER [facility] LABORATORY SERVICES [facility] Comment:eGFR calculated with 2020 CKD-EPI equation. Vegetarian diet, extremely high or low muscle mass, and may affect results. Cystatin C with Glomerular Filtration Rate is a suitable alternative for these patients. ANION GAP 8 8 - 16 mmol/L 09/06/2022 7:54 AM MANUFACTURING OPERATIONS MANAGER [facility] LABORAT[facility] Blood Collection / Unknown 09/06/2022 3:40 AM MANUFACTURING OPERATIONS MANAGER 09/06/2022 7:20 AM MANUFACTURING OPERATIONS MANAGER us Franco Apple MD CHEMISTRY ORDERABLES Final Resul t [facility] [employer] [facility] CLIA# [id number] [place] [address] documented in this encounter Visit Diagnoses Not on filedocumented in this encounter Additional Health Concerns Infection Onset Date Last Indicated Resolved Time MRSA Comment:09/2022 sputum Resolved per Type and Duration of Precautions Recommended for Selected Infections and Conditions document 2023 update 09/16/2022 09/28/202206/04 4:18 PM CDT documented as of this encounter
--- OUTSIDE RECORDS SUMMARY | 2025-01-05 04:01 | XMS_ITS | Encounter Summary ---
Author Organization [facility] Address [address] [place] [address] Care Team Providers Care Ornamental Metal Worker Name Role Phone Unavailable Primary Care Provider Unavailabl e Encounter Details Date Type Department Care Team (Late st Contact Info) Description 10/04/2022 Lab Requisition [facility] Laboratory Services [address] [place] [address] [place] [address] [place] [address] Social History Tobacco Use Types Packs/Day Years Used Date Smoking Tobacco: Never Assessed Sex and Gender Information Value Date Recorded Sex Assigned at Not on file Legal Sex Male 2:27 PM LICENSED NURSING ASSISTANT Gender Identity Not on file Sexual Orientation Not on file COVID-19 Exposure Response Date Recorded In the last 10 days, have yo u been in contact with someone who was confirmed or suspected to have Coronavirus/COVID-19? Unable to assess 10/04/2022 4:56 PM LICENSED NURSING ASSISTANT documented as of this encounter Plan of Treatment Not on file documented as of this encounter Procedures Procedure Name Priority Date/Time Associated Diagnosis Comments VANCOMYCIN LEVEL TROUGH Routine 10/04/2022 4:10 AM LICENSED NURSING ASSISTANT HEPATIC FUNCTION PANEL Routine 10/04/2022 4:10 AM LICENSED NURSING ASSISTANT BASIC METABOLIC PANEL Routine 10/04/2022 4:10 AM LICENSED NURSING ASSISTANT documented in this encounter Results * (ABNORMAL) VANCOMYCIN LEVEL TROUGH (10/04/2022 4:10 AM LICENSED NURSING ASSISTANT) VANCOMYCIN, TROUGH 24.5(H) 10.0 - 17.0 ug/mL 10/04/2022 8:01 AM LICENSED NURSING ASSISTANT [facility] Blood 10/04/2022 4:10 AM LICENSED NURSING ASSISTANT 10/04/2022 7:02 AM LICENSED NURSING ASSISTANT Franco Apple MD CHEMISTRY ORDERABLES Final Resul t [facility] CLIA# [id number] [place] [address] * (ABNORMAL) HEPATIC FUNCTION PANEL (10/04/2022 4:10 AM LICENSED NURSING ASSISTANT) TOTAL PROTEIN 7.4 6.3 - 8.7 g/dL 10/04/2022 8:01 AM [facility] ALBUMIN 2.7(L) 3.5 - 5.2 g/dL 10/04/2022 8:01 AM [facility] BILIRUBIN TOTAL 0.5 0.2 - 1.1 mg/dL 10/04/2022 8:01 AM [facility] BILIRUBIN DIRECT <0.2 0.0 - 0.3 mg/dL 10/04/2022 8:01 AM [facility] ALKALINE PHOSPHATASE 216(H) 40 - 150 U/L 10/04/2022 8:01 AM [facility] AST 32 0 - 41 U/L 10/04/2022 8:01 AM [facility] ALT 16 0 - 41 U/L 10/04/2022 8:01 AM [facility] Blood 10/04/2022 4:10 AM LICENSED NURSING ASSISTANT 10/04/2022 7:02 AM LICENSED NURSING ASSISTANT us Franco Apple MD CHEMISTRY ORDERABLES Final Resul t [facility] CLIA# [id number] [place] [address] * (ABNORMAL) BASIC METABOLIC PANEL (10/04/2022 4:10 AM LICENSED NURSING ASSISTANT) SODIUM 140 136 - 145 mmol/L 10/04/2022 8:01 AM [facility] POTASSIUM 3.9 3.4 - 5.1 mmol/L 10/04/2022 8:01 AM [facility] CHLORIDE 94(L) 98 - 107 mmol/L 10/04/2022 8:01 AM [facility] CO2 37(H) 22 - 29 mmol/L 10/04/2022 8:01 AM [facility] CALCIUM 9.5 8.6 - 10.4 mg/dL 10/04/2022 8:01 AM [facility] BUN 53(H) 6 - 20 mg/dL 10/04/2022 8:01 AM [facility] CREATININE 0.72 0.67 - 1.17 mg/dL 10/04/2022 8:01 AM [facility] Comment:The GFR result is no t clinically significant on patients <18 or >70 years of age. GLUCOSE 161(H) 74 - 99 mg/dL 10/04/2022 8:01 AM [facility] GFR >60 mL/min/1.7 3 sq meter 10/04/2022 8:01 AM [facility] Comment:eGFR calculated with 2020 CKD-EPI equation. Vegetarian diet, extremely high or low muscle mass, and may affect results. Cystatin C with Glomerular Filtration Rate is a suitable alternative for these patients. ANION GAP 9 8 - 16 mmol/L 10/04/2022 8:01 AM [facility] Blood 10/04/2022 4:10 AM LICENSED NURSING ASSISTANT 10/04/2022 7:02 AM LICENSED NURSING ASSISTANT us Franco Apple MD CHEMISTRY ORDERABLES Final Resul t [facility] CLIA# [id number] [address] [place] [address] documented in this encounter Visit Diagnoses Not on filedocumented in this encounter Additional Health Concerns Infection Onset Date Last Indicated Resolved Time MRSA Comment:09/2022 sputum Resolved per Type and Duration of Precautions Recommended for Selected Infections and Conditions document 2023 update 09/16/2022 09/28/202206/04 4:18 PM CDT documented as of this encounter
--- OUTSIDE RECORDS SUMMARY | 2025-01-05 04:01 | XMS_ITS | Encounter Summary ---
Author Organization [facility] Address [address] [place] [address] Care Team Providers Care Telecom Engineer Name Role Phone Unavailable Primary Care Provider Unavailabl e Encounter Details Date Type Department Care Team (Late st Contact Info) Description 10/03/2022 Lab Requisition [facility] Laboratory Services [address] [place] [address] [place] [address] [place] [address] Social History Tobacco Use Types Packs/Day Years Used Date Smoking Tobacco: Never Assessed Sex and Gender Information Value Date Recorded Sex Assigned at Not on file Legal Sex Male 2:27 PM LABORATORY PHLEBOTOMIST Gender Identity Not on file Sexual Orientation Not on file COVID-19 Exposure Response Date Recorded In the last 10 days, have yo u been in contact with someone who was confirmed or suspected to have Coronavirus/COVID-19? Unable to assess 10/04/2022 4:56 PM LABORATORY PHLEBOTOMIST documented as of this encounter Plan of Treatment Not on file documented as of this encounter Procedures Procedure Name Priority Date/Time Associated Diagnosis Comments BASIC METABOLIC PANEL Routine 10/03/2022 2:56 AM LABORATORY PHLEBOTOMIST documented in this encounter Results * (ABNORMAL) BASIC METABOLIC PANEL (10/03/2022 2:56 AM LABORATORY PHLEBOTOMIST) SODIUM 142 136 - 145 mmol/L 10/03/2022 10:08 AM LABORATORY PHLEBOTOMIST [facility] - [facility] POTASSIUM 3.8 3.4 - 5.1 mmol/L 10/03/2022 10:08 AM LABORATORY PHLEBOTOMIST [facility] LABORATORY SERVICES - [facility] CHLORIDE 95(L) 98 - 107 mmol/L 10/03/2022 10:[address] [facility] CO2 37(H) 22 - 29 mmol/L 10/03/2022 10:[address] [facility] CALCIUM 9.9 8.6 - 10.4 mg/dL 10/03/2022 10:[address] [facility] BUN 49(H) 6 - 20 mg/dL 10/03/2022 10:[address] [facility] CREATININE 0.60(L) 0.67 - 1.17 mg/dL 10/03/2022 10:[address] [facility] Comment:The GFR result is no t clinically significant on patients <18 or >70 years of age. GLUCOSE 128(H) 74 - 99 mg/dL 10/03/2022 10:[address] [facility] GFR >60 mL/min/1.7 3 sq meter 10/03/2022 10:[address] [facility] Comment:eGFR calculated with 2020 CKD-EPI equation. Vegetarian diet, extremely high or low muscle mass, and may affect results. Cystatin C with Glomerular Filtration Rate is a suitable alternative for these patients. ANION GAP 10 8 - 16 mmol/L 10/03/2022 10:[address] [facility] Blood Collection / Unknown 10/03/2022 2:56 AM LABORATORY PHLEBOTOMIST 10/03/2022 8:26 AM LABORATORY PHLEBOTOMIST Franco Apple MD CHEMISTRY ORDERABLES Final Resul t [facility] CLIA# [id number] [address] [place] [address] documented in this encounter Visit Diagnoses Not on filedocumented in this encounter Additional Health Concerns Infection Onset Date Last Indicated Resolved Time MRSA Comment:09/2022 sputum Resolved per Type and Duration of Precautions Recommended for Selected Infections and Conditions document 2023 update 09/16/2022 09/28/202206/04 4:18 PM CDT documented as of this encounter
--- OUTSIDE RECORDS SUMMARY | 2025-01-05 04:01 | XMS_ITS | Encounter Summary ---
Author Organization [facility] Address [address] [place] [address] Care Team Providers Care Cutting Machine Operator Name Role Phone Unavailable Primary Care Provider Unavailabl e Encounter Details Date Type Department Care Team (Late st Contact Info) Description 09/21/2022 Lab Requisition [facility] Laboratory Services [address] [place] [address] [place] [address] [place] [address] Social History Tobacco Use Types Packs/Day Years Used Date Smoking Tobacco: Never Assessed Sex and Gender Information Value Date Recorded Sex Assigned at Not on file Legal Sex Male 2:27 PM EAR NOSE THROAT PHYSICIAN Gender Identity Not on file Sexual Orientation Not on file COVID-19 Exposure Response Date Recorded In the last 10 days, have yo u been in contact with someone who was confirmed or suspected to have Coronavirus/COVID-19? Unable to assess 09/18/2022 6:07 AM EAR NOSE THROAT PHYSICIAN documented as of this encounter Plan of Treatment Not on file documented as of this encounter Procedures Procedure Name Priority Date/Time Associated Diagnosis Comments VANCOMYCIN LEVEL TROUGH Routine 09/21/2022 8:25 AM EAR NOSE THROAT PHYSICIAN documented in this encounter Results * (ABNORMAL) VANCOMYCIN LEVEL TROUGH (09/21/2022 8:25 AM EAR NOSE THROAT PHYSICIAN) VANCOMYCIN, TROUGH 22.1(H) 10.0 - 17.0 ug/mL 09/21/2022 11:10 AM EAR NOSE THROAT PHYSICIAN [facility] LABORATORY SERVICES [facility] Blood Collection / Unknown 09/21/2022 8:25 AM EAR NOSE THROAT PHYSICIAN 09/21/2022 10:33 AM EAR NOSE THROAT PHYSICIAN Franco Apple MD CHEMISTRY ORDERABLES Final Resul t [facility] LABORATORY SERVICES [facility]# [id number] [address] [place] [place] [address] documented in this encounter Visit Diagnoses Not on filedocumented in this encounter Additional Health Concerns Infection Onset Date Last Indicated Resolved Time MRSA Comment:09/2022 sputum Resolved per Type and Duration of Precautions Recommended for Selected Infections and Conditions document 2023 update 09/16/2022 09/28/202206/04 4:18 PM CDT documented as of this encounter
--- OUTSIDE RECORDS SUMMARY | 2025-01-05 04:01 | XMS_ITS | Encounter Summary ---
Author Organization [facility] Address [address] [place] [address] Care Team Providers Care Box Press Operator Name Role Phone Unavailable Primary Care Provider Unavailabl e Encounter Details Date Type Department Care Team (Late st Contact Info) Description 10/23/2022 Lab Requisition [facility] Laboratory Services [address] [place] [address] [place] [address] [place] [address] Social History Tobacco Use Types Packs/Day Years Used Date Smoking Tobacco: Never Assessed Sex and Gender Information Value Date Recorded Sex Assigned at Not on file Legal Sex Male 2:27 PM FIG WASHER Gender Identity Not on file Sexual Orientation Not on file COVID-19 Exposure Response Date Recorded In the last 10 days, have yo u been in contact with someone who was confirmed or suspected to have Coronavirus/COVID-19? Unable to assess 10/04/2022 4:56 PM FIG WASHER documented as of this encounter Plan of Treatment Not on file documented as of this encounter Procedures Procedure Name Priority Date/Time Associated Diagnosis Comments CBC WITH DIFFERENTIAL Routine 10/23/2022 3:20 AM FIG WASHER BASIC METABOLIC PANEL Routine 10/23/2022 3:20 AM FIG WASHER documented in this encounter Results * (ABNORMAL) CBC WITH DIFFERENTIAL (10/23/2022 3:20 AM FIG WASHER) Pathologist [facility] WBC 8.2 4.5 - 10.5 K/uL 10/23/2022 6:02 AM FIG WASHER [facility] LABORATORY SERVICES [facility] RBC 3.00(L) 4.50 - 5.40 M/uL 10/23/2022 6:02 AM [facility] LABORATORY [facility] HEMOGLOBIN 9.0(L) 13.6 - 16.5 g/dL 10/23/2022 6:02 AM [facility] LABORATORY [facility] HEMATOCRIT 27.3(L) 40.0 - 48.0 % 10/23/2022 6:02 AM [facility] LABORATORY SERVICES [facility] MCV 91.1 82.0 - 99.0 fL 10/23/2022 6:02 AM [facility] LABORATORY [facility] MCH 30.1 27.8 - 34.5 pg 10/23/2022 6:02 AM [facility] LABORATORY SERVICES [facility] MCHC 33.1 32.5 - 35.5 g/dL 10/23/2022 6:02 AM [facility] LABORATORY [facility] RDW 15.7(H) 11.5 - 14.5 % 10/23/2022 6:02 AM [facility] LABORATORY [facility] PLATELETS 289 160 - 420 K/uL 10/23/2022 6:02 AM [facility] LABORATORY SERVICES [facility] MPV 9.2 8.7 - 12.7 fL 10/23/2022 6:02 AM FIG WASHER [facility]OR[facility] SERVICES [facility] NEUTROPHILS 64 % 10/23/2022 6:02 AM [facility] LABORATORY [facility] LYMPHOCYTES 22 % 10/23/2022 6:02 AM FIG WASHER [facility]OR[facility] SERVICES [facility] MONOCYTES 11 % 10/23/2022 6:02 AM FIG WASHER [facility] EOSINOPHILS 4 % 10/23/2022 6:02 AM FIG WASHER [facility] BASOPHILS 0 % 10/23/2022 6:02 AM FIG WASHER [facility] NEUTROPHIL ABSOLUTE 5.20 1.90 - 7.00 K/uL 10/23/2022 6:02 AM [facility] LABORATORY [facility] LYMPHOCYTE ABSOLUTE 1.80 0.70 - 4.50 K/uL 10/23/2022 6:02 AM [facility] LABORATORY SERVICES [facility] MONOCYTE ABSOLUTE 0.90 0.10 - 1.30 K/uL 10/23/2022 6:02 AM FIG WASHER [facility] LAB[facility] EOSINOPHIL ABSOLUTE 0.30 0.00 - 0.70 K/uL 10/23/2022 6:02 AM [facility] LABORATORY [facility] BASOPHILS ABSOLUTE 0.00 0.00 - 0.20 K/uL 10/23/2022 6:02 AM [facility] Blood 10/23/2022 3:20 AM FIG WASHER 10/23/2022 5:45 AM FIG WASHER us Franco Apple MD HEMATOLOGY ORDERABLES Final Resu lt [facility] CLIA# [id number] [address] [place] [address] * (ABNORMAL) BASIC METABOLIC PANEL (10/23/2022 3:20 AM FIG WASHER) SODIUM 136 136 - 145 mmol/L 10/23/2022 6:24 AM [facility] POTASSIUM 4.1 3.4 - 5.1 mmol/L 10/23/2022 6:24 AM [facility] CHLORIDE 87(L) 98 - 107 mmol/L 10/23/2022 6:24 AM [facility] CO2 41(H) 22 - 29 mmol/L 10/23/2022 6:24 AM [facility] CALCIUM 10.2 8.6 - 10.4 mg/dL 10/23/2022 6:24 AM [facility] BUN 56(H) 6 - 20 mg/dL 10/23/2022 6:24 AM [facility] CREATININE 0.79 0.67 - 1.17 mg/dL 10/23/2022 6:24 AM [facility] Comment:The GFR result is no t clinically significant on patients <18 or >70 years of age. GLUCOSE 160(H) 74 - 99 mg/dL 10/23/2022 6:24 AM [facility] GFR >60 mL/min/1.7 3 sq meter 10/23/2022 6:24 AM FIG WASHER [facility] LABORAT[facility] Comment:eGFR calculated with 2020 CKD-EPI equation. Vegetarian diet, extremely high or low muscle mass, and may affect results. Cystatin C with Glomerular Filtration Rate is a suitable alternative for these patients. ANION GAP 8 8 - 16 mmol/L 10/23/2022 6:24 AM FIG WASHER [facility] LABORAT[facility] Blood 10/23/2022 3:20 AM FIG WASHER 10/23/2022 5:45 AM FIG WASHER us Franco Apple MD CHEMISTRY ORDERABLES Final Resul t [facility] CLIA# [id number] [address] [place] [address] documented in this encounter Visit Diagnoses Not on filedocumented in this encounter Additional Health Concerns Infection Onset Date Last Indicated Resolved Time MRSA Comment:09/2022 sputum Resolved per Type and Duration of Precautions Recommended for Selected Infections and Conditions document 2023 update 09/16/2022 09/28/202206/04 4:18 PM CDT documented as of this encounter
--- OUTSIDE RECORDS SUMMARY | 2025-01-05 04:01 | XMS_ITS | Encounter Summary ---
Author Organization [facility] Address [address] [place] [address] Care Team Providers Care Software Product Specialist Name Role Phone Unavailable Primary Care Provider Unavailabl e Encounter Details Date Type Department Care Team (Late st Contact Info) Description 12/31/2022 Lab Requisition [facility] [address] [facility] [place] [address] [place] [address] [place] [address] Social History Tobacco Use Types Packs/Day Years Used Date Smoking Tobacco: Never Assessed Sex and Gender Information Value Date Recorded Sex Assigned at Not on file Legal Sex Male 2:27 PM CIGAR BANDER Gender Identity Not on file Sexual Orientation [...] Date/Time Associated Diagnosis Comments CBC WITH DIFFERENTIAL Stat 12/31/2022 11:15 AM CDT BASIC METABOLIC PANEL Stat 12/31/2022 11:15 AM CDT documented in this encounter Results * (ABNORMAL) CBC WITH DIFFERENTIAL (12/31/2022 11:15 AM CDT) WBC 8.9 4.5 - 10.5 K/uL 12/31/2022 12:22 PM CDT [facility] RBC 3.77(L) 4.50 - 5.40 M/uL 12/31/2022 12:22 PM CDT [facility] HEMOGLOBIN 11.8(L) 13.6 - 16.5 g/dL 12/31/2022 12:22 PM CDT [facility] HEMATOCRIT 35.3(L) 40.0 - 48.0 % 12/31/2022 12:22 PM CDT [facility] MCV 93.7 82.0 - 99.0 fL 12/31/2022 12:22 PM CDT [facility] MCH 31.3 27.8 - 34.5 pg 12/31/2022 12:22 PM CDT [facility] MCHC 33.4 32.5 - 35.5 g/dL 12/31/2022 12:22 PM CDT [facility] RDW 16.9(H) 11.5 - 14.5 % 12/31/2022 12:22 PM CDT [facility] PLATELETS 246 160 - 420 K/uL 12/31/2022 12:22 PM CDT [facility] MPV 10.4 8.7 - 12.7 fL 12/31/2022 12:22 PM CDT [facility] NEUTROPHILS 63 % 12/31/2022 12:22 PM CDT [facility] LYMPHOCYTES 21 % 12/31/2022 12:22 PM CDT [facility] MONOCYTES 9 % 12/31/2022 12:22 PM CDT [facility] EOSINOPHILS 7 % 12/31/2022 12:22 PM CDT [facility] BASOPHILS 1 % 12/31/2022 12:22 PM CDT [facility] NEUTROPHIL ABSOLUTE 5.60 1.90 - 7.00 K/uL 12/31/2022 12:22 PM CDT [facility] LYMPHOCYTE ABSOLUTE 1.90 0.70 - 4.50 K/uL 12/31/2022 12:22 PM CDT [facility] MONOCYTE ABSOLUTE 0.80 0.10 - 1.30 K/uL 12/31/2022 12:22 PM CDT [facility] EOSINOPHIL ABSOLUTE 0.70 0.00 - 0.70 K/uL 12/31/2022 12:22 PM CDT [facility] BASOPHILS ABSOLUTE 0.10 0.00 - 0.20 K/uL 12/31/2022 12:22 PM CDT [facility] Blood Collection / Unknown 12/31/2022 11:15 AM CDT 12/31/2022 12:18 PM CDT us Franco Apple MD HEMATOLOGY ORDERABLES Final Resu lt [facility] CLIA# [id number] [address] [place] [address] * (ABNORMAL) BASIC METABOLIC PANEL (12/31/2022 11:15 AM CDT) SODIUM 150(H) 136 - 145 mmol/L 12/31/2022 12:44 PM CDT [facility] POTASSIUM 4.1 3.4 - 5.1 mmol/L 12/31/2022 12:44 PM CDT [facility] CHLORIDE 105 98 - 107 mmol/L 12/31/2022 12:44 PM CDT [facility] CO2 28 22 - 29 mmol/L 12/31/2022 12:44 PM CDT [facility] CALCIUM 11.3(H) 8.6 - 10.4 mg/dL 12/31/2022 12:44 PM CDT [facility] BUN 109(H) 6 - 20 mg/dL 12/31/2022 12:44 PM CDT [facility] CREATININE 1.50(H) 0.67 - 1.17 mg/dL 12/31/2022 12:44 PM CDT [facility] Comment:The GFR result is no t clinically significant on patients <18 or >70 years of age. GLUCOSE 342(H) 74 - 99 mg/dL 12/31/2022 12:44 PM CDT [facility] GFR 49 mL/min/1.7 3 sq meter 12/31/2022 12:44 PM CDT [facility] Comment:eGFR calculated with 2020 CKD-EPI equation. Vegetarian diet, extremely high or low muscle mass, and may affect results. Cystatin C with Glomerular Filtration Rate is a suitable alternative for these patients. ANION GAP 17(H) 8 - 16 mmol/L 12/31/2022 12:44 PM CDT [facility] Blood Collection / Unknown 12/31/2022 11:15 AM CDT 12/31/2022 12:18 PM CDT Franco Apple MD CHEMISTRY ORDERABLES Final Resul t [facility] CLIA# [id number] [address] [place] [address] documented in this encounter Visit Diagnoses Not on filedocumented in this encounter Additional Health Concerns Infection Onset Date Last Indicated Resolved Time MRSA Comment:09/2022 sputum Resolved per Type and Duration of Precautions Recommended for Selected Infections and Conditions document 2023 update 09/16/2022 09/28/202206/04 4:18 PM CDT documented as of this encounter
--- OUTSIDE RECORDS SUMMARY | 2025-01-05 04:01 | XMS_ITS | Encounter Summary ---
Author Organization [facility] Address [address] [place] [address] Care Team Providers Care Shelver Name Role Phone Unavailable Primary Care Provider Unavailabl e Encounter Details Date Type Department Care Team (Late st Contact Info) Description 10/12/2022 Lab Requisition [facility] Laboratory Services [address] [place] [address] [place] [address] [place] [address] Social History Tobacco Use Types Packs/Day Years Used Date Smoking Tobacco: Never Assessed Sex and Gender Information Value Date Recorded Sex Assigned at Not on file Legal Sex Male 2:27 PM MATH PROFESSOR Gender Identity Not on file Sexual Orientation Not on file COVID-19 Exposure Response Date Recorded In the last 10 days, have yo u been in contact with someone who was confirmed or suspected to have Coronavirus/COVID-19? Unable to assess 10/04/2022 4:56 PM MATH PROFESSOR documented as of this encounter Plan of Treatment Not on file documented as of this encounter Procedures Procedure Name Priority Date/Time Associated Diagnosis Comments HEPATIC FUNCTION PANEL Routine 10/12/2022 3:10 AM MATH PROFESSOR documented in this encounter Results * (ABNORMAL) HEPATIC FUNCTION PANEL (10/12/2022 3:10 AM MATH PROFESSOR) TOTAL PROTEIN 7.3 6.3 - 8.7 g/dL 10/12/2022 9:[address] [facility] - [facility] ALBUMIN 2.8(L) 3.5 - 5.2 g/dL 10/12/2022 9:29 AM MATH PROFESSOR [facility] BILIRUBIN TOTAL 0.7 0.2 - 1.1 mg/dL 10/12/2022 9:29 AM MATH PROFESSOR [facility] BILIRUBIN DIRECT <0.2 0.0 - 0.3 mg/dL 10/12/2022 9:29 AM MATH PROFESSOR [facility] ALKALINE PHOSPHATASE 190(H) 40 - 150 U/L 10/12/2022 9:29 AM [facility] AST 25 0 - 41 U/L 10/12/2022 9:29 AM MATH PROFESSOR [facility] ALT 15 0 - 41 U/L 10/12/2022 9:29 AM MATH PROFESSOR [facility] Blood Collection / Unknown 10/12/2022 3:10 AM MATH PROFESSOR 10/12/2022 8:41 AM MATH PROFESSOR Franco Apple MD CHEMISTRY ORDERABLES Final Resul t [facility] CLIA# [id number] [place] [address] documented in this encounter Visit Diagnoses Not on filedocumented in this encounter Additional Health Concerns Infection Onset Date Last Indicated Resolved Time MRSA Comment:09/2022 sputum Resolved per Type and Duration of Precautions Recommended for Selected Infections and Conditions document 2023 update 09/16/2022 09/28/202206/04 4:18 PM CDT documented as of this encounter
--- OUTSIDE RECORDS SUMMARY | 2025-01-05 04:01 | XMS_ITS | Encounter Summary ---
Author Organization [facility] Address [address] [place] [address] Care Team Providers Care Generation Technician Name Role Phone Unavailable Primary Care Provider Unavailabl e Encounter Details Date Type Department Care Team (Late st Contact Info) Description 09/25/2022 Lab Requisition [facility] Laboratory Services [address] [place] [address] [place] [address] [place] [address] Social History Tobacco Use Types Packs/Day Years Used Date Smoking Tobacco: Never Assessed Sex and Gender Information Value Date Recorded Sex Assigned at Not on file Legal Sex Male 2:27 PM PERFORATOR TYPIST Gender Identity Not on file Sexual Orientation Not on file COVID-19 Exposure Response Date Recorded In the last 10 days, have yo u been in contact with someone who was confirmed or suspected to have Coronavirus/COVID-19? Unable to assess 09/18/2022 6:07 AM PERFORATOR TYPIST documented as of this encounter Plan of Treatment Not on file documented as of this encounter Procedures Procedure Name Priority Date/Time Associated Diagnosis Comments VANCOMYCIN LEVEL TROUGH Routine 09/25/2022 11:30 AM PERFORATOR TYPIST documented in this encounter Results * (ABNORMAL) VANCOMYCIN LEVEL TROUGH (09/25/2022 11:30 AM PERFORATOR TYPIST) VANCOMYCIN, TROUGH 23.4(H) 10.0 - 17.0 ug/mL 09/25/2022 2:00 PM PERFORATOR TYPIST [facility] Blood Collection / Unknown 09/25/2022 11:30 AM PERFORATOR TYPIST 09/25/2022 1:30 PM PERFORATOR TYPIST Franco Apple MD CHEMISTRY ORDERABLES Final Resul t [facility]# [id number] [address] [place] [address] documented in this encounter Visit Diagnoses Not on filedocumented in this encounter Additional Health Concerns Infection Onset Date Last Indicated Resolved Time MRSA Comment:09/2022 sputum Resolved per Type and Duration of Precautions Recommended for Selected Infections and Conditions document 2023 update 09/16/2022 09/28/202206/04 4:18 PM CDT documented as of this encounter
--- OUTSIDE RECORDS SUMMARY | 2025-01-05 04:01 | XMS_ITS | Encounter Summary ---
Author Organization [facility] Address [address] [place] [address] Care Team Providers Care Mail Forwarding System Markup Clerk Name Role Phone Unavailable Primary Care Provider Unavailabl e Encounter Details Date Type Department Care Team (Late st Contact Info) Description 10/18/[address] [facility] Laboratory Services [address] [place] [address] [place] [address] [place] [address] Social History Tobacco Use Types Packs/Day Years Used Date Smoking Tobacco: Never Assessed Sex and Gender Information Value Date Recorded Sex Assigned at Not on file Legal Sex Male 2:27 PM GOLF COURSE STARTER Gender Identity Not on file Sexual Orientation Not on file COVID-19 Exposure Response Date Recorded In the last 10 days, have yo u been in contact with someone who was confirmed or suspected to have Coronavirus/COVID-19? Unable to assess 10/04/2022 4:56 PM GOLF COURSE STARTER documented as of this encounter Plan of Treatment Not on file documented as of this encounter Procedures Procedure Name Priority Date/Time Associated Diagnosis Comments HEPATIC FUNCTION PANEL Routine 10/18/2022 3:50 AM GOLF COURSE STARTER documented in this encounter Results * (ABNORMAL) HEPATIC FUNCTION PANEL (10/18/2022 3:50 AM GOLF COURSE STARTER) TOTAL PROTEIN 7.6 6.3 - 8.7 g/dL 10/18/2022 12:19 PM GOLF COURSE STARTER [facility]ORAT[facility] - [facility] ALBUMIN 3.0(L) 3.5 - 5.2 g/dL 10/18/2022 12:19 PM GOLF COURSE STARTER [facility] BILIRUBIN TOTAL 0.8 0.2 - 1.1 mg/dL 10/18/2022 12:19 PM GOLF COURSE STARTER [facility] BILIRUBIN DIRECT <0.2 0.0 - 0.3 mg/dL 10/18/2022 12:19 PM GOLF COURSE STARTER [facility] ALKALINE PHOSPHATASE 178(H) 40 - 150 U/L 10/18/2022 12:19 PM GOLF COURSE STARTER [facility] AST 25 0 - 41 U/L 10/18/2022 12:19 PM GOLF COURSE STARTER [facility] ALT 14 0 - 41 U/L 10/18/2022 12:19 PM GOLF COURSE STARTER [facility] Blood 10/18/2022 3:50 AM GOLF COURSE STARTER 10/18/2022 11:37 AM GOLF COURSE STARTER Franco Apple MD CHEMISTRY ORDERABLES Final Resul t [facility] CLIA# [id number] [address] [place] [address] documented in this encounter Visit Diagnoses Not on filedocumented in this encounter Additional Health Concerns Infection Onset Date Last Indicated Resolved Time MRSA Comment:09/2022 sputum Resolved per Type and Duration of Precautions Recommended for Selected Infections and Conditions document 2023 update 09/16/2022 09/28/202206/04 4:18 PM CDT documented as of this encounter
--- OUTSIDE RECORDS SUMMARY | 2025-01-05 04:01 | XMS_ITS | Encounter Summary ---
Author Organization [facility] Address [address] [place] [address] Care Team Providers Care Lifestyle Coordinator Name Role Phone Unavailable Primary Care Provider Unavailabl e Encounter Details Date Type Department Care Team (Late st Contact Info) Description 10/24/2022 Lab Requisition [facility] Laboratory Services [address] [place] [address] [place] [address] [place] [address] Social History Tobacco Use Types Packs/Day Years Used Date Smoking Tobacco: Never Assessed Sex and Gender Information Value Date Recorded Sex Assigned at Not on file Legal Sex Male 2:27 PM PROJECT LANDSCAPE ARCHITECT Gender Identity Not on file Sexual Orientation Not on file COVID-19 Exposure Response Date Recorded In the last 10 days, have yo u been in contact with someone who was confirmed or suspected to have Coronavirus/COVID-19? Unable to assess 10/04/2022 4:56 PM PROJECT LANDSCAPE ARCHITECT documented as of this encounter Plan of Treatment Not on file documented as of this encounter Procedures Procedure Name Priority Date/Time Associated Diagnosis Comments HEPATIC FUNCTION PANEL Routine 10/24/2022 4:30 AM PROJECT LANDSCAPE ARCHITECT documented in this encounter Results * (ABNORMAL) HEPATIC FUNCTION PANEL (10/24/2022 4:30 AM PROJECT LANDSCAPE ARCHITECT) TOTAL PROTEIN 7.6 6.3 - 8.7 g/dL 10/24/2022 10:07 AM PROJECT LANDSCAPE ARCHITECT [facility] - [facility] ALBUMIN 3.0(L) 3.5 - 5.2 g/dL 10/24/2022 10:07 AM PROJECT LANDSCAPE ARCHITECT [facility] [email or web address] BILIRUBIN TOTAL 1.0 0.2 - 1.1 mg/dL 10/24/2022 10:07 AM [facility] BILIRUBIN DIRECT 0.3 0.0 - 0.3 mg/dL 10/24/2022 10:07 AM [facility] ALKALINE PHOSPHATASE 188(H) 40 - 150 U/L 10/24/2022 10:07 AM [facility] AST 25 0 - 41 U/L 10/24/2022 10:07 AM [facility] ALT 16 0 - 41 U/L 10/24/2022 10:07 AM [facility] Blood Collection / Unknown 10/24/2022 4:30 AM PROJECT LANDSCAPE ARCHITECT 10/24/2022 9:32 AM PROJECT LANDSCAPE ARCHITECT Franco Apple MD CHEMISTRY ORDERABLES Final Resul t [facility] [[email or web address]] CLIA# [id number] [address] [facility] [place] [address] documented in this encounter Visit Diagnoses Not on filedocumented in this encounter Additional Health Concerns Infection Onset Date Last Indicated Resolved Time MRSA Comment:09/2022 sputum Resolved per Type and Duration of Precautions Recommended for Selected Infections and Conditions document 2023 update 09/16/2022 09/28/202206/04 4:18 PM CDT documented as of this encounter
--- OUTSIDE RECORDS SUMMARY | 2025-01-05 04:01 | XMS_ITS | Encounter Summary ---
Author Organization [facility] Address [address] [place] [address] Care Team Providers Care Special Officer Automat Name Role Phone Unavailable Primary Care Provider Unavailabl e Encounter Details Date Type Department Care Team (Late st Contact Info) Description 10/14/2022 Lab Requisition [facility] Laboratory Services [address] [place] [address] [place] [address] [facility] [place] [address] Social History Tobacco Use Types Packs/Day Years Used Date Smoking Tobacco: Never Assessed Sex and Gender Information Value Date Recorded Sex Assigned at Not on file Legal Sex Male 2:27 PM DATA PROCESSOR Gender Identity Not on file Sexual Orientation Not on file COVID-19 Exposure Response Date Recorded In the last 10 days, have yo u been in contact with someone who was confirmed or suspected to have Coronavirus/COVID-19? Unable to assess 10/04/2022 4:56 PM DATA PROCESSOR documented as of this encounter Plan of Treatment Not on file documented as of this encounter Procedures Procedure Name Priority Date/Time Associated Diagnosis Comments CBC WITH DIFFERENTIAL Routine 10/14/2022 2:35 AM DATA PROCESSOR HEPATIC FUNCTION PANEL Routine 10/14/2022 2:35 AM DATA PROCESSOR BASIC METABOLIC PANEL Routine 10/14/2022 2:35 AM DATA PROCESSOR documented in this encounter Results * (ABNORMAL) HEPATIC FUNCTION PANEL (10/14/2022 2:35 AM DATA PROCESSOR) TOTAL PROTEIN 7.2 6.3 - 8.7 g/dL 10/14/2022 6:50 AM [facility] ALBUMIN 3.0(L) 3.5 - 5.2 g/dL 10/14/2022 6:50 AM [facility] BILIRUBIN TOTAL 0.8 0.2 - 1.1 mg/dL 10/14/2022 6:50 AM [facility] BILIRUBIN DIRECT 0.2 0.0 - 0.3 mg/dL 10/14/2022 6:50 AM [facility] ALKALINE PHOSPHATASE 175(H) 40 - 150 U/L 10/14/2022 6:50 AM [facility] AST 24 0 - 41 U/L 10/14/2022 6:50 AM [facility] ALT 13 0 - 41 U/L 10/14/2022 6:50 AM [facility] Blood Collection / Unknown 10/14/2022 2:35 AM DATA PROCESSOR 10/14/2022 6:09 AM DATA PROCESSOR us Franco Apple MD CHEMISTRY ORDERABLES Final Resul t [facility] CLIA# [id number] [place] [address] * (ABNORMAL) BASIC METABOLIC PANEL (10/14/2022 2:35 AM DATA PROCESSOR) SODIUM 138 136 - 145 mmol/L 10/14/2022 6:50 AM [facility] POTASSIUM 3.6 3.4 - 5.1 mmol/L 10/14/2022 6:50 AM [facility] CHLORIDE 90(L) 98 - 107 mmol/L 10/14/2022 6:50 AM [facility] CO2 38(H) 22 - 29 mmol/L 10/14/2022 6:50 AM [facility] CALCIUM 9.7 8.6 - 10.4 mg/dL 10/14/2022 6:50 AM [facility] BUN 51(H) 6 - 20 mg/dL 10/14/2022 6:50 AM [facility] CREATININE 0.70 0.67 - 1.17 mg/dL 10/14/2022 6:50 AM [facility] Comment:The GFR result is no t clinically significant on patients <18 or >70 years of age. GLUCOSE 131(H) 74 - 99 mg/dL 10/14/2022 6:50 AM [facility] GFR >60 mL/min/1.7 3 sq meter 10/14/2022 6:50 AM [facility] Comment:eGFR calculated with 2020 CKD-EPI equation. Vegetarian diet, extremely high or low muscle mass, and may affect results. Cystatin C with Glomerular Filtration Rate is a suitable alternative for these patients. ANION GAP 10 8 - 16 mmol/L 10/14/2022 6:50 AM [facility] Blood Collection / Unknown 10/14/2022 2:35 AM DATA PROCESSOR 10/14/2022 6:09 AM DATA PROCESSOR us Franco Apple MD CHEMISTRY ORDERABLES Final Resul t [facility] CLIA# [id number] [place] [address] * (ABNORMAL) CBC WITH DIFFERENTIAL (10/14/2022 2:35 AM DATA PROCESSOR) WBC 9.3 4.5 - 10.5 K/uL 10/14/2022 6:34 AM [facility] RBC 2.90(L) 4.50 - 5.40 M/uL 10/14/2022 6:34 AM [facility] HEMOGLOBIN 8.9(L) 13.6 - 16.5 g/dL 10/14/2022 6:34 AM [facility] HEMATOCRIT 27.0(L) 40.0 - 48.0 % 10/14/2022 6:34 AM [facility] MCV 93.3 82.0 - 99.0 fL 10/14/2022 6:34 AM DATA PROCESSOR [facility] LABORATORY SERVICES [facility] MCH 30.7 27.8 - 34.5 pg 10/14/2022 6:34 AM DATA PROCESSOR [facility]ORY SERVICES [facility] MCHC 32.9 32.5 - 35.5 g/dL 10/14/2022 6:[address] [facility] LABORATORY SERVICES [facility] RDW 18.0(H) 11.5 - 14.5 % 10/14/2022 6:34 AM DATA PROCESSOR [facility]ORY SERVICES [facility] PLATELETS 199 160 - 420 K/uL 10/14/2022 6:34 AM DATA PROCESSOR [facility] LAB[facility]ATORY SERVICES [facility] MPV 9.3 8.7 - 12.7 fL 10/14/2022 6:34 AM DATA PROCESSOR [facility]ORY SERVICES [facility] NEUTROPHILS 69 % 10/14/2022 6:34 AM DATA PROCESSOR [facility]OR[facility]ORY SERVICES [facility] LYMPHOCYTES 20 % 10/14/2022 6:34 AM DATA PROCESSOR [facility]ORY SERVICES [facility] MONOCYTES 7 % 10/14/2022 6:34 AM DATA PROCESSOR [facility] LABORATORY SERVICES [facility] EOSINOPHILS 4 % 10/14/2022 6:34 AM DATA PROCESSOR [facility] LABORATORY SERVICES [facility] BASOPHILS 1 % 10/14/2022 6:34 AM DATA PROCESSOR [facility] LABORATORY SERVICES [facility] NEUTROPHIL ABSOLUTE 6.30 1.90 - 7.00 K/uL 10/14/2022 6:34 AM DATA PROCESSOR [facility] LABORATORY SERVICES [facility] LYMPHOCYTE ABSOLUTE 1.80 0.70 - 4.50 K/uL 10/14/2022 6:34 AM DATA PROCESSOR [facility] LABORATORY SERVICES [facility] MONOCYTE ABSOLUTE 0.60 0.10 - 1.30 K/uL 10/14/2022 6:34 AM DATA PROCESSOR [facility] LABORATORY SERVICES [facility] EOSINOPHIL ABSOLUTE 0.40 0.00 - 0.70 K/uL 10/14/2022 6:34 AM DATA PROCESSOR [facility] LABORATORY SERVICES [facility] BASOPHILS ABSOLUTE 0.10 0.00 - 0.20 K/uL 10/14/2022 6:34 AM DATA PROCESSOR [facility] LAB[facility]ORY SERVICES [facility] Blood Collection / Unknown 10/14/2022 2:35 AM DATA PROCESSOR 10/14/2022 6:09 AM DATA PROCESSOR us Franco Apple MD HEMATOLOGY ORDERABLES Final Resu lt [facility] LABORATORY [facility]# [id number] [place] [address] documented in this encounter Visit Diagnoses Not on filedocumented in this encounter Additional Health Concerns Infection Onset Date Last Indicated Resolved Time MRSA Comment:09/2022 sputum Resolved per Type and Duration of Precautions Recommended for Selected Infections and Conditions document 2023 update 09/16/2022 09/28/202206/04 4:18 PM CDT documented as of this encounter
--- OUTSIDE RECORDS SUMMARY | 2025-01-05 04:01 | XMS_ITS | Encounter Summary ---
Author Organization [facility] Address [address] [place] [address] Care Team Providers Care Homebirth Midwife Name Role Phone Unavailable Primary Care Provider Unavailabl e Encounter Details Date Type Department Care Team (Late st Contact Info) Description 09/24/2022 Lab Requisition [facility] Laboratory Services [address] [place] [address] [place] [address] [place] [address] Social History Tobacco Use Types Packs/Day Years Used Date Smoking Tobacco: Never Assessed Sex and Gender Information Value Date Recorded Sex Assigned at Not on file Legal Sex Male 2:27 PM BUCKET HOOKER Gender Identity Not on file Sexual Orientation Not on file COVID-19 Exposure Response Date Recorded In the last 10 days, have yo u been in contact with someone who was confirmed or suspected to have Coronavirus/COVID-19? Unable to assess 09/18/2022 6:07 AM BUCKET HOOKER documented as of this encounter Plan of Treatment Not on file documented as of this encounter Procedures Procedure Name Priority Date/Time Associated Diagnosis Comments CBC WITH DIFFERENTIAL Routine 09/24/2022 2:40 AM BUCKET HOOKER BASIC METABOLIC PANEL Routine 09/24/2022 2:40 AM BUCKET HOOKER documented in this encounter Results * (ABNORMAL) CBC WITH DIFFERENTIAL (09/24/2022 2:40 AM BUCKET HOOKER) Pathologist [facility] WBC 8.7 4.5 - 10.5 K/uL 09/24/2022 7:54 AM BUCKET HOOKER [facility] LABORATORY SERVICES [facility] RBC 2.62(L) 4.50 - 5.40 M/uL 09/24/2022 7:54 AM [facility] LABORATORY [facility] HEMOGLOBIN 7.8(L) 13.6 - 16.5 g/dL 09/24/2022 7:54 AM [facility] LABORATORY [facility] HEMATOCRIT 24.3(L) 40.0 - 48.0 % 09/24/2022 7:54 AM BUCKET HOOKER [facility] MCV 92.7 82.0 - 99.0 fL 09/24/2022 7:54 AM BUCKET HOOKER [facility] MCH 29.9 27.8 - 34.5 pg 09/24/2022 7:54 AM BUCKET HOOKER [facility] MCHC 32.3(L) 32.5 - 35.5 g/dL 09/24/2022 7:54 AM [facility] LABORATORY [facility] RDW 19.5(H) 11.5 - 14.5 % 09/24/2022 7:54 AM BUCKET HOOKER [facility] PLATELETS 223 160 - 420 K/uL 09/24/2022 7:54 AM BUCKET HOOKER [facility] MPV 9.3 8.7 - 12.7 fL 09/24/2022 7:54 AM BUCKET HOOKER [facility] NEUTROPHILS 61 % 09/24/2022 7:54 AM BUCKET HOOKER [facility] LYMPHOCYTES 25 % 09/24/2022 7:54 AM BUCKET HOOKER [facility] MONOCYTES 7 % 09/24/2022 7:54 AM BUCKET HOOKER [facility] LABORATORY SERVICES [facility] EOSINOPHILS 6 % 09/24/2022 7:54 AM BUCKET HOOKER [facility] BASOPHILS 1 % 09/24/2022 7:54 AM BUCKET HOOKER [facility] NEUTROPHIL ABSOLUTE 5.30 1.90 - 7.00 K/uL 09/24/2022 7:54 AM BUCKET HOOKER [facility] LYMPHOCYTE ABSOLUTE 2.20 0.70 - 4.50 K/uL 09/24/2022 7:54 AM BUCKET HOOKER [facility]OR[facility] MONOCYTE ABSOLUTE 0.60 0.10 - 1.30 K/uL 09/24/2022 7:54 AM [facility] EOSINOPHIL ABSOLUTE 0.50 0.00 - 0.70 K/uL 09/24/2022 7:54 AM [facility] BASOPHILS ABSOLUTE 0.10 0.00 - 0.20 K/uL 09/24/2022 7:54 AM [facility] Blood Collection / Unknown 09/24/2022 2:40 AM BUCKET HOOKER 09/24/2022 7:16 AM BUCKET HOOKER Franco Apple MD HEMATOLOGY ORDERABLES Final Resu lt [facility] CLIA# [id number] [place] [address] * (ABNORMAL) BASIC METABOLIC PANEL (09/24/2022 2:40 AM BUCKET HOOKER) SODIUM 147(H) 136 - 145 mmol/L 09/24/2022 8:40 AM [facility] POTASSIUM 3.7 3.4 - 5.1 mmol/L 09/24/2022 8:40 AM [facility] CHLORIDE 99 98 - 107 mmol/L 09/24/2022 8:40 AM [facility] CO2 39(H) 22 - 29 mmol/L 09/24/2022 8:40 AM [facility] CALCIUM 9.5 8.6 - 10.4 mg/dL 09/24/2022 8:40 AM [facility] BUN 50(H) 6 - 20 mg/dL 09/24/2022 8:40 AM [facility] CREATININE 0.78 0.67 - 1.17 mg/dL 09/24/2022 8:40 AM [facility] Comment:The GFR result is no t clinically significant on patients <18 or >70 years of age. GLUCOSE 216(H) 74 - 99 mg/dL 09/24/2022 8:40 AM [facility] GFR >60 mL/min/1.7 3 sq meter 09/24/2022 8:40 AM BUCKET HOOKER [facility] LABOR[facility] Comment:eGFR calculated with 2020 CKD-EPI equation. Vegetarian diet, extremely high or low muscle mass, and may affect results. Cystatin C with Glomerular Filtration Rate is a suitable alternative for these patients. ANION GAP 9 8 - 16 mmol/L 09/24/2022 8:40 AM BUCKET HOOKER [facility] LABOR[facility] Blood Collection / Unknown 09/24/2022 2:40 AM BUCKET HOOKER 09/24/2022 7:16 AM BUCKET HOOKER us Franco Apple MD CHEMISTRY ORDERABLES Final Resul t [facility] [employer] [facility] CLIA# [id number] [address] [place] [address] documented in this encounter Visit Diagnoses Not on filedocumented in this encounter Additional Health Concerns Infection Onset Date Last Indicated Resolved Time MRSA Comment:09/2022 sputum Resolved per Type and Duration of Precautions Recommended for Selected Infections and Conditions document 2023 update 09/16/2022 09/28/202206/04 4:18 PM CDT documented as of this encounter
--- OUTSIDE RECORDS SUMMARY | 2025-01-05 04:01 | XMS_ITS | Encounter Summary ---
Author Organization [facility] Address [address] [place] [address] Care Team Providers Care Replanting Machine Crew Name Role Phone Unavailable Primary Care Provider Unavailabl e Encounter Details Date Type Department Care Team (Late st Contact Info) Description 09/28/2022 Lab Requisition [facility] Laboratory Services [address] [place] [address] [place] [address] [place] [address] Social History Tobacco Use Types Packs/Day Years Used Date Smoking Tobacco: Never Assessed Sex and Gender Information Value Date Recorded Sex Assigned at Not on file Legal Sex Male 2:27 PM BOBBIN COIL WINDER Gender Identity Not on file Sexual Orientation Not on file COVID-19 Exposure Response Date Recorded In the last 10 days, have yo u been in contact with someone who was confirmed or suspected to have Coronavirus/COVID-19? Unable to assess 09/18/2022 6:07 AM BOBBIN COIL WINDER documented as of this encounter Plan of Treatment Not on file documented as of this encounter Procedures Procedure Name Priority Date/Time Associated Diagnosis Comments BLOOD CULTURE Routine 09/28/2022 10:30 AM BOBBIN COIL WINDER documented in this encounter Results * BLOOD CULTURE (09/28/2022 10:30 AM BOBBIN COIL WINDER) BLOOD CULTURE No growth 10/03/2022 8:04 PM BOBBIN COIL WINDER [facility] LABOR[facility] Blood ENTIRE FOREARM / Unknown Collection / Unknown 09/28/2022 10:30 AM BOBBIN COIL WINDER 09/28/2022 12:48 PM BOBBIN COIL WINDER Franco Apple MD MICROBIOLOGY - GENERAL ORDERABLE S Final Result Performing Organization Address [facility] Co de Phone Number [facility]# [id number] [address] [place] [address] documented in this encounter Visit Diagnoses Not on filedocumented in this encounter Additional Health Concerns Infection Onset Date Last Indicated Resolved Time MRSA Comment:09/2022 sputum Resolved per Type and Duration of Precautions Recommended for Selected Infections and Conditions document 2023 update 09/16/2022 09/28/202206/04 4:18 PM CDT documented as of this encounter
--- OUTSIDE RECORDS SUMMARY | 2025-01-05 04:01 | XMS_ITS | Encounter Summary ---
Author Organization [facility] Address [address] [place] [address] Care Team Providers Care Clean Rice Grader And Reel Tender Name Role Phone Unavailable Primary Care Provider Unavailabl e Encounter Details Date Type Department Care Team (Late st Contact Info) Description 12/25/2022 Lab Requisition [facility] Laboratory Services [address] [place] [address] [place] [address] [place] [address] Social History Tobacco Use Types Packs/Day Years Used Date Smoking Tobacco: Never Assessed Sex and Gender Information Value Date Recorded Sex Assigned at Not on file Legal Sex Male 2:27 PM CARE TRANSITION COORDINATOR Gender Identity Not on file Sexual Orientation [...] Diagnosis Comments CBC WITH DIFFERENTIAL Routine 12/25/2022 6:30 AM CDT BASIC METABOLIC PANEL Routine 12/25/2022 6:30 AM CDT documented in this encounter Results * (ABNORMAL) CBC WITH DIFFERENTIAL (12/25/2022 6:30 AM CDT) WBC 6.6 4.5 - 10.5 K/uL 12/25/2022 9:39 AM CDT [facility] LABORATORY SERVICES [facility] RBC 3.45(L) 4.50 - 5.40 M/uL 12/25/2022 9:39 AM CDT [facility]ORATORY SERVICES [facility] HEMOGLOBIN 10.8(L) 13.6 - 16.5 g/dL 12/25/2022 9:39 AM CDT [facility]OR[facility]ORY SERVICES [facility] HEMATOCRIT 31.8(L) 40.0 - 48.0 % 12/25/2022 9:39 AM CDT [facility]ORATORY SERVICES [facility] MCV 92.2 82.0 - 99.0 fL 12/25/2022 9:39 AM CDT [facility]ORATORY SERVICES [facility] MCH 31.2 27.8 - 34.5 pg 12/25/2022 9:39 AM CDT [facility]ORATORY SERVICES [facility] MCHC 33.8 32.5 - 35.5 g/dL 12/25/2022 9:39 AM CDT [facility] LABORATORY [facility] RDW 16.7(H) 11.5 - 14.5 % 12/25/2022 9:39 AM CDT [facility]ORATORY SERVICES [facility] PLATELETS 184 160 - 420 K/uL 12/25/2022 9:39 AM CDT [facility]ORATORY SERVICES [facility] MPV 9.8 8.7 - 12.7 fL 12/25/2022 9:39 AM CDT [facility]ORATORY SERVICES [facility] NEUTROPHILS 48 % 12/25/2022 9:39 AM CDT [facility]ORATORY SERVICES [facility] LYMPHOCYTES 31 % 12/25/2022 9:39 AM CDT [facility]ORY SERVICES [facility] MONOCYTES 11 % 12/25/2022 9:39 AM CDT [facility]ORY SERVICES [facility] EOSINOPHILS 9 % 12/25/2022 9:39 AM CDT [facility]ORY SERVICES [facility] BASOPHILS 1 % 12/25/2022 9:39 AM CDT [facility]ATORY SERVICES [facility] NEUTROPHIL ABSOLUTE 3.20 1.90 - 7.00 K/uL 12/25/2022 9:39 AM CDT [facility]ORATORY SERVICES [facility] LYMPHOCYTE ABSOLUTE 2.10 0.70 - 4.50 K/uL 12/25/2022 9:39 AM CDT [facility]ORATORY SERVICES [facility] MONOCYTE ABSOLUTE 0.70 0.10 - 1.30 K/uL 12/25/2022 9:39 AM CDT [facility] EOSINOPHIL ABSOLUTE 0.60 0.00 - 0.70 K/uL 12/25/2022 9:39 AM CDT [facility] LABORATORY [facility] BASOPHILS ABSOLUTE 0.10 0.00 - 0.20 K/uL 12/25/2022 9:39 AM CDT [facility] Blood Collection / Unknown 12/25/2022 6:30 AM CDT 12/25/2022 9:32 AM CDT us Franco Apple MD HEMATOLOGY ORDERABLES Final Resu lt [facility] CLIA# [id number] [place] [address] * (ABNORMAL) BASIC METABOLIC PANEL (12/25/2022 6:30 AM CDT) SODIUM 138 136 - 145 mmol/L 12/25/2022 10:17 AM CDT [facility] POTASSIUM 4.3 3.4 - 5.1 mmol/L 12/25/2022 10:17 AM CDT [facility] CHLORIDE 97(L) 98 - 107 mmol/L 12/25/2022 10:17 AM CDT [facility] CO2 29 22 - 29 mmol/L 12/25/2022 10:17 AM CDT [facility] CALCIUM 10.7(H) 8.6 - 10.4 mg/dL 12/25/2022 10:17 AM CDT [facility] BUN 75(H) 6 - 20 mg/dL 12/25/2022 10:17 AM CDT [facility] CREATININE 0.97 0.67 - 1.17 mg/dL 12/25/2022 10:17 AM CDT [facility] Comment:The GFR result is no t clinically significant on patients <18 or >70 years of age. GLUCOSE 341(H) 74 - 99 mg/dL 12/25/2022 10:17 AM CDT [facility] GFR >60 mL/min/1.7 3 sq meter 12/25/2022 10:17 AM CDT [facility] Comment:eGFR calculated with 2020 CKD-EPI equation. Vegetarian diet, extremely high or low muscle mass, and may affect results. Cystatin C with Glomerular Filtration Rate is a suitable alternative for these patients. ANION GAP 12 8 - 16 mmol/L 12/25/2022 10:17 AM CDT [facility] Blood Collection / Unknown 12/25/2022 6:30 AM CDT 12/25/2022 9:32 AM CDT Franco Apple MD CHEMISTRY ORDERABLES Final Resul t [facility] CLIA# [id number] [address] [place] [address] documented in this encounter Visit Diagnoses Not on filedocumented in this encounter Additional Health Concerns Infection Onset Date Last Indicated Resolved Time MRSA Comment:09/2022 sputum Resolved per Type and Duration of Precautions Recommended for Selected Infections and Conditions document 2023 update 09/16/2022 09/28/202206/04 4:18 PM CDT documented as of this encounter
--- OUTSIDE RECORDS SUMMARY | 2025-01-05 04:01 | XMS_ITS | Encounter Summary ---
Author Organization [facility] Address [address] [place] [address] Care Team Providers Care Clinical Trials Data Coordinator Name Role Phone Unavailable Primary Care Provider Unavailabl e Encounter Details Date Type Department Care Team (Late st Contact Info) Description 09/29/2022 Lab Requisition [facility] Laboratory Services [address] [place] [address] [place] [address] [place] [address] Social History Tobacco Use Types Packs/Day Years Used Date Smoking Tobacco: Never Assessed Sex and Gender Information Value Date Recorded Sex Assigned at Not on file Legal Sex Male 2:27 PM CAUSTICS LOADER Gender Identity Not on file Sexual Orientation Not on file COVID-19 Exposure Response Date Recorded In the last 10 days, have yo u been in contact with someone who was confirmed or suspected to have Coronavirus/COVID-19? Unable to assess 09/18/2022 6:07 AM CAUSTICS LOADER documented as of this encounter Plan of Treatment Not on file documented as of this encounter Procedures Procedure Name Priority Date/Time Associated Diagnosis Comments CBC WITH DIFFERENTIAL Routine 09/29/2022 4:45 AM CAUSTICS LOADER BASIC METABOLIC PANEL Routine 09/29/2022 4:45 AM CAUSTICS LOADER documented in this encounter Results * (ABNORMAL) CBC WITH DIFFERENTIAL (09/29/2022 4:45 AM CAUSTICS LOADER) Pathologist [facility] WBC 8.4 4.5 - 10.5 K/uL 09/29/2022 7:55 AM CAUSTICS LOADER [facility] LABORATORY SERVICES [facility] RBC 2.68(L) 4.50 - 5.40 M/uL 09/29/2022 7:55 AM CAUSTICS LOADER [facility] LABORATORY [facility] HEMOGLOBIN 8.1(L) 13.6 - 16.5 g/dL 09/29/2022 7:55 AM [facility] LABORATORY [facility] HEMATOCRIT 24.7(L) 40.0 - 48.0 % 09/29/2022 7:55 AM CAUSTICS LOADER [facility] LABORATORY [facility] MCV 92.5 82.0 - 99.0 fL 09/29/2022 7:55 AM CAUSTICS LOADER [facility] LABORATORY [facility] MCH 30.3 27.8 - 34.5 pg 09/29/2022 7:55 AM CAUSTICS LOADER [facility] LABORATORY SERVICES [facility] MCHC 32.8 32.5 - 35.5 g/dL 09/29/2022 7:55 AM [facility] LABOR[facility] RDW 18.6(H) 11.5 - 14.5 % 09/29/2022 7:55 AM CAUSTICS LOADER [facility] LABORAT[facility] PLATELETS 218 160 - 420 K/uL 09/29/2022 7:55 AM CAUSTICS LOADER [facility] LABORAT[facility] MPV 9.3 8.7 - 12.7 fL 09/29/2022 7:55 AM CAUSTICS LOADER [facility]ORATORY SERVICES [facility] NEUTROPHILS 68 % 09/29/2022 7:55 AM CAUSTICS LOADER [facility] LABORATORY [facility] LYMPHOCYTES 20 % 09/29/2022 7:55 AM CAUSTICS LOADER [facility]ORATORY SERVICES [facility] MONOCYTES 6 % 09/29/2022 7:55 AM CAUSTICS LOADER [facility]ORY SERVICES [facility] EOSINOPHILS 6 % 09/29/2022 7:55 AM CAUSTICS LOADER [facility]ORY SERVICES [facility] BASOPHILS 1 % 09/29/2022 7:55 AM CAUSTICS LOADER [facility]ORY SERVICES [facility] NEUTROPHIL ABSOLUTE 5.70 1.90 - 7.00 K/uL 09/29/2022 7:55 AM CAUSTICS LOADER [facility] LYMPHOCYTE ABSOLUTE 1.70 0.70 - 4.50 K/uL 09/29/2022 7:55 AM CAUSTICS LOADER [facility]ORY SERVICES [facility] MONOCYTE ABSOLUTE 0.50 0.10 - 1.30 K/uL 09/29/2022 7:55 AM CAUSTICS LOADER [facility] EOSINOPHIL ABSOLUTE 0.50 0.00 - 0.70 K/uL 09/29/2022 7:55 AM CAUSTICS LOADER [facility] BASOPHILS ABSOLUTE 0.00 0.00 - 0.20 K/uL 09/29/2022 7:55 AM [facility] Blood 09/29/2022 4:45 AM CAUSTICS LOADER 09/29/2022 7:46 AM CAUSTICS LOADER Franco Apple MD HEMATOLOGY ORDERABLES Final Resu lt [facility] CLIA# [id number] [address] [place] [address] * (ABNORMAL) BASIC METABOLIC PANEL (09/29/2022 4:45 AM CAUSTICS LOADER) SODIUM 143 136 - 145 mmol/L 09/29/2022 8:36 AM [facility] POTASSIUM 3.9 3.4 - 5.1 mmol/L 09/29/2022 8:36 AM [facility] CHLORIDE 95(L) 98 - 107 mmol/L 09/29/2022 8:36 AM [facility] CO2 38(H) 22 - 29 mmol/L 09/29/2022 8:36 AM [facility] CALCIUM 9.4 8.6 - 10.4 mg/dL 09/29/2022 8:36 AM [facility] BUN 49(H) 6 - 20 mg/dL 09/29/2022 8:36 AM [facility] CREATININE 0.73 0.67 - 1.17 mg/dL 09/29/2022 8:36 AM [facility] Comment:The GFR result is no t clinically significant on patients <18 or >70 years of age. GLUCOSE 186(H) 74 - 99 mg/dL 09/29/2022 8:36 AM [facility] GFR >60 mL/min/1.7 3 sq meter 09/29/2022 8:36 AM [facility] Comment:eGFR calculated with 2020 CKD-EPI equation. Vegetarian diet, extremely high or low muscle mass, and may affect results. Cystatin C with Glomerular Filtration Rate is a suitable alternative for these patients. ANION GAP 10 8 - 16 mmol/L 09/29/2022 8:36 AM CAUSTICS LOADER [facility] LABORAT[facility] Blood 09/29/2022 4:45 AM CAUSTICS LOADER 09/29/2022 7:46 AM CAUSTICS LOADER us Franco Apple MD CHEMISTRY ORDERABLES Final Resul t [facility] LAB[facility]ATORY [facility] CLIA# [id number] [place] [address] documented in this encounter Visit Diagnoses Not on filedocumented in this encounter Additional Health Concerns Infection Onset Date Last Indicated Resolved Time MRSA Comment:09/2022 sputum Resolved per Type and Duration of Precautions Recommended for Selected Infections and Conditions document 2023 update 09/16/2022 09/28/202206/04 4:18 PM CDT documented as of this encounter
--- OUTSIDE RECORDS SUMMARY | 2025-01-05 04:01 | XMS_ITS | Encounter Summary ---
Author Organization [facility] Address [address] [place] [address] Care Team Providers Care Blue Leather Setter Name Role Phone Unavailable Primary Care Provider Unavailabl e Encounter Details Date Type Department Care Team (Late st Contact Info) Description 09/30/2022 Lab Requisition [facility] Laboratory Services [address] [place] [address] [place] [address] [facility] [place] [address] Social History Tobacco Use Types Packs/Day Years Used Date Smoking Tobacco: Never Assessed Sex and Gender Information Value Date Recorded Sex Assigned at Not on file Legal Sex Male 2:27 PM ENVIRONMENTAL SERVICES ASSISTANT Gender Identity Not on file Sexual Orientation Not on file COVID-19 Exposure Response Date Recorded In the last 10 days, have yo u been in contact with someone who was confirmed or suspected to have Coronavirus/COVID-19? Unable to assess 09/18/2022 6:07 AM ENVIRONMENTAL SERVICES ASSISTANT documented as of this encounter Plan of Treatment Not on file documented as of this encounter Procedures Procedure Name Priority Date/Time Associated Diagnosis Comments VANCOMYCIN LEVEL TROUGH Routine 09/30/2022 10:40 AM ENVIRONMENTAL SERVICES ASSISTANT documented in this encounter Results * VANCOMYCIN LEVEL TROUGH (09/30/2022 10:40 AM ENVIRONMENTAL SERVICES ASSISTANT) VANCOMYCIN, TROUGH 16.4 10.0 - 17.0 ug/mL 09/30/2022 2:05 PM ENVIRONMENTAL SERVICES ASSISTANT [facility] LABORATORY SERVICES [facility] Blood Collection / Unknown 09/30/2022 10:40 AM ENVIRONMENTAL SERVICES ASSISTANT 09/30/2022 1:21 PM ENVIRONMENTAL SERVICES ASSISTANT us Franco Apple MD CHEMISTRY ORDERABLES Final Resul t [facility] SERVICES [facility]# [id number] [place] [address] documented in this encounter Visit Diagnoses Not on filedocumented in this encounter Additional Health Concerns Infection Onset Date Last Indicated Resolved Time MRSA Comment:09/2022 sputum Resolved per Type and Duration of Precautions Recommended for Selected Infections and Conditions document 2023 update 09/16/2022 09/28/202206/04 4:18 PM CDT documented as of this encounter
--- OUTSIDE RECORDS SUMMARY | 2025-01-05 04:01 | XMS_ITS | Encounter Summary ---
Author Organization [facility] Address [address] [place] [address] Care Team Providers Care Professor Of Genetics Name Role Phone Unavailable Primary Care Provider Unavailabl e Encounter Details Date Type Department Care Team (Late st Contact Info) Description 01/01/2023 Lab Requisition [facility] Laboratory Services [address] [place] [address] [place] [address] [place] [address] Social History Tobacco Use Types Packs/Day Years Used Date Smoking Tobacco: Never Assessed Sex and Gender Information Value Date Recorded Sex Assigned at Not on file Legal Sex Male 2:27 PM BUNCH MAKER Gender Identity Not on file Sexual Orientation [...] Associated Diagnosis Comments BASIC METABOLIC PANEL Routine 01/01/2023 3:45 AM CDT documented in this encounter Results * (ABNORMAL) BASIC METABOLIC PANEL (01/01/2023 3:45 AM CDT) SODIUM 153(H) 136 - 145 mmol/L 01/01/2023 6:[address] [facility]ORY SERVICES - [facility] POTASSIUM 3.4 3.4 - 5.1 mmol/L 01/01/2023 6:[address] [facility] CHLORIDE 109(H) 98 - 107 mmol/L 01/01/2023 6:10 AM T [facility] CO2 30(H) 22 - 29 mmol/L 01/01/2023 6:10 AM T [facility] CALCIUM 10.8(H) 8.6 - 10.4 mg/dL 01/01/2023 6:10 AM T [facility] BUN 101(H) 6 - 20 mg/dL 01/01/2023 6:10 AM T [facility] CREATININE 1.42(H) 0.67 - 1.17 mg/dL 01/01/2023 6:10 AM T [facility] Comment:The GFR result is no t clinically significant on patients <18 or >70 years of age. GLUCOSE 186(H) 74 - 99 mg/dL 01/01/2023 6:10 AM T [facility] GFR 52 mL/min/1.7 3 sq meter 01/01/2023 6:10 AM T [facility] Comment:eGFR calculated with 2020 CKD-EPI equation. Vegetarian diet, extremely high or low muscle mass, and may affect results. Cystatin C with Glomerular Filtration Rate is a suitable alternative for these patients. ANION GAP 14 8 - 16 mmol/L 01/01/2023 6:10 AM T [facility] Blood 01/01/2023 3:45 AM CDT 01/01/2023 5:07 AM CDT us Franco Apple MD CHEMISTRY ORDERABLES Final Resul t [facility] CLIA# [id number] [place] [address] documented in this encounter Visit Diagnoses Not on filedocumented in this encounter Additional Health Concerns Infection Onset Date Last Indicated Resolved Time MRSA Comment:09/2022 sputum Resolved per Type and Duration of Precautions Recommended for Selected Infections and Conditions document 2023 update 09/16/2022 09/28/202206/04 4:18 PM CDT documented as of this encounter
--- OUTSIDE RECORDS SUMMARY | 2025-01-05 04:01 | XMS_ITS | Encounter Summary ---
Author Organization [facility] Address [address] [place] [address] Care Team Providers Care Sponge Packer Name Role Phone Unavailable Primary Care Provider Unavailabl e Encounter Details Date Type Department Care Team (Late st Contact Info) Description 09/28/2022 Lab Requisition [facility] Laboratory Services [address] [place] [address] [place] [address] [place] [address] Social History Tobacco Use Types Packs/Day Years Used Date Smoking Tobacco: Never Assessed Sex and Gender Information Value Date Recorded Sex Assigned at Not on file Legal Sex Male 2:27 PM VEGETABLE WASHING MACHINE OPERATOR Gender Identity Not on file Sexual Orientation Not on file COVID-19 Exposure Response Date Recorded In the last 10 days, have yo u been in contact with someone who was confirmed or suspected to have Coronavirus/COVID-19? Unable to assess 09/18/2022 6:07 AM VEGETABLE WASHING MACHINE OPERATOR documented as of this encounter Plan of Treatment Not on file documented as of this encounter Procedures Procedure Name Priority Date/Time Associated Diagnosis Comments BLOOD CULTURE Routine 09/28/2022 10:15 AM VEGETABLE WASHING MACHINE OPERATOR documented in this encounter Results * BLOOD CULTURE (09/28/2022 10:15 AM VEGETABLE WASHING MACHINE OPERATOR) BLOOD CULTURE No growth 10/03/2022 8:06 PM VEGETABLE WASHING MACHINE OPERATOR [facility] LABORATORY [facility] Blood (Hand, left) Collection / Unknown 09/28/2022 10:15 AM VEGETABLE WASHING MACHINE OPERATOR 09/28/2022 12:46 PM VEGETABLE WASHING MACHINE OPERATOR Franco Apple MD MICROBIOLOGY - GENERAL ORDERABLE S Final Result Performing Organization Address City/State/[facility] Co de Phone Number [facility]# [id number] [address] [place] [address] documented in this encounter Visit Diagnoses Not on filedocumented in this encounter Additional Health Concerns Infection Onset Date Last Indicated Resolved Time MRSA Comment:09/2022 sputum Resolved per Type and Duration of Precautions Recommended for Selected Infections and Conditions document 2023 update 09/16/2022 09/28/202206/04 4:18 PM CDT documented as of this encounter
--- OUTSIDE RECORDS SUMMARY | 2025-01-05 04:01 | XMS_ITS | Encounter Summary ---
Author Organization [facility] Address [address] [place] [address] Care Team Providers Care Hand Lens Polisher Name Role Phone Unavailable Primary Care Provider Unavailabl e Encounter Details Date Type Department Care Team (Late st Contact Info) Description 10/04/2022 Lab Requisition [facility] Laboratory Services [address] [place] [address] [place] [address] [place] [address] Social History Tobacco Use Types Packs/Day Years Used Date Smoking Tobacco: Never Assessed Sex and Gender Information Value Date Recorded Sex Assigned at Not on file Legal Sex Male 2:27 PM GED PREPARATION TEACHER Gender Identity Not on file Sexual Orientation Not on file COVID-19 Exposure Response Date Recorded In the last 10 days, have yo u been in contact with someone who was confirmed or suspected to have Coronavirus/COVID-19? Unable to assess 10/04/2022 4:56 PM GED PREPARATION TEACHER documented as of this encounter Plan of Treatment Not on file documented as of this encounter Procedures Procedure Name Priority Date/Time Associated Diagnosis Comments C. DIFFICILE DETECTION Routine 10/03/2022 9:10 PM GED PREPARATION TEACHER documented in this encounter Results * C. DIFFICILE DETECTION (10/03/2022 9:10 PM GED PREPARATION TEACHER) TOXIGENIC C DIFFICILE NOT DETECTED Not Detected 10/04/2022 5:40 AM GED PREPARATION TEACHER [facility] LABORATORY SERVICES [facility] Stool STOOL SPECIMEN / Unknown 10/03/2022 9:10 PM GED PREPARATION TEACHER 10/04/2022 4:51 AM GED PREPARATION TEACHER Narrative [facility] LABORATORY [facility] - 10/04/2022 5:40 AM GED PREPARATION TEACHER This assay is used to detect Toxigenic C. difficile target(B gene) DNA sequences in unformed stool specimens. If toxigenic C. difficile is not detected, but clinical suspicion is high please consult ID for consultation and potential repeat testing. This test should not be used as a test of cure. Franco Apple MD MICROBIOLOGY - GENERAL ORDERABLE S Final Result [facility] LABORATORY [facility] CLIA# [id number] [address] [place] [address] documented in this encounter Visit Diagnoses Not on filedocumented in this encounter Additional Health Concerns Infection Onset Date Last Indicated Resolved Time MRSA Comment:09/2022 sputum Resolved per Type and Duration of Precautions Recommended for Selected Infections and Conditions document 2023 update 09/16/2022 09/28/202206/04 4:18 PM CDT documented as of this encounter
--- OUTSIDE RECORDS SUMMARY | 2025-01-05 04:01 | XMS_ITS | Continuity of Care Document ---
Author Organization [facility] Address [address] [place] [address] utive [facility] [address] [place] [address] Phone Care Team Providers Care Ordnance Keeper Name Role Phone Nurishoward Chuck Unavailable Unavailable Procedures Procedure Date Eye Exam, New Patient Advance Directives Directive Yes / No Effective Date File Name No Information Encounters Encounter Description Practice Location Reason(s) For Visit Diagnoses Date Provider Providers Copied on Encounter Located within [facility], [address] [place] [address] [address], [place], [place], [id number], [place] tel:[phone] [facility] No Information [address] [facility] [address], [place], [address], [place]. tel:[phone] Family History Family Member Type Diagnosis Age At Onset No Information Payers Payer name Insurance type Covered republican ID Authoriza tion(s) No Information Social History Type Description Quantity Date Captured Comments Sex Male Smoking Status No Information Chief Complaint And Reason For Visit No Information Reason For Referral Reason For Referral No Information History Of Present Illness Encounter Date Complaint History Of Prese nt Illness No Information Functional Status Date Functional Assessmen t No Information Instructions Date Instruction Additional Infor mation No Information Assessments Type Assessment Date No Information Patient Care Teams Name Effective Dates (start - stop) Status Members No Information
--- OUTSIDE RECORDS SUMMARY | 2025-01-05 04:01 | XMS_ITS | Encounter Summary ---
Author Organization [facility] Address [address] [place] [address] Care Team Providers Care Hand Cooper Helper Name Role Phone Unavailable Primary Care Provider Unavailabl e Encounter Details Date Type Department Care Team (Late st Contact Info) Description 01/03/2023 Lab Requisition [facility] Laboratory Services [address] [place] [address] [place] [address] [place] [address] Social History Tobacco Use Types Packs/Day Years Used Date Smoking Tobacco: Never Assessed Sex and Gender Information Value Date Recorded Sex Assigned at Not on file Legal Sex Male 2:27 PM THREAD PULLING MACHINE ATTENDANT Gender Identity Not on file Sexual Orientation [...] Associated Diagnosis Comments CBC WITH DIFFERENTIAL Routine 01/03/2023 4:00 AM CDT BASIC METABOLIC PANEL Routine 01/03/2023 4:00 AM CDT documented in this encounter Results * (ABNORMAL) CBC WITH DIFFERENTIAL (01/03/2023 4:00 AM CDT) WBC 7.1 4.5 - 10.5 K/uL 01/03/2023 7:00 AM CDT [facility] RBC 3.53(L) 4.50 - 5.40 M/uL 01/03/2023 7:00 AM CDT [facility] HEMOGLOBIN 10.7(L) 13.6 - 16.5 g/dL 01/03/2023 7:00 AM CDT [facility] HEMATOCRIT 32.9(L) 40.0 - 48.0 % 01/03/2023 7:00 AM CDT [facility] MCV 93.1 82.0 - 99.0 fL 01/03/2023 7:00 AM CDT [facility] MCH 30.4 27.8 - 34.5 pg 01/03/2023 7:00 AM CDT [facility] MCHC 32.7 32.5 - 35.5 g/dL 01/03/2023 7:00 AM T [facility] RDW 16.0(H) 11.5 - 14.5 % 01/03/2023 7:00 AM CDT [facility] PLATELETS 185 160 - 420 K/uL 01/03/2023 7:00 AM CDT [facility] MPV 10.5 8.7 - 12.7 fL 01/03/2023 7:00 AM CDT [facility] NEUTROPHILS 61 % 01/03/2023 7:00 AM CDT [facility] LYMPHOCYTES 22 % 01/03/2023 7:00 AM CDT [facility] MONOCYTES 8 % 01/03/2023 7:00 AM CDT [facility] EOSINOPHILS 8 % 01/03/2023 7:00 AM CDT [facility] BASOPHILS 1 % 01/03/2023 7:00 AM CDT [facility] NEUTROPHIL ABSOLUTE 4.30 1.90 - 7.00 K/uL 01/03/2023 7:00 AM CDT [facility] LYMPHOCYTE ABSOLUTE 1.60 0.70 - 4.50 K/uL 01/03/2023 7:00 AM CDT [facility] MONOCYTE ABSOLUTE 0.50 0.10 - 1.30 K/uL 01/03/2023 7:00 AM CDT [facility] EOSINOPHIL ABSOLUTE 0.60 0.00 - 0.70 K/uL 01/03/2023 7:00 AM CDT [facility] BASOPHILS ABSOLUTE 0.10 0.00 - 0.20 K/uL 01/03/2023 7:00 AM CDT [facility] Blood Collection / Unknown 01/03/2023 4:00 AM CDT 01/03/2023 6:43 AM CDT us Franco Apple MD HEMATOLOGY ORDERABLES Final Resu lt [facility] CLIA# [id number] [place] [address] * (ABNORMAL) BASIC METABOLIC PANEL (01/03/2023 4:00 AM CDT) SODIUM 136 136 - 145 mmol/L 01/03/2023 7:12 AM CDT [facility] POTASSIUM 3.8 3.4 - 5.1 mmol/L 01/03/2023 7:12 AM CDT [facility] CHLORIDE 98 98 - 107 mmol/L 01/03/2023 7:12 AM CDT [facility] CO2 27 22 - 29 mmol/L 01/03/2023 7:12 AM CDT [facility] CALCIUM 10.2 8.6 - 10.4 mg/dL 01/03/2023 7:12 AM CDT [facility] BUN 71(H) 6 - 20 mg/dL 01/03/2023 7:12 AM CDT [facility] CREATININE 1.03 0.67 - 1.17 mg/dL 01/03/2023 7:12 AM CDT [facility] Comment:The GFR result is no t clinically significant on patients <18 or >70 years of age. GLUCOSE 219(H) 74 - 99 mg/dL 01/03/2023 7:12 AM CDT [facility] GFR >60 mL/min/1.7 3 sq meter 01/03/2023 7:12 AM CDT [facility] Comment:eGFR calculated with 2020 CKD-EPI equation. Vegetarian diet, extremely high or low muscle mass, and may affect results. Cystatin C with Glomerular Filtration Rate is a suitable alternative for these patients. ANION GAP 11 8 - 16 mmol/L 01/03/2023 7:12 AM CDT [facility] Blood Collection / Unknown 01/03/2023 4:00 AM CDT 01/03/2023 6:43 AM CDT Franco Apple MD CHEMISTRY ORDERABLES Final Resul t [facility] CLIA# [id number] [address] [place] [address] documented in this encounter Visit Diagnoses Not on filedocumented in this encounter Additional Health Concerns Infection Onset Date Last Indicated Resolved Time MRSA Comment:09/2022 sputum Resolved per Type and Duration of Precautions Recommended for Selected Infections and Conditions document 2023 update 09/16/2022 09/28/202206/04 4:18 PM CDT documented as of this encounter
--- OUTSIDE RECORDS SUMMARY | 2025-01-05 04:01 | XMS_ITS | Encounter Summary ---
Author Organization [facility] Address [address] [place] [address] Care Team Providers Care Screw Supervisor Name Role Phone Unavailable Primary Care Provider Unavailabl e Encounter Details Date Type Department Care Team (Late st Contact Info) Description 09/21/2022 Lab Requisition [facility] Laboratory Services [address] [place] [address] [place] [address] [place] [address] Social History Tobacco Use Types Packs/Day Years Used Date Smoking Tobacco: Never Assessed Sex and Gender Information Value Date Recorded Sex Assigned at Not on file Legal Sex Male 2:27 PM METAL FURRER Gender Identity Not on file Sexual Orientation Not on file COVID-19 Exposure Response Date Recorded In the last 10 days, have yo u been in contact with someone who was confirmed or suspected to have Coronavirus/COVID-19? Unable to assess 09/18/2022 6:07 AM METAL FURRER documented as of this encounter Plan of Treatment Not on file documented as of this encounter Procedures Procedure Name Priority Date/Time Associated Diagnosis Comments CBC WITH DIFFERENTIAL Routine 09/21/2022 3:30 AM METAL FURRER BASIC METABOLIC PANEL Routine 09/21/2022 3:30 AM METAL FURRER documented in this encounter Results * (ABNORMAL) CBC WITH DIFFERENTIAL (09/21/2022 3:30 AM METAL FURRER) WBC 8.9 4.5 - 10.5 K/uL 09/21/2022 7:43 AM METAL FURRER [facility] LABORATORY SERVICES [facility] RBC 2.75(L) 4.50 - 5.40 M/uL 09/21/2022 7:43 AM [facility] LABORATORY [facility] HEMOGLOBIN 8.1(L) 13.6 - 16.5 g/dL 09/21/2022 7:43 AM [facility] LABORAT[facility] HEMATOCRIT 25.4(L) 40.0 - 48.0 % 09/21/2022 7:43 AM [facility] LABORAT[facility] MCV 92.3 82.0 - 99.0 fL 09/21/2022 7:43 AM METAL FURRER [facility] LABORATORY [facility] MCH 29.4 27.8 - 34.5 pg 09/21/2022 7:43 AM [facility]ORAT[facility] MCHC 31.8(L) 32.5 - 35.5 g/dL 09/21/2022 7:43 AM [facility]OR[facility] RDW 18.5(H) 11.5 - 14.5 % 09/21/2022 7:43 AM [facility]OR[facility] PLATELETS 221 160 - 420 K/uL 09/21/2022 7:43 AM [facility]OR[facility] MPV 9.8 8.7 - 12.7 fL 09/21/2022 7:43 AM METAL FURRER [facility] LABORATORY [facility] NEUTROPHILS 59 % 09/21/2022 7:43 AM METAL FURRER [facility] LABORATORY [facility] LYMPHOCYTES 24 % 09/21/2022 7:43 AM METAL FURRER [facility] LABORATORY [facility] MONOCYTES 9 % 09/21/2022 7:43 AM METAL FURRER [facility] LABORATORY [facility] EOSINOPHILS 7 % 09/21/2022 7:43 AM METAL FURRER [facility] LABORATORY [facility] BASOPHILS 1 % 09/21/2022 7:43 AM METAL FURRER [facility] LABORATORY [facility] NEUTROPHIL ABSOLUTE 5.30 1.90 - 7.00 K/uL 09/21/2022 7:43 AM METAL FURRER [facility] LABORATORY [facility] LYMPHOCYTE ABSOLUTE 2.10 0.70 - 4.50 K/uL 09/21/2022 7:43 AM METAL FURRER [facility] LABORATORY [facility] MONOCYTE ABSOLUTE 0.80 0.10 - 1.30 K/uL 09/21/2022 7:43 AM [facility] EOSINOPHIL ABSOLUTE 0.70 0.00 - 0.70 K/uL 09/21/2022 7:43 AM [facility] BASOPHILS ABSOLUTE 0.10 0.00 - 0.20 K/uL 09/21/2022 7:43 AM [facility] Blood Collection / Unknown 09/21/2022 3:30 AM METAL FURRER 09/21/2022 7:28 AM METAL FURRER Franco Apple MD HEMATOLOGY ORDERABLES Final Resu lt [facility] CLIA# [id number] [place] [address] * (ABNORMAL) BASIC METABOLIC PANEL (09/21/2022 3:30 AM METAL FURRER) SODIUM 144 136 - 145 mmol/L 09/21/2022 8:17 AM [facility] POTASSIUM 3.6 3.4 - 5.1 mmol/L 09/21/2022 8:17 AM [facility] CHLORIDE 96(L) 98 - 107 mmol/L 09/21/2022 8:17 AM [facility] CO2 39(H) 22 - 29 mmol/L 09/21/2022 8:17 AM [facility] CALCIUM 9.7 8.6 - 10.4 mg/dL 09/21/2022 8:17 AM [facility] BUN 51(H) 6 - 20 mg/dL 09/21/2022 8:17 AM [facility] CREATININE 0.74 0.67 - 1.17 mg/dL 09/21/2022 8:17 AM [facility] Comment:The GFR result is no t clinically significant on patients <18 or >70 years of age. GLUCOSE 201(H) 74 - 99 mg/dL 09/21/2022 8:17 AM [facility] GFR >60 mL/min/1.7 3 sq meter 09/21/2022 8:17 AM METAL FURRER [facility] LABORATORY [facility] Comment:eGFR calculated with 2020 CKD-EPI equation. Vegetarian diet, extremely high or low muscle mass, and may affect results. Cystatin C with Glomerular Filtration Rate is a suitable alternative for these patients. ANION GAP 9 8 - 16 mmol/L 09/21/2022 8:17 AM METAL FURRER [facility] LABORATORY [facility] Blood Collection / Unknown 09/21/2022 3:30 AM METAL FURRER 09/21/2022 7:28 AM METAL FURRER us Franco Apple MD CHEMISTRY ORDERABLES Final Resul t [facility] Elevaate [facility] CLIA# [id number] [address] [place] [address] documented in this encounter Visit Diagnoses Not on filedocumented in this encounter Additional Health Concerns Infection Onset Date Last Indicated Resolved Time MRSA Comment:09/2022 sputum Resolved per Type and Duration of Precautions Recommended for Selected Infections and Conditions document 2023 update 09/16/2022 09/28/202206/04 4:18 PM CDT documented as of this encounter
--- OUTSIDE RECORDS SUMMARY | 2025-01-05 04:01 | XMS_ITS | Encounter Summary ---
Author Organization [facility] Address [address] [place] [address] Care Team Providers Care Primary Products Inspectors Name Role Phone Unavailable Primary Care Provider Unavailabl e Encounter Details Date Type Department Care Team (Late st Contact Info) Description 09/26/2022 Lab Requisition [facility] Laboratory Services [address] [place] [address] [place] [id number] [place] [address] Social History Tobacco Use Types Packs/Day Years Used Date Smoking Tobacco: Never Assessed Sex and Gender Information Value Date Recorded Sex Assigned at Not on file Legal Sex Male 2:27 PM [facility] Gender Identity Not on file Sexual Orientation Not on file COVID-19 Exposure Response Date Recorded In the last 10 days, have yo u been in contact with someone who was confirmed or suspected to have Coronavirus/COVID-19? Unable to assess 09/18/2022 6:07 AM [facility] documented as of this encounter Plan of Treatment Not on file documented as of this encounter Procedures Procedure Name Priority Date/Time Associated Diagnosis Comments CBC WITH DIFFERENTIAL Routine 09/26/2022 3:30 AM [facility] BASIC METABOLIC PANEL Routine 09/26/2022 3:30 AM [facility] documented in this encounter Results * (ABNORMAL) CBC WITH DIFFERENTIAL (09/26/2022 3:30 AM [facility]) WBC 9.9 4.5 - 10.5 K/uL 09/26/2022 6:13 AM [facility] RBC 2.98(L) 4.50 - 5.40 M/uL 09/26/2022 6:13 AM [facility] HEMOGLOBIN 8.9(L) 13.6 - 16.5 g/dL 09/26/2022 6:13 AM [facility] HEMATOCRIT 28.0(L) 40.0 - 48.0 % 09/26/2022 6:13 AM [facility] MCV 93.8 82.0 - 99.0 fL 09/26/2022 6:13 AM [facility] MCH 29.7 27.8 - 34.5 pg 09/26/2022 6:13 AM [facility] MCHC 31.6(L) 32.5 - 35.5 g/dL 09/26/2022 6:13 AM [facility] RDW 19.1(H) 11.5 - 14.5 % 09/26/2022 6:13 AM [facility] PLATELETS 239 160 - 420 K/uL 09/26/2022 6:13 AM [facility] MPV 9.3 8.7 - 12.7 fL 09/26/2022 6:13 AM [facility] NEUTROPHILS 73 % 09/26/2022 6:13 AM [facility] LYMPHOCYTES 16 % 09/26/2022 6:13 AM [facility] MONOCYTES 7 % 09/26/2022 6:13 AM [facility] EOSINOPHILS 4 % 09/26/2022 6:13 AM [facility] BASOPHILS 1 % 09/26/2022 6:13 AM [facility] NEUTROPHIL ABSOLUTE 7.20(H) 1.90 - 7.00 K/uL 09/26/2022 6:13 AM [facility] LYMPHOCYTE ABSOLUTE 1.60 0.70 - 4.50 K/uL 09/26/2022 6:13 AM [facility] MONOCYTE ABSOLUTE 0.60 0.10 - 1.30 K/uL 09/26/2022 6:13 AM [facility] EOSINOPHIL ABSOLUTE 0.40 0.00 - 0.70 K/uL 09/26/2022 6:13 AM [facility] BASOPHILS ABSOLUTE 0.10 0.00 - 0.20 K/uL 09/26/2022 6:13 AM [facility] Blood 09/26/2022 3:30 AM [facility] 09/26/2022 6:04 AM [facility] Franco Apple MD HEMATOLOGY ORDERABLES Final Resu lt [facility] CLIA# [id number] [place] [address] * (ABNORMAL) BASIC METABOLIC PANEL (09/26/2022 3:30 AM [facility]) SODIUM 145 136 - 145 mmol/L 09/26/2022 6:30 AM [facility] POTASSIUM 3.8 3.4 - 5.1 mmol/L 09/26/2022 6:30 AM [facility] CHLORIDE 98 98 - 107 mmol/L 09/26/2022 6:30 AM [facility] CO2 38(H) 22 - 29 mmol/L 09/26/2022 6:30 AM [facility] CALCIUM 9.7 8.6 - 10.4 mg/dL 09/26/2022 6:30 AM [facility] BUN 49(H) 6 - 20 mg/dL 09/26/2022 6:30 AM [facility] CREATININE 0.71 0.67 - 1.17 mg/dL 09/26/2022 6:30 AM [facility] Comment:The GFR result is no t clinically significant on patients <18 or >70 years of age. GLUCOSE 167(H) 74 - 99 mg/dL 09/26/2022 6:30 AM [facility] GFR >60 mL/min/1.7 3 sq meter 09/26/2022 6:30 AM [facility] Comment:eGFR calculated with 2020 CKD-EPI equation. Vegetarian diet, extremely high or low muscle mass, and may affect results. Cystatin C with Glomerular Filtration Rate is a suitable alternative for these patients. ANION GAP 9 8 - 16 mmol/L 09/26/2022 6:30 AM [facility] Blood 09/26/2022 3:30 AM [facility] 09/26/2022 6:03 AM [facility] us Franco Apple MD CHEMISTRY ORDERABLES Final Resul t [facility] CLIA# [id number] [address] [place] [address] documented in this encounter Visit Diagnoses Not on filedocumented in this encounter Additional Health Concerns Infection Onset Date Last Indicated Resolved Time MRSA Comment:09/2022 sputum Resolved per Type and Duration of Precautions Recommended for Selected Infections and Conditions document 2023 update 09/16/2022 09/28/202206/04 4:18 PM CDT documented as of this encounter
--- OUTSIDE RECORDS SUMMARY | 2025-01-05 04:01 | XMS_ITS | Encounter Summary ---
Author Organization [facility] Address [address] [place] [address] Care Team Providers Care Transportation Technician Name Role Phone Unavailable Primary Care Provider Unavailabl e Encounter Details Date Type Department Care Team (Late st Contact Info) Description 09/10/2022 Lab Requisition [facility] Laboratory Services [address] [place] [address] [place] [address] [place] [address] Social History Tobacco Use Types Packs/Day Years Used Date Smoking Tobacco: Never Assessed Sex and Gender Information Value Date Recorded Sex Assigned at Not on file Legal Sex Male 2:27 PM [employer] Gender Identity Not on file Sexual Orientation Not on file COVID-19 Exposure Response Date Recorded In the last 10 days, have yo u been in contact with someone who was confirmed or suspected to have Coronavirus/COVID-19? Unable to assess 09/04/2022 2:29 PM [employer] documented as of this encounter Plan of Treatment Not on file documented as of this encounter Procedures Procedure Name Priority Date/Time Associated Diagnosis Comments CBC WITH DIFFERENTIAL Routine 09/10/2022 4:00 AM [employer] [facility] BASIC METABOLIC PANEL Routine 09/10/2022 4:00 AM [employer] [facility] documented in this encounter Results * (ABNORMAL) CBC WITH DIFFERENTIAL (09/10/2022 4:00 AM [employer]) WBC 9.7 4.5 - 10.5 K/uL 09/10/2022 7:53 AM [facility]CH[employer] [facility] RBC 2.77(L) 4.50 - 5.40 M/uL 09/10/2022 7:53 AM [facility] HEMOGLOBIN 8.0(L) 13.6 - 16.5 g/dL 09/10/2022 7:53 AM [facility] HEMATOCRIT 24.9(L) 40.0 - 48.0 % 09/10/2022 7:53 AM [facility] MCV 89.9 82.0 - 99.0 fL 09/10/2022 7:53 AM [employer] UP MECHANIC [facility] MCH 29.0 27.8 - 34.5 pg 09/10/2022 7:53 AM [facility] MCHC 32.3(L) 32.5 - 35.5 g/dL 09/10/2022 7:53 AM [facility] RDW 17.3(H) 11.5 - 14.5 % 09/10/2022 7:53 AM [facility] PLATELETS 274 160 - 420 K/uL 09/10/2022 7:53 AM [facility] MPV 8.8 8.7 - 12.7 fL 09/10/2022 7:53 AM [employer]CH[employer]IC [facility] NEUTROPHILS 63 % 09/10/2022 7:53 AM [employer] SET UP MECHANIC [facility] LYMPHOCYTES 21 % 09/10/2022 7:53 AM [employer] SET UP MECHANIC [facility] MONOCYTES 8 % 09/10/2022 7:53 AM [employer] SET UP MECHANIC [facility] EOSINOPHILS 8 % 09/10/2022 7:53 AM [employer] SET UP MECHANIC [facility] BASOPHILS 1 % 09/10/2022 7:53 AM [employer] SET UP MECHANIC [facility] NEUTROPHIL ABSOLUTE 6.10 1.90 - 7.00 K/uL 09/10/2022 7:53 AM [employer] SET UP MECHANIC [facility] LYMPHOCYTE ABSOLUTE 2.00 0.70 - 4.50 K/uL 09/10/2022 7:53 AM [employer] SET UP MECHANIC [facility] MONOCYTE ABSOLUTE 0.70 0.10 - 1.30 K/uL 09/10/2022 7:53 AM [facility] EOSINOPHIL ABSOLUTE 0.80(H) 0.00 - 0.70 K/uL 09/10/2022 7:53 AM [facility] BASOPHILS ABSOLUTE 0.10 0.00 - 0.20 K/uL 09/10/2022 7:53 AM [facility] Blood Collection / Unknown 09/10/2022 4:00 AM [employer]CH[employer] 09/10/2022 7:01 AM [employer]CHAN[employer] us Franco Apple MD HEMATOLOGY ORDERABLES Final Resu lt [facility] CLIA# [id number] [facility] [place] [address] * (ABNORMAL) BASIC METABOLIC PANEL (09/10/2022 4:00 AM [employer]CH[employer]) SODIUM 140 136 - 145 mmol/L 09/10/2022 8:21 AM [facility] POTASSIUM 3.7 3.4 - 5.1 mmol/L 09/10/2022 8:21 AM [facility] CHLORIDE 93(L) 98 - 107 mmol/L 09/10/2022 8:21 AM [facility] CO2 40(H) 22 - 29 mmol/L 09/10/2022 8:21 AM [facility] CALCIUM 9.2 8.6 - 10.4 mg/dL 09/10/2022 8:21 AM [facility] BUN 25(H) 6 - 20 mg/dL 09/10/2022 8:21 AM [facility] CREATININE 0.63(L) 0.67 - 1.17 mg/dL 09/10/2022 8:21 AM [facility] Comment:The GFR result is no t clinically significant on patients <18 or >70 years of age. GLUCOSE 264(H) 74 - 99 mg/dL 09/10/2022 8:21 AM [facility] GFR >60 mL/min/1.7 3 sq meter 09/10/2022 8:21 AM [employer] SET UP MECHANIC [facility] Comment:eGFR calculated with 2020 CKD-EPI equation. Vegetarian diet, extremely high or low muscle mass, and may affect results. Cystatin C with Glomerular Filtration Rate is a suitable alternative for these patients. ANION GAP 7(L) 8 - 16 mmol/L 09/10/2022 8:21 AM [employer] UP MECHANIC [facility] Blood Collection / Unknown 09/10/2022 4:00 AM [employer] SET UP MECHANIC 09/10/2022 7:01 AM [employer] SET UP MECHANIC us Franco Apple MD CHEMISTRY ORDERABLES Final Resul t [facility] Certain [facility] CLIA# [id number] [place] [address] documented in this encounter Visit Diagnoses Not on filedocumented in this encounter Additional Health Concerns Infection Onset Date Last Indicated Resolved Time MRSA Comment:09/2022 sputum Resolved per Type and Duration of Precautions Recommended for Selected Infections and Conditions document 2023 update 09/16/2022 09/28/202206/04 4:18 PM CDT documented as of this encounter
--- OUTSIDE RECORDS SUMMARY | 2025-01-05 04:01 | XMS_ITS | Encounter Summary ---
Author Organization [facility] Address [address] [place] [address] Care Team Providers Care Glazing Machine Operator Name Role Phone Unavailable Primary Care Provider Unavailabl e Encounter Details Date Type Department Care Team (Late st Contact Info) Description 2022 Lab Requisition [facility] Laboratory Services [address] [place] [address] [place] [address] [place] [address] Social History Tobacco Use Types Packs/Day Years Used Date Smoking Tobacco: Never Assessed Sex and Gender Information Value Date Recorded Sex Assigned at Not on file Legal Sex Male 2:27 PM [facility] Gender Identity Not on file Sexual Orientation Not on file COVID-19 Exposure Response Date Recorded In the last 10 days, have yo u been in contact with someone who was confirmed or suspected to have Coronavirus/COVID-19? Unable to assess 09/04/2022 2:29 PM [facility] documented as of this encounter Plan of Treatment Not on file documented as of this encounter Procedures Procedure Name Priority Date/Time Associated Diagnosis Comments CBC WITH DIFFERENTIAL Routine 2022 4:00 AM [facility] BASIC METABOLIC PANEL Routine 2022 4:00 AM [facility] documented in this encounter Results * (ABNORMAL) CBC WITH DIFFERENTIAL (2022 4:00 AM [facility]) [facility] WBC 8.0 4.5 - 10.5 K/uL 2022 8:22 AM [facility] RBC 2.70(L) 4.50 - 5.40 M/uL 2022 8:22 AM [facility] HEMOGLOBIN 7.8(L) 13.6 - 16.5 g/dL 2022 8:22 AM [facility] HEMATOCRIT 24.2(L) 40.0 - 48.0 % 2022 8:22 AM [facility] MCV 89.4 82.0 - 99.0 fL 2022 8:22 AM [facility] MCH 28.9 27.8 - 34.5 pg 2022 8:22 AM [facility] MCHC 32.3(L) 32.5 - 35.5 g/dL 2022 8:22 AM [facility] RDW 16.7(H) 11.5 - 14.5 % 2022 8:22 AM [facility] PLATELETS 289 160 - 420 K/uL 2022 8:22 AM [facility] MPV 8.9 8.7 - 12.7 fL 2022 8:22 AM [facility] NEUTROPHILS 63 % 2022 8:22 AM [facility] LYMPHOCYTES 22 % 2022 8:22 AM [facility] MONOCYTES 6 % 2022 8:22 AM [facility] EOSINOPHILS 9 % 2022 8:22 AM [facility] BASOPHILS 1 % 2022 8:22 AM [facility] NEUTROPHIL ABSOLUTE 5.00 1.90 - 7.00 K/uL 2022 8:22 AM [facility] LYMPHOCYTE ABSOLUTE 1.70 0.70 - 4.50 K/uL 2022 8:22 AM [facility] MONOCYTE ABSOLUTE 0.40 0.10 - 1.30 K/uL 2022 8:22 AM [facility] EOSINOPHIL ABSOLUTE 0.70 0.00 - 0.70 K/uL 2022 8:22 AM [facility] BASOPHILS ABSOLUTE 0.10 0.00 - 0.20 K/uL 2022 8:22 AM [facility] Blood Collection / Unknown 2022 4:00 AM [facility] 2022 8:05 AM [facility] Franco Apple MD HEMATOLOGY ORDERABLES Final Resu lt [facility] CLIA# [id number] [place] [address] * (ABNORMAL) BASIC METABOLIC PANEL (2022 4:00 AM [facility]) SODIUM 143 136 - 145 mmol/L 2022 8:55 AM [facility] POTASSIUM 3.8 3.4 - 5.1 mmol/L 2022 8:55 AM [facility] CHLORIDE 100 98 - 107 mmol/L 2022 8:55 AM [facility] CO2 36(H) 22 - 29 mmol/L 2022 8:55 AM [facility] CALCIUM 9.2 8.6 - 10.4 mg/dL 2022 8:55 AM [facility] BUN 28(H) 6 - 20 mg/dL 2022 8:55 AM [facility] CREATININE 0.73 0.67 - 1.17 mg/dL 2022 8:55 AM [facility] Comment:The GFR result is no t clinically significant on patients <18 or >70 years of age. GLUCOSE 318(H) 74 - 99 mg/dL 2022 8:55 AM [facility] GFR >60 mL/min/1.7 3 sq meter 2022 8:55 AM [facility] Comment:eGFR calculated with 2020 CKD-EPI equation. Vegetarian diet, extremely high or low muscle mass, and may affect results. Cystatin C with Glomerular Filtration Rate is a suitable alternative for these patients. ANION GAP 7(L) 8 - 16 mmol/L 2022 8:55 AM [facility] Blood Collection / Unknown 2022 4:00 AM [facility] 2022 8:05 AM [facility] us Franco Apple MD CHEMISTRY ORDERABLES Final Resul t [facility] CLIA# [id number] [place] [address] documented in this encounter Visit Diagnoses Not on filedocumented in this encounter Additional Health Concerns Infection Onset Date Last Indicated Resolved Time MRSA Comment:09/2022 sputum Resolved per Type and Duration of Precautions Recommended for Selected Infections and Conditions document 2023 update 09/16/2022 09/28/202206/04 4:18 PM CDT documented as of this encounter
--- OUTSIDE RECORDS SUMMARY | 2025-01-05 04:01 | XMS_ITS | Encounter Summary ---
Author Organization [facility] Address [address] [place] [address] Care Team Providers Care Door Trimmer Name Role Phone Unavailable Primary Care Provider Unavailabl e Encounter Details Date Type Department Care Team (Late st Contact Info) Description 10/26/2022 Lab Requisition [facility] Laboratory Services [address] [place] [address] [place] [address] [facility] [place] [address] Social History Tobacco Use Types Packs/Day Years Used Date Smoking Tobacco: Never Assessed Sex and Gender Information Value Date Recorded Sex Assigned at Not on file Legal Sex Male 2:27 PM SECURITY COORDINATOR Gender Identity Not on file Sexual Orientation Not on file COVID-19 Exposure Response Date Recorded In the last 10 days, have yo u been in contact with someone who was confirmed or suspected to have Coronavirus/COVID-19? Unable to assess 10/04/2022 4:56 PM SECURITY COORDINATOR documented as of this encounter Plan of Treatment Not on file documented as of this encounter Procedures Procedure Name Priority Date/Time Associated Diagnosis Comments CBC WITH DIFFERENTIAL Routine 10/26/2022 3:39 AM SECURITY COORDINATOR HEPATIC FUNCTION PANEL Routine 10/26/2022 3:39 AM SECURITY COORDINATOR BASIC METABOLIC PANEL Routine 10/26/2022 3:39 AM SECURITY COORDINATOR documented in this encounter Results * (ABNORMAL) HEPATIC FUNCTION PANEL (10/26/2022 3:39 AM SECURITY COORDINATOR) TOTAL PROTEIN 8.1 6.3 - 8.7 g/dL 10/26/2022 8:35 AM [facility] ALBUMIN 3.2(L) 3.5 - 5.2 g/dL 10/26/2022 8:35 AM [facility] BILIRUBIN TOTAL 1.0 0.2 - 1.1 mg/dL 10/26/2022 8:35 AM [facility] BILIRUBIN DIRECT 0.2 0.0 - 0.3 mg/dL 10/26/2022 8:35 AM [facility] ALKALINE PHOSPHATASE 196(H) 40 - 150 U/L 10/26/2022 8:35 AM [facility] AST 31 0 - 41 U/L 10/26/2022 8:35 AM [facility] ALT 18 0 - 41 U/L 10/26/2022 8:35 AM [facility] Blood Collection / Unknown 10/26/2022 3:39 AM SECURITY COORDINATOR 10/26/2022 7:36 AM SECURITY COORDINATOR us Franco Apple MD CHEMISTRY ORDERABLES Final Resul t [facility] CLIA# [id number] [place] [address] * (ABNORMAL) CBC WITH DIFFERENTIAL (10/26/2022 3:39 AM SECURITY COORDINATOR) WBC 9.6 4.5 - 10.5 K/uL 10/26/2022 8:15 AM [facility] RBC 3.15(L) 4.50 - 5.40 M/uL 10/26/2022 8:15 AM [facility] HEMOGLOBIN 9.5(L) 13.6 - 16.5 g/dL 10/26/2022 8:15 AM [facility] HEMATOCRIT 28.3(L) 40.0 - 48.0 % 10/26/2022 8:15 AM [facility] MCV 89.6 82.0 - 99.0 fL 10/26/2022 8:15 AM SECURITY COORDINATOR [facility] LABORATORY SERVICES [facility] MCH 30.0 27.8 - 34.5 pg 10/26/2022 8:15 AM SECURITY COORDINATOR [facility] LABORATORY SERVICES [facility] MCHC 33.5 32.5 - 35.5 g/dL 10/26/2022 8:15 AM [facility] LABORATORY SERVICES [facility] RDW 15.9(H) 11.5 - 14.5 % 10/26/2022 8:15 AM SECURITY COORDINATOR [facility] LABORATORY SERVICES [facility] PLATELETS 323 160 - 420 K/uL 10/26/2022 8:15 AM SECURITY COORDINATOR [facility] LABORATORY SERVICES [facility] MPV 8.9 8.7 - 12.7 fL 10/26/2022 8:15 AM SECURITY COORDINATOR [facility] NEUTROPHILS 71 % 10/26/2022 8:15 AM SECURITY COORDINATOR [facility] LYMPHOCYTES 19 % 10/26/2022 8:15 AM SECURITY COORDINATOR [employer] LABORATORY SERVICES [facility] MONOCYTES 7 % 10/26/2022 8:15 AM SECURITY COORDINATOR [facility] LABORATORY SERVICES [facility] EOSINOPHILS 4 % 10/26/2022 8:15 AM SECURITY COORDINATOR [employer] LABORATORY SERVICES [facility] BASOPHILS 0 % 10/26/2022 8:15 AM SECURITY COORDINATOR [facility] LABORATORY SERVICES [facility] NEUTROPHIL ABSOLUTE 6.80 1.90 - 7.00 K/uL 10/26/2022 8:15 AM SECURITY COORDINATOR [facility] LABORATORY SERVICES [facility] LYMPHOCYTE ABSOLUTE 1.80 0.70 - 4.50 K/uL 10/26/2022 8:15 AM SECURITY COORDINATOR [facility] MONOCYTE ABSOLUTE 0.70 0.10 - 1.30 K/uL 10/26/2022 8:15 AM SECURITY COORDINATOR [employer] LABORATORY SERVICES [facility] EOSINOPHIL ABSOLUTE 0.30 0.00 - 0.70 K/uL 10/26/2022 8:15 AM SECURITY COORDINATOR [facility] BASOPHILS ABSOLUTE 0.00 0.00 - 0.20 K/uL 10/26/2022 8:15 AM SECURITY COORDINATOR [facility] LABORATORY SERVICES [facility] Blood Collection / Unknown 10/26/2022 3:39 AM SECURITY COORDINATOR 10/26/2022 7:36 AM SECURITY COORDINATOR us Franco Apple MD HEMATOLOGY ORDERABLES Final Resu lt [facility] PHU# [id number] [place] [address] * (ABNORMAL) BASIC METABOLIC PANEL (10/26/2022 3:39 AM SECURITY COORDINATOR) SODIUM 136 136 - 145 mmol/L 10/26/2022 8:35 AM [facility] POTASSIUM 3.3(L) 3.4 - 5.1 mmol/L 10/26/2022 8:35 AM [facility] CHLORIDE 86(L) 98 - 107 mmol/L 10/26/2022 8:35 AM [facility] CO2 38(H) 22 - 29 mmol/L 10/26/2022 8:35 AM [facility] CALCIUM 10.2 8.6 - 10.4 mg/dL 10/26/2022 8:35 AM [facility] BUN 62(H) 6 - 20 mg/dL 10/26/2022 8:35 AM [facility] CREATININE 0.73 0.67 - 1.17 mg/dL 10/26/2022 8:35 AM [facility] Comment:The GFR result is no t clinically significant on patients <18 or >70 years of age. GLUCOSE 157(H) 74 - 99 mg/dL 10/26/2022 8:35 AM [facility] GFR >60 mL/min/1.7 3 sq meter 10/26/2022 8:35 AM [facility] Comment:eGFR calculated with 2020 CKD-EPI equation. Vegetarian diet, extremely high or low muscle mass, and may affect results. Cystatin C with Glomerular Filtration Rate is a suitable alternative for these patients. ANION GAP 12 8 - 16 mmol/L 10/26/2022 8:35 AM [facility] Blood Collection / Unknown 10/26/2022 3:39 AM SECURITY COORDINATOR 10/26/2022 7:36 AM SECURITY COORDINATOR us Franco Apple MD CHEMISTRY ORDERABLES Final Resul t [facility] LABORATORY SERVICES [facility] CLIA# [id number] [address] [place] [address] documented in this encounter Visit Diagnoses Not on filedocumented in this encounter Additional Health Concerns Infection Onset Date Last Indicated Resolved Time MRSA Comment:09/2022 sputum Resolved per Type and Duration of Precautions Recommended for Selected Infections and Conditions document 2023 update 09/16/2022 09/28/202206/04 4:18 PM CDT documented as of this encounter
--- OUTSIDE RECORDS SUMMARY | 2025-01-05 04:01 | XMS_ITS | Encounter Summary ---
Author Organization [facility] Address [address] [place] [address] Care Team Providers Care Ham Stringer Name Role Phone Unavailable Primary Care Provider Unavailabl e Encounter Details Date Type Department Care Team (Late st Contact Info) Description 10/08/2022 Lab Requisition [facility] Laboratory Services [address] [place] [address] [place] [id number] [facility] [place] [address] Social History Tobacco Use Types Packs/Day Years Used Date Smoking Tobacco: Never Assessed Sex and Gender Information Value Date Recorded Sex Assigned at Not on file Legal Sex Male 2:27 PM CROSSBAR FRAME WIRER Gender Identity Not on file Sexual Orientation Not on file COVID-19 Exposure Response Date Recorded In the last 10 days, have yo u been in contact with someone who was confirmed or suspected to have Coronavirus/COVID-19? Unable to assess 10/04/2022 4:56 PM CROSSBAR FRAME WIRER documented as of this encounter Plan of Treatment Not on file documented as of this encounter Procedures Procedure Name Priority Date/Time Associated Diagnosis Comments DIFFERENTIAL, MANUAL Routine 10/08/2022 3:00 AM CROSSBAR FRAME WIRER CBC WITH DIFFERENTIAL Routine 10/08/2022 3:00 AM CROSSBAR FRAME WIRER HEPATIC FUNCTION PANEL Routine 10/08/2022 3:00 AM CROSSBAR FRAME WIRER BASIC METABOLIC PANEL Routine 10/08/2022 3:00 AM CROSSBAR FRAME WIRER documented in this encounter Results * MANUAL DIFFERENTIAL (10/08/2022 3:00 AM CROSSBAR FRAME WIRER) Pathologist [facility] PLATELET EST. Consistent w Count 10/08/2022 9:58 AM CROSSBAR FRAME WIRER [facility] ANISOCYTOSIS 1+ /hpf 10/08/2022 9:58 AM [facility] Blood Collection / Unknown 10/08/2022 3:00 AM CROSSBAR FRAME WIRER 10/08/2022 8:27 AM CROSSBAR FRAME WIRER Franco Apple MD HEMATOLOGY ORDERABLES COM Final Result [facility] CLIA# [id number] [address] [place] [address] * (ABNORMAL) CBC WITH DIFFERENTIAL (10/08/2022 3:00 AM CROSSBAR FRAME WIRER) Pathologist [facility] WBC 9.1 4.5 - 10.5 K/uL 10/08/2022 9:58 AM [facility] RBC 2.97(L) 4.50 - 5.40 M/uL 10/08/2022 9:58 AM [facility] HEMOGLOBIN 9.0(L) 13.6 - 16.5 g/dL 10/08/2022 9:58 AM [facility] HEMATOCRIT 28.2(L) 40.0 - 48.0 % 10/08/2022 9:58 AM [facility] MCV 95.1 82.0 - 99.0 fL 10/08/2022 9:58 AM [facility] MCH 30.5 27.8 - 34.5 pg 10/08/2022 9:58 AM [facility] MCHC 32.0(L) 32.5 - 35.5 g/dL 10/08/2022 9:58 AM [facility] RDW 18.3(H) 11.5 - 14.5 % 10/08/2022 9:58 AM [facility] PLATELETS 169 160 - 420 K/uL 10/08/2022 9:58 AM [facility] MPV 10.1 8.7 - 12.7 fL 10/08/2022 9:58 AM [facility] LABORATORY SERVICES [facility] NEUTROPHILS 64 % 10/08/2022 9:58 AM [facility] LABORATORY [facility] LYMPHOCYTES 22 % 10/08/2022 9:58 AM [facility] LABORATORY SERVICES [facility] MONOCYTES 8 % 10/08/2022 9:58 AM [facility] LABORATORY SERVICES [facility] EOSINOPHILS 6 % 10/08/2022 9:58 AM [facility] LABORATORY SERVICES [facility] BASOPHILS 1 % 10/08/2022 9:58 AM [facility] LABORATORY [facility] NEUTROPHIL ABSOLUTE 5.80 1.90 - 7.00 K/uL 10/08/2022 9:58 AM [facility] LABORATORY [facility] LYMPHOCYTE ABSOLUTE 2.00 0.70 - 4.50 K/uL 10/08/2022 9:58 AM [facility] LABORATORY [facility] MONOCYTE ABSOLUTE 0.70 0.10 - 1.30 K/uL 10/08/2022 9:58 AM [facility] LABORATORY [facility] EOSINOPHIL ABSOLUTE 0.60 0.00 - 0.70 K/uL 10/08/2022 9:58 AM [facility] LABORATORY [facility] BASOPHILS ABSOLUTE 0.10 0.00 - 0.20 K/uL 10/08/2022 9:58 AM [facility] LABORATORY [facility] Blood Collection / Unknown 10/08/2022 3:00 AM CROSSBAR FRAME WIRER 10/08/2022 8:27 AM CROSSBAR FRAME WIRER us Franco Apple MD HEMATOLOGY ORDERABLES Final Resu lt [facility] CLIA# [id number] [address] [place] [address] * (ABNORMAL) HEPATIC FUNCTION PANEL (10/08/2022 3:00 AM CROSSBAR FRAME WIRER) TOTAL PROTEIN 7.4 6.3 - 8.7 g/dL 10/08/2022 9:31 AM CROSSBAR FRAME WIRER [facility] LABORATORY [facility] ALBUMIN 2.7(L) 3.5 - 5.2 g/dL 10/08/2022 9:31 AM [facility] BILIRUBIN TOTAL 0.5 0.2 - 1.1 mg/dL 10/08/2022 9:31 AM [facility] BILIRUBIN DIRECT <0.2 0.0 - 0.3 mg/dL 10/08/2022 9:31 AM [facility] ALKALINE PHOSPHATASE 191(H) 40 - 150 U/L 10/08/2022 9:31 AM [facility] Comment:Gross hemolysis pres ent. Redraw if indicated. AST 71(H) 0 - 41 U/L 10/08/2022 9:31 AM [facility] Comment:Hemolysis present. R esult may be falsely elevated. ALT 21 0 - 41 U/L 10/08/2022 9:31 AM [facility] Comment:Hemolysis present. R esult may be falsely elevated. Blood Collection / Unknown 10/08/2022 3:00 AM CROSSBAR FRAME WIRER 10/08/2022 8:27 AM CROSSBAR FRAME WIRER Franco Apple MD CHEMISTRY ORDERABLES Final Resul t [facility] CLIA# [id number] [place] [address] * (ABNORMAL) BASIC METABOLIC PANEL (10/08/2022 3:00 AM CROSSBAR FRAME WIRER) SODIUM 141 136 - 145 mmol/L 10/08/2022 9:30 AM [facility] POTASSIUM 4.9 3.4 - 5.1 mmol/L 10/08/2022 9:30 AM [facility] Comment:Gross hemolysis pres ent. Redraw if indicated. CHLORIDE 92(L) 98 - 107 mmol/L 10/08/2022 9:30 AM [facility] CO2 40(H) 22 - 29 mmol/L 10/08/2022 9:30 AM [facility] CALCIUM 9.7 8.6 - 10.4 mg/dL 10/08/2022 9:30 AM [facility] BUN 51(H) 6 - 20 mg/dL 10/08/2022 9:30 AM [facility] CREATININE 0.60(L) 0.67 - 1.17 mg/dL 10/08/2022 9:30 AM [facility] Comment:The GFR result is no t clinically significant on patients <18 or >70 years of age. GLUCOSE 167(H) 74 - 99 mg/dL 10/08/2022 9:30 AM [facility] GFR >60 mL/min/1.7 3 sq meter 10/08/2022 9:30 AM [facility] Comment:eGFR calculated with 2020 CKD-EPI equation. Vegetarian diet, extremely high or low muscle mass, and may affect results. Cystatin C with Glomerular Filtration Rate is a suitable alternative for these patients. ANION GAP 9 8 - 16 mmol/L 10/08/2022 9:30 AM [facility] Blood Collection / Unknown 10/08/2022 3:00 AM CROSSBAR FRAME WIRER 10/08/2022 8:27 AM CROSSBAR FRAME WIRER us Franco Apple MD CHEMISTRY ORDERABLES Final Resul t [facility] CLIA# [id number] [address] [place] [address] documented in this encounter Visit Diagnoses Not on filedocumented in this encounter Additional Health Concerns Infection Onset Date Last Indicated Resolved Time MRSA Comment:09/2022 sputum Resolved per Type and Duration of Precautions Recommended for Selected Infections and Conditions document 2023 update 09/16/2022 09/28/202206/04 4:18 PM CDT documented as of this encounter
--- OUTSIDE RECORDS SUMMARY | 2025-01-05 04:01 | XMS_ITS | Encounter Summary ---
Author Organization [facility] Address [address] [place] [address] Care Team Providers Care Pharmacy Technician Infusion Name Role Phone Unavailable Primary Care Provider Unavailabl e Encounter Details Date Type Department Care Team (Late st Contact Info) Description 10/29/2022 Lab Requisition [facility] Laboratory Services [address] [place] [address] [place] [address] [facility] [place] [address] Social History Tobacco Use Types Packs/Day Years Used Date Smoking Tobacco: Never Assessed Sex and Gender Information Value Date Recorded Sex Assigned at Not on file Legal Sex Male 2:27 PM TACK PULLER MACHINE Gender Identity Not on file Sexual Orientation Not on file COVID-19 Exposure Response Date Recorded In the last 10 days, have yo u been in contact with someone who was confirmed or suspected to have Coronavirus/COVID-19? Unable to assess 10/04/2022 4:56 PM TACK PULLER MACHINE documented as of this encounter Plan of Treatment Not on file documented as of this encounter Procedures Procedure Name Priority Date/Time Associated Diagnosis Comments DIFFERENTIAL, MANUAL Routine 10/29/2022 4:00 AM TACK PULLER MACHINE CBC WITH DIFFERENTIAL Routine 10/29/2022 4:00 AM TACK PULLER MACHINE BASIC METABOLIC PANEL Routine 10/29/2022 4:00 AM TACK PULLER MACHINE documented in this encounter Results * MANUAL DIFFERENTIAL (10/29/2022 4:00 AM TACK PULLER MACHINE) PLATELET EST. Consistent w Count 10/29/2022 8:26 AM [facility] ANISOCYTOSIS 1+ /hpf 10/29/2022 8:26 AM [facility] STOMATOCYTES Present /hpf 10/29/2022 8:26 AM [facility] Blood Collection / Unknown 10/29/2022 4:00 AM TACK PULLER MACHINE 10/29/2022 7:40 AM TACK PULLER MACHINE Franco Apple MD HEMATOLOGY ORDERABLES COM Final Result [facility] CLIA# [id number] [address] [place] [address] * (ABNORMAL) CBC WITH DIFFERENTIAL (10/29/2022 4:00 AM TACK PULLER MACHINE) WBC 11.3(H) 4.5 - 10.5 K/uL 10/29/2022 8:26 AM [facility] RBC 3.15(L) 4.50 - 5.40 M/uL 10/29/2022 8:26 AM [facility] HEMOGLOBIN 9.4(L) 13.6 - 16.5 g/dL 10/29/2022 8:26 AM [facility] HEMATOCRIT 28.5(L) 40.0 - 48.0 % 10/29/2022 8:26 AM [facility] MCV 90.5 82.0 - 99.0 fL 10/29/2022 8:26 AM [facility] [employer] [facility] MCH 29.9 27.8 - 34.5 pg 10/29/2022 8:26 AM [facility] [employer] [facility] MCHC 33.0 32.5 - 35.5 g/dL 10/29/2022 8:26 AM [facility] RDW 16.1(H) 11.5 - 14.5 % 10/29/2022 8:26 AM [facility] [employer] [facility] PLATELETS 300 160 - 420 K/uL 10/29/2022 8:26 AM [facility] [employer] [facility] MPV 9.1 8.7 - 12.7 fL 10/29/2022 8:26 AM [facility] LABORATORY SERVICES [facility] NEUTROPHILS 68 % 10/29/2022 8:26 AM [facility] LABORATORY [facility] LYMPHOCYTES 21 % 10/29/2022 8:26 AM [facility] LABORATORY SERVICES [facility] MONOCYTES 6 % 10/29/2022 8:26 AM TACK PULLER MACHINE [facility] LABORATORY SERVICES [facility] EOSINOPHILS 4 % 10/29/2022 8:26 AM TACK PULLER MACHINE [facility] LABORATORY SERVICES [facility] BASOPHILS 1 % 10/29/2022 8:26 AM [facility] LABORATORY SERVICES [facility] NEUTROPHIL ABSOLUTE 7.70(H) 1.90 - 7.00 K/uL 10/29/2022 8:26 AM [facility] LABORATORY [facility] LYMPHOCYTE ABSOLUTE 2.40 0.70 - 4.50 K/uL 10/29/2022 8:26 AM [facility] LABORATORY [facility] MONOCYTE ABSOLUTE 0.70 0.10 - 1.30 K/uL 10/29/2022 8:26 AM [facility] LABORATORY [facility] EOSINOPHIL ABSOLUTE 0.50 0.00 - 0.70 K/uL 10/29/2022 8:26 AM [facility] LABORATORY SERVICES [facility] BASOPHILS ABSOLUTE 0.10 0.00 - 0.20 K/uL 10/29/2022 8:26 AM [facility] LABORATORY [facility] Blood Collection / Unknown 10/29/2022 4:00 AM TACK PULLER MACHINE 10/29/2022 7:40 AM TACK PULLER MACHINE us Franco Apple MD HEMATOLOGY ORDERABLES Final Resu lt [facility] CLIA# [id number] [place] [address] * (ABNORMAL) BASIC METABOLIC PANEL (10/29/2022 4:00 AM TACK PULLER MACHINE) SODIUM 139 136 - 145 mmol/L 10/29/2022 8:15 AM [facility] LABORATORY [facility] POTASSIUM 3.5 3.4 - 5.1 mmol/L 10/29/2022 8:15 AM [facility] CHLORIDE 90(L) 98 - 107 mmol/L 10/29/2022 8:15 AM [facility] CO2 39(H) 22 - 29 mmol/L 10/29/2022 8:15 AM [facility] CALCIUM 10.2 8.6 - 10.4 mg/dL 10/29/2022 8:15 AM [facility] BUN 57(H) 6 - 20 mg/dL 10/29/2022 8:15 AM [facility] CREATININE 0.66(L) 0.67 - 1.17 mg/dL 10/29/2022 8:15 AM [facility] Comment:The GFR result is no t clinically significant on patients <18 or >70 years of age. GLUCOSE 139(H) 74 - 99 mg/dL 10/29/2022 8:15 AM [facility] GFR >60 mL/min/1.7 3 sq meter 10/29/2022 8:15 AM [facility] Comment:eGFR calculated with 2020 CKD-EPI equation. Vegetarian diet, extremely high or low muscle mass, and may affect results. Cystatin C with Glomerular Filtration Rate is a suitable alternative for these patients. ANION GAP 10 8 - 16 mmol/L 10/29/2022 8:15 AM [facility] Blood Collection / Unknown 10/29/2022 4:00 AM TACK PULLER MACHINE 10/29/2022 7:40 AM TACK PULLER MACHINE us Franco Apple MD CHEMISTRY ORDERABLES Final Resul t [facility] CLIA# [id number] [place] [address] documented in this encounter Visit Diagnoses Not on filedocumented in this encounter Additional Health Concerns Infection Onset Date Last Indicated Resolved Time MRSA Comment:09/2022 sputum Resolved per Type and Duration of Precautions Recommended for Selected Infections and Conditions document 2023 update 09/16/2022 09/28/202206/04 03/2024 4:18 PM CDT documented as of this encounter
--- OUTSIDE RECORDS SUMMARY | 2025-01-05 04:01 | XMS_ITS | Encounter Summary ---
Author Organization [facility] Address [address] [place] [address] Care Team Providers Care Ethylbenzene Oxidizer Name Role Phone Unavailable Primary Care Provider Unavailabl e Encounter Details Date Type Department Care Team (Late st Contact Info) Description 10/10/2022 Lab Requisition [facility] Laboratory Services [address] [place] [address] [place] [address] [place] [address] Social History Tobacco Use Types Packs/Day Years Used Date Smoking Tobacco: Never Assessed Sex and Gender Information Value Date Recorded Sex Assigned at Not on file Legal Sex Male 2:27 PM MINE INSPECTOR FEDERAL Gender Identity Not on file Sexual Orientation Not on file COVID-19 Exposure Response Date Recorded In the last 10 days, have yo u been in contact with someone who was confirmed or suspected to have Coronavirus/COVID-19? Unable to assess 10/04/2022 4:56 PM MINE INSPECTOR FEDERAL documented as of this encounter Plan of Treatment Not on file documented as of this encounter Procedures Procedure Name Priority Date/Time Associated Diagnosis Comments HEPATIC FUNCTION PANEL Routine 10/10/2022 3:30 AM MINE INSPECTOR FEDERAL BASIC METABOLIC PANEL Routine 10/10/2022 3:30 AM MINE INSPECTOR FEDERAL documented in this encounter Results * (ABNORMAL) HEPATIC FUNCTION PANEL (10/10/2022 3:30 AM MINE INSPECTOR FEDERAL) TOTAL PROTEIN 7.6 6.3 - 8.7 g/dL 10/10/2022 7:35 AM MINE INSPECTOR FEDERAL [facility] - [facility] ALBUMIN 3.1(L) 3.5 - 5.2 g/dL 10/10/2022 7:35 AM [facility] BILIRUB[facility] TOTAL 0.6 0.2 - 1.1 mg/dL 10/10/2022 7:35 AM [facility] BILIRUBIN DIRECT <0.2 0.0 - 0.3 mg/dL 10/10/2022 7:35 AM [facility] ALKALINE PHOSPHATASE 213(H) 40 - 150 U/L 10/10/2022 7:35 AM [facility] AST 30 0 - 41 U/L 10/10/2022 7:35 AM [facility] ALT 17 0 - 41 U/L 10/10/2022 7:35 AM [facility] Blood Collection / Unknown 10/10/2022 3:30 AM MINE INSPECTOR FEDERAL 10/10/2022 6:58 AM MINE INSPECTOR FEDERAL Franco Apple MD CHEMISTRY ORDERABLES Final Resul t [facility] CLIA# [id number] [id number] [place] [address] * (ABNORMAL) BASIC METABOLIC PANEL (10/10/2022 3:30 AM MINE INSPECTOR FEDERAL) SODIUM 140 136 - 145 mmol/L 10/10/2022 7:35 AM [facility] [facility] POTASSIUM 4.3 3.4 - 5.1 mmol/L 10/10/2022 7:35 AM [facility] [employer] [facility] CHLORIDE 91(L) 98 - 107 mmol/L 10/10/2022 7:35 AM [facility] [employer] [facility] CO2 38(H) 22 - 29 mmol/L 10/10/2022 7:35 AM [facility] [employer] [facility] CALCIUM 9.9 8.6 - 10.4 mg/dL 10/10/2022 7:35 AM [facility] [employer] [facility] BUN 59(H) 6 - 20 mg/dL 10/10/2022 7:35 AM [facility] CREATININE 0.86 0.67 - 1.17 mg/dL 10/10/2022 7:35 AM [facility] Comment:The GFR result is no t clinically significant on patients <18 or >70 years of age. GLUCOSE 193(H) 74 - 99 mg/dL 10/10/2022 7:35 AM [facility] GFR >60 mL/min/1.7 3 sq meter 10/10/2022 7:35 AM [facility] Comment:eGFR calculated with 2020 CKD-EPI equation. Vegetarian diet, extremely high or low muscle mass, and may affect results. Cystatin C with Glomerular Filtration Rate is a suitable alternative for these patients. ANION GAP 11 8 - 16 mmol/L 10/10/2022 7:35 AM [facility] Blood Collection / Unknown 10/10/2022 3:30 AM MINE INSPECTOR FEDERAL 10/10/2022 6:58 AM MINE INSPECTOR FEDERAL us Franco Apple MD CHEMISTRY ORDERABLES Final Resul t [facility] CLIA# [id number] [address] [place] [address] documented in this encounter Visit Diagnoses Not on filedocumented in this encounter Additional Health Concerns Infection Onset Date Last Indicated Resolved Time MRSA Comment:09/2022 sputum Resolved per Type and Duration of Precautions Recommended for Selected Infections and Conditions document 2023 update 09/16/2022 09/28/202206/04 4:18 PM CDT documented as of this encounter
--- OUTSIDE RECORDS SUMMARY | 2025-01-05 04:01 | XMS_ITS | Encounter Summary ---
Author Organization [facility] Address [address] [place] [address] Care Team Providers Care Line Assembler Aircraft Name Role Phone Unavailable Primary Care Provider Unavailabl e Encounter Details Date Type Department Care Team (Late st Contact Info) Description 10/04/2022 Lab Requisition [facility] Laboratory Services [address] [place] [address] [place] [address] [place] [address] Social History Tobacco Use Types Packs/Day Years Used Date Smoking Tobacco: Never Assessed Sex and Gender Information Value Date Recorded Sex Assigned at Not on file Legal Sex Male 2:27 PM RIVER TRANSPORTATION WORKER Gender Identity Not on file Sexual Orientation Not on file COVID-19 Exposure Response Date Recorded In the last 10 days, have yo u been in contact with someone who was confirmed or suspected to have Coronavirus/COVID-19? Unable to assess 10/04/2022 4:56 PM RIVER TRANSPORTATION WORKER documented as of this encounter Plan of Treatment Not on file documented as of this encounter Procedures Procedure Name Priority Date/Time Associated Diagnosis Comments VANCOMYCIN LEVEL TROUGH Routine 10/04/2022 12:20 PM RIVER TRANSPORTATION WORKER documented in this encounter Results * (ABNORMAL) VANCOMYCIN LEVEL TROUGH (10/04/2022 12:20 PM RIVER TRANSPORTATION WORKER) VANCOMYCIN, TROUGH 19.5(H) 10.0 - 17.0 ug/mL 10/04/2022 4:55 PM RIVER TRANSPORTATION WORKER [facility] LABORATORY SERVICES [facility] Blood Collection / Unknown 10/04/2022 12:20 PM RIVER TRANSPORTATION WORKER 10/04/2022 4:33 PM RIVER TRANSPORTATION WORKER Franco Apple MD CHEMISTRY ORDERABLES Final Resul t [facility]ORATORY SERVICES [facility]# [id number] [address] [place] [address] documented in this encounter Visit Diagnoses Not on filedocumented in this encounter Additional Health Concerns Infection Onset Date Last Indicated Resolved Time MRSA Comment:09/2022 sputum Resolved per Type and Duration of Precautions Recommended for Selected Infections and Conditions document 2023 update 09/16/2022 09/28/202206/04 4:18 PM CDT documented as of this encounter
--- OUTSIDE RECORDS SUMMARY | 2025-01-05 04:01 | XMS_ITS | Encounter Summary ---
Author Organization [facility] Address [address] [place] [address] Care Team Providers Care Printed Circuit Boards Laminator Name Role Phone Unavailable Primary Care Provider Unavailabl e Encounter Details Date Type Department Care Team (Late st Contact Info) Description 10/13/2022 Lab Requisition [facility] Laboratory Services [address] [place] [address] [place] [address] [place] [address] Social History Tobacco Use Types Packs/Day Years Used Date Smoking Tobacco: Never Assessed Sex and Gender Information Value Date Recorded Sex Assigned at Not on file Legal Sex Male 2:27 PM RN INTAKE Gender Identity Not on file Sexual Orientation Not on file COVID-19 Exposure Response Date Recorded In the last 10 days, have yo u been in contact with someone who was confirmed or suspected to have Coronavirus/COVID-19? Unable to assess 10/04/2022 4:56 PM RN INTAKE documented as of this encounter Plan of Treatment Not on file documented as of this encounter Procedures Procedure Name Priority Date/Time Associated Diagnosis Comments BASIC METABOLIC PANEL Routine 10/13/2022 2:50 AM RN INTAKE documented in this encounter Results * (ABNORMAL) BASIC METABOLIC PANEL (10/13/2022 2:50 AM RN INTAKE) SODIUM 139 136 - 145 mmol/L 10/13/2022 7:56 AM RN INTAKE [facility] LABORATORY SERVICES - [facility] POTASSIUM 4.0 3.4 - 5.1 mmol/L 10/13/2022 7:56 AM RN INTAKE [facility] LABORATORY SERVICES - [facility] CHLORIDE 90(L) 98 - 107 mmol/L 10/13/2022 7:56 AM [facility] CO2 40(H) 22 - 29 mmol/L 10/13/2022 7:56 AM [facility] CALCIUM 10.0 8.6 - 10.4 mg/dL 10/13/2022 7:56 AM [facility] BUN 51(H) 6 - 20 mg/dL 10/13/2022 7:56 AM [facility] CREATININE 0.65(L) 0.67 - 1.17 mg/dL 10/13/2022 7:56 AM [facility] Comment:The GFR result is no t clinically significant on patients <18 or >70 years of age. GLUCOSE 150(H) 74 - 99 mg/dL 10/13/2022 7:56 AM [facility] GFR >60 mL/min/1.7 3 sq meter 10/13/2022 7:56 AM [facility] Comment:eGFR calculated with 2020 CKD-EPI equation. Vegetarian diet, extremely high or low muscle mass, and may affect results. Cystatin C with Glomerular Filtration Rate is a suitable alternative for these patients. ANION GAP 9 8 - 16 mmol/L 10/13/2022 7:56 AM [facility] Blood Collection / Unknown 10/13/2022 2:50 AM RN INTAKE 10/13/2022 7:08 AM RN INTAKE Franco Apple MD CHEMISTRY ORDERABLES Final Resul t [facility] CLIA# [id number] [address] [place] [address] documented in this encounter Visit Diagnoses Not on filedocumented in this encounter Additional Health Concerns Infection Onset Date Last Indicated Resolved Time MRSA Comment:09/2022 sputum Resolved per Type and Duration of Precautions Recommended for Selected Infections and Conditions document 2023 update 09/16/2022 09/28/202206/04 4:18 PM CDT documented as of this encounter
--- OUTSIDE RECORDS SUMMARY | 2025-01-05 04:01 | XMS_ITS | Encounter Summary ---
Author Organization [facility] Address [address] [place] [address] Care Team Providers Care Exercise Planner Name Role Phone Unavailable Primary Care Provider Unavailabl e Encounter Details Date Type Department Care Team (Late st Contact Info) Description 10/22/2022 Lab Requisition [facility] Laboratory Services [address] [place] [address] [place] [address] [place] [address] Social History Tobacco Use Types Packs/Day Years Used Date Smoking Tobacco: Never Assessed Sex and Gender Information Value Date Recorded Sex Assigned at Not on file Legal Sex Male 2:27 PM COAL SHOVELER Gender Identity Not on file Sexual Orientation Not on file COVID-19 Exposure Response Date Recorded In the last 10 days, have yo u been in contact with someone who was confirmed or suspected to have Coronavirus/COVID-19? Unable to assess 10/04/2022 4:56 PM COAL SHOVELER documented as of this encounter Plan of Treatment Not on file documented as of this encounter Procedures Procedure Name Priority Date/Time Associated Diagnosis Comments HEPATIC FUNCTION PANEL Routine 10/22/2022 2:10 AM COAL SHOVELER documented in this encounter Results * (ABNORMAL) HEPATIC FUNCTION PANEL (10/22/2022 2:10 AM COAL SHOVELER) TOTAL PROTEIN 8.0 6.3 - 8.7 g/dL 10/22/2022 9:57 AM COAL SHOVELER [facility] LAB[facility]ATORY SERVICES - [facility] ALBUMIN 3.2(L) 3.5 - 5.2 g/dL 10/22/2022 9:57 AM COAL SHOVELER [facility] BILIRUBIN TOTAL 0.7 0.2 - 1.1 mg/dL 10/22/2022 9:57 AM COAL SHOVELER [facility] BILIRUBIN DIRECT 0.2 0.0 - 0.3 mg/dL 10/22/2022 9:57 AM COAL SHOVELER [facility] ALKALINE PHOSPHATASE 212(H) 40 - 150 U/L 10/22/2022 9:57 AM COAL SHOVELER [facility] AST 33 0 - 41 U/L 10/22/2022 9:57 AM COAL SHOVELER [facility] ALT 19 0 - 41 U/L 10/22/2022 9:57 AM COAL SHOVELER [facility] Blood Collection / Unknown 10/22/2022 2:10 AM COAL SHOVELER 10/22/2022 8:39 AM COAL SHOVELER Franco Apple MD CHEMISTRY ORDERABLES Final Resul t [facility] CLIA# [id number] [place] [address] documented in this encounter Visit Diagnoses Not on filedocumented in this encounter Additional Health Concerns Infection Onset Date Last Indicated Resolved Time MRSA Comment:09/2022 sputum Resolved per Type and Duration of Precautions Recommended for Selected Infections and Conditions document 2023 update 09/16/2022 09/28/202206/04 4:18 PM CDT documented as of this encounter
--- OUTSIDE RECORDS SUMMARY | 2025-01-05 04:01 | XMS_ITS | Encounter Summary ---
Author Organization [facility] Address [address] [place] [address] Care Team Providers Care Rcis Name Role Phone Unavailable Primary Care Provider Unavailabl e Encounter Details Date Type Department Care Team (Late st Contact Info) Description 09/09/2022 Lab Requisition [facility] Laboratory Services [address] [place] [address] [place] [address] [place] [address] Social History Tobacco Use Types Packs/Day Years Used Date Smoking Tobacco: Never Assessed Sex and Gender Information Value Date Recorded Sex Assigned at Not on file Legal Sex Male 2:27 PM DIRECTOR ENTERPRISE SALES Gender Identity Not on file Sexual Orientation Not on file COVID-19 Exposure Response Date Recorded In the last 10 days, have yo u been in contact with someone who was confirmed or suspected to have Coronavirus/COVID-19? Unable to assess 09/04/2022 2:29 PM DIRECTOR ENTERPRISE SALES documented as of this encounter Plan of Treatment Not on file documented as of this encounter Procedures Procedure Name Priority Date/Time Associated Diagnosis Comments EXTRA TUBE (URINE ACUNA) Routine 09/09/2022 3:27 AM DIRECTOR ENTERPRISE SALES URINALYSIS WITH REFLEX CULTURE Routine 09/09/2022 3:27 AM DIRECTOR ENTERPRISE SALES URINE CULTURE Routine 09/09/2022 3:27 AM DIRECTOR ENTERPRISE SALES documented in this encounter Results * URINE CULTURE (09/09/2022 3:27 AM DIRECTOR ENTERPRISE SALES) CULTURE No growth at 24 hours 09/10/2022 7:15 AM DIRECTOR ENTERPRISE SALES [facility] Urine URINE SPECIMEN OBTAINED BY CLEAN CATCH PROCEDURE / Unknown Collection / Unknown 09/09/2022 3:27 AM DIRECTOR ENTERPRISE SALES 09/09/2022 7:18 AM DIRECTOR ENTERPRISE SALES Franco Apple MD MICROBIOLOGY - GENERAL ORDERABLE S Final Result [facility]OR[facility] CLIA# [id number] [address] [place] [address] * EXTRA TUBE (URINE ACUNA) (09/09/2022 3:27 AM DIRECTOR ENTERPRISE SALES) Urine URINE SPECIMEN OBTAINED BY CLEAN CATCH PROCEDURE / Unknown Collection / Unknown 09/09/2022 3:27 AM DIRECTOR ENTERPRISE SALES 09/09/2022 6:55 AM DIRECTOR ENTERPRISE SALES Franco Apple MD URINE ORDERABLES Final Result Performing Organization Address City/[facility]/ZIP Co de Phone Number [facility] LABORATORY SERVICES [facility] CLIA# [id number] [place] [address] * (ABNORMAL) URINALYSIS WITH REFLEX CULTURE (09/09/2022 3:27 AM DIRECTOR ENTERPRISE SALES) COLOR UA Yellow Pale to Dark Yellow 09/09/2022 7:18 AM DIRECTOR ENTERPRISE SALES [facility] [employer] [facility] CLARITY UA Clear Clear 09/09/2022 7:18 AM [facility] LABORATORY SERVICES [facility] SPECIFIC GRAVITY UA 1.010 1.003 - 1.035 09/09/2022 7:18 AM [facility] [employer] [facility] PH UA 7.0 5.0 - 8.0 09/09/2022 7:18 AM DIRECTOR ENTERPRISE SALES [facility] [employer] [facility] LEUKOCYTE ESTERASE UA Negative Negative 09/09/2022 7:18 AM DIRECTOR ENTERPRISE SALES [facility] [employer] [facility] NITRITE UA Negative Negative 09/09/2022 7:18 AM DIRECTOR ENTERPRISE SALES [facility] [employer] [facility] PROTEIN UA 1+(A) Negative 09/09/2022 7:18 AM DIRECTOR ENTERPRISE SALES [facility] [employer] [facility] GLUCOSE UA 2+(A) Negative 09/09/2022 7:18 AM [facility] KETONES UA Negative Negative 09/09/2022 7:18 AM [facility] UROBILINOGEN UA 4.0(A) <2.0 mg/dL 7:18 AM [facility] BILIRUBIN UA Negative Negative 09/09/2022 7:18 AM [facility] BLOOD UA Trace(A) Negative 09/09/2022 7:18 AM [facility] Comment: For patients with 'trace' results, consider ordering a culture and sensitivity if clinically indicated. WBC UA 6-10(A) 0 - 2 /hpf 09/09/2022 7:18 AM [facility] RBC UA 3-5(A) 0 - 2 /hpf 09/09/2022 7:18 AM [facility] BACTERIA UA 1+(A) Negative /hpf 09/09/2022 7:18 AM [facility] EPITHELIAL CELLS, URINE 0-5 0 - 5 /hpf 09/09/2022 7:18 AM [facility] HYALINE CAST None Seen None Seen, 0-2 /lpf 09/09/2022 7:18 AM [facility] Urine URINE SPECIMEN OBTAINED BY CLEAN CATCH PROCEDURE / Unknown Collection / Unknown 09/09/2022 3:27 AM DIRECTOR ENTERPRISE SALES 09/09/2022 6:55 AM DIRECTOR ENTERPRISE SALES Narrative [facility] - 09/09/2022 7:18 AM DIRECTOR ENTERPRISE SALES Based on results, a urine culture has been reflexed. us Franco Apple MD URINE ORDERABLES Final Result [facility] CLIA# [id number] [address] [place] [address] documented in this encounter Visit Diagnoses Not on filedocumented in this encounter Additional Health Concerns Infection Onset Date Last Indicated Resolved Time MRSA Comment:09/2022 sputum Resolved per Type and Duration of Precautions Recommended for Selected Infections and Conditions document 2023 update 09/16/2022 09/28/202206/04 4:18 PM CDT documented as of this encounter
--- OUTSIDE RECORDS SUMMARY | 2025-01-05 04:01 | XMS_ITS | Encounter Summary ---
Author Organization [facility] Address [address] [place] [address] Care Team Providers Care Ballet Dancer Name Role Phone Unavailable Primary Care Provider Unavailabl e Encounter Details Date Type Department Care Team (Late st Contact Info) Description 11/01/2022 Lab Requisition [facility] Laboratory Services [address] [place] [address] [place] [id number] [address] [place] [address] Social History Tobacco Use Types Packs/Day Years Used Date Smoking Tobacco: Never Assessed Sex and Gender Information Value Date Recorded Sex Assigned at Not on file Legal Sex Male 2:27 PM EDUCATIONAL TECHNOLOGIST Gender Identity Not on file Sexual Orientation Not on file COVID-19 Exposure Response Date Recorded In the last 10 days, have yo u been in contact with someone who was confirmed or suspected to have Coronavirus/COVID-19? Unable to assess 11/04/2022 12:51 PM EDUCATIONAL TECHNOLOGIST documented as of this encounter Plan of Treatment Not on file documented as of this encounter Procedures Procedure Name Priority Date/Time Associated Diagnosis Comments CBC WITH DIFFERENTIAL Routine 11/01/2022 2:45 AM EDUCATIONAL TECHNOLOGIST HEPATIC FUNCTION PANEL Routine 11/01/2022 2:45 AM EDUCATIONAL TECHNOLOGIST BASIC METABOLIC PANEL Routine 11/01/2022 2:45 AM EDUCATIONAL TECHNOLOGIST documented in this encounter Results * (ABNORMAL) HEPATIC FUNCTION PANEL (11/01/2022 2:45 AM EDUCATIONAL TECHNOLOGIST) TOTAL PROTEIN 7.7 6.3 - 8.7 g/dL 11/01/2022 7:31 AM [facility] ALBUMIN 3.1(L) 3.5 - 5.2 g/dL 11/01/2022 7:31 AM [facility] BILIRUBIN TOTAL 0.6 0.2 - 1.1 mg/dL 11/01/2022 7:31 AM [facility] BILIRUBIN DIRECT <0.2 0.0 - 0.3 mg/dL 11/01/2022 7:31 AM [facility] ALKALINE PHOSPHATASE 151(H) 40 - 150 U/L 11/01/2022 7:31 AM [facility] AST 29 0 - 41 U/L 11/01/2022 7:31 AM [facility] ALT 14 0 - 41 U/L 11/01/2022 7:31 AM [facility] Blood 11/01/2022 2:45 AM EDUCATIONAL TECHNOLOGIST 11/01/2022 6:46 AM EDUCATIONAL TECHNOLOGIST us Franco Apple MD CHEMISTRY ORDERABLES Final Resul t [facility]# [id number] [id number] [place] [address] * (ABNORMAL) CBC WITH DIFFERENTIAL (11/01/2022 2:45 AM EDUCATIONAL TECHNOLOGIST) WBC 8.4 4.5 - 10.5 K/uL 11/01/2022 7:16 AM [facility] RBC 3.08(L) 4.50 - 5.40 M/uL 11/01/2022 7:16 AM [facility] HEMOGLOBIN 9.3(L) 13.6 - 16.5 g/dL 11/01/2022 7:16 AM [facility] HEMATOCRIT 27.8(L) 40.0 - 48.0 % 11/01/2022 7:16 AM [facility] MCV 90.3 82.0 - 99.0 fL 11/01/2022 7:16 AM EDUCATIONAL TECHNOLOGIST [facility] LABORATORY SERVICES [facility] MCH 30.2 27.8 - 34.5 pg 11/01/2022 7:16 AM EDUCATIONAL TECHNOLOGIST [facility] LABORATORY SERVICES [facility] MCHC 33.5 32.5 - 35.5 g/dL 11/01/2022 7:16 AM EDUCATIONAL TECHNOLOGIST [facility] LABORATORY SERVICES [facility] RDW 16.0(H) 11.5 - 14.5 % 11/01/2022 7:16 AM EDUCATIONAL TECHNOLOGIST [facility] LABORATORY SERVICES [facility] PLATELETS 247 160 - 420 K/uL 11/01/2022 7:16 AM EDUCATIONAL TECHNOLOGIST [facility] LABORATORY SERVICES - [facility] MPV 9.3 8.7 - 12.7 fL 11/01/2022 7:16 AM EDUCATIONAL TECHNOLOGIST [email or web address] - [facility] NEUTROPHILS 61 % 11/01/2022 7:16 AM EDUCATIONAL TECHNOLOGIST [facility] - [facility] LYMPHOCYTES 25 % 11/01/2022 7:16 AM EDUCATIONAL TECHNOLOGIST [employer] LABORATORY SERVICES - [facility] MONOCYTES 8 % 11/01/2022 7:16 AM EDUCATIONAL TECHNOLOGIST [facility] LAB[facility]ORY SERVICES - [facility] EOSINOPHILS 5 % 11/01/2022 7:16 AM EDUCATIONAL TECHNOLOGIST [facility] LABORATORY SERVICES - [facility] BASOPHILS 2 % 11/01/2022 7:16 AM EDUCATIONAL TECHNOLOGIST [facility] LABORATORY SERVICES [facility] NEUTROPHIL ABSOLUTE 5.10 1.90 - 7.00 K/uL 11/01/2022 7:16 AM EDUCATIONAL TECHNOLOGIST [facility] LABORATORY SERVICES [facility] LYMPHOCYTE ABSOLUTE 2.10 0.70 - 4.50 K/uL 11/01/2022 7:16 AM EDUCATIONAL TECHNOLOGIST [facility] LABORATORY SERVICES [facility] MONOCYTE ABSOLUTE 0.70 0.10 - 1.30 K/uL 11/01/2022 7:16 AM EDUCATIONAL TECHNOLOGIST [facility] LABORATORY SERVICES [facility] EOSINOPHIL ABSOLUTE 0.40 0.00 - 0.70 K/uL 11/01/2022 7:16 AM EDUCATIONAL TECHNOLOGIST [facility] LABORATORY SERVICES [facility] BASOPHILS ABSOLUTE 0.10 0.00 - 0.20 K/uL 11/01/2022 7:16 AM EDUCATIONAL TECHNOLOGIST [facility] LABORATORY SERVICES [facility] Blood 11/01/2022 2:45 AM EDUCATIONAL TECHNOLOGIST 11/01/2022 6:46 AM EDUCATIONAL TECHNOLOGIST Franco Apple MD HEMATOLOGY ORDERABLES Final Resu lt [facility] PHU# [id number] [place] [address] * (ABNORMAL) BASIC METABOLIC PANEL (11/01/2022 2:45 AM EDUCATIONAL TECHNOLOGIST) SODIUM 139 136 - 145 mmol/L 11/01/2022 7:31 AM [facility] POTASSIUM 3.3(L) 3.4 - 5.1 mmol/L 11/01/2022 7:31 AM [facility] CHLORIDE 90(L) 98 - 107 mmol/L 11/01/2022 7:31 AM [facility] CO2 39(H) 22 - 29 mmol/L 11/01/2022 7:31 AM [facility] CALCIUM 10.4 8.6 - 10.4 mg/dL 11/01/2022 7:31 AM [facility] BUN 53(H) 6 - 20 mg/dL 11/01/2022 7:31 AM [facility] CREATININE 0.68 0.67 - 1.17 mg/dL 11/01/2022 7:31 AM [facility] Comment:The GFR result is no t clinically significant on patients <18 or >70 years of age. GLUCOSE 151(H) 74 - 99 mg/dL 11/01/2022 7:31 AM [facility] GFR >60 mL/min/1.7 3 sq meter 11/01/2022 7:31 AM [facility] Comment:eGFR calculated with 2020 CKD-EPI equation. Vegetarian diet, extremely high or low muscle mass, and may affect results. Cystatin C with Glomerular Filtration Rate is a suitable alternative for these patients. ANION GAP 10 8 - 16 mmol/L 11/01/2022 7:31 AM [facility] Blood 11/01/2022 2:45 AM EDUCATIONAL TECHNOLOGIST 11/01/2022 6:46 AM EDUCATIONAL TECHNOLOGIST us Franco Apple MD CHEMISTRY ORDERABLES Final Resul t [facility]# [id number] [place] [address] documented in this encounter Visit Diagnoses Not on filedocumented in this encounter Additional Health Concerns Infection Onset Date Last Indicated Resolved Time MRSA Comment:09/2022 sputum Resolved per Type and Duration of Precautions Recommended for Selected Infections and Conditions document 2023 update 09/16/2022 09/28/202206/04 4:18 PM CDT documented as of this encounter
--- OUTSIDE RECORDS SUMMARY | 2025-01-05 04:01 | XMS_ITS | Encounter Summary ---
Author Organization [facility] Address [address] [place] [address] Care Team Providers Care Patrol Driver Name Role Phone Unavailable Primary Care Provider Unavailabl e Encounter Details Date Type Department Care Team (Late st Contact Info) Description 09/25/2022 Lab Requisition [facility] Laboratory Services [address] [place] [address] [place] [address] [place] [address] Social History Tobacco Use Types Packs/Day Years Used Date Smoking Tobacco: Never Assessed Sex and Gender Information Value Date Recorded Sex Assigned at Not on file Legal Sex Male 2:27 PM MEDICAL SCIENTIFIC OFFICER Gender Identity Not on file Sexual Orientation Not on file COVID-19 Exposure Response Date Recorded In the last 10 days, have yo u been in contact with someone who was confirmed or suspected to have Coronavirus/COVID-19? Unable to assess 09/18/2022 6:07 AM MEDICAL SCIENTIFIC OFFICER documented as of this encounter Plan of Treatment Not on file documented as of this encounter Procedures Procedure Name Priority Date/Time Associated Diagnosis Comments CBC WITH DIFFERENTIAL Routine 09/25/2022 3:30 AM MEDICAL SCIENTIFIC OFFICER BASIC METABOLIC PANEL Routine 09/25/2022 3:30 AM MEDICAL SCIENTIFIC OFFICER documented in this encounter Results * (ABNORMAL) CBC WITH DIFFERENTIAL (09/25/2022 3:30 AM MEDICAL SCIENTIFIC OFFICER) WBC 8.7 4.5 - 10.5 K/uL 09/25/2022 6:38 AM MEDICAL SCIENTIFIC OFFICER [facility] LABORATORY SERVICES [facility] RBC 2.63(L) 4.50 - 5.40 M/uL 09/25/2022 6:38 AM [facility] LABORATORY [facility] HEMOGLOBIN 7.7(L) 13.6 - 16.5 g/dL 09/25/2022 6:38 AM [facility] LABORATORY [facility] HEMATOCRIT 24.8(L) 40.0 - 48.0 % 09/25/2022 6:38 AM MEDICAL SCIENTIFIC OFFICER [facility] LABORATORY [facility] MCV 94.4 82.0 - 99.0 fL 09/25/2022 6:38 AM MEDICAL SCIENTIFIC OFFICER [facility] LABORATORY [facility] MCH 29.4 27.8 - 34.5 pg 09/25/2022 6:38 AM MEDICAL SCIENTIFIC OFFICER [facility] LABORATORY [facility] MCHC 31.1(L) 32.5 - 35.5 g/dL 09/25/2022 6:38 AM [facility] LABORATORY [facility] RDW 18.6(H) 11.5 - 14.5 % 09/25/2022 6:38 AM MEDICAL SCIENTIFIC OFFICER [facility] LABORATORY [facility] PLATELETS 217 160 - 420 K/uL 09/25/2022 6:38 AM MEDICAL SCIENTIFIC OFFICER [facility] LABORATORY [facility] MPV 9.2 8.7 - 12.7 fL 09/25/2022 6:38 AM MEDICAL SCIENTIFIC OFFICER [facility] LABORATORY SERVICES [facility] NEUTROPHILS 66 % 09/25/2022 6:38 AM MEDICAL SCIENTIFIC OFFICER [facility] LABORATORY [facility] LYMPHOCYTES 21 % 09/25/2022 6:38 AM MEDICAL SCIENTIFIC OFFICER [facility] LABORATORY [facility] MONOCYTES 8 % 09/25/2022 6:38 AM MEDICAL SCIENTIFIC OFFICER [facility] LABORATORY SERVICES [facility] EOSINOPHILS 6 % 09/25/2022 6:38 AM MEDICAL SCIENTIFIC OFFICER [facility] LABORATORY [facility] BASOPHILS 1 % 09/25/2022 6:38 AM MEDICAL SCIENTIFIC OFFICER [facility] LABORATORY SERVICES [facility] NEUTROPHIL ABSOLUTE 5.70 1.90 - 7.00 K/uL 09/25/2022 6:38 AM MEDICAL SCIENTIFIC OFFICER [facility] LABORATORY [facility] LYMPHOCYTE ABSOLUTE 1.80 0.70 - 4.50 K/uL 09/25/2022 6:38 AM MEDICAL SCIENTIFIC OFFICER [facility] LABORATORY [facility] MONOCYTE ABSOLUTE 0.70 0.10 - 1.30 K/uL 09/25/2022 6:38 AM [facility] EOSINOPHIL ABSOLUTE 0.50 0.00 - 0.70 K/uL 09/25/2022 6:38 AM MEDICAL SCIENTIFIC OFFICER [facility] BASOPHILS ABSOLUTE 0.10 0.00 - 0.20 K/uL 09/25/2022 6:38 AM [facility] Blood 09/25/2022 3:30 AM MEDICAL SCIENTIFIC OFFICER 09/25/2022 6:08 AM MEDICAL SCIENTIFIC OFFICER us Franco Apple MD HEMATOLOGY ORDERABLES Final Resu lt [facility] CLIA# [id number] [place] [address] * (ABNORMAL) BASIC METABOLIC PANEL (09/25/2022 3:30 AM MEDICAL SCIENTIFIC OFFICER) SODIUM 146(H) 136 - 145 mmol/L 09/25/2022 6:54 AM [facility] POTASSIUM 3.6 3.4 - 5.1 mmol/L 09/25/2022 6:54 AM [facility] CHLORIDE 99 98 - 107 mmol/L 09/25/2022 6:54 AM [facility] CO2 39(H) 22 - 29 mmol/L 09/25/2022 6:54 AM [facility] CALCIUM 9.4 8.6 - 10.4 mg/dL 09/25/2022 6:54 AM [facility] BUN 51(H) 6 - 20 mg/dL 09/25/2022 6:54 AM [facility] CREATININE 0.76 0.67 - 1.17 mg/dL 09/25/2022 6:54 AM [facility] Comment:The GFR result is no t clinically significant on patients <18 or >70 years of age. GLUCOSE 141(H) 74 - 99 mg/dL 09/25/2022 6:54 AM [facility] GFR >60 mL/min/1.7 3 sq meter 09/25/2022 6:54 AM MEDICAL SCIENTIFIC OFFICER [facility] LABORATORY SERVICES [facility] Comment:eGFR calculated with 2020 CKD-EPI equation. Vegetarian diet, extremely high or low muscle mass, and may affect results. Cystatin C with Glomerular Filtration Rate is a suitable alternative for these patients. ANION GAP 8 8 - 16 mmol/L 09/25/2022 6:54 AM MEDICAL SCIENTIFIC OFFICER [facility] LABORATORY [facility] Blood 09/25/2022 3:30 AM MEDICAL SCIENTIFIC OFFICER 09/25/2022 6:08 AM MEDICAL SCIENTIFIC OFFICER us Franco Apple MD CHEMISTRY ORDERABLES Final Resul t [facility] LABORATORY [facility] CLIA# [id number] [place] [address] documented in this encounter Visit Diagnoses Not on filedocumented in this encounter Additional Health Concerns Infection Onset Date Last Indicated Resolved Time MRSA Comment:09/2022 sputum Resolved per Type and Duration of Precautions Recommended for Selected Infections and Conditions document 2023 update 09/16/2022 09/28/202206/04 4:18 PM CDT documented as of this encounter
--- OUTSIDE RECORDS SUMMARY | 2025-01-05 04:01 | XMS_ITS | Encounter Summary ---
Author Organization [facility] Address [address] [place] [address] Care Team Providers Care Sandal Parts Assembler Name Role Phone Unavailable Primary Care Provider Unavailabl e Encounter Details Date Type Department Care Team (Late st Contact Info) Description 09/09/2022 Lab Requisition [facility] Laboratory Services [address] [place] [address] [place] [address] [place] [address] Social History Tobacco Use Types Packs/Day Years Used Date Smoking Tobacco: Never Assessed Sex and Gender Information Value Date Recorded Sex Assigned at Not on file Legal Sex Male 2:27 PM MUD BOSS Gender Identity Not on file Sexual Orientation Not on file COVID-19 Exposure Response Date Recorded In the last 10 days, have yo u been in contact with someone who was confirmed or suspected to have Coronavirus/COVID-19? Unable to assess 09/04/2022 2:29 PM MUD BOSS documented as of this encounter Plan of Treatment Not on file documented as of this encounter Procedures Procedure Name Priority Date/Time Associated Diagnosis Comments CBC WITH DIFFERENTIAL Routine 09/09/2022 3:27 AM MUD BOSS BASIC METABOLIC PANEL Routine 09/09/2022 3:27 AM MUD BOSS documented in this encounter Results * (ABNORMAL) CBC WITH DIFFERENTIAL (09/09/2022 3:27 AM MUD BOSS) Pathologist [facility] WBC 8.6 4.5 - 10.5 K/uL 09/09/2022 6:57 AM MUD BOSS [facility] LABORATORY SERVICES [facility] RBC 2.81(L) 4.50 - 5.40 M/uL 09/09/2022 6:57 AM MUD BOSS [facility] LABORATORY [facility] HEMOGLOBIN 8.0(L) 13.6 - 16.5 g/dL 09/09/2022 6:57 AM [facility] LABORATORY [facility] HEMATOCRIT 25.0(L) 40.0 - 48.0 % 09/09/2022 6:57 AM MUD BOSS [facility] LABORATORY [facility] MCV 89.2 82.0 - 99.0 fL 09/09/2022 6:57 AM MUD BOSS [facility] LABORATORY [facility] MCH 28.6 27.8 - 34.5 pg 09/09/2022 6:57 AM MUD BOSS [facility] LABORATORY [facility] MCHC 32.0(L) 32.5 - 35.5 g/dL 09/09/2022 6:57 AM [facility] LABORATORY [facility] RDW 17.0(H) 11.5 - 14.5 % 09/09/2022 6:57 AM MUD BOSS [facility] LABORATORY [facility] PLATELETS 270 160 - 420 K/uL 09/09/2022 6:57 AM MUD BOSS [facility] LABORATORY [facility] MPV 9.1 8.7 - 12.7 fL 09/09/2022 6:57 AM MUD BOSS [facility] LABORATORY SERVICES [facility] NEUTROPHILS 62 % 09/09/2022 6:57 AM MUD BOSS [facility] LABORATORY [facility] LYMPHOCYTES 23 % 09/09/2022 6:57 AM MUD BOSS [facility] LABORATORY SERVICES [facility] MONOCYTES 5 % 09/09/2022 6:57 AM MUD BOSS [facility] LABORATORY SERVICES [facility] EOSINOPHILS 9 % 09/09/2022 6:57 AM MUD BOSS [facility] LABORATORY SERVICES [facility] BASOPHILS 1 % 09/09/2022 6:57 AM MUD BOSS [facility] LABORATORY SERVICES [facility] NEUTROPHIL ABSOLUTE 5.40 1.90 - 7.00 K/uL 09/09/2022 6:57 AM MUD BOSS [facility] LABORATORY [facility] LYMPHOCYTE ABSOLUTE 2.00 0.70 - 4.50 K/uL 09/09/2022 6:57 AM MUD BOSS [facility] LABORATORY [facility] MONOCYTE ABSOLUTE 0.40 0.10 - 1.30 K/uL 09/09/2022 6:57 AM [facility] EOSINOPHIL ABSOLUTE 0.80(H) 0.00 - 0.70 K/uL 09/09/2022 6:57 AM [facility] BASOPHILS ABSOLUTE 0.10 0.00 - 0.20 K/uL 09/09/2022 6:57 AM [facility] Blood Collection / Unknown 09/09/2022 3:27 AM MUD BOSS 09/09/2022 6:35 AM MUD BOSS us Franco Apple MD HEMATOLOGY ORDERABLES Final Resu lt [facility] CLIA# [id number] [place] [address] * (ABNORMAL) BASIC METABOLIC PANEL (09/09/2022 3:27 AM MUD BOSS) SODIUM 141 136 - 145 mmol/L 09/09/2022 7:10 AM [facility] POTASSIUM 3.7 3.4 - 5.1 mmol/L 09/09/2022 7:10 AM [facility] CHLORIDE 96(L) 98 - 107 mmol/L 09/09/2022 7:10 AM [facility] CO2 38(H) 22 - 29 mmol/L 09/09/2022 7:10 AM [facility] CALCIUM 9.2 8.6 - 10.4 mg/dL 09/09/2022 7:10 AM [facility] BUN 25(H) 6 - 20 mg/dL 09/09/2022 7:10 AM [facility] CREATININE 0.66(L) 0.67 - 1.17 mg/dL 09/09/2022 7:10 AM [facility] Comment:The GFR result is no t clinically significant on patients <18 or >70 years of age. GLUCOSE 309(H) 74 - 99 mg/dL 09/09/2022 7:10 AM [facility] GFR >60 mL/min/1.7 3 sq meter 09/09/2022 7:10 AM MUD BOSS [facility] LABORATORY [facility] Comment:eGFR calculated with 2020 CKD-EPI equation. Vegetarian diet, extremely high or low muscle mass, and may affect results. Cystatin C with Glomerular Filtration Rate is a suitable alternative for these patients. ANION GAP 7(L) 8 - 16 mmol/L 09/09/2022 7:10 AM MUD BOSS [facility] LABORATORY [facility] Blood Collection / Unknown 09/09/2022 3:27 AM MUD BOSS 09/09/2022 7:10 AM MUD BOSS us Franco Apple MD CHEMISTRY ORDERABLES Final Resul t [facility] Plyce [facility] CLIA# [id number] [place] [address] documented in this encounter Visit Diagnoses Not on filedocumented in this encounter Additional Health Concerns Infection Onset Date Last Indicated Resolved Time MRSA Comment:09/2022 sputum Resolved per Type and Duration of Precautions Recommended for Selected Infections and Conditions document 2023 update 09/16/2022 09/28/202206/04 4:18 PM CDT documented as of this encounter
--- OUTSIDE RECORDS SUMMARY | 2025-01-05 04:01 | XMS_ITS | Encounter Summary ---
Author Organization [facility] Address [address] [place] [address] Care Team Providers Care Escalator Operator Name Role Phone Unavailable Primary Care Provider Unavailabl e Encounter Details Date Type Department Care Team (Late st Contact Info) Description 09/27/2022 Lab Requisition [facility] Laboratory Services [address] [place] [address] [place] [address] [place] [address] Social History Tobacco Use Types Packs/Day Years Used Date Smoking Tobacco: Never Assessed Sex and Gender Information Value Date Recorded Sex Assigned at Not on file Legal Sex Male 2:27 PM PROPERTY CUSTODIAN Gender Identity Not on file Sexual Orientation Not on file COVID-19 Exposure Response Date Recorded In the last 10 days, have yo u been in contact with someone who was confirmed or suspected to have Coronavirus/COVID-19? Unable to assess 09/18/2022 6:07 AM PROPERTY CUSTODIAN documented as of this encounter Plan of Treatment Not on file documented as of this encounter Procedures Procedure Name Priority Date/Time Associated Diagnosis Comments VANCOMYCIN LEVEL RANDOM Routine 09/27/2022 3:15 AM PROPERTY CUSTODIAN documented in this encounter Results * VANCOMYCIN LEVEL RANDOM (09/27/2022 3:15 AM PROPERTY CUSTODIAN) VANCOMYCIN, RANDOM 16.7 No Ref Range Estab ug/mL 09/27/2022 8:56 AM PROPERTY CUSTODIAN [facility] LABORATORY [facility] TDM LAST DATE, TIME, AMT (VANC) Patient unable to state date. time or dose. 09/27/2022 8:56 AM PROPERTY CUSTODIAN [facility] LABORATORY [facility] LAST DOSE AMT, VANCOMYCIN Unknown/Pat ient unsure 09/27/2022 8:56 AM PROPERTY CUSTODIAN [facility] LABORAT[facility] Blood Collection / Unknown 09/27/2022 3:15 AM PROPERTY CUSTODIAN 09/27/2022 8:31 AM PROPERTY CUSTODIAN Franco Apple MD CHEMISTRY ORDERABLES Final Resul t [facility] LABORATORY [facility] CLIA# [id number] [place] [address] documented in this encounter Visit Diagnoses Not on filedocumented in this encounter Additional Health Concerns Infection Onset Date Last Indicated Resolved Time MRSA Comment:09/2022 sputum Resolved per Type and Duration of Precautions Recommended for Selected Infections and Conditions document 2023 update 09/16/2022 09/28/202206/04 4:18 PM CDT documented as of this encounter
--- OUTSIDE RECORDS SUMMARY | 2025-01-05 04:01 | XMS_ITS | Encounter Summary ---
Author Organization [facility] Address [address] [place] [address] Care Team Providers Care Flap Lining Binder Name Role Phone Unavailable Primary Care Provider Unavailabl e Encounter Details Date Type Department Care Team (Late st Contact Info) Description 10/20/2022 Lab Requisition [facility] [address] [place] [address] [place] [id number] [facility] [place] [address] Social History Tobacco Use Types Packs/Day Years Used Date Smoking Tobacco: Never Assessed Sex and Gender Information Value Date Recorded Sex Assigned at Not on file Legal Sex Male 2:27 PM ROULETTE DEALER Gender Identity Not on file Sexual Orientation Not on file COVID-19 Exposure Response Date Recorded In the last 10 days, have yo u been in contact with someone who was confirmed or suspected to have Coronavirus/COVID-19? Unable to assess 10/04/2022 4:56 PM ROULETTE DEALER documented as of this encounter Plan of Treatment Not on file documented as of this encounter Procedures Procedure Name Priority Date/Time Associated Diagnosis Comments CBC WITH DIFFERENTIAL Routine 10/20/2022 3:10 AM ROULETTE DEALER HEPATIC FUNCTION PANEL Routine 10/20/2022 3:10 AM ROULETTE DEALER BASIC METABOLIC PANEL Routine 10/20/2022 3:10 AM ROULETTE DEALER documented in this encounter Results * (ABNORMAL) CBC WITH DIFFERENTIAL (10/20/2022 3:10 AM ROULETTE DEALER) WBC 7.6 4.5 - 10.5 K/uL 10/20/2022 7:37 AM ROULETTE DEALER [facility] RBC 2.92(L) 4.50 - 5.40 M/uL 10/20/2022 7:37 AM [facility]OR[facility] HEMOGLOBIN 8.9(L) 13.6 - 16.5 g/dL 10/20/2022 7:37 AM ROULETTE DEALER [facility] HEMATOCRIT 26.7(L) 40.0 - 48.0 % 10/20/2022 7:37 AM ROULETTE DEALER [facility] MCV 91.4 82.0 - 99.0 fL 10/20/2022 7:37 AM ROULETTE DEALER [facility]OR[facility]ORY SERVICES [facility] MCH 30.7 27.8 - 34.5 pg 10/20/2022 7:37 AM ROULETTE DEALER [facility] MCHC 33.5 32.5 - 35.5 g/dL 10/20/2022 7:37 AM [facility] RDW 16.1(H) 11.5 - 14.5 % 10/20/2022 7:37 AM ROULETTE DEALER [facility] PLATELETS 247 160 - 420 K/uL 10/20/2022 7:37 AM ROULETTE DEALER [facility] MPV 9.4 8.7 - 12.7 fL 10/20/2022 7:37 AM ROULETTE DEALER [facility]OR[facility] SERVICES [facility] NEUTROPHILS 62 % 10/20/2022 7:37 AM ROULETTE DEALER [facility] LYMPHOCYTES 25 % 10/20/2022 7:37 AM ROULETTE DEALER [facility] SERVICES [facility] MONOCYTES 8 % 10/20/2022 7:37 AM ROULETTE DEALER [facility] SERVICES [facility] EOSINOPHILS 5 % 10/20/2022 7:37 AM ROULETTE DEALER [facility] SERVICES [facility] BASOPHILS 0 % 10/20/2022 7:37 AM ROULETTE DEALER [facility] SERVICES [facility] NEUTROPHIL ABSOLUTE 4.70 1.90 - 7.00 K/uL 10/20/2022 7:37 AM ROULETTE DEALER [facility] LYMPHOCYTE ABSOLUTE 1.90 0.70 - 4.50 K/uL 10/20/2022 7:37 AM ROULETTE DEALER [facility]OR[facility] SERVICES [facility] MONOCYTE ABSOLUTE 0.60 0.10 - 1.30 K/uL 10/20/2022 7:37 AM ROULETTE DEALER [facility] EOSINOPHIL ABSOLUTE 0.40 0.00 - 0.70 K/uL 10/20/2022 7:37 AM ROULETTE DEALER [facility] BASOPHILS ABSOLUTE 0.00 0.00 - 0.20 K/uL 10/20/2022 7:37 AM ROULETTE DEALER [facility] Blood Collection / Unknown 10/20/2022 3:10 AM ROULETTE DEALER 10/20/2022 7:02 AM ROULETTE DEALER Franco Apple MD HEMATOLOGY ORDERABLES Final Resu lt [facility] CLIA# [id number] [place] [address] * (ABNORMAL) HEPATIC FUNCTION PANEL (10/20/2022 3:10 AM ROULETTE DEALER) Pathologist [facility] TOTAL PROTEIN 7.9 6.3 - 8.7 g/dL 10/20/2022 7:54 AM [facility] ALBUMIN 3.2(L) 3.5 - 5.2 g/dL 10/20/2022 7:54 AM [facility] BILIRUBIN TOTAL 0.6 0.2 - 1.1 mg/dL 10/20/2022 7:54 AM [facility] BILIRUBIN DIRECT <0.2 0.0 - 0.3 mg/dL 10/20/2022 7:54 AM [facility] ALKALINE PHOSPHATASE 199(H) 40 - 150 U/L 10/20/2022 7:54 AM [facility] AST 31 0 - 41 U/L 10/20/2022 7:54 AM [facility] ALT 17 0 - 41 U/L 10/20/2022 7:54 AM [facility] Blood Collection / Unknown 10/20/2022 3:10 AM ROULETTE DEALER 10/20/2022 7:02 AM ROULETTE DEALER Franco Apple MD CHEMISTRY ORDERABLES Final Resul t [facility] PHU# [id number] [place] [address] * (ABNORMAL) BASIC METABOLIC PANEL (10/20/2022 3:10 AM ROULETTE DEALER) SODIUM 137 136 - 145 mmol/L 10/20/2022 7:54 AM [facility] POTASSIUM 3.5 3.4 - 5.1 mmol/L 10/20/2022 7:54 AM [facility] CHLORIDE 88(L) 98 - 107 mmol/L 10/20/2022 7:54 AM [facility] CO2 36(H) 22 - 29 mmol/L 10/20/2022 7:54 AM [facility] CALCIUM 10.3 8.6 - 10.4 mg/dL 10/20/2022 7:54 AM [facility] BUN 50(H) 6 - 20 mg/dL 10/20/2022 7:54 AM [facility] CREATININE 0.68 0.67 - 1.17 mg/dL 10/20/2022 7:54 AM [facility] Comment:The GFR result is no t clinically significant on patients <18 or >70 years of age. GLUCOSE 156(H) 74 - 99 mg/dL 10/20/2022 7:54 AM [facility] GFR >60 mL/min/1.7 3 sq meter 10/20/2022 7:54 AM [facility] Comment:eGFR calculated with 2020 CKD-EPI equation. Vegetarian diet, extremely high or low muscle mass, and may affect results. Cystatin C with Glomerular Filtration Rate is a suitable alternative for these patients. ANION GAP 13 8 - 16 mmol/L 10/20/2022 7:54 AM [facility] Blood Collection / Unknown 10/20/2022 3:10 AM ROULETTE DEALER 10/20/2022 7:02 AM ROULETTE DEALER us Franco Apple MD CHEMISTRY ORDERABLES Final Resul t [facility] CLIA# [id number] [place] [address] documented in this encounter Visit Diagnoses Not on filedocumented in this encounter Additional Health Concerns Infection Onset Date Last Indicated Resolved Time MRSA Comment:09/2022 sputum Resolved per Type and Duration of Precautions Recommended for Selected Infections and Conditions document 2023 update 09/16/2022 09/28/202206/04 4:18 PM CDT documented as of this encounter
--- OUTSIDE RECORDS SUMMARY | 2025-01-05 04:01 | XMS_ITS | Encounter Summary ---
Author Organization [facility] Address [address] [place] [address] Care Team Providers Care Commercial Cleaner Name Role Phone Unavailable Primary Care Provider Unavailabl e Encounter Details Date Type Department Care Team (Late st Contact Info) Description 10/05/2022 Lab Requisition [facility] [id number] [place] [address] [place] [address] [place] [address] Social History Tobacco Use Types Packs/Day Years Used Date Smoking Tobacco: Never Assessed Sex and Gender Information Value Date Recorded Sex Assigned at Not on file Legal Sex Male 2:27 PM DIGITAL SALES EXECUTIVE Gender Identity Not on file Sexual Orientation Not on file COVID-19 Exposure Response Date Recorded In the last 10 days, have yo u been in contact with someone who was confirmed or suspected to have Coronavirus/COVID-19? Unable to assess 10/04/2022 4:56 PM DIGITAL SALES EXECUTIVE documented as of this encounter Plan of Treatment Not on file documented as of this encounter Procedures Procedure Name Priority Date/Time Associated Diagnosis Comments CBC WITH DIFFERENTIAL Routine 10/05/2022 3:55 AM DIGITAL SALES EXECUTIVE BASIC METABOLIC PANEL Routine 10/05/2022 3:55 AM DIGITAL SALES EXECUTIVE documented in this encounter Results * (ABNORMAL) CBC WITH DIFFERENTIAL (10/05/2022 3:55 AM DIGITAL SALES EXECUTIVE) WBC 8.1 4.5 - 10.5 K/uL 10/05/2022 7:17 AM DIGITAL SALES EXECUTIVE [facility] RBC 2.85(L) 4.50 - 5.40 M/uL 10/05/2022 7:17 AM DIGITAL SALES EXECUTIVE [facility] HEMOGLOBIN 8.8(L) 13.6 - 16.5 g/dL 10/05/2022 7:[address] [facility] SERVICES [facility] HEMATOCRIT 26.5(L) 40.0 - 48.0 % 10/05/2022 7:17 AM DIGITAL SALES EXECUTIVE [facility] MCV 93.0 82.0 - 99.0 fL 10/05/2022 7:17 AM DIGITAL SALES EXECUTIVE [facility] MCH 30.8 27.8 - 34.5 pg 10/05/2022 7:17 AM DIGITAL SALES EXECUTIVE [facility] MCHC 33.1 32.5 - 35.5 g/dL 10/05/2022 7:17 AM DIGITAL SALES EXECUTIVE [facility] RDW 18.5(H) 11.5 - 14.5 % 10/05/2022 7:17 AM DIGITAL SALES EXECUTIVE [facility] PLATELETS 202 160 - 420 K/uL 10/05/2022 7:17 AM DIGITAL SALES EXECUTIVE [facility] MPV 9.1 8.7 - 12.7 fL 10/05/2022 7:17 AM DIGITAL SALES EXECUTIVE [facility] NEUTROPHILS 63 % 10/05/2022 7:17 AM DIGITAL SALES EXECUTIVE [facility]ORATORY SERVICES [facility] LYMPHOCYTES 23 % 10/05/2022 7:17 AM DIGITAL SALES EXECUTIVE [facility] MONOCYTES 7 % 10/05/2022 7:17 AM DIGITAL SALES EXECUTIVE [facility] EOSINOPHILS 7 % 10/05/2022 7:17 AM DIGITAL SALES EXECUTIVE [facility] BASOPHILS 0 % 10/05/2022 7:17 AM DIGITAL SALES EXECUTIVE [facility] NEUTROPHIL ABSOLUTE 5.10 1.90 - 7.00 K/uL 10/05/2022 7:17 AM DIGITAL SALES EXECUTIVE [facility] LYMPHOCYTE ABSOLUTE 1.90 0.70 - 4.50 K/uL 10/05/2022 7:17 AM DIGITAL SALES EXECUTIVE [facility] MONOCYTE ABSOLUTE 0.50 0.10 - 1.30 K/uL 10/05/2022 7:17 AM DIGITAL SALES EXECUTIVE [facility] EOSINOPHIL ABSOLUTE 0.50 0.00 - 0.70 K/uL 10/05/2022 7:17 AM [facility] BASOPHILS ABSOLUTE 0.00 0.00 - 0.20 K/uL 10/05/2022 7:17 AM [facility] Blood Collection / Unknown 10/05/2022 3:55 AM DIGITAL SALES EXECUTIVE 10/05/2022 6:43 AM DIGITAL SALES EXECUTIVE us Franco Apple MD HEMATOLOGY ORDERABLES Final Resu lt [facility] CLIA# [id number] [address] [place] [address] * (ABNORMAL) BASIC METABOLIC PANEL (10/05/2022 3:55 AM DIGITAL SALES EXECUTIVE) SODIUM 142 136 - 145 mmol/L 10/05/2022 7:38 AM [facility] POTASSIUM 3.8 3.4 - 5.1 mmol/L 10/05/2022 7:38 AM [facility] CHLORIDE 95(L) 98 - 107 mmol/L 10/05/2022 7:38 AM [facility] CO2 36(H) 22 - 29 mmol/L 10/05/2022 7:38 AM [facility] CALCIUM 9.9 8.6 - 10.4 mg/dL 10/05/2022 7:38 AM [facility] BUN 54(H) 6 - 20 mg/dL 10/05/2022 7:38 AM [facility] CREATININE 0.74 0.67 - 1.17 mg/dL 10/05/2022 7:38 AM [facility] Comment:The GFR result is no t clinically significant on patients <18 or >70 years of age. GLUCOSE 171(H) 74 - 99 mg/dL 10/05/2022 7:38 AM [facility] GFR >60 mL/min/1.7 3 sq meter 10/05/2022 7:38 AM DIGITAL SALES EXECUTIVE [facility] Comment:eGFR calculated with 2020 CKD-EPI equation. Vegetarian diet, extremely high or low muscle mass, and may affect results. Cystatin C with Glomerular Filtration Rate is a suitable alternative for these patients. ANION GAP 11 8 - 16 mmol/L 10/05/2022 7:38 AM DIGITAL SALES EXECUTIVE [facility] Blood Collection / Unknown 10/05/2022 3:55 AM DIGITAL SALES EXECUTIVE 10/05/2022 6:43 AM DIGITAL SALES EXECUTIVE us Franco Apple MD CHEMISTRY ORDERABLES Final Resul t [facility] [employer] [facility] CLIA# [id number] [place] [address] documented in this encounter Visit Diagnoses Not on filedocumented in this encounter Additional Health Concerns Infection Onset Date Last Indicated Resolved Time MRSA Comment:09/2022 sputum Resolved per Type and Duration of Precautions Recommended for Selected Infections and Conditions document 2023 update 09/16/2022 09/28/202206/04 4:18 PM CDT documented as of this encounter
--- OUTSIDE RECORDS SUMMARY | 2025-01-05 04:01 | XMS_ITS | Encounter Summary ---
Author Organization [facility] Address [address] [place] [address] Care Team Providers Care Energy Audit Advisor Name Role Phone Unavailable Primary Care Provider Unavailabl e Encounter Details Date Type Department Care Team (Late st Contact Info) Description 10/11/2022 Lab Requisition [facility] [address] [place] [address] [place] [address] [place] [address] Social History Tobacco Use Types Packs/Day Years Used Date Smoking Tobacco: Never Assessed Sex and Gender Information Value Date Recorded Sex Assigned at Not on file Legal Sex Male 2:27 PM SUSPENSION CORD TIER Gender Identity Not on file Sexual Orientation Not on file COVID-19 Exposure Response Date Recorded In the last 10 days, have yo u been in contact with someone who was confirmed or suspected to have Coronavirus/COVID-19? Unable to assess 10/04/2022 4:56 PM SUSPENSION CORD TIER documented as of this encounter Plan of Treatment Not on file documented as of this encounter Procedures Procedure Name Priority Date/Time Associated Diagnosis Comments CBC WITH DIFFERENTIAL Routine 10/11/2022 3:15 AM SUSPENSION CORD TIER BASIC METABOLIC PANEL Routine 10/11/2022 3:15 AM SUSPENSION CORD TIER documented in this encounter Results * (ABNORMAL) CBC WITH DIFFERENTIAL (10/11/2022 3:15 AM SUSPENSION CORD TIER) Pathologist [facility] WBC 7.2 4.5 - 10.5 K/uL 10/11/2022 6:21 AM SUSPENSION CORD TIER [facility] RBC 3.11(L) 4.50 - 5.40 M/uL 10/11/2022 6:21 AM [facility] LAB[facility] HEMOGLOBIN 9.5(L) 13.6 - 16.5 g/dL 10/11/2022 6:21 AM [facility] LAB[facility] HEMATOCRIT 29.2(L) 40.0 - 48.0 % 10/11/2022 6:21 AM [facility] LABORATORY SERVICES [facility] MCV 93.7 82.0 - 99.0 fL 10/11/2022 6:21 AM SUSPENSION CORD TIER [facility] SERVICES [facility] MCH 30.5 27.8 - 34.5 pg 10/11/2022 6:21 AM SUSPENSION CORD TIER [facility] SERVICES [facility] MCHC 32.5 32.5 - 35.5 g/dL 10/11/2022 6:21 AM [facility] SERVICES [facility] RDW 18.2(H) 11.5 - 14.5 % 10/11/2022 6:21 AM SUSPENSION CORD TIER [facility] SERVICES [facility] PLATELETS 188 160 - 420 K/uL 10/11/2022 6:21 AM SUSPENSION CORD TIER [facility] SERVICES [facility] MPV 9.3 8.7 - 12.7 fL 10/11/2022 6:21 AM SUSPENSION CORD TIER [facility] SERVICES [facility] NEUTROPHILS 64 % 10/11/2022 6:21 AM SUSPENSION CORD TIER [facility] SERVICES [facility] LYMPHOCYTES 23 % 10/11/2022 6:21 AM SUSPENSION CORD TIER [facility] SERVICES [facility] MONOCYTES 6 % 10/11/2022 6:21 AM SUSPENSION CORD TIER [facility] SERVICES [facility] EOSINOPHILS 7 % 10/11/2022 6:21 AM SUSPENSION CORD TIER [facility] SERVICES [facility] BASOPHILS 1 % 10/11/2022 6:21 AM SUSPENSION CORD TIER [facility] SERVICES [facility] NEUTROPHIL ABSOLUTE 4.60 1.90 - 7.00 K/uL 10/11/2022 6:21 AM SUSPENSION CORD TIER [facility] LYMPHOCYTE ABSOLUTE 1.70 0.70 - 4.50 K/uL 10/11/2022 6:21 AM SUSPENSION CORD TIER [facility] SERVICES [facility] MONOCYTE ABSOLUTE 0.40 0.10 - 1.30 K/uL 10/11/2022 6:21 AM SUSPENSION CORD TIER [facility] EOSINOPHIL ABSOLUTE 0.50 0.00 - 0.70 K/uL 10/11/2022 6:[address] [facility] BASOPHILS ABSOLUTE 0.00 0.00 - 0.20 K/uL 10/11/2022 6:[address] [facility] Blood 10/11/2022 3:15 AM SUSPENSION CORD TIER 10/11/2022 5:47 AM SUSPENSION CORD TIER Franco Apple MD HEMATOLOGY ORDERABLES Final Resu lt [facility] CLIA# [id number] [address] [place] [address] * (ABNORMAL) BASIC METABOLIC PANEL (10/11/2022 3:15 AM SUSPENSION CORD TIER) SODIUM 139 136 - 145 mmol/L 10/11/2022 6:[address] [facility] POTASSIUM 3.9 3.4 - 5.1 mmol/L 10/11/2022 6:[address] [facility] CHLORIDE 90(L) 98 - 107 mmol/L 10/11/2022 6:[address] [facility] CO2 38(H) 22 - 29 mmol/L 10/11/2022 6:[address] [facility] CALCIUM 10.0 8.6 - 10.4 mg/dL 10/11/2022 6:[address] [facility] BUN 64(H) 6 - 20 mg/dL 10/11/2022 6:[address] [facility] CREATININE 0.82 0.67 - 1.17 mg/dL 10/11/2022 6:[address] [facility] Comment:The GFR result is no t clinically significant on patients <18 or >70 years of age. GLUCOSE 167(H) 74 - 99 mg/dL 10/11/2022 6:[address] [facility] GFR >60 mL/min/1.7 3 sq meter 10/11/2022 6:46 AM SUSPENSION CORD TIER [facility] Comment:eGFR calculated with 2020 CKD-EPI equation. Vegetarian diet, extremely high or low muscle mass, and may affect results. Cystatin C with Glomerular Filtration Rate is a suitable alternative for these patients. ANION GAP 11 8 - 16 mmol/L 10/11/2022 6:46 AM SUSPENSION CORD TIER [facility] Blood 10/11/2022 3:15 AM SUSPENSION CORD TIER 10/11/2022 5:47 AM SUSPENSION CORD TIER us Franco Apple MD CHEMISTRY ORDERABLES Final Resul t [facility] CLIA# [id number] [id number] [place] [address] documented in this encounter Visit Diagnoses Not on filedocumented in this encounter Additional Health Concerns Infection Onset Date Last Indicated Resolved Time MRSA Comment:09/2022 sputum Resolved per Type and Duration of Precautions Recommended for Selected Infections and Conditions document 2023 update 09/16/2022 09/28/202206/04 4:18 PM CDT documented as of this encounter
--- OUTSIDE RECORDS SUMMARY | 2025-01-05 04:01 | XMS_ITS | Clinical Summary ---
Author Organization [facility] Address [address] [place] [address] Care Team Providers Care Academic Affairs Vice President Name Role Phone Unavailable Primary Care Provider Unavailabl e Allergies No known active allergies Social History Tobacco Use Types Packs/Day Years Used Date Smoking Tobacco: Never Assessed Sex and Gender Information Value Date Recorded Sex Assigned at Not on file Legal Sex Male 2:27 PM ASSOCIATE SALES MANAGER Gender Identity Not on file Sexual Orientation Not on file Plan of Treatment Health Maintenance Due Date Last Done Comments DIABETES ANNUAL FOOT EXAM 1967 DIABETES ANNUAL RETINAL EXAM 1967 DIABETES MICROALBUMIN ANNUAL SCREEN 1967 COLORECTAL SCREENING 1994 Colorectal Cancer Screening 1994 FIT-DNA Q 3 years 1994 FIT/FOBT Q 1 year 1994 Flex Sig/CT Colonography Q 5 years 1994 ZOSTER VACCINE (2 of 3) 03/17/2017 01/20/2017, 02/23 DTAP/TDAP/TD VACCINES (2 - T d or Tdap) 01/26/2023 01/26/2013 LDL CHOLESTEROL ANNUAL 12/16/2023 12/15/2022 INFLUENZA VACCINE (#1) 2024 , 07/29/2022, 09/15/2019 RSV VACCINE (60+ or ) (1 - 1-dose 75+ series) 2024 DIABETES HBA1C Q 6 MONTHS 04/13/20252024, 07/03/2024, 04/05/2024, Additional history exists PNEUMOCOCCAL VACCINE 50+ YEARS Completed 09/15/2019 , 02/25/2017 Procedures Procedure Name Priority Date/Time Associated Diagnosis Comments LIPID PANEL Routine 12/15/2022 1:20 AM CDT from Last 3 Months or Most Recently Relevant to Health Maintenance Results * (ABNORMAL) LIPID PANEL (12/15/2022 1:20 AM CDT) CHOLESTEROL 115 <200 mg/dL 12/15/2022 6:18 AM CDT [facility] TRIGLYCERIDE 213(H) <150 mg/dL 12/15/2022 6:18 AM CDT [facility] HDL 34(L) 40 - 59 mg/dL 12/15/2022 6:18 AM CDT [facility] LDL CALCULATED 38 <100 mg/dL 12/15/2022 6:18 AM CDT [facility] NON-HDL CHOLESTEROL 81 <130 mg/dL 12/15/2022 6:18 AM CDT [facility] Blood Collection / Unknown 12/15/2022 1:20 AM CDT 12/15/2022 4:43 AM CDT Narrative [facility] - 12/15/2022 6:18 AM CDT TOTAL CHOLESTEROL [...] ORDERABLES Final Resul t [facility] [employer] [facility] CLIA# [id number] [place] [address] from Last 3 Months or Most Recently Relevant to Health Maintenance Insurance [address] [place] [address] [place] [address]
--- OUTSIDE RECORDS SUMMARY | 2025-01-05 04:01 | XMS_ITS | Encounter Summary ---
Author Organization [facility] Address [address] [place] [address] Care Team Providers Care Social Media Marketing Specialist Name Role Phone Unavailable Primary Care Provider Unavailabl e Encounter Details Date Type Department Care Team (Late st Contact Info) Description 10/02/2022 Lab Requisition [facility] Laboratory Services [address] [place] [address] [place] [id number] [facility] [place] [address] Social History Tobacco Use Types Packs/Day Years Used Date Smoking Tobacco: Never Assessed Sex and Gender Information Value Date Recorded Sex Assigned at Not on file Legal Sex Male 2:27 PM [employer]IGH [employer] Gender Identity Not on file Sexual Orientation Not on file COVID-19 Exposure Response Date Recorded In the last 10 days, have yo u been in contact with someone who was confirmed or suspected to have Coronavirus/COVID-19? Unable to assess 10/04/2022 4:56 PM [employer] T[employer]OR documented as of this encounter Plan of Treatment Not on file documented as of this encounter Procedures Procedure Name Priority Date/Time Associated Diagnosis Comments CBC WITH DIFFERENTIAL Routine 10/02/2022 3:30 AM H[employer] T[employer]OR HEPATIC FUNCTION PANEL Routine 10/02/2022 3:30 AM H[employer] TUTOR BASIC METABOLIC PANEL Routine 10/02/2022 3:30 AM H[employer] TUTOR documented in this encounter Results * (ABNORMAL) HEPATIC FUNCTION PANEL (10/02/2022 3:30 AM HIGH [employer] TUTOR) TOTAL PROTEIN 7.3 6.3 - 8.7 g/dL 10/02/2022 6:23 AM [facility] ALBUMIN 2.7(L) 3.5 - 5.2 g/dL 10/02/2022 6:23 AM [facility] BILIRUBIN TOTAL 0.6 0.2 - 1.1 mg/dL 10/02/2022 6:23 AM [facility] BILIRUBIN DIRECT <0.2 0.0 - 0.3 mg/dL 10/02/2022 6:23 AM [facility] ALKALINE PHOSPHATASE 218(H) 40 - 150 U/L 10/02/2022 6:23 AM [facility] AST 32 0 - 41 U/L 10/02/2022 6:23 AM [facility] ALT 16 0 - 41 U/L 10/02/2022 6:23 AM [facility] Blood 10/02/2022 3:30 AM [employer] T[employer]OR 10/02/2022 5:33 AM [employer] T[employer]OR us Franco Apple MD CHEMISTRY ORDERABLES Final Resul t [facility] CLND# [id number] [id number] [place] [address] * (ABNORMAL) CBC WITH DIFFERENTIAL (10/02/2022 3:30 AM H[employer] TUTOR) WBC 7.8 4.5 - 10.5 K/uL 10/02/2022 5:52 AM [facility] RBC 2.78(L) 4.50 - 5.40 M/uL 10/02/2022 5:52 AM [facility] HEMOGLOBIN 8.6(L) 13.6 - 16.5 g/dL 10/02/2022 5:52 AM [facility] HEMATOCRIT 25.6(L) 40.0 - 48.0 % 10/02/2022 5:52 AM [facility] MCV 91.9 82.0 - 99.0 fL 10/02/2022 5:52 AM [employer]OR [facility] MCH 30.9 27.8 - 34.5 pg 10/02/2022 5:52 AM [employer]OR [facility] MCHC 33.6 32.5 - 35.5 g/dL 10/02/2022 5:52 AM H[employer]OR [facility] RDW 18.6(H) 11.5 - 14.5 % 10/02/2022 5:52 AM H[employer] T[employer]OR [facility] PLATELETS 208 160 - 420 K/uL 10/02/2022 5:52 AM [employer]OR [facility] MPV 9.3 8.7 - 12.7 fL 10/02/2022 5:52 AM [employer]OR [facility] NEUTROPHILS 62 % 10/02/2022 5:52 AM [employer]OR [facility] LYMPHOCYTES 24 % 10/02/2022 5:52 AM [employer]OR [facility] MONOCYTES 7 % 10/02/2022 5:52 AM H[employer]OR [facility] EOSINOPHILS 8 % 10/02/2022 5:52 AM H[employer]OR [facility] BASOPHILS 1 % 10/02/2022 5:52 AM H[employer]OR [facility] NEUTROPHIL ABSOLUTE 4.80 1.90 - 7.00 K/uL 10/02/2022 5:52 AM [employer]OR [facility] LYMPHOCYTE ABSOLUTE 1.80 0.70 - 4.50 K/uL 10/02/2022 5:52 AM [employer]OR [facility] MONOCYTE ABSOLUTE 0.50 0.10 - 1.30 K/uL 10/02/2022 5:52 AM [employer]OR [facility] EOSINOPHIL ABSOLUTE 0.60 0.00 - 0.70 K/uL 10/02/2022 5:52 AM [employer]OR [facility] BASOPHILS ABSOLUTE 0.00 0.00 - 0.20 K/uL 10/02/2022 5:52 AM H[employer]OR [facility] Blood 10/02/2022 3:30 AM H[employer] TUTOR 10/02/2022 5:33 AM [employer] T[employer]OR us Franco Apple MD HEMATOLOGY ORDERABLES Final Resu lt [facility] PHU# [id number] [address] [place] [address] * (ABNORMAL) BASIC METABOLIC PANEL (10/02/2022 3:30 AM H[employer] TUTOR) SODIUM 142 136 - 145 mmol/L 10/02/2022 6:23 AM [facility] POTASSIUM 3.6 3.4 - 5.1 mmol/L 10/02/2022 6:23 AM [facility] CHLORIDE 96(L) 98 - 107 mmol/L 10/02/2022 6:23 AM [facility] CO2 38(H) 22 - 29 mmol/L 10/02/2022 6:23 AM [facility] CALCIUM 9.5 8.6 - 10.4 mg/dL 10/02/2022 6:23 AM [facility] BUN 55(H) 6 - 20 mg/dL 10/02/2022 6:23 AM [facility] CREATININE 0.71 0.67 - 1.17 mg/dL 10/02/2022 6:23 AM [facility] Comment:The GFR result is no t clinically significant on patients <18 or >70 years of age. GLUCOSE 172(H) 74 - 99 mg/dL 10/02/2022 6:23 AM [facility] GFR >60 mL/min/1.7 3 sq meter 10/02/2022 6:23 AM [facility] Comment:eGFR calculated with 2020 CKD-EPI equation. Vegetarian diet, extremely high or low muscle mass, and may affect results. Cystatin C with Glomerular Filtration Rate is a suitable alternative for these patients. ANION GAP 8 8 - 16 mmol/L 10/02/2022 6:23 AM [facility] Blood 10/02/2022 3:30 AM [employer] T[employer]OR 10/02/2022 5:33 AM [employer] T[employer]OR us Franco Apple MD CHEMISTRY ORDERABLES Final Resul t [facility]# [id number] [address] [place] [address] documented in this encounter Visit Diagnoses Not on filedocumented in this encounter Additional Health Concerns Infection Onset Date Last Indicated Resolved Time MRSA Comment:09/2022 sputum Resolved per Type and Duration of Precautions Recommended for Selected Infections and Conditions document 2023 update 09/16/2022 09/28/202206/04 4:18 PM CDT documented as of this encounter
--- OUTSIDE RECORDS SUMMARY | 2025-01-05 04:02 | XMS_ITS | Encounter Summary ---
Author Organization [facility] Address 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 Name Role Phone Unavailable Primary Care Provider Unavailabl e Encounter Details Date Type Department Care Team (Late st Contact Info) Description 09/08/2022 Lab Requisition [facility] Laboratory Services [address] [place] [address] [place] [address] [place] [address] Social History Tobacco Use Types Packs/Day Years Used Date Smoking Tobacco: Never Assessed Sex and Gender Information Value Date Recorded Sex Assigned at Not on file Legal Sex Male 2:27 PM ASSEMBLER CATERPILLAR SPIDER Gender Identity Not on file Sexual Orientation Not on file COVID-19 Exposure Response Date Recorded In the last 10 days, have yo u been in contact with someone who was confirmed or suspected to have Coronavirus/COVID-19? Unable to assess 09/04/2022 2:29 PM ASSEMBLER CATERPILLAR SPIDER documented as of this encounter Plan of Treatment Not on file documented as of this encounter Procedures Procedure Name Priority Date/Time Associated Diagnosis Comments CBC WITH DIFFERENTIAL Routine 09/08/2022 4:00 AM ASSEMBLER CATERPILLAR SPIDER BASIC METABOLIC PANEL Routine 09/08/2022 4:00 AM ASSEMBLER CATERPILLAR SPIDER documented in this encounter Results * (ABNORMAL) CBC WITH DIFFERENTIAL (09/08/2022 4:00 AM ASSEMBLER CATERPILLAR SPIDER) WBC 8.1 4.5 - 10.5 K/uL 09/08/2022 8:04 AM ASSEMBLER CATERPILLAR SPIDER [facility] RBC 2.70(L) 4.50 - 5.40 M/uL 09/08/2022 8:04 AM [facility] HEMOGLOBIN 7.8(L) 13.6 - 16.5 g/dL 09/08/2022 8:04 AM [facility] HEMATOCRIT 24.1(L) 40.0 - 48.0 % 09/08/2022 8:04 AM [facility] MCV 89.5 82.0 - 99.0 fL 09/08/2022 8:04 AM [facility] MCH 29.0 27.8 - 34.5 pg 09/08/2022 8:04 AM [facility] MCHC 32.4(L) 32.5 - 35.5 g/dL 09/08/2022 8:04 AM [facility] RDW 16.9(H) 11.5 - 14.5 % 09/08/2022 8:04 AM [facility] PLATELETS 280 160 - 420 K/uL 09/08/2022 8:04 AM [facility] MPV 9.0 8.7 - 12.7 fL 09/08/2022 8:04 AM ASSEMBLER CATERPILLAR SPIDER [facility] NEUTROPHILS 60 % 09/08/2022 8:04 AM ASSEMBLER CATERPILLAR SPIDER [facility] LYMPHOCYTES 23 % 09/08/2022 8:04 AM ASSEMBLER CATERPILLAR SPIDER [facility] MONOCYTES 6 % 09/08/2022 8:04 AM ASSEMBLER CATERPILLAR SPIDER [facility] EOSINOPHILS 10 % 09/08/2022 8:04 AM ASSEMBLER CATERPILLAR SPIDER [facility] BASOPHILS 1 % 09/08/2022 8:04 AM ASSEMBLER CATERPILLAR SPIDER [facility] NEUTROPHIL ABSOLUTE 4.80 1.90 - 7.00 K/uL 09/08/2022 8:04 AM [facility] LYMPHOCYTE ABSOLUTE 1.80 0.70 - 4.50 K/uL 09/08/2022 8:04 AM [facility] MONOCYTE ABSOLUTE 0.50 0.10 - 1.30 K/uL 09/08/2022 8:04 AM [facility] EOSINOPHIL ABSOLUTE 0.80(H) 0.00 - 0.70 K/uL 09/08/2022 8:04 AM [facility] BASOPHILS ABSOLUTE 0.10 0.00 - 0.20 K/uL 09/08/2022 8:04 AM [facility] Blood 09/08/2022 4:00 AM ASSEMBLER CATERPILLAR SPIDER 09/08/2022 7:53 AM ASSEMBLER CATERPILLAR SPIDER Franco Apple MD HEMATOLOGY ORDERABLES Final Resu lt [facility] CLIA# [id number] [place] [address] * (ABNORMAL) BASIC METABOLIC PANEL (09/08/2022 4:00 AM ASSEMBLER CATERPILLAR SPIDER) SODIUM 145 136 - 145 mmol/L 09/08/2022 8:17 AM [facility] POTASSIUM 3.8 3.4 - 5.1 mmol/L 09/08/2022 8:17 AM [facility] CHLORIDE 98 98 - 107 mmol/L 09/08/2022 8:17 AM [facility] CO2 38(H) 22 - 29 mmol/L 09/08/2022 8:17 AM [facility] CALCIUM 9.2 8.6 - 10.4 mg/dL 09/08/2022 8:17 AM [facility] BUN 28(H) 6 - 20 mg/dL 09/08/2022 8:17 AM [facility] CREATININE 0.72 0.67 - 1.17 mg/dL 09/08/2022 8:17 AM [facility] Comment:The GFR result is no t clinically significant on patients <18 or >70 years of age. GLUCOSE 315(H) 74 - 99 mg/dL 09/08/2022 8:17 AM [facility] GFR >60 mL/min/1.7 3 sq meter 09/08/2022 8:17 AM ASSEMBLER CATERPILLAR SPIDER [facility] Comment:eGFR calculated with 2020 CKD-EPI equation. Vegetarian diet, extremely high or low muscle mass, and may affect results. Cystatin C with Glomerular Filtration Rate is a suitable alternative for these patients. ANION GAP 9 8 - 16 mmol/L 09/08/2022 8:17 AM ASSEMBLER CATERPILLAR SPIDER [facility] Blood 09/08/2022 4:00 AM ASSEMBLER CATERPILLAR SPIDER 09/08/2022 7:53 AM ASSEMBLER CATERPILLAR SPIDER us Franco Apple MD CHEMISTRY ORDERABLES Final Resul t [facility] CLIA# [id number] [address] [place] [address] documented in this encounter Visit Diagnoses Not on filedocumented in this encounter Additional Health Concerns Infection Onset Date Last Indicated Resolved Time MRSA Comment:09/2022 sputum Resolved per Type and Duration of Precautions Recommended for Selected Infections and Conditions document 2023 update 09/16/2022 09/28/202206/04 4:18 PM CDT documented as of this encounter
--- NOTE | 2025-01-05 04:04 | PC.NURSE ---
RT at bedside
--- NOTE | 2025-01-05 04:16 | ED_ITS ---
HPI - SOB/Dyspnea General Chief Complaint: Shortness of Breath/Dyspnea Stated Complaint: sob/trach on portable vent Time Seen by Provider: 01/05/25 03:54 History of Present Illness HPI Narrative: 74-year-old male with history of quadriplegia, trach and vent dependent, peg tube dependent, chronic indwelling Davies. Patient normally gets his care at the [facility] and [facility]. Patient was transported to [facility] as [place] declined transport to their facility and family did not want to go to [place] today. Patient apparently has been having some altered mental status although patient is nonverbal he does nod yes or no to questions. EMS to transport the patient is very familiar with the patient and states that he is at his baseline mentation and has not had any changes to them. Patient himself is not any acute distress. Family reported that they suctioned off a small amount of mucus versus blood clot in his trach but no persistent suctioning was needed. Patient himself is coughing infrequently and not any distress upon transport. Patient is quadriplegic but otherwise appears well taken care of and has clean gauze around his trach and otherwise well put together. When inquired further the family was concerned that patient himself has been refusing his morning medications and that they took this is a sign of altered mentation and were thinking that he might be developing dementia. Related Data Allergies Allergy/AdvReac Type Severity Reaction Status Date / Time amoxicillin Allergy Unknown Unknown Verified 01/05/25 05:33 ciprofloxacin Allergy Unknown Unknown Verified 01/05/25 05:33 iohexol (From contrast - CT, Allergy Unknown Unknown Verified 01/05/25 05:33 X-RAY) liraglutide Allergy Unknown Unknown Verified 01/05/25 05:33 Penicillins Allergy Unknown Unknown Verified 01/05/25 05:33 Review of Systems 2 Review of Systems: As reviewed above in HPI Exam 2 Narrative: GENERAL: Not in any distress, quadriplegia, trach and vent dependent, morbidly obese HEAD: [Normocephalic, atraumatic.] EYES: [PERRLA and EOMI.] ENT: Nares clear, no rhinorrhea or epistaxis. Mucous membranes moist. NECK: Supple. CHEST: Coarse bibasilar breath sounds but no respiratory distress, trach in line without any mucus or suctioning needed. No blood in the inner cannula or with suctioning. HEART: [Regular rate and rhythm]. No murmur heard. [Normal peripheral pulses.] ABDOMEN: Rotund, nondistended, nontender to palpation, no rigidity or guarding. EXTREMITIES: No peripheral edema SKIN: Warm, dry, no rash. NEURO: Quadriplegic. Nods yes or no to questions appropriately. At baseline mentation. Course Vital Signs Vital signs: Vital Signs Pulse Rate 88 01/05/25 03:55 Respiratory Rate 23 H 01/05/25 03:55 Blood Pressure 141/104 H 01/05/25 03:55 Pulse Oximetry 94 01/05/25 03:55 Oxygen Delivery Trach Collar 01/05/25 03:55 Oxygen Flow Rate 4 01/05/25 03:55 Temperature 36.5 C 01/05/25 05:39 Pulse Rate 63 01/05/25 06:31 Respiratory Rate 16 01/05/25 06:31 Blood Pressure 146/72 H 01/05/25 06:31 Pulse Oximetry 98 01/05/25 06:31 Oxygen Delivery Trach Collar 01/05/25 05:00 Oxygen Flow Rate 4 01/05/25 05:00 MDM - SOB/Dyspnea MDM Narrative Medical decision making narrative: 74-year-old male with history of quadriplegia, trach and vent dependent, peg tube dependent, chronic indwelling Davies. Presents from his home where he is taking care by family members. Concern today was that patient had some coughing and some apparent shortness of breath and that he has been refusing his morning medications more often. Family took this is a sign of potential dementia and will him evaluated for mental status changes. Patient is not any physical or respiratory distress. He is on his portable ventilator at bedside. EMS tells me that they are very familiar with him and transport him frequently to the [place] or [facility]. These transport for refused today by both family and the [facility]. Patient presents to [place] for the 1st time. EMS tells me that patient is at his baseline mentation and acting appropriately nodding yes or no to questions appropriately. Not any distress and he otherwise appears at his baseline health. Patient appears well put together but is quadriplegic, does not have any evidence of neglect and otherwise appears well taking care of. He is coughing infrequently and there is no mucus or blood in the inner cannula or with suctioning by respiratory therapy at bedside. He has a soft nontender nondistended abdomen. He nods yes or no to questions appropriately. Denies any pain. He does have a chronic indwelling Davies as well as a PEG tube. Given the family's concerns for potential shortness of breath verses altered mental status a workup was ordered including blood work such as CBC, BMP, BNP. A chest x-ray was ordered, COVID swabs were obtained, urinalysis ordered with a fresh Davies exchange at bedside. Patient is hemodynamically stable, saturating 94% on his home vent settings through his trach. No tachycardia. Blood pressure within normal limits. CT scan of the head was also ordered. Patient's laboratory studies show renal failure with elevated creatinine, elevated BUN, hyperkalemia. Pneumonia on the x-ray. Negative CT head. Contaminated urine sample but possible infected as well. Patient's paperwork was sent over from the EMS rig and it was reviewed. Patient is comfort measures only, DNR, DNI based on his signed advanced directive. Patient at this time and already received IV access and blood draw. IV antibiotics for his pneumonia were given. I spoke to the family members including his over the phone and relayed patient's presentation here to [facility] rather than the [place] where he normally get his care. She verbalized already knowing that patient is in renal failure with advanced kidney disease and I informed her that this is likely contributing to their concerns for mental status combined with his pneumonia. I informed her that we can treat the PNA given that there are some concerns for his shortness of breath, but no treatments for renal failure, in line with his goals of care being comfort only. He is currently saturating 98% on his home ventilator settings, no tachypnea or respiratory distress is noted. Family felt comfortable with him going back to home for continued comfort care and we will send him home with antibiotics with instructions on administration through PEG tube. ALS ambulance rig with ventilator capabilities was arranged and patient was discharged home at this time. Medical Records Attestation: I reviewed the patient's medical records. Lab Data Attestation: I reviewed the patient's lab results. 01/05/25 05:20 01/05/25 05:20 Labs: Lab Results 01/05/25 01/05/25 Range/Units 04:16 05:20 WBC 8.8 (4.5-10.0) K/mm3 RBC 3.36 L (4.6-6.20) M/mm3 Hgb 10.2 L (14.0-18.0) g/dL Hct 31.7 L (42.0-52.0) % MCV 94.3 (80-100) fl MCH 30.4 (26-34) pg MCHC 32.2 (32-36) g/dl RDW 16.4 H (11.5-14.5) % Plt Count 183 (150-375) k/mm3 MPV 11.2 H (7.4-10.4) fl Immature Gran % (Auto) 1.4 H (0-0.5) % Neut % (Auto) 80.4 H (45.5-73.1) % Lymph % (Auto) 9.6 L (18.3-44.2) % Benzie % (Auto) 7.3 (2.6-8.5) % Eos % (Auto) 1.0 (0-4.4) % Baso % (Auto) 0.3 (0.2-1.2) % Lymph # (Auto) 0.84 L (0.9-3.2) K/mm3 Benzie # (Auto) 0.6 (0.1-0.6) K/mm3 Eos # (Auto) 0.1 (0-0.3) K/mm3 Baso # (Auto) 0.0 (0.0-0.1) K/mm3 Abs Immat Gran (auto) 0.12 H (0.00-0.031) K/mm3 Absolute Neuts (auto) 7.1 H (1.3-6.7) K/mm3 Absolute Nucleated RBC 0.000 (0.0-0.012) K/mm3 Nucleated RBC % 0.0 (0.0-0.2) % Sodium 125 L (137-145) mmol/L Potassium 6.2 H* (3.4-5.0) mmol/L Chloride 87 L (98-107) mmol/L Carbon Dioxide 26 (22-30) mmol/L Anion Gap 12 (4-12) mmol/L BUN 111 H (9-20) mg/dL Creatinine 2.82 H (0.7-1.3) mg/dL Estim Creat Clear Calc 29 ml/min Estimated GFR 22 L (59 - ) Glucose 162 H (65-110) mg/dL Calcium 9.1 (8.4-10.2) mg/dL Magnesium 2.8 H (1.6-2.3) mg/dL NT-Pro-B Natriuret Pep > 57509 H (19.9-100) pg/mL Urine Color Yellow (Yellow) Urine Appearance Turbid H (Clear) Urine pH 5.5 (5.0-9.0) Ur Specific Syl[place] 1.011 (1.001-1.035) Urine Protein 3+ H (Negative) mg/dL Urine Glucose (UA) Negative (Negative) mg/dL Urine Ketones Negative (Negative) mg/dL Ur Blood (Man) 3+ H (Negative) Urine Nitrate Negative (Negative) Urine Bilirubin Negative (Negative) Urine Urobilinogen 0.2 (<2.0) mg/dL Leukocyte Esterase Rfl 3+ H (Negative) SULY/UL Urine RBC >100 H (0-2) /hpf Urine WBC >100 H (0-3) /hpf Ur Squamous Epith Cells None seen (Few) /hpf Urine Bacteria 1+ H /hpf Urine Casts >20 Hyaline Casts Present (None) /lpf Urine Yeast (Budding) Present H (None) /hpf Influenza A (RT-PCR) Negative (Negative) Influenza B (RT-PCR) Negative (Negative) RSV (RT-PCR) Negative (Negative) SARS-CoV-2 RNA (RT-PCR) Negative (Negative) Imaging Data Attestation: I personally reviewed and interpreted this imaging study as follows: My impression: Impressions Head CT 01/05/25 06:17 Impression: No intracranial hemorrhage, mass, or acute infarct. Atrophy and chronic white matter changes, as above. Chest X-Ray 01/05/25 06:20 Impression: Patchy left basilar consolidation suspicious for pneumonia versus possibly atelectasis. Small left pleural effusion. Minimal nonspecific haziness right lung base. Tracheostomy cannula. Discharge Plan Discharge Clinical Impression: Comfort measures only status, Renal failure, Dependence on home ventilator, Tracheostomy tube present, Pneumonia Patient Disposition: Home, Self-Care Condition: Stable Instructions: Antibiotic Form, Chronic Kidney Disease (ED), Pneumonia (ED) Additional Instructions: Mr. Garvin is comfort measures only based on his signed advance directive. Patient does have pneumonia as well as signs of chronic kidney disease with renal failure which is not new per family. He is comfortable at this time and has no signs of airway obstruction or airway compromise. Breathing comfortably and his ventilator is working appropriately. Given patient's advanced directive we will proceed with comfort measure care and treat his infection to make sure that his breathing is comfortable but will not pursue any advanced treatment of his kidney disease as that would cause undue harm and suffering. If patient cannot achieve comfort at home he can be transported to a hospital. We will send 2 different antibiotics on paper prescription. Take doxycycline 100 mg twice daily crushed and administered through a PEG tube for 7 days. Take azithromycin 500 mg daily crushed up through PEG tube. Patient Language: Irish Prescriptions: New doxycycline hyclate 100 mg capsule 100 mg PO BID 7 Days Qty: 14 0RF azithromycin [Zithromax TRI-DELMI] 500 mg tablet 500 mg PO DAILY 5 Days Qty: 5 0RF Follow-up/Referrals: UNKNOWN,DOCTOR [Primary Care Provider] - Time of Disposition: 06:36
--- NOTE | 2025-01-05 04:26 | PC.NURSE ---
Vu catheter in place at patient's arrival was removed by this RN and replaced with new 16FR vu. Date wrote on back of catheter bag. Urine sample sent off of new vu placement.
[2025-01-05 04:40] LABS: Add Urine Microscopic? YES; Appearance Urine Turbid (Clear); Bacteria Urine 1+ /hpf; Bilirubin Urine Negative (Negative); Blood Urine 3+ (Negative); Budding Yeast Urine Present /hpf; Color Urine Yellow (Yellow); Glucose Urine UA Negative (Negative); Hyaline Casts Urine Present /lpf; Ketones Urine Negative (Negative); Leukocyte Esterase Ur 3+ LEU/UL (Negative); Nitrate Urine Negative (Negative); Non Pathogenic Casts >20; Protein Urine 3+ mg/dL (Negative); RBC Urine >100 /hpf (0-2); Specific Grav Ur 1.011 (1.001-1.035); Squamous Epithelial Cell Urine None Seen /hpf (Few); Urobilinogen Urine 0.2 mg/dL (<2.0); WBC Urine >100 /hpf (0-3); pH Urine 5.5 (5.0-9.0)
--- NOTE | 2025-01-05 04:50 | PC.NURSE ---
at bedside placing US IV
[2025-01-05 04:59] LABS: Influenza A QL RT-PCR Negative (Negative); Influenza B QL RT-PCR Negative (Negative); RSV RNA, RT-PCR Negative (Negative); SARS-CoV-2 RNA PCR Negative (Negative)
[2025-01-05 05:31] LABS: Basophils Percent Auto 0.3 % (0.2-1.2); Eosinophils Absolute Auto 0.1 K/mm3 (0-0.3); Hematocrit 31.7 % (42.0-52.0); Hemoglobin 10.2 g/dL (14.0-18.0); Immature Granulocyte Absolute 0.12 K/mm3 (0.00-0.031); Immature Granulocyte Percent A 1.4 % (0-0.5); Lymphocytes Absolute Auto 0.84 K/mm3 (0.9-3.2); Lymphocytes Percent Auto 9.6 % (18.3-44.2); Mean Corpuscular HGB Conc 32.2 g/dl (32-36); Mean Corpuscular Hemoglobin 30.4 pg (26-34); Mean Corpuscular Volume 94.3 fl (80-100); Mean Platelet Volume 11.2 fl (7.4-10.4); Monocytes Absolute Auto 0.6 K/mm3 (0.1-0.6); Monocytes Percent Auto 7.3 % (2.6-8.5); Neutrophils Absolute Auto 7.1 K/mm3 (1.3-6.7); Neutrophils Percent Auto 80.4 % (45.5-73.1); Platelet Count Result 183 k/mm3 (150-375); Red Blood Count 3.36 M/mm3 (4.6-6.20); Red Cell Distribution Width 16.4 % (11.5-14.5); White Blood Count 8.8 K/mm3 (4.5-10.0)
[2025-01-05 05:48] LABS: Anion Gap 12 mmol/L (4-12); Blood Urea Nitrogen 111 mg/dL (9-20); Calcium 9.1 mg/dL (8.4-10.2); Carbon Dioxide 26 mmol/L (22-30); Chloride 87 mmol/L (98-107); Estimated CRCL calculation 29 ml/min; Estimated Glomerular Filt Rate 22; Glucose 162 mg/dL (65-110); Magnesium 2.8 mg/dL (1.6-2.3); Potassium 6.2 mmol/L (3.4-5.0); Sodium 125 mmol/L (137-145)
[2025-01-05 05:49] LABS: NT Pro B Type Natriuretic Pept > 30000 pg/mL (19.9-100)
--- NOTE | 2025-01-05 06:03 | PC.NURSE ---
Home vent setting: A/C TV: 400 PEEP: 6 RR:16
--- NOTE | 2025-01-05 06:11 | PC.NURSE ---
Contacted marlin Adames and provided an update on plan of care.
[2025-01-05] MEDS: AZITHROMYCIN 500 MG/NS 250 ML 500 MG/250 ML BAG 250 MG IVPB (06:20)
== END 2025-01-05 07:30 | disposition home or self-care (01) ==
PROVIDERS: Emergency Provider Student in an Organized Health Care Education/Training Program
DX: J18.9 Pneumonia, unspecified organism (principal); Z93.0 Tracheostomy status; Z99.11 Dependence on respirator [ventilator] status; Z51.5 Encounter for palliative care; Z20.822 Contact with and (suspected) exposure to COVID-19; G82.50 Quadriplegia, unspecified; N18.9 Chronic kidney disease, unspecified; Z66 Do not resuscitate; Z93.1 Gastrostomy status; Z96.0 Presence of urogenital implants; J90 Pleural effusion, not elsewhere classified; I49.1 Atrial premature depolarization; R94.31 Abnormal electrocardiogram [ECG] [EKG]; I44.0 Atrioventricular block, first degree
CPT/HCPCS: 36415; 70450; 71045; 80048; 81001; 83735; 83880; 85025; 87086; 87637; 93005; 96365; 96367; 99284; J0456; J0696